=== PATIENT | male | born 1975 | race Caucasian/White ===

== ENCOUNTER 2017-12-12 19:18 | Emergency (ER) | payer SELFPAY ==
[2017-12-12 19:19] VITALS: BP 137/95; PULSE 87; RESP 16; TEMP 37.4; O2SAT 97; BMI 24.3
--- NOTE | 2017-12-12 19:55 | ED.VISSUMM ---
- ER Visit Summary Date of Service: 12/12/17 Chief Complaint: Bilateral eyes burning after welding History of Present Illness: The patient is a 42 M history of rheumatoid arthritis. No eye history. No eye surgery. He supposed to wear glasses but does not. Today he was welding a trailer at home said his she will came off multiple times. Several hours later he developed burning in both eyes. No foreign body. No trauma. He was not grinding. Denies any visual change. Says his eyes are burning and they are watering. No discharge. Physical Examination: Well-appearing middle-age male. Vital signs stable afebrile. HEENT exam pupils round reactive light. Bilateral eyes are injected. Watering. No discharge. No swelling. No preauricular lymphadenopathy. He can open and close his eyes. He has obvious photophobia. Upper and lower lids are unremarkable. No signs of trauma. Slight limp examination performed. Tetracaine was instilled in both eyes and gave him significant relief very quickly. Slit-lamp examination performed no signs of trauma or foreign body. Pupils are round and reactive to light bilaterally. External motions are intact. No facial swelling or redness. Lungs clear laterally. Heart regular rhythm no murmur. Otherwise exam unremarkable. There are no nerve palsies to his eyes. Test Results: None Emergency Department Course and Treatment: Tetracaine was instilled in both eyes. Gave him significant relief. The lab examination was performed. Exam and history consistent with bilateral ultraviolet keratitis. Or flash burn. Treatment Plan: Vision written for [place] for pain 14 no refill. Given tetracaine to use for only the next 24 hours for the pain. He was instructed to stop using it at this time tomorrow because of it retarding healing. Follow-up with auto design checker as needed. Disposition: Discharge Impression: Bilateral eye pain secondary to ultraviolet keratitis This note was generated with [employer] dictation software. It may contain incorrect words, spelling, and punctuation that were not noted in review of the chart prior to signing ED Disposition - Plan for ED Patient: Chief Complaint: Eye Problem Referrals: Carl Alonso III, MD [Primary Care Provider] -
--- NOTE | 2017-12-12 19:58 | ED.DCSUM_ITS ---
- ER Visit Summary Date of Service: 12/12/17 Chief Complaint: Bilateral eyes burning after welding History of Present Illness: The patient is a 42 M history of rheumatoid arthritis. No eye history. No eye surgery. He supposed to wear glasses but does not. Today he was welding a trailer at home said his she will came off multiple times. Several hours later he developed burning in both eyes. No foreign body. No trauma. He was not grinding. Denies any visual change. Says his eyes are burning and they are watering. No discharge. Physical Examination: Well-appearing middle-age male. Vital signs stable afebrile. HEENT exam pupils round reactive light. Bilateral eyes are injected. Watering. No discharge. No swelling. No preauricular lymphadenopathy. He can open and close his eyes. He has obvious photophobia. Upper and lower lids are unremarkable. No signs of trauma. Slight limp examination performed. Tetracaine was instilled in both eyes and gave him significant relief very quickly. Slit-lamp examination performed no signs of trauma or foreign body. Pupils are round and reactive to light bilaterally. External motions are intact. No facial swelling or redness. Lungs clear laterally. Heart regular rhythm no murmur. Otherwise exam unremarkable. There are no nerve palsies to his eyes. Test Results: None Emergency Department Course and Treatment: Tetracaine was instilled in both eyes. Gave him significant relief. The lab examination was performed. Exam and history consistent with bilateral ultraviolet keratitis. Or flash burn. Treatment Plan: Vision written for [place] for pain 14 no refill. Given tetracaine to use for only the next 24 hours for the pain. He was instructed to stop using it at this time tomorrow because of it retarding healing. Follow- up with labor relations director as needed. Disposition: Discharge Impression: Bilateral eye pain secondary to ultraviolet keratitis This note was generated with [employer] dictation software. It may contain incorrect words, spelling, and punctuation that were not noted in review of the chart prior to signing ED Disposition - Plan for ED Patient: Chief Complaint: Eye Problem Referrals: Carl Alonso III, MD [Primary Care Provider] -
--- NOTE | 2017-12-12 20:00 | DCINST.ED_ITS ---
ED Disposition - Plan for ED Patient: Disposition: Home or Assisted Living Chief Complaint: Eye Problem Instructions: ED Keratitis UV Prescriptions: Hydrocodone/Acetaminophen [[place] 7.5-325 Tablet] 1 ea PO Q4H PRN PRN #14 tab PRN Reason: Pain Referrals: Carl Alonso III, MD [Primary Care Provider] - Quan Merritt MD [STAFF PHYSICIAN] - 1-2 Days if not improving Additional Instructions: Use eyedrops in the next 24 hours to help decrease the burning. At this time the more stop using the drops. Cool compresses to your eyes to help decrease the pain. Motrin and limited [place] for pain. Sunglasses to prevent glare and help decrease the pain. Do not rub your eyes. Follow-up with the [employer] operations intelligence officer if not improving or return to ER if worse. This should progressively get better over the next 24-48 hours.
[2017-12-12] MEDS: Tetracaine 0.5% Ophthalmic Bottle 1 DRP EACH EYE (20:04)
[2017-12-12 20:14] VITALS: BP 134/85; PULSE 85; RESP 16; O2SAT 97
[2017-12-12 20:16] VITALS: BP 134/82; PULSE 85; RESP 16; O2SAT 97
== END 2017-12-12 20:17 | disposition home or self-care (01) ==
LOC: ED 20:06
PROVIDERS: Emergency Provider Emergency Medicine; Family Provider Family Medicine; PCP Family Medicine
DX: H16.8 Other keratitis (principal); M06.9 Rheumatoid arthritis, unspecified; Z72.0 Tobacco use
CPT/HCPCS: 99282

== ENCOUNTER 2018-02-19 10:34 | Emergency (ER) | payer MEDICAID, SELFPAY ==
[2018-02-19 10:35] VITALS: BP 141/92; PULSE 84; RESP 18; TEMP 36.6; O2SAT 100; BMI 21.4
--- NOTE | 2018-02-19 10:54 | ED.VISSUMM ---
- ER Visit Summary Date of Service: 02/19/18 Chief Complaint: [joint pains] History of Present Illness: The patient is a 42 M [that presents with bilateral hand and SI joint pains for several months. He has a history of rheumatoid arthritis since his 20s. He is not currently on any medication. He was previously seen a physician in [place] but now lives in this area and does not follow with any primary physician currently. He has a history of hepatitis C that was treated with interferon and for that reason he was no longer able to take his Embril so he is not currently on any biologic medication either. He describes pain in the joints of his hands and bilateral SI joints in his lower back. No fall or injury. No erythema, warmth, or evidence of joint infection. Vitals are stable. No other complaints.] Physical Examination: [General: The patient appears well and in no apparent distress. Patient is resting comfortably on cart. Skin: Warm, dry, no pallor noted. No rash. Head: Normocephalic, atraumatic Neck: Supple, nontender. ENT: Moist mucus membranes Cardiovascular: Regular Rate and Rhythm, no gallups or rubs Respiratory: Patient is in no distress, no accessory muscle use, lungs are clear to auscultation, no wheezing, rales or rhonchi Musculoskeletal: normal ROM, deformity of the joints of the hand secondary to RA - chronic and unchanged, no tenderness, no swelling. 2+ radial and DP pulses symmetric. No midline tenderness to the back. No erythema, warmth, or evidence of joint infection. All compartments are soft. GI: No tenderness to palpation, no masses appreciated. No rebound, guarding, or rigidity noted. Neurological: A&O, normal strength and sensation. Psychiatric: Cooperative] Test Results: [none] Emergency Department Course and Treatment: [I do not feel patient requires blood work or imaging at this time. He will be treated with Naprosyn and a dose of tramadol. She will be given a prescription for Naprosyn and a short-term prescription of tramadol for breakthrough pain. I spoke with him at length regarding the need for him to follow-up with a established primary provider who then can refer him to a channeler insole if needed. He was instructed to return with any new or worsening symptoms. Patient understands and is agreeable with this plan of care. Patient was discharged home in stable condition.] Treatment Plan: [See above] Disposition: [Discharge home] Impression: [Rheumatoid arthritis, arthralgias] This note was generated with [employer] dictation software. It may contain incorrect words, spelling, and punctuation that were not noted in review of the chart prior to signing ED Disposition - Plan for ED Patient: Disposition: Home or Assisted Living Chief Complaint: Other, Pain/Inj Instructions: What Is Arthritis? Prescriptions: traMADol [Ultram] 50 mg PO Q6H PRN PRN 3 Days #8 tab PRN Reason: Pain Naproxen [Naprosyn] 500 mg PO BID PRN #20 tab Referrals: Carl Alonso III, MD [Primary Care Provider] -
[2018-02-19] MEDS: Naproxen 500 MG Tablet PO (10:59)
[2018-02-19] MEDS: traMADol 50 MG Tablet PO (10:59)
== END 2018-02-19 11:17 | disposition home or self-care (01) ==
LOC: ED 11:06
PROVIDERS: Emergency Provider Emergency Medicine; Family Provider Family Medicine; PCP Family Medicine
DX: M06.9 Rheumatoid arthritis, unspecified (principal); M25.50 Pain in unspecified joint; Z72.0 Tobacco use; Z86.19 Personal history of other infectious and parasitic diseases
CPT/HCPCS: 99281

== ENCOUNTER 2018-02-24 00:42 | Emergency (ER) | payer MEDICAID, SELFPAY ==
[2018-02-24 00:43] VITALS: BP 133/83; PULSE 66; RESP 16; TEMP 36.7; O2SAT 99; BMI 23.3
[2018-02-24] MEDS: Naproxen 500 MG Tablet PO (01:21)
[2018-02-24] MEDS: HYDROcodone Bitartrate/Apap 5/325 Tablet PO (01:21)
--- NOTE | 2018-02-24 01:35 | RAD_ITS ---
STUDY: X-RAY - LEFT HAND, ATTENTION THUMB REASON FOR EXAM: Male, 42 years old. Patient is status post smashed thumb with TECHNIQUE: 3 view(s) of the finger were obtained. COMPARISON: None. FINDINGS: There are no fractures or dislocations. There is soft tissue swelling of the thumb. RAD/Finger(s) Min 2 Views IMPRESSION: Soft tissue swelling of the thumb. No fracture . Electronically Signed: Javier Orta, at 2:18 EDT Tel , Service support ,
--- NOTE | 2018-02-24 01:44 | ED.DCSUM_ITS ---
- ER Visit Summary Date of Service: 02/24/18 Chief Complaint: Left thumb pain History of Present Illness: The patient is a [address] Carl Alonso III. He is right-hand dominant. He hit his left thumb with a hammer at home. Is a sharp pain is 10 out of 10 severity. Is worsened by movement relieved by rest. He denies any paresthesias distally. Physical Examination: Vitals: Stable. Afebrile. General: Well-nourished and well-developed. Head: Normocephalic atraumatic. Neck: Supple, no lymphadenopathy. No JVD. Nontender. Cardiovascular: Regular rate and rhythm. No murmurs. Respiratory: No respiratory distress. Clear to auscultation bilaterally. Abdominal: Soft, nontender, nondistended, normal bowel sounds. No guarding, rebound, or peritoneal signs. Back: Nontender. Extremities: Moderate soft tissue swelling of the distal phalanx. There is approximately 10% subungual hematoma. There is no laceration. Skin: Normal color, no rash. Neurologic: Alert and oriented ?3. Cranial nerves II through XII are intact. Normal strength and sensation. Psych: Normal affect. Test Results: X-ray shows a tuft fracture. Emergency Department Course and Treatment: Patient was treated naproxen and [place]. He is resting comfortably. Treatment Plan: Patient will be discharged naproxen and 3 days of Forest. Instructed to follow-up his primary care physician in 2 weeks if not improving. Disposition: To home in improved and stable condition. Impression: 1. Left thumb tuft fracture. 2. 10% subungual hematoma left thumb. This note was generated with [employer] dictation software. It may contain incorrect words, spelling, and punctuation that were not noted in review of the chart prior to signing ED Disposition - Plan for ED Patient: Disposition: Home or Assisted Living Chief Complaint: Upper Extremity Injury Instructions: ED Fx Finger Closed Prescriptions: Hydrocodone/Acetaminophen [[place] 5-325 Tablet] 1 - 2 each PO 4X/DAY PRN PRN 5 Days #20 tablet PRN Reason: Pain Naproxen [Naprosyn] 500 mg PO BID #14 tablet Referrals: Patricia Queen DO [STAFF PHYSICIAN] - 1 Week if not improving
[2018-02-24 01:56] VITALS: BP 121/79; PULSE 83; RESP 22; O2SAT 98
--- NOTE | 2018-02-24 01:57 | ED.RN ---
THIS NURSE REVIEWED D/C INSTRUCTIONS WITH PT. PT VERBALIZED UNDERSTANDING OF INSTRUCTIONS. PT DENIES FURTHER NEEDS OR QUESTIONS AT THIS TIME. PT AMBULATES FROM ROOM ON OWN WITHOUT ASSISTANCE FROM STAFF
== END 2018-02-24 01:57 | disposition home or self-care (01) ==
LOC: ED 01:01
PROVIDERS: Emergency Provider Emergency Medicine
DX: S62.522A Displaced fracture of distal phalanx of left thumb, initial encounter for closed fracture (principal); S60.112A Contusion of left thumb with damage to nail, initial encounter; M06.9 Rheumatoid arthritis, unspecified; Z72.0 Tobacco use; W22.8XXA Striking against or struck by other objects, initial encounter; Y93.89 Activity, other specified; Y92.009 Unspecified place in unspecified non-institutional (private) residence as the place of occurrence of the external cause; Y99.8 Other external cause status
CPT/HCPCS: 73140; 99283

== ENCOUNTER 2018-04-02 11:08 | Emergency (ER) | payer MEDICAID, SELFPAY ==
[2018-04-02 11:10] VITALS: BP 125/82; PULSE 104; RESP 16; TEMP 36.6; O2SAT 94; BMI 22.1
[2018-04-02 11:52] LABS: Absolute Neutrophil Count 7.1 X10^3/uL (2.0-7.7); Basophil# 0.05 X10^3/uL; Basophil% 0.5 % (0-1); Eosinophil# 0.19 X10^3/uL; Hematocrit 51.2 % (40-54); Hemoglobin 17.6 g/dl (13.0-16.5); Lymphocyte % 16.6 % (19-41); Mean Corp Hgb Conc 34.4 g/gl (32-36); Mean Corpuscular Hgb 30.3 pg (27.0-32.0); Mean Corpuscular Volume 88.3 fL (80-94); Mean Platelet Vol. 8.9 fl (6.2-12.0); Monocyte# 0.65 X10^3/uL; Monocyte% 6.8 % (0-10); Neutrophil # 7.12 X10^3/uL (2.7-7.7); Platelet Count 236 K/mm3 (150-450); RBC Distribution Width CV 14.9 % (11.6-14.6); RBC Distribution Width SD 48.9 fl (35.1-43.9); White Blood Count 9.6 K/mm3 (4.4-11.0)
[2018-04-02] MEDS: Ketorolac 30 MG/ML Syringe IV (11:54)
[2018-04-02 11:59] LABS: POSITIVE COUNT NO; POSITIVE DIFFERENTIAL NO; POSITIVE MORPHOLOGY NO
[2018-04-02 12:02] LABS: Anion Gap 4 (5-15); BUN 6 mg/dL (7-18); BUN/Creat Ratio 6.9 RATIO (10-20); Calcium,Total 8.2 mg/dL (8.5-10.1); Chloride 108 mmol/L (98-107); Creatinine, Serum 0.87 mg/dL (0.70-1.30); EST Glomerular Filtration Rate 101 mL/min (>60); Est Glom Filt Rate - Afr Amer 122 mL/min (>60); Estimated Creatinine Clearance 105.36 ml/min; Glucose 109 mg/dL (74-106); Sodium Level 138 mmol/L (136-145)
[2018-04-02 12:08] LABS: Bacteria 0 SEEN /hpf (None Seen); Mucous, Urine 0 SEEN /hpf (<or=2+); Red Blood Cells-Urine 0 SEEN /hpf (0-5); Squamous Epithelial Cells - UA 0 SEEN /hpf (0-5); White Blood Cells 0 SEEN /hpf (0-5)
[2018-04-02 12:14] LABS: Color, Urine Yellow (Yellow); Glucose, Dipstick Normal (Normal); Ketone-Dipstick Negative (Negative); Leukocyte Esterase-Dipstick Negative /ul (Negative); Nitrite-Dipstick Negative (Negative); Occult Blood-Urine Negative /ul (Negative); Protein-Dipstick Negative (Negative); Urine Bilirubin Dipstick Negative (Negative); Urine Clarity Clear (Clear); Urine Urobilinogen Normal (Normal); Urine pH 6.5 (5.0 - 8.0)
--- NOTE | 2018-04-02 12:48 | ED.VISSUMM ---
- ER Visit Summary Date of Service: 04/02/18 Chief Complaint: Abdominal pain History of Present Illness: The patient is a 42 M who complains of abdominal pain. He states it started a week ago. He describes burning in the suprapubic area just below his umbilicus. It is worse with urination. He does admit to some dysuria. No nausea, vomiting, diarrhea or constipation. No hematuria. He took nothing for it at home. He denies any history of any surgeries Physical Examination: Vital signs reviewed. HEENT exam unremarkable. Heart is regular rate and rhythm without murmurs. Lungs are clear to auscultation. Abdomen is soft with suprapubic tenderness to palpation. Extremities reveal no edema. Skin exam normal. Neurologic exam normal. Test Results: Laboratory studies are normal except for a hemoglobin of 17.6 Emergency Department Course and Treatment: Patient was given Toradol. I do not see any focal reason as to why the patient has pain. I will give him naproxen for home. He will need to follow-up with his Treatment Plan: [] Disposition: Discharge Impression: Abdominal pain This note was generated with [employer] dictation software. It may contain incorrect words, spelling, and punctuation that were not noted in review of the chart prior to signing ED Disposition - Plan for ED Patient: Chief Complaint: Abd Pain Referrals: Brandt Nguyễn MD [Primary Care Provider] -
--- NOTE | 2018-04-02 12:54 | ED.DEP ---
ED Disposition - Plan for ED Patient: Disposition: Home or Assisted Living Chief Complaint: Abd Pain Instructions: ED Abdominal Pain Unkn Cause Prescriptions: Naproxen [Naprosyn] 500 mg PO BID PRN #20 tab Referrals: Brandt Nguyễn MD [Primary Care Provider] -
[2018-04-02 13:16] VITALS: BP 107/73; PULSE 60; RESP 18; O2SAT 99
== END 2018-04-02 13:17 | disposition home or self-care (01) ==
PROVIDERS: Emergency Provider Emergency Medicine; Family Provider Family Medicine; PCP Family Medicine
DX: R10.30 Lower abdominal pain, unspecified (principal); M06.9 Rheumatoid arthritis, unspecified; Z72.0 Tobacco use
CPT/HCPCS: 80048; 81001; 85025; 96374; 99283; A4216

== ENCOUNTER 2018-06-28 20:48 | Emergency (ER) | payer MEDICAID, SELFPAY ==
[2018-06-28 20:50] VITALS: BP 134/95; PULSE 102; RESP 18; TEMP 36.8; O2SAT 98; BMI 24.3
--- NOTE | 2018-06-28 21:41 | RAD_ITS ---
STUDY: X-RAY - LEFT KNEE REASON FOR EXAM: Male, 43 years old. Pain TECHNIQUE: 4 view(s) of the knee. COMPARISON: None. FINDINGS: Normal visualized distal femur. Normal visualized proximal tibia and fibula. Normal proximal tibiofibular articulation. Normal medial femorotibial compartment. Normal lateral femorotibial compartment. Normal patellofemoral articulation. The soft tissue structures are unremarkable. RAD/Knee 4 or More Views IMPRESSION: Normal x-ray examination of the knee. Electronically Signed: Geovanny Sahu DO at 21:55 EDT Tel [phone], Service support ,
--- NOTE | 2018-06-28 22:25 | ED.DCSUM_ITS ---
- ER Visit Summary Date of Service: 06/28/18 Chief Complaint: Left leg injury History of Present Illness: The patient is a 43 M who fell coming down off the roof of a camper. He states he landed with his left knee bent and underneath of him and landed more on the outside of the knee and leg. He notes pain particularly to the lateral aspect of the knee. He has been able to bear weight. No other injuries. Physical Examination: Afebrile vital signs are stable There is tenderness palpation along the lateral aspect of the knee. The ligaments appear stable. There is no joint effusion. There is no outward signs of trauma. Neurovascular intact distally. Test Results: X-rays of the knee were negative for fracture or joint effusion. Emergency Department Course and Treatment: Patient will be treated symptomatical ly anti-inflammatories, Holden wrap, rest. Follow-up with primary care 10-14 days if not improved return if worsening. Impression: 1. Right knee sprain This note was generated with [employer] dictation software. It may contain incorrect words, spelling, and punctuation that were not noted in review of the chart prior to signing ED Disposition - Plan for ED Patient: Disposition: Home or Assisted Living Chief Complaint: Lower Extremity Injury Instructions: ED Sprain Knee Referrals: Brandt Nguyễn MD [Primary Care Provider] - 10-14 Days if not better
[2018-06-28] MEDS: Ketorolac 10 MG Tablet PO (22:33)
[2018-06-28 22:35] VITALS: BP 122/60; PULSE 90; RESP 18; O2SAT 98
== END 2018-06-28 22:36 | disposition home or self-care (01) ==
PROVIDERS: Emergency Provider Emergency Medicine; Family Provider Family Medicine; PCP Family Medicine
DX: S83.92XA Sprain of unspecified site of left knee, initial encounter (principal); Z72.0 Tobacco use; X50.0XXA Overexertion from strenuous movement or load, initial encounter; Y93.89 Activity, other specified; Y92.89 Other specified places as the place of occurrence of the external cause; Y99.8 Other external cause status
CPT/HCPCS: 73564; 99283

== ENCOUNTER 2018-09-22 16:13 | Emergency (ER) | payer MEDICAID, SELFPAY ==
[2018-09-22 16:14] VITALS: BP 118/77; PULSE 95; RESP 16; TEMP 36.4; O2SAT 98; BMI 22.1
--- NOTE | 2018-09-22 16:56 | ED.DCSUM_ITS ---
- ER Visit Summary Date of Service: 09/22/18 Chief Complaint: Cough and congestion History of Present Illness: The patient is a 43 M presenting for evaluation secondary to cough and congestion. Patient reports over the course last 2 days he has developed some congestion, cough, sinus pressure. He has rhinorrhea associated with this. He denies any present sore throat. Denies any presence of fevers. Has not really tried any [id number] remedies for this. Review of systems otherwise negative. Physical Examination: Vital signs within normal limits. Well-nourished male. No sinus tenderness. TMs are clear. The swollen nasal turbinates, with no purulent drainage. Oropharynx is clear. Neck is supple, heart regular rate and rhythm, lungs sounds clear. Remainder of physical otherwise unremarkable. Test Results: None indicated Emergency Department Course and Treatment: Patient presented with upper respiratory symptoms. He likely has viral sinusitis as he is only had symptoms for 2 days. He was given Afrin and Sudafed. He was recommended other conservative treatments Disposition: Discharge Impression: 1. Viral sinusitis This note was generated with [employer] dictation software. It may contain incorrect words, spelling, and punctuation that were not noted in review of the chart prior to signing ED Disposition - Plan for ED Patient: Disposition: Home or Assisted Living Chief Complaint: Cold Sx Diagnosis: Sinusitis Instructions: ED Sinusitis No Abx Prescriptions: Pseudoephedrine HCl [Sudafed 12 Hour] 120 mg PO Q12H #12 tablet.er Referrals: Brandt Nguyễn MD [Primary Care Provider] -
[2018-09-22] MEDS: Oxymetazoline 0.05% 1 SPRAY SPRAY.BTL 2 SPRAY NASAL (17:07)
[2018-09-22 17:08] VITALS: RESP 18
== END 2018-09-22 17:21 | disposition home or self-care (01) ==
PROVIDERS: Emergency Provider Emergency Medicine; Family Provider Family Medicine; PCP Family Medicine
DX: J32.9 Chronic sinusitis, unspecified (principal); M06.9 Rheumatoid arthritis, unspecified; Z72.0 Tobacco use
CPT/HCPCS: 99283

== ENCOUNTER 2019-04-25 04:27 | Emergency (ER) | payer SELFPAY ==
[2019-04-25 04:29] VITALS: BP 130/89; PULSE 88; RESP 16; TEMP 36.8; O2SAT 97; BMI 23.6
--- NOTE | 2019-04-25 04:50 | ED.DCSUM_ITS ---
- ER Visit Summary Date of Service: 04/25/19 Chief Complaint: Eye pain History of Present Illness: The patient is a 43 M with right eye pain. He had been wearing his contact lenses for 2 days. These are new to him. His significant other help to remove the contact lens, and they believe she scratched his eye. He complains of right eye pain and watering. No other associated symptoms. Physical Examination: Fluorescein uptake at 4:00. No other injuries or abnormal findings. Pupils normal. Extraocular motion normal. Extraocular structures normal. Test Results: Emergency Department Course and Treatment: Patient has a corneal abrasion. Visual walden and acuity grossly intact. Discontinue contact lenses. Will use erythromycin ointment. Follow-up with ophthalmology for recheck. Return for new or worsening issues right away. Treatment Plan: As above Disposition: Discharge Impression: 1. Right eye corneal abrasion This note was generated with [employer] dictation software. It may contain incorrect words, spelling, and punctuation that were not noted in review of the chart prior to signing ED Disposition - Plan for ED Patient: Referrals: Brandt Nguyễn MD [Primary Care Provider] -
--- NOTE | 2019-04-25 04:52 | ED.DEP ---
ED Disposition - Plan for ED Patient: Instructions: ED Corneal Abrasion Prescriptions: Erythromycin Ophthalmic 1 applic RIGHT EYE 4X/DAY 5 Days opth.tube Prescription Printed Referrals: Quan Merritt MD [STAFF PHYSICIAN] -
[2019-04-25] MEDS: Tetracaine 0.5% Ophthalmic Bottle 1 DRP EACH EYE (04:58)
[2019-04-25] MEDS: Erythromycin Base 1 OPTH.TUBE 1 APPLIC RIGHT EYE (04:58)
[2019-04-25] MEDS: Fluorescein 1 MG STRIP 1 STRIP EACH EYE (04:58)
[2019-04-25 04:59] VITALS: BP 128/80; PULSE 79; RESP 16; O2SAT 98
== END 2019-04-25 05:02 | disposition home or self-care (01) ==
LOC: ED 04:56
PROVIDERS: Emergency Provider Emergency Medicine; Family Provider Family Medicine; PCP Family Medicine
DX: S05.01XA Injury of conjunctiva and corneal abrasion without foreign body, right eye, initial encounter (principal); X58.XXXA Exposure to other specified factors, initial encounter; Y93.89 Activity, other specified; Y92.009 Unspecified place in unspecified non-institutional (private) residence as the place of occurrence of the external cause; Y99.8 Other external cause status
CPT/HCPCS: 99282

== ENCOUNTER 2020-07-08 20:18 | Emergency (ER) | payer MEDICAID, SELFPAY ==
[2020-07-08 20:19] VITALS: BP 122/90; PULSE 90; RESP 16; TEMP 36.3; O2SAT 98; BMI 23.0
--- NOTE | 2020-07-08 21:17 | ED.DCSUM_ITS ---
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 Also history of rheumatoid arthritis. Patient is only on aspirin and no other anticoagulation. States he had a sudden onset of a headache around 4:00 today. States he typically does not get headaches. He denies any falls or trauma. No fever no neck pain. No change in his neurological status from his baseline with his left-sided paralysis. Physical Examination: Vital signs are stable afebrile initial blood pressure 122/90. Afebrile. H EENT exam unremarkable. Pupils round reactive light. Extra motions are intact. No facial droop. Normal speech. Neck nontender. No lymphadenopathy. No meningismus. Lungs clear to auscultation bilaterally. Heart regular rhythm no murmur. Abdomen soft nontender. 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 He also has chronic changes of the bones consistent with rheumatoid arthritis. He has normal strength and movement of the right upper and right lower extremities. Neurologically awake and alert. 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 Again that is old from a prior stroke from April of this year. No other acute or new neurological findings. Test Results: CAT scan of the brain without contrast shows old infarcts but no acute abnormality. No bleed. Read by the radiologist and reviewed by me. Emergency Department Course and Treatment: Patient treated for headache with IV fluids, Toradol and Reglan. I am obtaining a CT of his brain since it was sudden onset of a headache. On repeat exam at 10:35 PM patient is doing well. Headache is resolved. Neurologic exam is unchanged. He feels comfortable being discharged to home. Treatment Plan: Tylenol and/or Motrin for any further pain. Fluids and rest. Return if worse. Disposition: Discharge Impression: Acute headache History of a stroke with left-sided paralysis History of rheumatoid arthritis This note was generated with [employer] software. It may contain incorrect words, spelling, and punctuation that were not noted in review of the chart prior to signing ED Disposition - Plan for ED Patient: Referrals: Brandt Nguyễn MD [Primary Care Provider] -
[2020-07-08] MEDS: Ketorolac 30 MG/ML Syringe IV (21:29)
[2020-07-08] MEDS: 0.9% Normal Saline 1,000 ML 1000 ML IV (21:29)
[2020-07-08] MEDS: Metoclopramide 10 MG/2 ML Vial IV (21:29)
--- NOTE | 2020-07-08 21:38 | CT_ITS ---
STUDY: CT BRAIN WITHOUT CONTRAST REASON FOR EXAM: Male, 45 years old. HEADACHE RADIATION DOSAGE (If Supplied By Facility): CTDIvol = ( 44.99 ) mGy, DLP = ( 846.73 ) mGycm TECHNIQUE: Transaxial CT imaging of the brain was performed without administration of intravenous contrast material. Individualized dose optimization techniques were used for this CT. COMPARISON: No relevant priors. FINDINGS: Normal soft tissue structures. Normal calvarium. There is mild cerebral atrophy with widening of the extra-axial spaces and ventricular dilatation. There are low-attenuation foci throughout the right frontal, parietal and occipital lobes. Normal basal ganglia and thalami. Normal brainstem. There is mild cerebellar atrophy. There is no intracranial hemorrhage. There are no findings of an acute ischemic infarction. There is a rounded opacity within the right maxillary sinus consistent with a mucous retention cyst or polyp. CT/Brain/Head without Contrast IMPRESSION: Low attenuation foci throughout the right frontal, parietal and occipital lobes suggestive of old infarcts, consider MRI for further evaluation. Chronic involutional changes of the brain. Electronically Signed: Ritu Kelsey MD at 21:58 EST Tel , Service support ,
[2020-07-08 22:34] VITALS: BP 111/89; PULSE 67; RESP 16
--- NOTE | 2020-07-08 22:41 | ED.DEP ---
ED Disposition - Plan for ED Patient: Disposition: Home or Assisted Living Instructions: ED Headache Unspecified Referrals: Brandt Nguyễn MD [Primary Care Provider] - 3-5 Days if not improving Additional Instructions: Plenty of fluids and rest. Alternate Tylenol and Motrin for any pain. Follow-up with your doctor if not improving or return emergency department if feeling a lot worse. Your CAT scan tonight showed your old stroke but no new changes.
[2020-07-08 22:55] VITALS: RESP 16
== END 2020-07-08 22:55 | disposition home or self-care (01) ==
PROVIDERS: Emergency Provider Emergency Medicine; PCP Family Medicine
DX: R51.9 Headache, unspecified (principal); I63.9 Cerebral infarction, unspecified; I69.354 Hemiplegia and hemiparesis following cerebral infarction affecting left non-dominant side; M06.9 Rheumatoid arthritis, unspecified; Z72.0 Tobacco use
CPT/HCPCS: 70450; 96361; 96374; 96375; 99283; J7030

== ENCOUNTER 2020-10-09 13:00 | Outpatient (RCR) | payer MEDICAID, SELFPAY ==
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
--- NOTE | 2020-11-24 14:06 | HP.SP.DC_ITS ---
ST Discharge Summary - Discharged: Discharge: Julian Garcia is discharged from [facility] speech therapy as of 11/24/20 as no visits have been scheduled. His evaluation was on 10/09/20. No further visits were scheduled after his initial evaluation. A copy of this discharge will be sent to his referring physician. Thank you for allowing me to participate in the care of this patient.
== END 2020-10-09 19:00 | disposition home or self-care (01) ==
LOC: PT 13:00
PROVIDERS: PCP Family Medicine; Referring Provider Family Medicine; Visit Provider Family Medicine
DX: I69.354 Hemiplegia and hemiparesis following cerebral infarction affecting left non-dominant side (principal); R27.0 Ataxia, unspecified; R47.1 Dysarthria and anarthria
CPT/HCPCS: 92507; 97162

== ENCOUNTER 2021-10-25 10:14 | Emergency (ER) | payer MEDICAID, SELFPAY ==
[2021-10-25 10:15] VITALS: BP 130/92; PULSE 82; RESP 16; TEMP 35.7; O2SAT 98; BMI 26.7
--- NOTE | 2021-10-25 10:55 | EDS_ITS ---
HPI HPI - Fall History of Present Illness Chief Complaint: Fall Informant: patient Occured/Mechanism Occurred: Yesterday Mechanism/Context: Yes trip Pain/Injury Location: Left chest Pain Location: chest Quality of Pain: Aching Worsened by: Breathing, sneeze Relieved by: Nothing Associated Symptoms Associated Symptoms: Negative for Parasthesias, Weakness, Loss of function, Inability to ambulate, Loss of consciousness and Amnesia Narrative Narrative: Patient presents with left chest pain that began yesterday. Patient states he was going up some steps when he tripped and fell. Patient states he landed on the steps. Patient states he did not fall down the steps. Patient states his pain is over the left side of his chest. Patient describes his pain as aching. Patient states pain is worse with breathing and with sneezing. Patient denies any paresthesias or weakness. Patient denies any head injury or loss of consciousness. Patient denies any other injuries. [facility] Medical History High cholesterol Stroke Home Medications aspirin 325 mg PO DAILY 07/08/20 [History Last Taken 07/08/20] atorvastatin 80 mg PO DAILY 10/25/21 [History Last Taken Unknown] fluoxetine 10 mg PO DAILY 10/25/21 [History Last Taken Unknown] gabapentin 600 mg PO DAILY 10/25/21 [History Last Taken Unknown] hydrocodone-acetaminophen 1 tab PO Q6H PRN PRN 3 Days #10 tablet 10/25/21 [Rx Last Taken Unknown] Allergy/AdvReac Type Severity Reaction Status Date / Time cephalexin [From Keflex] Allergy Anaphylaxis Verified 07/08/20 20:21 hydroxychloroquine Allergy Other Verified 10/25/21 10:15 [From Plaquenil] Surgical History no surgical history no surgical history Social History Smoking Status: Current every day smoker tobacco type: cigarettes ROS ROS ED Constitutional Constitutional ED: Denies chills or fever(s) Eyes Eyes: Denies blurry vision or change in vision ENT ENT ED: Denies rhinorrhea or sore throat Cardiovascular Cardiovascular: Reports chest pain; Denies palpitations Respiratory/Chest Respiratory/Chest: Denies cough or dyspnea Gastrointestinal Gastrointestinal: Denies nausea or vomiting Genitourinary Genitourinary ED: Denies dysuria or hematuria Musculoskeletal Musculoskeletal: Reports back pain; Denies neck pain Integumentary Denies abscess or rash Neurologic Neurologic: Denies headache(s) or weakness Allergic/Immunologic Allergic/Immunologic ED: Denies mouth swelling or urticaria EXAM Physical Exam Const Vital Signs: 10/25/21 10:15 10/25/21 10:24 Temperature 96.3 F L Temperature Source Temporal Pulse Rate 82 Respiratory Rate 16 Respiratory Effort Normal Non-Labored Respiratory Depth Normal Respiratory Pattern Normal Blood Pressure 130/92 H Blood Pressure Mean 104 Pulse Ox 98 Oxygen Delivery Method Room Air Positive well nourished and well developed General Appearance ED: well developed HEENT Reports normocephalic atraumatic Neck full ROM and supple Chest Wall Chest Narrative: There is tenderness over the lateral aspect of the left chest. There is no bony crepitance or step-off noted. Resp normal respiratory effort and clear to auscultation bilaterally Cardio regular rate and regular rhythm GI non-tender Palpation: soft Extremity normal to inspection Neuro oriented x3, CN's II-XII intact bilaterally, moves all extremities, no focal motor deficits and no sensory deficits noted Neuro Narrative: Patient had previous stroke with left-sided weakness. There are no new neuro deficits noted. Sensorium / Orientation: alert MDM MDM MDM Narrative Medical decision making narrative: X-rays of the left ribs were obtained. There are 6 views. On my interpretation, there are nondisplaced fractures of the sixth, seventh, and eighth ribs. There is no pneumothorax. There is no acute cardiopulmonary process. Radiologist also interpreted the x-rays and agrees. Patient was given a dose of [place] here. Patient was given a prescription for Tesu[place]. Patient was instructed to take 10-15 deep breaths every hour while awake to prevent atelectasis and pneumonia. Patient was instructed to follow-up with his primary care physician in 5 to 7 days. Patient understood and was agreeable with the plan. All questions were answered. Radiography Diagnostic Testing: Clinical Impression(s) from Imaging Studies Ribs w/Chest X-Ray 10/25/21 11:08 IMPRESSION: RIBS: Acute oblique minimally displaced fractures are present at the lateral aspects of the left sixth, seventh, and eighth ribs, referred image #5 for the best image visualization. No pneumothorax or consolidation or pleural effusion is seen. Normal remaining ribs. CHEST: Normal x-ray examination of the chest. Electronically Signed: Álvaro Atkinson MD at 11:42 EST Reading Location ID and State: [facility] / [place] , Service support , Discharge Plan Triage Chief Complaint: Fall ED Provider: Zander Kirby Dx/Rx/DC Orders Clinical Impression: Multiple rib fractures Instructions: ED Rib Fracture Prescriptions: New hydrocodone-acetaminophen [hydrocodone-acetaminophen] 1 TABLET tablet 1 tab PO Q6H PRN PRN (Reason: Pain) 3 Days Qty: 10 RF: 0 No Action aspirin 325 MG tablet 325 mg PO DAILY RF: 0 atorvastatin 80 mg Tablet 80 mg PO DAILY RF: 0 fluoxetine 10 mg Tablet 10 mg PO DAILY RF: 0 gabapentin 600 mg Tablet 600 mg PO DAILY RF: 0 Primary Care Provider: Brandt Nguyễn Referrals: Brandt Nguyễn MD [Primary Care Provider] - 3-5 Days Disposition Disposition: Home, Self Care
[2021-10-25] MEDS: HYDROcodone Bitartrate/Apap 5/325 Tablet PO (11:04)
--- NOTE | 2021-10-25 11:08 | RAD_ITS ---
STUDY: X-RAY - UNILATERAL RIBS ( LEFT ) WITH CHEST REASON FOR EXAM: Male, 46 years old. PATIENT FELL YESTERDAY. PAIN IN LEFT LOWER TO MID RIBS LATERALLY RADIATING POSTERIORLY. TECHNIQUE - RIBS: 5 view(s) of the ribs. TECHNIQUE - CHEST: Single PA view of the chest. COMPARISON: None. FINDINGS - RIBS: Acute oblique minimally displaced fractures are present at the lateral aspects of the left sixth, seventh, and eighth ribs, referred image #5 for the best image visualization. No pneumothorax or consolidation or pleural effusion is seen. Normal remaining ribs. FINDINGS - CHEST: The lungs are clear and expanded. There is no demonstrated pleural abnormality. Normal size heart. Normal mediastinum and baldev. Normal visualized pulmonary arteries. Normal visualized aortic arch and descending thoracic aorta. Normal visualized thoracic spine. Normal visualized clavicles and shoulders. There is no demonstrated abnormality of the visualized soft tissue structures of the upper abdomen. RAD/Ribs Uni Min 3V w/PA Chest IMPRESSION: RIBS: Acute oblique minimally displaced fractures are present at the lateral aspects of the left sixth, seventh, and eighth ribs, referred image #5 for the best image visualization. No pneumothorax or consolidation or pleural effusion is seen. Normal remaining ribs. CHEST: Normal x-ray examination of the chest. Electronically Signed: Álvaro Atkinson MD at 11:42 EST ,
== END 2021-10-25 12:36 | disposition home or self-care (01) ==
PROVIDERS: Emergency Provider Emergency Medicine; PCP Family Medicine; Visit Provider Emergency Medicine
DX: S22.49XA Multiple fractures of ribs, unspecified side, initial encounter for closed fracture (principal); W10.9XXA Fall (on) (from) unspecified stairs and steps, initial encounter; E78.00 Pure hypercholesterolemia, unspecified; F17.210 Nicotine dependence, cigarettes, uncomplicated; Y93.89 Activity, other specified; Y99.9 Unspecified external cause status; Y92.9 Unspecified place or not applicable; Z79.82 Long term (current) use of aspirin; Z79.899 Other long term (current) drug therapy
CPT/HCPCS: 71101; 99283

== ENCOUNTER 2021-12-18 22:07 | Inpatient (IN) | payer MEDICAID, SELFPAY ==
--- NOTE | 2021-12-18 22:09 | CT_ITS ---
STUDY: CTA HEAD AND NECK WITH CONTRAST REASON FOR EXAM: Male, 46 years old. Neuro deficit, acute, stroke suspected RADIATION DOSAGE (If Supplied By Facility): CTDIvol = ( 34.37 ) mGy, DLP = ( 1903.04 ) mGycm TECHNIQUE: CT angiography was performed with a multi-detector CT scanner. Data acquisition was obtained from the skull base through the vertex following intravenous administration of IV 100mL Isovue-370. MIP images were reconstructed from the axial data set. Post-processing of the angiographic images was performed, with multiplanar reformation and 3D reconstruction. Individualized dose optimization techniques were used for this CT. COMPARISON: CT head immediately prior. No prior CTA. FINDINGS: ---CTA HEAD CAROTID ARTERIES: RIGHT: Occluded distal right ICA. Calcifications in the region. LEFT: No significant stenosis or occlusion. ANTERIOR CEREBRAL ARTERIES: No significant stenosis or occlusion. MIDDLE CEREBRAL ARTERIES: No significant stenosis or occlusion. POSTERIOR CEREBRAL ARTERIES: No significant stenosis or occlusion. Posterior communicating artery patent bilaterally. BASILAR ARTERY: No significant stenosis or occlusion. VERTEBRAL ARTERIES: No significant stenosis or occlusion. VENOUS STRUCTURES: Unremarkable. OTHER: Areas of decreased attenuation in the right frontal and parietal regions as shown on the CT. ---CTA NECK AORTIC ARCH: Unremarkable. Bovine arch. CAROTID ARTERIES: RIGHT: Proximal ICA occlusion at the origin, not opacified through the neck. LEFT: No significant stenosis. VERTEBRAL ARTERIES: No significant stenosis. Left vertebral arises directly from the aortic arch. OTHER ARTERIES: Unremarkable. VENOUS STRUCTURES: Unremarkable. BONES/SOFT TISSUES: Degenerative changes in the cervical spine.. OTHER: Prominent lymph nodes in the included mediastinum. CT/STROKE CTA Head AND Neck W/Con IMPRESSION: CTA head: Right distal ICA occlusion from the neck. No other significant stenosis or large vessel occlusion. CTA NECK: Right ICA occlusion at the origin of unknown chronicity. No other significant stenosis. MRI may be helpful to evaluate for acute infarct. I discussed the findings with Dr. Pike at 7:56 PM PT. N.B. : The above Results were Read Back by Odalys Steel MD to Paulette Pike MD, and understanding confirmed on 12/18/2021 22:57:56 (ET). Electronically Signed: Odalys Steel MD at 23:05 EDT ,
--- NOTE | 2021-12-18 22:09 | CT_ITS ---
STUDY: CT HEAD STROKE PROTOCOL W/O CONTRAST INJECTION REASON FOR EXAM: Male, 46 years old. Neuro deficit, acute, stroke suspected RADIATION DOSAGE (If Supplied By Facility): CTDIvol = ( ) mGy, DLP = ( ) mGycm TECHNIQUE: Transaxial CT imaging of the brain was performed without administration of intravenous contrast material. Individualized dose optimization techniques were used for this CT. COMPARISON: 07/08/2020 FINDINGS: Normal soft tissue structures. Normal calvarium. Normal size ventricles and extra-axial spaces for the patient''s age. Encephalomalacia and gliosis of the right frontal and parietal lobe, stable. Normal basal ganglia and thalami. Normal brainstem. Normal cerebellum. There is no intracranial hemorrhage. There are no findings of an acute ischemic infarction. Normal visualized paranasal sinuses. ASPECT score: 10 CT/STROKE Brain/Head without Cont IMPRESSION: No acute intracranial hemorrhage or mass effect. Stable old right MCA territory infarctions. N.B. : The above Results were Read Back by Royal Sepulveda MD (Brooks) to Paulette Pike and understanding confirmed on 12/18/2021 22:22:50 (ET). Electronically Signed: Royal Sepulveda MD (Brooks) at 22:25 EDT Reading Location ID and State: [facility] / [place] , Service support ,
--- NOTE | 2021-12-18 22:09 | EKG12_ITS ---
Test Reason : AMS Blood Pressure : / mmHG Vent. Rate : 097 BPM Atrial Rate : 097 BPM P-R Int : 172 ms QRS Dur : 076 ms QT Int : 330 ms P-R-T Axes : 064 037 040 degrees QTc Int : 419 ms Normal sinus rhythm Normal ECG Confirmed by DANII HERNANDEZ, NAWAF ([id number]), department editor NEISHA BENTLEY ([id number]) on 12/21/2021 9:24:13 AM Referred By: Confirmed By:NAWAF FOY MD
[2021-12-18 22:26] VITALS: BP 135/86; PULSE 108; RESP 16; TEMP 36.8; O2SAT 97; BMI 27.3
[2021-12-18 22:28] VITALS: BMI 27.3
--- NOTE | 2021-12-18 22:30 | CM.ED ---
SW Note SW met with patient's . indicated that last stroke was in [place] and she thought patient had a 30% deficit today. stated that patient takes gabapentin and was drinking alot today. SW provided emotional support. Margarita JAIN
[2021-12-18 22:32] LABS: Absolute Lymphocyte Count 3.44 X10^3/uL (0.83-4.51); Absolute Neutrophil Count 2.9 X10^3/uL (2.0-7.7); Basophil# 0.05 X10^3/uL; Basophil% 0.7 % (0-1); Eosinophils% 4.2 % (0-5); Hematocrit 51.6 % (40-54); Hemoglobin 17.2 g/dL (13.0-16.5); Lymphocyte # 3.44 X10^3/ul (0.83-4.51); Lymphocyte % 48.2 % (19-41); Mean Corp Hgb Conc 33.3 g/dL (32-36); Mean Corpuscular Hgb 30.3 pg (27.0-32.0); Mean Corpuscular Volume 90.8 fL (80-94); Mean Platelet Vol. 9.5 fl (6.2-12.0); Monocyte# 0.42 X10^3/uL; Monocyte% 5.9 % (0-10); NRBC Flagged by Analyzer 0 % (0-5); Neutrophil # 2.92 X10^3/uL (2.7-7.7); Neutrophil % 40.9 % (47-70); Platelet Count 238 K/mm3 (150-450); RBC Distribution Width SD 44.8 fl (35.1-43.9); Red Blood Count 5.68 M/mm3 (4.6-6.2); White Blood Count 7.1 K/mm3 (4.4-11.0)
--- NOTE | 2021-12-18 22:35 | ED.RN ---
PT SENT DIRECTLY TO CT SCAN, [facility] DONE AT [id number]
--- NOTE | 2021-12-18 22:55 | RAD_ITS ---
STUDY: X-RAY CHEST REASON FOR EXAM: Male, 46 years old. Neuro deficit, acute, stroke suspected TECHNIQUE: AP portable. 10:54 PM. COMPARISON: 10/25/2021. FINDINGS: LUNGS: No consolidation. Minimal focal opacity in the left lower lung is likely superimposed structures. No pneumothorax. MEDIASTINUM: Unremarkable. CARDIAC SILHOUETTE: Not enlarged. BONES AND SOFT TISSUES: No acute abnormalities. RAD/Chest 1 View IMPRESSION: No acute findings. Electronically Signed: Odalys Steel MD at 23:30 EDT ,
[2021-12-18 23:07] LABS: Prothrombin Time (Protime)PT. 12.6 SECONDS (11.7-14.9)
[2021-12-18 23:08] LABS: Partial Thromboplast Time 27.4 Seconds (24.1-36.2)
[2021-12-18 23:09] VITALS: BP 117/92; PULSE 84; RESP 14; TEMP 36.9; O2SAT 94
--- NOTE | 2021-12-18 23:21 | EDS_ITS ---
HPI History of Present Illness Chief Complaint: Neuro S/Sx Informant: patient and spouse/S.O. Onset/Context/Timing Onset: Today Narrative Narrative: Patient presents via EMS as a stroke alert. Patient has history of prior stroke in April 2020 that left him with left-sided deficits. Patient states that he has chronic weakness in his left arm and hand. Tonight at 9 PM while walking he started having to drag his left leg and had lost coordination in it. He also felt that his left arm symptoms were worse. Patient was met at the EMS bay and sent directly to CT scan after quick evaluation. [facility] Medical History (Updated 12/18/21 @ 23:[address] Paulette Pike MD) Alcohol abuse High cholesterol Rheumatoid arthritis Smoker Stroke Home Medications aspirin 325 mg PO DAILY 07/08/20 [History Last Taken 07/08/20] atorvastatin 80 mg PO DAILY 10/25/21 [History Last Taken Unknown] gabapentin 600 mg PO DAILY 10/25/21 [History Last Taken Unknown] Allergy/AdvReac Type Severity Reaction Status Date / Time cephalexin [From Keflex] Allergy Anaphylaxis Verified 12/18/21 22:12 fluoxetine [From Prozac] Allergy Itching Verified 12/18/21 23:50 hydroxychloroquine Allergy Other Verified 12/18/21 22:12 [From Plaquenil] Family History (Updated 12/19/21 @ 00:[address] Sathish Paredes MD) Other Rheumatoid arthritis Social History (Updated 12/19/21 @ 00:[address] Sathish Paredes MD) Smoking Status: Current every day smoker tobacco type: cigarettes ROS ROS ED Constitutional Constitutional ED: Denies chills or fever(s) Eyes Eyes: Denies blurry vision or change in vision ENT ENT ED: Denies rhinorrhea Cardiovascular Cardiovascular: Denies chest pain or palpitations Respiratory/Chest Respiratory/Chest: Denies cough or dyspnea Gastrointestinal Gastrointestinal: Denies abdominal pain, diarrhea, nausea or vomiting Musculoskeletal Musculoskeletal: Denies back pain or neck pain Integumentary Denies rash Neurologic Neurologic: Reports paresthesias and weakness; Denies headache(s) Hematologic/Lymphatic Hematologic/Lymphatic: Denies easy bleeding or easy bruising Allergic/Immunologic Allergic/Immunologic ED: Denies urticaria EXAM Physical Exam Const Vital Signs: 12/18/21 22:16 12/18/21 22:26 12/18/21 23:09 Temperature 98.2 F 98.4 F Temperature Source Temporal Temporal Pulse Rate 108 H 84 Respiratory Rate 16 14 Blood Pressure 135/86 H 117/92 H Blood Pressure Mean 102 100 Pulse Ox 97 94 Oxygen Delivery Method Room Air Nasal Cannula Room Air Oxygen Flow Rate (L/min) 2 12/18/21 23:30 12/18/21 23:33 Temperature 98.1 F Temperature Source Temporal Pulse Rate 89 Respiratory Rate 12 17 Blood Pressure 123/86 H Blood Pressure Mean 98 Pulse Ox 96 Oxygen Delivery Method Room Air Oxygen Flow Rate (L/min) Positive well nourished and well developed General Appearance ED: well developed HEENT Reports moist mucous membranes Eyes PERRL and EOMs intact bilaterally Neck supple Chest Wall inspection of chest normal and palpation of chest normal Resp normal respiratory effort and clear to auscultation bilaterally Cardio Rate: regular rate Rhythm: regular rhythm GI normal to inspection, nondistended, normoactive bowel sounds, soft to palpation and non-tender Extremity Extremity Narrative: Chronic hand contracture on the left. Neuro oriented x3 Neuro Narrative: Left-sided weakness, arm greater than leg Sensorium / Orientation: alert STROKE Vital Signs/Narrative: Vital Signs Temp Pulse Resp BP Pulse Ox 12/18/21 23:33 17 12/18/21 23:30 98.1 F 89 12 123/86 H 96 12/18/21 23:09 98.4 F 84 14 117/92 H 94 12/18/21 22:26 98.2 F 108 H 16 135/86 H 97 Inital Vital Signs reviewed: Yes NIHSS Initial: 1a Level of Consciousness: 0 1b LOC Questions (Score 2 if aphasic/stupor): 0 1c LOC Commands (Only score 1st attempt): 0 2 Best Gaze (If aphasic, use reflexive mvmts.): 0 4 Facial Palsy: 0 5 Motor Arm Right (UN = amputation/fusion): 0 5 Motor Arm Left: 2 6 Motor Leg Right: 0 6 Motor Leg Left: 0 7 Limb ataxia (Only + if out of proportion): 1 8 Sensory (Aphasia/stupor=0 or 1, coma=2): 1 9 Best Language: 0 10 Dysarthria (mute, coma=2, intubated=UN): 0 11 Extinction and Inattention (only scored if +): 0 Total Score: 4 MDM MDM MDM Narrative Medical decision making narrative: Patient made prehospital stroke alert. Patient sent immediately to CT and CTA. Lab work obtained. Lab Data Attestation: I reviewed the patient's lab results. Labs: Laboratory Results - last 24 hr 12/18/21 12/18/21 12/18/21 22:00 22:00 22:00 WBC 7.1 RBC 5.68 Hgb 17.2 H Hct 51.6 MCV 90.8 MCH 30.3 MCHC 33.3 RDW Std Deviation 44.8 H RDW Coeff of Jony 16.0 H Plt Count 238 MPV 9.5 Immature Gran % (Auto) 0.100 Neut % (Auto) 40.9 L Lymph % (Auto) 48.2 H Armstrong % (Auto) 5.9 Eos % (Auto) 4.2 Baso % (Auto) 0.7 Absolute Neuts (auto) 2.9 Absolute Lymphs (auto) 3.44 Nucleated RBC % 0 PT Cancelled INR Cancelled APTT Cancelled Sodium Cancelled Potassium Cancelled Chloride Cancelled Carbon Dioxide Cancelled Anion Gap Cancelled BUN Cancelled Creatinine Cancelled Estim Creat Clear Calc Cancelled Est GFR (MDRD) Af Amer Cancelled Est GFR (MDRD) Non-Af Cancelled BUN/Creatinine Ratio Cancelled Glucose Cancelled Calcium Cancelled Troponin I High Sens Cancelled Ethyl Alcohol 12/18/21 12/18/21 12/18/21 22:45 22:45 23:00 WBC RBC Hgb Hct MCV MCH MCHC RDW Std Deviation RDW Coeff of Jony Plt Count MPV Immature Gran % (Auto) Neut % (Auto) Lymph % (Auto) Armstrong % (Auto) Eos % (Auto) Baso % (Auto) Absolute Neuts (auto) Absolute Lymphs (auto) Nucleated RBC % PT 12.6 INR 1.0 APTT 27.4 Sodium Cancelled Potassium Cancelled Chloride Cancelled Carbon Dioxide Cancelled Anion Gap Cancelled BUN Cancelled Creatinine Cancelled Estim Creat Clear Calc Cancelled Est GFR (MDRD) Af Amer Cancelled Est GFR (MDRD) Non-Af Cancelled BUN/Creatinine Ratio Cancelled Glucose Cancelled Calcium Cancelled Troponin I High Sens Cancelled Ethyl Alcohol 71.0 12/18/21 23:26 WBC RBC Hgb Hct MCV MCH MCHC RDW Std Deviation RDW Coeff of Jony Plt Count MPV Immature Gran % (Auto) Neut % (Auto) Lymph % (Auto) Armstrong % (Auto) Eos % (Auto) Baso % (Auto) Absolute Neuts (auto) Absolute Lymphs (auto) Nucleated RBC % PT INR APTT Sodium 140 Potassium 3.7 Chloride 109 H Carbon Dioxide 21.0 Anion Gap 10 BUN 17 Creatinine 0.77 Estim Creat Clear Calc 118.60 Est GFR (MDRD) Af Amer 138 Est GFR (MDRD) Non-Af 114 BUN/Creatinine Ratio 22.0 H Glucose 104 Calcium 8.8 Troponin I High Sens < 3 L Ethyl Alcohol Radiography Chest X-Ray - ED: 1 View, Read by ED Physician, Normal, Heart, Lungs and Mediastinum Diagnostic Testing: Clinical Impression(s) from Imaging Studies Brain CT 12/18/21 22:09 IMPRESSION: No acute intracranial hemorrhage or mass effect. Stable old right MCA territory infarctions. N.B. : The above Results were Read Back by Royal Sepulveda MD (Brooks) to Paulette Pike and understanding confirmed on 12/18/2021 22:22:50 (ET). Electronically Signed: Royal Sepulveda MD (Brooks) at 22:25 EDT , Head/Neck CTA 12/18/21 22:09 IMPRESSION: CTA head: Right distal ICA occlusion from the neck. No other significant stenosis or large vessel occlusion. CTA NECK: Right ICA occlusion at the origin of unknown chronicity. No other significant stenosis. MRI may be helpful to evaluate for acute infarct. I discussed the findings with Dr. Pike at 7:56 PM PT. N.B. : The above Results were Read Back by Odalys Steel MD to Paulette Pike MD, and understanding confirmed on 12/18/2021 22:57:56 (ET). Electronically Signed: Odalys Steel MD at 23:05 EDT , ADDENDUM: 12/18/21 [id number] IMPRESSION: CTA head: Right distal ICA occlusion from the neck. No other significant stenosis or large vessel occlusion. CTA NECK: Right ICA occlusion at the origin of unknown chronicity. No other significant stenosis. MRI may be helpful to evaluate for acute infarct. I discussed the findings with Dr. Pike at 7:56 PM PT. N.B. : The above Results were Read Back by Odalys Steel MD to Paulette iPke MD, and understanding confirmed on 12/18/2021 22:57:56 (ET). Electronically Signed: Odalys Steel MD at 23:05 EDT , Chest X-Ray 12/18/21 22:55 IMPRESSION: No acute findings. Electronically Signed: Odalys Steel MD at 23:30 EDT , EKG Initial EKG: Attestation: I personally reviewed and interpreted this EKG as follows: Interpretation: Sinus Rhythm (Sinus at 97 with no acute ischemia.) Treatment and Re-Evaluation Narrative: Patient reevaluated on arrival to the ED room after being sent directly to CT. NIH equals 4, but has NIH of 2 at baseline chronically. Patient was evaluated on the robot by neurologist at [facility]. Because the patient was improved and essentially back to baseline tPA was not indicated. CTA did reveal RCA occlusion at the neck, unable to determine if acute or chronic. I did speak with the stroke neurologist again. This is likely chronic's given the patient's prior strokes in this distribution. She did not feel the patient needed transfer to [facility] for any further intervention. She does recommend admission for MRI and further management. I will speak with the hospitalist. Stroke Documentation Questions Stroke Team Activated: Yes IV Alteplase (t-PA) Administered: No Discharge Plan Dx/Rx/DC Orders Clinical Impression: CVA (cerebral vascular accident) Disposition Disposition: Acute Care Hospital [facility] Discharge Date/Time: 12/19/21 00:13
[2021-12-18 23:30] VITALS: BP 123/86; PULSE 89; RESP 12; TEMP 36.7; O2SAT 96
[2021-12-18 23:33] VITALS: RESP 17
[2021-12-18 23:44] VITALS: BMI 27.3
[2021-12-18 23:59] LABS: Anion Gap 10 (5-15); BUN 17 mg/dL (7-18); Calcium,Total 8.8 mg/dL (8.5-10.1); Chloride 109 mmol/L (98-107); Creatinine, Serum 0.77 mg/dL (0.70-1.30); EST Glomerular Filtration Rate 114 mL/min (>60); Est Glom Filt Rate - Afr Amer 138 mL/min (>60); Glucose 104 mg/dL (74-106); Potassium 3.7 mmol/L (3.5-5.1); Sodium Level 140 mmol/L (136-145); Troponin-I HS < 3 pg/mL (3.0-78.0)
[2021-12-19] VITALS (13 sets, daily range): BP systolic 117–140; BP diastolic 68–95; PULSE 68–89; RESP 16–19; TEMP 36.2–36.9; O2SAT 92–97; BMI 26.3
--- NOTE | 2021-12-19 | HP.PCM.HOS_ITS ---
HPI - General General Date of Admission: 12/18/21 HPI Narrative ROBBI REYNOLDS, is a 46 M who presents to the hospital with left arm and leg weakness. He had had a stroke back in April and has permanent loss of function in his left hand and he has decreased sensation in his left arm compared to his right. He also had significant weakness in his left lower extremity. These have all resolved at this time and he is back to his baseline functioning. CTA of the neck did show a right ICA occlusion, this was a run by [facility] neurology which felt that this is likely chronic and is the cause of his previous stroke back in April. He is already on aspirin and Lipitor. [facility] Medical History (Updated 12/18/21 @ 23:[address] Paulette Pike MD) High cholesterol Rheumatoid arthritis Stroke Home Medications aspirin 325 mg PO DAILY 07/08/20 [History Last Taken 07/08/20] atorvastatin 80 mg PO DAILY 10/25/21 [History Last Taken Unknown] gabapentin 600 mg PO DAILY 10/25/21 [History Last Taken Unknown] hydrocodone-acetaminophen 1 tab PO Q6H PRN PRN 3 Days #10 tablet 10/25/21 [Rx Last Taken Unknown] Allergy/AdvReac Type Severity Reaction Status Date / Time cephalexin [From Keflex] Allergy Anaphylaxis Verified 12/18/21 22:12 fluoxetine [From Prozac] Allergy Itching Verified 12/18/21 23:50 hydroxychloroquine Allergy Other Verified 12/18/21 22:12 [From Plaquenil] Family History (Updated 12/19/21 @ 00:[address] Sathish Paredes MD) Other Rheumatoid arthritis no surgical history Social History (Updated 12/19/21 @ 00:[address] Sathish Paredes MD) Smoking Status: Current every day smoker tobacco type: cigarettes ROS Constitutional Constitutional: Denies chills, fatigue, fever(s) or malaise Eyes Eyes: Denies blurry vision ENT HEENT: Denies headache(s) or nasal discharge Cardiovascular Cardiovascular: Denies chest pain, dyspnea on exertion or syncope Respiratory/Chest Respiratory/Chest: Denies cough, shortness of breath at rest or shortness of breath with exertion Gastrointestinal Gastrointestinal: Denies constipation, diarrhea, nausea or vomiting Genitourinary Genitourinary: Denies dysuria Neurologic Neurologic: Reports focal weakness; Denies numbness or tremor(s) Psychiatric Psychiatric: Denies anxiety or depression Vital Signs Vital Signs Vital Signs: 12/18/21 22:16 12/18/21 22:26 12/18/21 23:09 Temperature 98.2 F 98.4 F Temperature Source Temporal Temporal Pulse Rate 108 H 84 Respiratory Rate 16 14 Blood Pressure 135/86 H 117/92 H Blood Pressure Mean 102 100 Pulse Ox 97 94 Oxygen Delivery Method Room Air Nasal Cannula Room Air Oxygen Flow Rate (L/min) 2 12/18/21 23:30 12/18/21 23:33 Temperature 98.1 F Temperature Source Temporal Pulse Rate 89 Respiratory Rate 12 17 Blood Pressure 123/86 H Blood Pressure Mean 98 Pulse Ox 96 Oxygen Delivery Method Room Air Oxygen Flow Rate (L/min) Weight Weight: 185 lb 3.013 oz Body Mass Index (BMI) 27.3 Physical Exam Const alert, oriented x3 and no apparent distress General Appearance: cooperative HEENT normocephalic and moist oral mucous membranes Eyes PERRL, EOMs intact bilaterally and conjunctivae normal Neck supple and no JVD Resp normal respiratory effort, no retractions, no use of accessory muscles and clear to auscultation bilaterally Auscultation: Negative for crackles, rales, rhonchi or wheezes Cardio regular rate, regular rhythm, S1 normal heart sound, S2 normal heart sound and no murmurs GI soft to palpation, non-tender and non-distended; Negative for hepatosplenomegaly Extremity no clubbing, cyanosis or edema Skin no rashes or lesions noted Neuro Neuro Narrative: Left hand is contracted, but he is able to lift it he has diminished sensation in his left arm compared to his right arm. He has diminished sensation his left leg compared to his right leg Psych affect normal Appearance: appropriate Results Lab / Micro Data Result Diagrams: 12/18/21 22:00 12/18/21 23:26 Labs: Laboratory Results - last 24 hr 12/18/21 22:00: WBC 7.1, RBC 5.68, Hgb 17.2 H, Hct 51.6, MCV 90.8, MCH 30.3, MCHC 33.3, RDW Std Deviation 44.8 H, RDW Coeff of Jony 16.0 H, Plt Count 238, MPV 9.5, Immature Gran % (Auto) 0.100, Neut % (Auto) 40.9 L, Lymph % (Auto) 48.2 H, [place] % (Auto) 5.9, Eos % (Auto) 4.2, Baso % (Auto) 0.7, Absolute Neuts (auto) 2.9, Absolute Lymphs (auto) 3.44, Nucleated RBC % 0 12/18/21 22:00: PT Cancelled, INR Cancelled, APTT Cancelled 12/18/21 22:00: Sodium Cancelled, Potassium Cancelled, Chloride Cancelled, Carbon Dioxide Cancelled, Anion Gap Cancelled, BUN Cancelled, Creatinine Cancelled, Estim Creat Clear Calc Cancelled, Est GFR (MDRD) Af Amer Cancelled, Est GFR (MDRD) Non-Af Cancelled, BUN/Creatinine Ratio Cancelled, Glucose Cancelled, Calcium Cancelled, Troponin I High Sens Cancelled 12/18/21 22:45: Ethyl Alcohol 71.0 12/18/21 22:45: PT 12.6, INR 1.0, APTT 27.4 12/18/21 23:00: Sodium Cancelled, Potassium Cancelled, Chloride Cancelled, Carbon Dioxide Cancelled, Anion Gap Cancelled, BUN Cancelled, Creatinine Cancelled, Estim Creat Clear Calc Cancelled, Est GFR (MDRD) Af Amer Cancelled, Est GFR (MDRD) Non-Af Cancelled, BUN/Creatinine Ratio Cancelled, Glucose Cancelled, Calcium Cancelled, Troponin I High Sens Cancelled 12/18/21 23:26: Sodium 140, Potassium 3.7, Chloride 109 H, Carbon Dioxide 21.0, Anion Gap 10, BUN 17, Creatinine 0.77, Estim Creat Clear Calc 118.60, Est GFR (MDRD) Af Amer 138, Est GFR (MDRD) Non-Af 114, BUN/Creatinine Ratio 22.0 H, Glucose 104, Calcium 8.8, Troponin I High Sens < 3 L Radiology Impression Brain CT 12/18/21 22:09 IMPRESSION: No acute intracranial hemorrhage or mass effect. Stable old right MCA territory infarctions. N.B. : The above Results were Read Back by Royal Sepulveda MD (Brooks) to Paulette Pike and understanding confirmed on 12/18/2021 22:22:50 (ET). Electronically Signed: Royal Sepulveda MD (Brooks) at 22:25 EDT , Head/Neck CTA 12/18/21 22:09 IMPRESSION: CTA head: Right distal ICA occlusion from the neck. No other significant stenosis or large vessel occlusion. CTA NECK: Right ICA occlusion at the origin of unknown chronicity. No other significant stenosis. MRI may be helpful to evaluate for acute infarct. I discussed the findings with Dr. Pike at 7:56 PM PT. N.B. : The above Results were Read Back by Odalys Steel MD to Paulette Pike MD, and understanding confirmed on 12/18/2021 22:57:56 (ET). Electronically Signed: Odalys Steel MD at 23:05 EDT , ADDENDUM: 12/18/21 2311 IMPRESSION: CTA head: Right distal ICA occlusion from the neck. No other significant stenosis or large vessel occlusion. CTA NECK: Right ICA occlusion at the origin of unknown chronicity. No other significant stenosis. MRI may be helpful to evaluate for acute infarct. I discussed the findings with Dr. Pike at 7:56 PM PT. N.B. : The above Results were Read Back by Odalys Steel MD to Paulette Pike MD, and understanding confirmed on 12/18/2021 22:57:56 (ET). Electronically Signed: Odalys Steel MD at 23:05 EDT , Chest X-Ray 12/18/21 22:55 IMPRESSION: No acute findings. Electronically Signed: Odalys Steel MD at 23:30 EDT , Assessment & Plan Assessment/Plan (1) CVA (cerebral vascular accident): PLAN: 1. CVA ? Had a stroke in April that is led to all of his current deficits ? He is back to baseline ? Continue with his aspirin and Lipitor, will add Plavix ? MRI and echo are pending but these will not likely occur until Monday ? CTA of the head and neck shows occlusion of the right ICA, this was discussed with [facility] neurology and they felt that this was likely the explanation for his initial stroke and did not feel that he met criteria for transfer 2. Rheumatoid arthritis ? Stable, continue with gabapentin ? States that he has a lot of pain but he does not want to take narcotic so he drinks and he is not interested in going through detox at the moment therefore we will provide him with beers with meals to prevent withdrawal 3. Tobacco abuse ? Discussed cessation ? Nicotine patch ordered DVT: Ambulation Charges/Coding Visit Charges Inpatient E&M: 46324 Init Hosp L2
--- NOTE | 2021-12-19 00:08 | ED.RN ---
I am not able to get into the chart for documentation, because hospitalist is in the chart. It will not let me document and I have been trying for over 15 minutes. The patient's home medication list is all correct EXCEPT he does not take Prozac/fluoxetine due to allergy, noted as itching,
--- NOTE | 2021-12-19 00:22 | MRI_ITS ---
EXAM: MR HEAD WITHOUT INTRAVENOUS CONTRAST CLINICAL INDICATION: CVA TECHNIQUE: Multiplanar and multisequence MR images of the brain were obtained without intravenous contrast. This report was created using [employer] report generation technology. COMPARISON: CT head without contrast 12/18/2021. FINDINGS: BRAIN AND EXTRA-AXIAL SPACES: No diffusion restriction to suspect acute or subacute ischemic infarct. Old cortical-based ischemic infarcts with cystic encephalomalacia and atrophy involving the right frontal lobe and right parietal lobe. No intra- or extra-axial hemorrhage. No intracranial mass or mass effect. Posterior fossa structures are unremarkable. No hydrocephalus. Basal cisterns are patent. SELLA: Unremarkable. Normal sella turcica, pituitary gland, infundibular stalk, optic chiasm and hypothalamus. AUDITORY SYSTEM: Unremarkable. The internal auditory canals are patent. BONES/JOINTS: Unremarkable. No discrete lytic or blastic abnormalities. SINUSES: Mucosal thickening in the paranasal sinuses are unchanged. MASTOID AIR CELLS: Unremarkable as visualized. Clear. ORBITS: Unremarkable as visualized. Both globes, extraocular muscles, optic nerves and retrobulbar fat appear unremarkable. VASCULATURE: Unremarkable as visualized. Normal flow voids in the major intracranial circulation. MRI/Brain without Contrast IMPRESSION: 1. No MRI evidence of acute or subacute ischemic infarct or intracranial mass. 2. Old cortical-based ischemic infarct with cystic encephalomalacia and atrophy in the right frontal lobe and right parietal lobe. 3. No significant interval change when compared to CT head scan of 12/18/2021. Electronically Signed: Burton Ibarra MD at 13:36 EDT ,
--- NOTE | 2021-12-19 00:22 | ECHOD_ITS ---
Reason For Study: TIA/CVA Procedure This was a 2D Doppler, Color Flow transthoracic echocardiogram. The study was technically difficult. Exam performed portable in patient room. Left Ventricle Normal LV size. Left ventricular systolic function is normal. The estimated ejection fraction is 60 %. Transmitral doppler flow suggestive of impaired relaxation of left ventricle. No regional wall motion abnormalities noted. Right Ventricle Normal RV size. Normal systolic function. Atria Normal left atrium. Normal right atrium. No doppler evidence for ASD. Bubble contrast study negative for right to left interatrial shunt. Mitral Valve There is no mitral annular calcification. Normal mitral valve. Trivial mitral valve insufficiency. Tricuspid Valve Normal tricuspid valve. Trivial tricuspid valve insufficiency. Unable to estimate RV systolic pressure/pulmonary artery pressure due to technically difficult study. Aortic Valve Trisinus/trileaflet aortic valve. Mild focal aortic valve thickening. Pulmonic Valve The pulmonic valve is not well visualized. Great Vessels Normal sized aortic root. Pericardium/Pleural No pericardial effusion. Medication Performed a rapid injection of agitated mix of 9 cc saline and 1cc air to assess for atrial septal defect. MMode/2D Measurements & Calculations LVIDd: 3.6 cm IVSd: 1.0 cm Ao root diam: 3.7 cm LVIDs: 2.1 cm LVPWd: 1.1 cm RVDd: 2.8 cm FS: 41.8 % LAV(MOD-bp): 26.7 ml LVAd ap4: 21.9 cm2 LVAd ap2: 25.9 cm2 LAV(MOD-bp) Indexed: 13.4 ml/m2 LVLd ap4: 8.0 cm LVLd ap2: 9.4 cm LAV(MOD-sp2): 29.1 ml EDV(MOD-sp4): 51.2 ml EDV(MOD-sp2): 59.8 ml LAV(MOD-sp4): 24.1 ml EDV(sp4-el): 51.1 ml EDV(sp2-el): 60.6 ml LVAs ap4: 13.0 cm2 LVAs ap2: 13.0 cm2 LVLs ap4: 7.2 cm LVLs ap2: 7.7 cm ESV(MOD-sp4): 20.0 ml ESV(MOD-sp2): 19.8 ml ESV(sp4-el): 20.0 ml ESV(sp2-el): 18.8 ml EF(MOD-sp4): 60.9 % EF(MOD-sp2): 66.8 % EF(sp4-el): 61.0 % SV(MOD-sp4): 31.1 ml SV(MOD-sp2): 39.9 ml SV(sp4-el): 31.2 ml LA A4 area: 11.2 cm2 LA dimension(2D): 3.4 cm RA A4 area: 10.5 cm2 Doppler Measurements & Calculations MV E max jeb: 54.0 cm/sec Lat Peak E' Jeb: 11.4 cm/sec Med Peak E' Jeb: 8.7 cm/sec MV A max jeb: 76.0 cm/sec E/E' lat: 4.7 E/E' med: 6.2 MV E/A: 0.71 Ao V2 max: 107.7 cm/sec LV V1 max: 83.6 cm/sec PA V2 max: 88.9 cm/sec Ao max P.6 mmHg LV V1 max P.8 mmHg ECHO/Echo Complete Interpretation Summary The study was technically difficult. Left ventricular systolic function is normal. The estimated ejection fraction is 60 %. Trivial mitral valve insufficiency. Trivial tricuspid valve insufficiency. Mild focal aortic valve thickening. Unable to estimate RV systolic pressure/pulmonary artery pressure due to techni bhaskar difficult study. Transmitral doppler flow suggestive of impaired relaxation of left ventricle Bubble contrast study negative for right to left interatrial shunt. Ordering Physician: Sathish Paredes Referring Physician: MD Delma Brandt Performed By: Luly Perez RDCS
[2021-12-19 06:00] LABS: Absolute Lymphocyte Count 3.24 X10^3/uL (0.83-4.51); Absolute Neutrophil Count 2.4 X10^3/uL (2.0-7.7); Basophil# 0.07 X10^3/uL; Basophil% 1.1 % (0-1); Eosinophil# 0.27 X10^3/uL; Eosinophils% 4.1 % (0-5); Hematocrit 44.6 % (40-54); Hemoglobin 15.4 g/dL (13.0-16.5); Lymphocyte # 3.24 X10^3/ul (0.83-4.51); Lymphocyte % 49.2 % (19-41); Mean Corp Hgb Conc 34.5 g/dL (32-36); Mean Corpuscular Hgb 30.1 pg (27.0-32.0); Mean Corpuscular Volume 87.1 fL (80-94); Mean Platelet Vol. 9.3 fl (6.2-12.0); Monocyte# 0.59 X10^3/uL; NRBC Flagged by Analyzer 0 % (0-5); Neutrophil # 2.41 X10^3/uL (2.7-7.7); Neutrophil % 36.4 % (47-70); Platelet Count 196 K/mm3 (150-450); RBC Distribution Width SD 41.3 fl (35.1-43.9); Red Blood Count 5.12 M/mm3 (4.6-6.2); White Blood Count 6.6 K/mm3 (4.4-11.0)
[2021-12-19 06:47] LABS: Anion Gap 7 (5-15); BUN 18 mg/dL (7-18); BUN/Creat Ratio 22.7 RATIO (10-20); Calcium,Total 8.2 mg/dL (8.5-10.1); Chloride 105 mmol/L (98-107); Cholesterol 169 mg/dL (200); Creatinine, Serum 0.79 mg/dL (0.70-1.30); EST Glomerular Filtration Rate 111 mL/min (>60); Est Glom Filt Rate - Afr Amer 134 mL/min (>60); Glucose 119 mg/dL (74-106); High Density Lipoprotein 35 mg/dL; Potassium 3.4 mmol/L (3.5-5.1); Sodium Level 137 mmol/L (136-145); Triglycerides 226 mg/dL; Very Low Density Lipoprotein 45 mg/dL (5-40)
[2021-12-19] MEDS: Gabapentin 600 MG Tablet PO (08:28)
[2021-12-19] MEDS: Clopidogrel Bisulfate 75 MG Tablet PO (08:28)
[2021-12-19] MEDS: Aspirin 325 MG Tablet PO (08:28)
--- NOTE | 2021-12-19 08:30 | NURSING ---
This RN dropped off two 12 oz cans of beer to pt.
--- NOTE | 2021-12-19 11:12 | PN.HOSP_ITS ---
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 Patient had a stroke in April 2020 with residual weakness in left upper extremity with decreased sensation. Patient also has personal and family history of rheumatoid arthritis with joint deformity of bilateral fingers, wrist and shoulder joints. This time, left leg weakness has improved but is still left upper extremity weakness. CTA of the neck shows right ICA occlusion, chronic, had [facility] neurology consulted. Because of previous stroke in April 2020. Patient is on aspirin and Lipitor. Plavix added. Plan for MRI and echo on Monday. On exam Left forearm and hand weakness. Patient can lift little bit left arm at shoulder joint. Left lower extremity weakness 4+/5, improved but still slightly less than right side. Patient had mild slurring of his speech which improved. No dysarthria or dysphagia. No new urinary incontinence or bowel incontinence.
[2021-12-19] MEDS: Atorvastatin Calcium 80 MG Tablet PO (20:54)
[2021-12-20 02:00] VITALS: BP 117/89; PULSE 66; RESP 18; TEMP 36.2; O2SAT 96
[2021-12-20 03:00] VITALS: PULSE 72
[2021-12-20 07:00] VITALS: PULSE 78
--- NOTE | 2021-12-20 07:57 | NURSING ---
This RN dropped of two cans of beer with breakfast to patient per order.
[2021-12-20 08:14] VITALS: BP 128/85; PULSE 76; RESP 17; TEMP 36.6; O2SAT 96
[2021-12-20] MEDS: Gabapentin 600 MG Tablet PO (08:24)
[2021-12-20] MEDS: Aspirin 325 MG Tablet PO (08:24)
[2021-12-20] MEDS: Clopidogrel Bisulfate 75 MG Tablet PO (08:24)
--- NOTE | 2021-12-20 09:56 | PCM.DC ---
Discharge Instructions Diet Discharge Diet: Low fat / Low cholesterol and 2000 mg Sodium Diet Activity Discharge Activity: Return to Normal Activity Follow Up Care Test Results: Test results from this visit will be discussed in further detail at your follow-up appointment, if applicable. Discharge Plan Admission Admit Date/Time: 12/18/21 23:48 Primary Reason for Your Visit: Left sided weakness Attending Provider: Yeny Tolliver Primary Care Provider: Brandt Nguyễn Instructions Additional Instructions / Restrictions: Continue to take all your medications as prescribed Discharge Orders/Prescriptions Prescriptions: New nicotine 21 mg/24 hr Patch 24 Hour 21 mg transdermal DAILY 30 Days Qty: 28 RF: 0 Continued aspirin 325 MG tablet 325 mg PO DAILY RF: 0 atorvastatin 80 mg Tablet 80 mg PO DAILY RF: 0 gabapentin 600 mg Tablet 600 mg PO DAILY RF: 0 Referrals / Follow Up: Jesus Sutton MD [STAFF PHYSICIAN] - Within 2 Weeks Brandt Nguyễn MD [Primary Care Provider] - In 1 Week Disposition Disposition (needs filled in before D/C Order can be placed): Home, Self Care
--- NOTE | 2021-12-20 10:10 | CASEMGMT ---
JOCELYNE CALABRESE Face to Face with patient for initial transition planning/care coordination assessment. RN CM introduced self and role at [facility]. Patient lying in bed, alert and oriented, girlfriend at bedside. Patient willing to participate in assessment and is able to answer all questions appropriately. Care providers, pharmacy, and demographics verified. Patient wishes to discharge home, denies need for home health at this time. Patient states he has no further needs or concerns at this time. CM to follow for discharge planning needs that may arise. PCP: Delma Specialists: none Preferred Pharmacy: [facility] Insurance: [employer] Prescription Benefit: yes Living Will/HPOA: none LNOK: girlfriend Living Arrangements: Patient lives with girlfriend in a 2nd floor apartment. Patient states he is able to ambulate stairs. Girlfriend assist patient with ADLs due to limitations of left hand. Transportation: Public or friends DME/HHC: Patient states he has cane at home. Patient denies previous HHC or SNF. Disposition Plan: Patient to discharge home with family support and follow-up plans in place. Anca AZUL, RN, CM
--- NOTE | 2021-12-20 10:32 | CASEMGMT ---
Per RN patient was requesting information on applying for disability. SW met with patient and his significant other. Patient does not have a computer. SW gave patient information on calling The Social Security office. SW explained he can apply over the phone with Social Security or he could make an appt to go into the local office. SW did give patient information on applying online also. Krupa Cannon MSW [place]
--- NOTE | 2021-12-20 10:34 | CASEMGMT ---
SW did not complete a PHQ 9 with patient as per physician patient did not have a Stroke or TIA. Krupa REDD
--- NOTE | 2021-12-20 11:06 | PCM.DC.SUM ---
Providers Date of Admission: 12/18/21 Date of Discharge: 12/20/21 Primary Care Physician: Brandt Nguyễn MD Reason For Visit: CVA Diagnosis Discharge Diagnosis (1) CVA (cerebral vascular accident): Status: Resolved Code(s): I63.9 - Cerebral infarction, unspecified Medications at Discharge Home Medications aspirin 325 mg PO DAILY 07/08/20 atorvastatin 80 mg PO DAILY 10/25/21 gabapentin 600 mg PO DAILY 10/25/21 nicotine 21 mg TRANSDERMAL DAILY 30 Days #28 ea 12/20/21 Hospital Course Operations None Procedures None Summary of Care Provided Minutes Spent on Discharge: 35 Hospital Course: 69-year-old male with past medical history of chronic left upper extremity weakness, history of stroke who comes in with significant weakness in the left lower extremity. Patient's initial CT of the brain showed no acute intracranial hemorrhage or mass-effect. Shows stable old right MCA. CTA of the head showed occluded distal right ICA but that is not new. Patient is admitted to the progressive care unit and monitored on stroke protocol. MRI of the brain did not show acute or subacute stroke. It showed old cortical-based ischemic infarct with cystic encephalomalacia and atrophy in the right frontal lobe and right parietal lobe. No significant events on telemetry. Patient was strongly encouraged to follow-up with his primary care doctor within a week. He was also encouraged to follow-up with neurology in the outpatient. He was strongly advised to quit smoking. Physical Exam Narrative Physical exam: General: Alert, Oriented x3, Cooperative HEENT: Atraumatic Oral: Moist Mucosa Neck: Supple Lungs: Diminished to auscultation Cardiovascular: HS I+II, regular, no murmurs Abdomen: Bowel Sounds Present, Soft, Non Tender Extremities: No edema Skin: No rashes, No breakdown Neurological: Alert oriented x3, chronic left upper extremity weakness with contractures at the wrist and elbow Psych/Mental Status: Appropriate Weight / BMI Weight Weight: 80.9 kg Body Mass Index (BMI) 26.3 ABG / Lab / Microbiology Data Result Diagrams: 12/19/21 05:21 12/19/21 05:21 Radiography Diagnostic Testing: Radiology Impression Brain MRI 12/19/21 00:22 IMPRESSION: 1. No MRI evidence of acute or subacute ischemic infarct or intracranial mass. 2. Old cortical-based ischemic infarct with cystic encephalomalacia and atrophy in the right frontal lobe and right parietal lobe. 3. No significant interval change when compared to CT head scan of 12/18/2021. Electronically Signed: Burton Ibarra MD at 13:36 EDT , D/C Instructions Discharge Diet: Low fat / Low cholesterol and 2000 mg Sodium Diet Meaningful Use Info Meaningful Use Diagnoses (Choose all that apply): None applicable Discharge Plan Admission Admit Date/Time: 12/18/21 23:48 Primary Reason for Your Visit: Left sided weakness Attending Provider: Yeny Tolliver Primary Care Provider: Brandt Nguyễn Instructions Additional Instructions / Restrictions: Continue to take all your medications as prescribed Discharge Orders/Prescriptions Prescriptions: New nicotine 21 mg/24 hr Patch 24 Hour 21 mg transdermal DAILY 30 Days Qty: 28 RF: 0 Continued aspirin 325 MG tablet 325 mg PO DAILY RF: 0 atorvastatin 80 mg Tablet 80 mg PO DAILY RF: 0 gabapentin 600 mg Tablet 600 mg PO DAILY RF: 0 Referrals / Follow Up: Jesus Sutton MD [STAFF PHYSICIAN] - Within 2 Weeks Brandt Nugyễn MD [Primary Care Provider] - In 1 Week Disposition Disposition (needs filled in before D/C Order can be placed): Home, Self Care Charges/Coding Visit Charges Inpatient E&M: 28839 Disch Hosp
--- NOTE | 2021-12-20 12:58 | TELEMED_ITS ---
[facility] Tele[facility] has confirmed receipt of a request for visit. This document confirms receipt of the order initiating the consult. To find the results of the consultation, please view the patient's reports for the scanned Telemed Consult.
[2021-12-20 13:15] VITALS: BMI 26.3
[2021-12-20 14:09] VITALS: BMI 26.3
--- NOTE | 2021-12-20 14:12 | PHA.DC.MR ---
Pharmacy Service has performed discharge medication reconciliation for this patient. The patient's discharge medication list was reviewed for discrepancies and discrepancies were resolved. Patient on clopidogrel in the hospital but it was no continued on discharge. This [facility] spoke to Dr. Tolliver, she does not feel it is necessary to start clopidogrel. Medication education papers prepared, patient discharged when I attempted to certified alcohol counselor. Home Medications aspirin 325 mg PO DAILY 07/08/20 atorvastatin 80 mg PO DAILY 10/25/21 gabapentin 600 mg PO DAILY 10/25/21 nicotine 21 mg TRANSDERMAL DAILY 30 Days #28 ea 12/20/21
== END 2021-12-20 14:10 | disposition home or self-care (01) | DRG 861 ==
LOC: ED 23:39 → PCU 12-19 07:13
PROVIDERS: Admitting Provider Family Medicine; Emergency Provider Emergency Medicine; PCP Family Medicine; Visit Provider Internal Medicine
DX: R53.1 Weakness (principal); I69.354 Hemiplegia and hemiparesis following cerebral infarction affecting left non-dominant side; M06.9 Rheumatoid arthritis, unspecified; E78.00 Pure hypercholesterolemia, unspecified; F17.210 Nicotine dependence, cigarettes, uncomplicated; Z79.899 Other long term (current) drug therapy; Z79.82 Long term (current) use of aspirin; R29.704 NIHSS score 4
CPT/HCPCS: 36415; 70450; 70496; 70498; 70551; 71045; 80048; 80061; 82077; 84484; 85025; 85610; 85730; 93005; 93306; 94762; 97161; 97165; 99285; 99406; Q9967; A4216

== ENCOUNTER 2022-02-20 17:28 | Emergency (ER) | payer MEDICAID, SELFPAY ==
[2022-02-20 17:29] VITALS: BP 128/96; PULSE 89; RESP 14; TEMP 36.7; O2SAT 97; BMI 26.4
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
--- NOTE | 2022-02-20 18:04 | RAD_ITS ---
STUDY: X-RAY - LEFT ANKLE REASON FOR EXAM: Male, 46 years old. Pain after trauma TECHNIQUE: 3 view(s) of the ankle. COMPARISON: None. FINDINGS: Please see the impression. RAD/Ankle min 3 Views IMPRESSION: Acute minimally displaced spiral fracture of distal fibular metadiaphysis. Acute nondisplaced fracture at the base of the medial malleolus. No radiopaque foreign body. Electronically Signed: Efra Dickinson MD at 19:50 EDT ,
[2022-02-20] MEDS: HYDROcodone Bitartrate/Apap 5/325 Tablet PO (19:55)
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
[2022-02-20 21:25] VITALS: BP 128/78; PULSE 74; RESP 17; O2SAT 98
== END 2022-02-20 21:26 | disposition home or self-care (01) ==
PROVIDERS: Emergency Provider Emergency Medicine; PCP Family Medicine; Visit Provider Emergency Medicine
DX: S82.842A Displaced bimalleolar fracture of left lower leg, initial encounter for closed fracture (principal); F17.210 Nicotine dependence, cigarettes, uncomplicated; E78.00 Pure hypercholesterolemia, unspecified; Z79.899 Other long term (current) drug therapy; Z79.82 Long term (current) use of aspirin; Z86.73 Personal history of transient ischemic attack (TIA), and cerebral infarction without residual deficits; X50.1XXA Overexertion from prolonged static or awkward postures, initial encounter
CPT/HCPCS: 73610; 99284

== ENCOUNTER 2022-03-07 14:14 | Emergency (ER) | payer MEDICAID, SELFPAY ==
[2022-03-07 14:15] VITALS: BP 121/93; PULSE 99; RESP 16; TEMP 36.4; O2SAT 93; BMI 27.8
--- NOTE | 2022-03-07 14:22 | RAD_ITS ---
STUDY: X-RAY - LEFT ANKLE REASON FOR EXAM: Male, 46 years old. PREVIOUS BREAK TECHNIQUE: 3 view(s) of the ankle. COMPARISON: Comparison is made with prior study dated 02/20/2022. FINDINGS: Oblique fracture of the lateral malleolus. Of falls and fracture of the medial malleolus. Normal tibiotalar articulation and ankle mortise. Normal visualized talus and calcaneus. The visualized subtalar, talonavicular, calcaneocuboid and tarsal articulations are normal. Soft tissue swelling. RAD/Ankle min 3 Views IMPRESSION: Bimalleolar fractures with overlying soft tissue swelling. There has been no change. Electronically Signed: Case Meyer MD at 14:48 EDT ,
--- NOTE | 2022-03-07 15:32 | EDS_ITS ---
HPI History of Present Illness HPI Narrative: 46-year-old male with a known left bimalleolar fracture. Was in a posterior splint get it wet in the rain took it off and needs to have the splint replaced. The initial injury took place on February 20. Chief Complaint: Lower Extremity Injury Informant: patient and spouse/S.O. Occured/Mechanism Mechanism/Context: Yes injury Onset/Context/Timing Onset: Weeks Context: Sudden Onset Timing: Continuous Current Severity: Mild Maximum Severity: Mild Narrative Narrative: 46-year-old male history of prior stroke and rheumatoid arthritis. Has significant weakness in his left upper and lower extremity. On 20 February he fell had a bimalleolar fracture. Was seen here, diagnosed and splinted. The other day in the rain he got his splint wet and took it off. And needs it resplinted. He is following up with his insulation supervisor at the end of the month. He denies any other complaints. Prior similar symptoms: No Recent Illness/Hospitalization: No PFSH PFS Medical History Alcohol abuse High cholesterol Rheumatoid arthritis Smoker Stroke Home Medications aspirin 325 mg tablet 325 mg PO DAILY 07/08/20 [History Last Taken 07/08/20] atorvastatin 80 mg tablet 80 mg PO DAILY 10/25/21 [History Last Taken Unknown] gabapentin 600 mg tablet 600 mg PO DAILY 10/25/21 [History Last Taken Unknown] enoxaparin 40 mg/0.4 mL subcutaneous syringe (Lovenox) 40 mg (0.4 mL) subcut DAILY #8 mL 02/20/22 [Rx Last Taken Unknown] ondansetron 4 mg disintegrating tablet 4 mg PO Q8H PRN nausea and vomiting #10 tabs 02/20/22 [Rx Last Taken Unknown] oxycodone-acetaminophen 5 mg-325 mg tablet (Percocet) 1 tab PO Q6H PRN pain 3 days #10 tabs 02/20/22 [Rx Last Taken Unknown] oxycodone-acetaminophen 5 mg-325 mg tablet (Percocet) 1 tab PO Q6H PRN pain 3 days #10 tabs 03/07/22 [Rx Last Taken Unknown] Allergy/AdvReac Type Severity Reaction Status Date / Time cephalexin [From Keflex] Allergy Anaphylaxis Verified 02/20/22 17:30 fluoxetine [From Prozac] Allergy Itching Verified 02/20/22 17:30 hydroxychloroquine Allergy Other Verified 02/20/22 17:30 [From Plaquenil] Family History Other Rheumatoid arthritis Social History Smoking Status: Current every day smoker tobacco type: cigarettes ROS ROS ED ROS Narrative Denies recent illness. Review of Systems ROS Unobtainable: Denies due to encephalopathy Constitutional Constitutional ED: Denies chills Eyes Eyes: Denies blurry vision ENT ENT ED: Denies ear pain Cardiovascular Cardiovascular: Denies chest pain Respiratory/Chest Respiratory/Chest: Denies cough Gastrointestinal Gastrointestinal: Denies abdominal pain Genitourinary Genitourinary ED: Denies dysuria Musculoskeletal Musculoskeletal: Denies arthralgias Integumentary Denies abscess Neurologic Neurologic: Denies headache(s) Psychiatric Psychiatric: Denies anxiety Endocrine Endocrinology: Denies polydipsia Hematologic/Lymphatic Hematologic/Lymphatic: Denies easy bleeding Allergic/Immunologic Allergic/Immunologic ED: Denies mouth swelling EXAM Physical Exam Narrative Exam Narrative: 46-year-old male no acute distress vital signs stable afebrile. Lungs are clear. Heart regular rhythm. Abdomen soft nontender. He has excessive weakness left upper and lower extremity from prior stroke that not new. Mild swelling to the left ankle. Has a known bimalleolar fracture that occurred approximately 2 weeks ago. Const Vital Signs: 03/07/22 14:15 Temperature 97.5 F L Temperature Source Temporal Pulse Rate 99 Respiratory Rate 16 Blood Pressure 121/93 H Blood Pressure Mean 102 Pulse Ox 93 Oxygen Delivery Method Room Air Positive well nourished and well developed; Negative for obese, cachectic or contractures General Appearance ED: well developed; Negative for cachectic or contractures Nutritional Appearance: Negative for cachectic or obese HEENT Reports moist mucous membranes normocephalic and atraumatic; Negative for trauma Eyes PERRL Neck full ROM and supple Thyroid: Negative for tender Lymph Lymphatic: Negative for other Chest Wall inspection of chest normal and palpation of chest normal Resp normal respiratory effort, no retractions and clear to auscultation bilaterally Auscultation: Negative for rales, rhonchi or wheezes Cardio regular rate, regular rhythm, S1 normal heart sound, S2 normal heart sound and no murmurs Rate: Negative for bradycardia Rhythm: Negative for abnormal rhythm GI non-tender, non-distended and no masses Inspection: Negative for abdominal distention Auscultation: normoactive bowel sounds Extremity Negative for normal to inspection Extremity Narrative: Left upper and lower extremity weakness from prior stroke. Mild swelling left ankle from a known bimalleolar fracture. Able to wiggle his toes. Neuro oriented x3 and No moves all extremities Sensorium / Orientation: alert, oriented to person, oriented to place and oriented to time; Negative for orientation impaired, confused, lethargic or stuporous Motor Exam: Negative for strength 5/5 throughout Psych mental status grossly normal Mood & Affect: Negative for anxious Skin no wounds MDM MDM MDM Narrative Medical decision making narrative: Patient with bimalleolar fracture left ankle. Splint got wet and was taken off. He needs a resplinted. Patient was placed in a short leg posterior splint well-padded. No weightbearing. He is having difficulty using the crutches due to his stroke and left-sided weakness. His insurance will not reportedly cover a wheelchair and his insulation supervisor wrote for. general foundry worker discussed with patient and family other options. He was also given prescription for limited Percocet 10 no refill from pain. Radiography Diagnostic Testing: Clinical Impression(s) from Imaging Studies Ankle X-Ray 03/07/22 14:22 IMPRESSION: Bimalleolar fractures with overlying soft tissue swelling. There has been no change. Electronically Signed: Case Meyer MD at 14:48 EDT , Left ankle x-ray shows bimalleolar fracture. 3 views interpreted by myself and radiologist. Procedures Lower Extremity Splints Lower Extremity Splint: Orthoglass Splint Fabrication: Fabricated Location: Left Discharge Plan Triage Chief Complaint: Lower Extremity Injury ED Provider: Obed Samayoa Dx/Rx/DC Orders Clinical Impression: History of fracture of left ankle, History of stroke Instructions: ED Ankle Fracture Prescriptions: New oxycodone-acetaminophen [Percocet] 5-325 mg tablet 1 tab PO Q6H PRN (Reason: pain) 3 Days Qty: 10 0RF No Action aspirin 325 MG tablet 325 mg PO DAILY atorvastatin 80 mg Tablet 80 mg PO DAILY gabapentin 600 mg Tablet 600 mg PO DAILY enoxaparin [Lovenox] 40 mg/0.4 mL syringe 40 mg subcut DAILY Qty: 8 0RF oxycodone-acetaminophen [Percocet] 5-325 mg tablet 1 tab PO Q6H PRN (Reason: pain) 3 Days Qty: 10 0RF ondansetron 4 mg tablet,disintegrating 4 mg PO Q8H PRN (Reason: nausea and vomiting) Qty: 10 0RF Primary Care Provider: Brandt Nguyễn Referrals: Clive Toribio DPM [STAFF PHYSICIAN] - Keep Venkatesh appointment Brandt Nguyễn MD [Primary Care Provider] - Activity Restrictions/Additional Instructions: Follow-up with your doctor soon as possible. Keep the splint dry and clean. No weightbearing. Limited Percocet for pain otherwise use Tylenol. Disposition Disposition: Home, Self Care
[2022-03-07 16:06] VITALS: BP 138/69; PULSE 72; RESP 15; O2SAT 98
--- NOTE | 2022-03-07 16:06 | CM.ED ---
Social Work Note Reason for Referral: BRIAN updated that pt was discharged home with Crutches and has history of stroke and pt cannot use crutches. SW in to speak with pt and pt has guest Arianne present in room. Pt gave permission for this worker to speak to him in front of his guest. Pt states that he was discharged home with Crutches and pt has history of stroke on left side and cannot use crutches on his left side. Arianne states that they have been trying to get a wheelchair but states pt's insurance will not cover a wheelchair. BRIAN spoke with pt and Arianne to continue to reach out to pt's insurance to inquire about coverage for DME. BRIAN also spoke with pt and Arianne to check [employer], [employer], [employer] etc. to inquire about wheelchairs through those companies. BRIAN also spoke with pt about looking into [employer] as it may be cheaper and easier for pt. Arianne asked if they could get a shorter crutch for the right side as she is able to assist with the left side. BRIAN informed Arianne that this worker is not sure, will ask nursing staff in ED. BIRAN spoke with JOCELYNE Chahal, the crutches that were provided to pt are the ones that are available to pt. BRIAN back in to speak with pt and Arianne. BRIAN updated pt and Arianne that the crutches that were provided to pt are the ones that are available to pt. BRIAN also encouraged pt to look into smaller ones at [employer], [employer], [employer] etc. Pt states he is not sure how he is going to get home as he needs to take the bus home. BRIAN offered to have a wheelchair van arranged for pt to get home and Arianne states well we need to go shopping at [employer]. BRIAN informed pt that it is up to him, wheelchair van can be arranged or he can use the bus. Pt and Arianne states that they will use the bus and Arianne will help pt hobble to the bus. BRIAN updated JOCELYNE Chahal and MD Samayoa. Anca Rea QUALITY CONTROL LAB TECH, TUNNEL KILN REPAIRER
== END 2022-03-07 16:07 | disposition home or self-care (01) ==
PROVIDERS: Emergency Provider Emergency Medicine; PCP Family Medicine; Visit Provider Emergency Medicine
DX: S82.842D Displaced bimalleolar fracture of left lower leg, subsequent encounter for closed fracture with routine healing (principal); I69.354 Hemiplegia and hemiparesis following cerebral infarction affecting left non-dominant side; M06.9 Rheumatoid arthritis, unspecified; E78.00 Pure hypercholesterolemia, unspecified; F17.210 Nicotine dependence, cigarettes, uncomplicated; W19.XXXD Unspecified fall, subsequent encounter; Z79.899 Other long term (current) drug therapy
CPT/HCPCS: 73610; 99282

== ENCOUNTER 2022-03-11 18:38 | Inpatient (IN) | payer MEDICAID, SELFPAY ==
[2022-03-11] VITALS (19 sets, daily range): BP systolic 76–205; BP diastolic 63–129; PULSE 72–120; RESP 14–34; TEMP 36.3–36.7; O2SAT 92–100; BMI 27.2
[2022-03-11] MEDS: Etomidate 20 MG/10 ML Vial IV (18:45)
[2022-03-11] MEDS: Succinylcholine Chloride 200 MG/10 ML SYRINGE 100 MG IV (18:45)
[2022-03-11] MEDS: Propofol 10MG/Ml 1,000 MG/100 ML Bottle 5 MG CONT INF (18:57)
--- NOTE | 2022-03-11 19:01 | RAD_ITS ---
STUDY: X-RAY CHEST REASON FOR EXAM: Male, 46 years old. chest pain TECHNIQUE: AP portable COMPARISON: 12/18/2021 FINDINGS: Bilateral lower lobe infiltrates.. There is no demonstrated pleural abnormality. Endotracheal tube noted with tip 4 cm proximal to dami Normal size heart. Normal mediastinum and baldev. Normal visualized pulmonary arteries. Normal visualized aortic arch and descending thoracic aorta. Normal visualized thoracic spine. Normal visualized ribs, clavicles, and shoulders. NG tube noted with tip in stomach. There is no demonstrated abnormality of the visualized soft tissue structures of the upper abdomen. RAD/Chest 1 View (Portable) IMPRESSION: Bilateral lower lobe infiltrates. Status post intubation Electronically Signed: Quan Lawrence MD at 19:56 EDT ,
--- NOTE | 2022-03-11 19:01 | EKG12_ITS ---
Test Reason : DYSRHYTHMIA Blood Pressure : / mmHG Vent. Rate : 113 BPM Atrial Rate : 113 BPM P-R Int : 220 ms QRS Dur : 090 ms QT Int : 304 ms P-R-T Axes : 052 073 087 degrees QTc Int : 416 ms Sinus tachycardia with 1st degree A-V block ST elevation consider inferior injury or acute infarct ACUTE NV / STEMI Consider right ventricular involvement in acute inferior infarct Abnormal ECG Confirmed by JULIO C HERNANDEZ, SOCORRO ([id number]), rewrite editor ZACHARY IBARRA ([id number]) on 03/14/2022 11:36:54 AM Referred By: Melissa Quiroga Confirmed By:SOCORRO BUNCH MD
--- NOTE | 2022-03-11 19:02 | RAD_ITS ---
STUDY: X-RAY - ABDOMEN/PELVIS REASON FOR EXAM: Male, 46 years old. NG Insertion TECHNIQUE: KUB COMPARISON: None. FINDINGS: Normal visualized lung bases. There is an unremarkable bowel gas pattern. There is no demonstrated free abdominal air. The visualized liver, spleen and kidneys are grossly normal in size and morphology. NG tube noted within the mid gastric fundus Lumbar spine demonstrates mild scoliosis.. RAD/Abdomen Single View (Portable) IMPRESSION: Nonspecific abdomen status post NG tube placement Electronically Signed: Quan Lawrence MD at 19:50 EDT ,
[2022-03-11] MEDS: Heparin Injection (Vial) 5,000 UNIT/ML VIAL 4000 UNIT IV (19:21)
[2022-03-11 19:23] LABS: Absolute Lymphocyte Count 5.18 X10^3/uL (0.83-4.51); Absolute Neutrophil Count 11.6 X10^3/uL (2.0-7.7); Basophil# 0.16 X10^3/uL; Basophil% 0.8 % (0-1); Eosinophil# 0.39 X10^3/uL; Hematocrit 55.3 % (40-54); Lymphocyte # 5.18 X10^3/ul (0.83-4.51); Lymphocyte % 27.1 % (19-41); Mean Corp Hgb Conc 32.9 g/dL (32-36); Mean Corpuscular Hgb 31.2 pg (27.0-32.0); Mean Corpuscular Volume 94.9 fL (80-94); Mean Platelet Vol. 9.6 fl (6.2-12.0); Monocyte# 1.27 X10^3/uL; Monocyte% 6.6 % (0-10); NRBC Flagged by Analyzer 0.1 % (0-5); Neutrophil # 11.64 X10^3/uL (2.7-7.7); POSITIVE DIFFERENTIAL YES; Platelet Count 333 K/mm3 (150-450); RBC Distribution Width CV 14.1 % (11.6-14.6); RBC Distribution Width SD 49.2 fl (35.1-43.9); Red Blood Count 5.83 M/mm3 (4.6-6.2); White Blood Count 19.1 K/mm3 (4.4-11.0)
[2022-03-11 19:28] LABS: Differential Indicated SCAN CRITERIA MET; Hemoglobin 18.2 g/dL (13.0-16.5)
[2022-03-11] MEDS: TICAGRELOR 90 MG TABLET 180 MG NG (19:31)
[2022-03-11] MEDS: Aspirin 81 MG TAB.CHEW 324 MG NG (19:31)
[2022-03-11 19:43] LABS: Anion Gap 13 (5-15); BUN 9 mg/dL (7-18); BUN/Creat Ratio 7.3 RATIO (10-20); Calcium,Total 9.4 mg/dL (8.5-10.1); Chloride 104 mmol/L (98-107); Creatinine, Serum 1.23 mg/dL (0.70-1.30); EST Glomerular Filtration Rate 67 mL/min (>60); Est Glom Filt Rate - Afr Amer 81 mL/min (>60); Estimated Creatinine Clearance 74.24 ml/min; Glucose 206 mg/dL (74-106); International Normalized Ratio 1.2; Partial Thromboplast Time 33.4 Seconds (24.1-36.2); Potassium 3.6 mmol/L (3.5-5.1); Prothrombin Time (Protime)PT. 14.5 SECONDS (11.7-14.9); Sodium Level 141 mmol/L (136-145); Troponin-I HS 64 pg/mL (3.0-78.0)
[2022-03-11 19:52] LABS: Anisocytosis RARE; Macrocytosis RARE; Platelet Estimate ADEQUATE (ADEQ); Red Cell Morphology N CHROM NORMAL (NORM C&C)
--- NOTE | 2022-03-11 20:00 | ED.RN ---
Propofol GTT titrated up to max dose 50 mcg/kg/min & Fentanyl GTT titrated up to max dose 200 mcg/hr prior to transfer to laboratory technical specialist. Dr Sahni present, pt non-compliant w/vent, respirs in the 30's, sitting up in bed, pulling at restraints. Family reports history of alcohol abuse.
--- NOTE | 2022-03-11 20:00 | CM.ED ---
BRIAN Note Referral Source: Case Find Referral Reason: CPR SW met with Arianne, patient's fiance. She reports that she is POA for patient. Arianne gave verbal consent for treatment to patient. BRIAN was present when MD's updated patient. Patient's sister and sister's male friend, Michael came to the ED and provided support. Patient was transferred to the cardiac catheterization technician and Sw occupanied patient's family to the cardiac catheterization technician. BRIAN remains available if needs arise. Margarita JAIN
[2022-03-11 20:06] LABS: Allen Test Positive; Base Excess -5 mmol/L (-2 to +2); Bicarbonate 22.5 mmol/L (22-26); Blood Gas Specimen Type ART; FI02 100; Mode AC; O2 Delivery Device ET Tube; PEEP 5; PO2 99 mmHG (75-100); RR 14; SITE L Radial; SO2 96 % (95-99); Total Carbon Dioxide 24 mmol/L; Vt 450; pCO2 55.2 mmHg (35-45); pH 7.22 (7.35-7.45)
--- NOTE | 2022-03-11 20:09 | PCM.HP.STD ---
HPI - General General Date of Admission: 03/11/22 Date of Service: 03/11/22 Chief Complaint: Cardiac arrest HPI Narrative The patient is a 46 y/o M w/ PMHx: Tobacco use, Cannabis use, Hx CVA x 2 with L sided hemiparesis, HTN, HLD, Rheumatoid arthritis, Anxiety and Depression, recent L bimalleolar fracture currently in brace/NWB awaiting follow-up podiatry evaluation/OR who presents to the [facility] ED on 03/11/22 with history of general malaise and fatigue on day of presentation per family report with sudden onset just prior to ED arrival sudden loss of consciousness, noted per family to have turned blue-purple prior with cardiopulmonary arrest with immediate EMS call with no bystander CPR in the interim with upon EMS arrival initiation CPR, VF with shock with ROSC with repeat VF requiring shock again en route. Patient was administered IV amiodarone bolus. Immediately upon ED arrival patient was intubated and sedated although this became difficult with underlying EtOH abuse and eventually propofol, fentanyl maxed with then addition of precedex with also requested amiodarone drip start. Family did not have his LLE brace thus new brace applied given recent L bimalleolar fracture. From discussions family patient denied any recent chest discomfort or dyspnea. EKG obtained and STEMI call immediately initiated with noted inferior STEMI w/ discussions with ED/Dr. Quiroga. In the ED patient administered ASA load, brillinta load and heparin bolus and patient transitioned to the catheterization lab. [facility] Medical History Alcohol abuse Anxiety and depression Closed bimalleolar fracture of left ankle Hemiparesis affecting left side as late effect of cerebrovascular accident High cholesterol History of stroke HTN (hypertension) Rheumatoid arthritis Tobacco use Home Medications aspirin 325 mg tablet 325 mg PO DAILY 07/08/20 [History Last Taken 07/08/20] atorvastatin 80 mg tablet 80 mg PO DAILY 10/25/21 [History Last Taken Unknown] gabapentin 600 mg tablet 600 mg PO DAILY 10/25/21 [History Last Taken Unknown] enoxaparin 40 mg/0.4 mL subcutaneous syringe (Lovenox) 40 mg (0.4 mL) subcut DAILY #8 mL 02/20/22 [Rx Last Taken Unknown] ondansetron 4 mg disintegrating tablet 4 mg PO Q8H PRN nausea and vomiting #10 tabs 02/20/22 [Rx Last Taken Unknown] oxycodone-acetaminophen 5 mg-325 mg tablet (Percocet) 1 tab PO Q6H PRN pain 3 days #10 tabs 02/20/22 [Rx Last Taken Unknown] oxycodone-acetaminophen 5 mg-325 mg tablet (Percocet) 1 tab PO Q6H PRN pain 3 days #10 tabs 03/07/22 [Rx Last Taken Unknown] Allergy/AdvReac Type Severity Reaction Status Date / Time cephalexin [From Keflex] Allergy Anaphylaxis Verified 02/20/22 17:30 fluoxetine [From Prozac] Allergy Itching Verified 02/20/22 17:30 hydroxychloroquine Allergy Other Verified 02/20/22 17:30 [From Plaquenil] Family History (Updated 03/11/22 @ 21:[address] Letha Sahni MD) Mother Rheumatoid arthritis Hypertension Father Hypertension Surgical History No history of previous surgery Social History (Updated 03/11/22 @ 21:[address] Letha Sahni MD) household members: significant other Smoking Status: Current every day smoker tobacco type: cigarettes alcohol intake: current alcohol intake frequency: 3 or more drinks per day details: 08/29 of 09/01 vodka daily. substance use type: marijuana ROS Review of Systems ROS Unobtainable: due to endotracheal tube Vital Signs Vital Signs Vital Signs: 03/11/22 18:40 03/11/22 19:03 03/11/22 19:28 Pulse Rate 113 H Pulse Rate [1] 120 H Respiratory Rate 34 H 28 H 32 H Respiratory Rate [1] 32 H Respiratory Pattern Blood Pressure 205/124 H 126/97 H 164/94 H Blood Pressure [1] 167/129 H Blood Pressure Mean 106 Pulse Ox 92 96 Oxygen Delivery Method Ambu-Bag Mechanical Ventilator Oxygen Flow Rate (L/min) 15 Fraction of Inspired Oxygen (FIO2) 100 03/11/22 18:47 03/11/22 19:00 Pulse Rate 119 H Pulse Rate [1] Respiratory Rate 34 H Respiratory Rate [1] Respiratory Pattern Tachypnea Blood Pressure Blood Pressure [1] Blood Pressure Mean Pulse Ox 92 Oxygen Delivery Method Mechanical Ventilator Oxygen Flow Rate (L/min) Fraction of Inspired Oxygen (FIO2) 100 100 Weight Weight: 184 lb 4.903 oz Physical Exam Narrative Physical Examination: General: Patient sedated, intubated, still agitated, adding Precedex currently, laying in the ED bed. Skin: Normal color, normal turgor, no icterus, no cyanosis except for expected stage ecchymoses left ankle with recent left bimalleolar fracture, brace being placed, various tattoos. HEENT: AT/NC, EOM unable to be assessed, PERRLA, moderately dry MM, no carotid bruits or JVD noted, intubated. Lungs: Breathing over the vent, intubated, symmetric rise, increased respiratory rate, occasional expiratory wheeze, no rales or rhonchi. Heart: Tachycardic with regular rhythm; no gallop, rub audible. Abdomen: Soft, overweight, NTTP, ND, distant normal BS, no HSM. Extremities: No cyanosis, no clubbing, left mild residual ankle swelling, recent fall with left bimalleolar fracture with staged ecchymoses, brace being placed, left wrist with significant enlarged bony abnormality. Neurological: Patient sedated, intubated, still agitated, adding Precedex currently, laying in the ED bed, cognitive function not baseline intact; pupils equally reactive to light and accommodation, cranial nerves unable to be assessed well given intubated and sedated status, prior to Precedex initiation and bolusing propofol patient moving extremities spontaneously although does have history of left-sided hemiparesis with recent fall with left bimalleolar fracture as noted, strength accordingly severely globally decreased Psychiatric: Affect appears initially agitated, improved, calm with further sedation, no acute evidence of depressive or anxiety feelings but does have underlying history. Results Lab / Micro Data Result Diagrams: 03/11/22 19:00 03/11/22 19:00 Labs: Laboratory Results - last 24 hr 03/11/22 19:00: WBC 19.1 H, RBC 5.83, Hgb 18.2 H*, Hct 55.3 H, MCV 94.9 H, MCH 31.2, MCHC 32.9, RDW Std Deviation 49.2 H, RDW Coeff of Jony 14.1, Plt Count 333, MPV 9.6, Immature Gran % (Auto) 2.500 H, Neut % (Auto) 61.0, Lymph % (Auto) 27.1, [place] % (Auto) 6.6, Eos % (Auto) 2.0, Baso % (Auto) 0.8, Absolute Neuts (auto) 11.6 H, Absolute Lymphs (auto) 5.18 H, Nucleated RBC % 0.1, Differential Comment SEE COMMENT, Diff Path Review May foll, Platelet Estimate ADEQUATE, RBC Morphology N CHROM, Anisocytosis RARE, Macrocytosis RARE 03/11/22 19:00: PT 14.5, INR 1.2, APTT 33.4 03/11/22 19:00: Sodium 141, Potassium 3.6, Chloride 104, Carbon Dioxide 24.0, Anion Gap 13, BUN 9, Creatinine 1.23, Estim Creat Clear Calc 74.24, Est GFR (MDRD) Af Amer 81, Est GFR (MDRD) Non-Af 67, BUN/Creatinine Ratio 7.3 L, Glucose 206 H, Calcium 9.4, Troponin I High Sens 64 ABG Data ABG results: ABG 03/11/22 19:57 Specimen Type ART Sample Site L Radial pH 7.22 L Bicarbonate Actual 22.5 Total CO2 24 Base Excess -5 L O2 Saturation 96 O2 % 100 ABG pCO2 55.2 H ABG pO2 99 Jay Test Positive Respiration Rate 14 O2 Delivery Device ET Tube Vent Mode AC Tidal Volume 450 POC PEEP 5 Radiology Impression Chest X-Ray 03/11/22 19:01 IMPRESSION: Bilateral lower lobe infiltrates. Status post intubation Electronically Signed: Quan Lawrence MD at 19:56 EDT , KUB X-Ray 03/11/22 19:02 IMPRESSION: Nonspecific abdomen status post NG tube placement Electronically Signed: Quan Lawrence MD at 19:50 EDT , Assessment & Plan Assessment/Plan (1) ST elevation (STEMI) myocardial infarction: (2) Cardiac arrest with ventricular fibrillation: PLAN: Plan The patient is a 46 y/o M w/ PMHx: Tobacco use, Cannabis use, Hx CVA x 2 with L sided hemiparesis, HTN, HLD, Rheumatoid arthritis, Anxiety and Depression, recent L bimalleolar fracture currently in brace/NWB awaiting follow-up podiatry evaluation/OR who presents to the [facility] ED on 03/11/22 with history of general malaise and fatigue on day of presentation per family report with sudden onset just prior to ED arrival sudden loss of consciousness, noted per family to have turned blue-purple prior with cardiopulmonary arrest with immediate EMS call with no bystander CPR in the interim. #1. Cardiopulmonary arrest with Ventricular Fibrillation with Acute Inferior STEMI: Prelim chest x-ray with OG in place, no acute cardiopulmonary findings however read is pending, EKG with inferior STEMI noted, labs pending upon evaluation. Patient will be transition to the cardiac catheterization lab status post aspirin load, Brilinta load and heparin bolus. Following intervention will transition to the ICU, cardiology evaluation will continue in addition to hired worker consultation with update about patient upon admission, continue significant sedation with propofol, fentanyl, Precedex likely secondary to underlying alcohol abuse with wean as able, will maintain on a monitored bed, continue serial cardiac enzymes and EKGs. Obtain magnesium level upon admission. Patient initiated on amiodarone drip given significant V. fib episodes. ECHO requested. Continue medical management w/ asa, Brilinta, high-dose statin w/ AM FLP. Defer to immediate usage of beta-moisés therapy, CHANA inhibitor/ARB given significant sedation needs as well as amiodarone which was discussed with cardiology. #2. EtOH Abuse: Patient with routine consumption of at least a half of 1/5 of vodka daily per discussion with family. Currently maxed out on propofol and fentanyl therefore Precedex added with intensive care unit transition following catheterization as noted above. Will maintain on CIWA protocol, MVI, thiamine and folic acid. We will have as needed gabapentin for seizure prophylaxis, additional as needed agents. If following successful extubation patient interested in withdrawal treatment will initiate phenobarb taper. Mag, phos pending. Case management consulted. #3. History CVA: Patient with history of CVA x2 with left-sided hemiparesis, will continue aspirin, newly added Brilinta, high-dose statin therapy, as noted above awaiting for patient's further vitals given significant sedation amiodarone drip prior to initiation of beta-moisés/CHANA inhibitor/ARB per discussion with cardiology. #4. Hypertension: We will have as needed IV hydralazine, as discussed with cardiology holding on immediate beta-moisés/CHANA inhibitor/ARB in addition given significant sedation required currently and usage of amiodarone. #5. Hyperlipidemia: We will continue high-dose statin, FLP in a.m. #6. Tobacco Abuse: Encouraged cessation, inpatient consultation per RT, NR if desired. #7. Rheumatoid arthritis: Not on any regimen, previously had been on Plaquenil from review of records but had adverse reaction. #8. Recent fall with known left bimalleolar fracture, left wrist deformity: We will place left ankle brace, nonweightbearing once patient is extubated and appropriate for activity with encouragement to follow-up with podiatry as previously arranged. From discussion with ED staff who is evaluated the patient at least twice in the last 2 weeks left wrist is likely chronic but to be cautious will obtain plain film of the left wrist in case any recent fracture especially given fall history. #9. DVT prophylaxis: SCDs, Lovenox in a.m. if cardiology amenable. #10. CODE status: Discussed CODE status with patient's significant at length including difference between FULL code, DNR-CCA and DNR-CC status. Following discussions about the differences in these status, requested continued Full Code status. Advanced Care Planning Face to Face Time: 16 minutes. Charges/Coding Visit Charges Inpatient E&M: 57626 Init Hosp L3 Procedures Hospitalists Procedures: 32466 Advncd Care Plan 30 Min
[2022-03-11 20:24] LABS: Magnesium 2.6 mg/dL (1.6-2.6); Phosphorus 5.8 mg/dL (2.5-4.9)
--- NOTE | 2022-03-11 20:37 | CON.PCM.CA_ITS ---
Assessment & Plan Assessment/Plan (1) ST elevation (STEMI) myocardial infarction: PLAN: Patient had 100% occlusion of the RCA that was treated with thrombectomy and drug-eluting stent placement. We will keep the patient on aspirin, Brilinta and statin. Patient's blood pressure is on the low side. As tolerated we can add beta-moisés and CHANA inhibitor later this admission. (2) Cardiac arrest with ventricular fibrillation: PLAN: Related to the ST elevation VA. patient is currently on amiodarone. We will keep this overnight and possibly discontinue it in the morning. HPI Consult Data Date of Consult: 03/11/22 HPI Narrative Reason for Consultation: stemi HPI Narrative: ROBBI REYNOLDS, is a 46 M who presents with cardiac arrest. It was a witnessed arrest. CPR was initiated. Patient was found to be in V. fib by paramedics and was treated outside the hospital for this. In the emergency room patient was moving his extremities but was not following commands and ended up requiring intubation. An EKG done in the emergency room revealed inferior ST elevation VA and a STEMI alert was called. Patient was brought emergently to the cardiac Benefit Authorizer and underwent coronary angiography which revealed 100% occlusion of the RCA that was treated with thrombectomy and drug-eluting stent placement. Patient will be admitted to the CCU for further management of his ST elevation VA complicated by cardiac arrest. [facility] Medical History Alcohol abuse Anxiety and depression High cholesterol Rheumatoid arthritis Smoker Stroke Home Medications aspirin 325 mg tablet 325 mg PO DAILY 07/08/20 [History Last Taken 07/08/20] atorvastatin 80 mg tablet 80 mg PO DAILY 10/25/21 [History Last Taken Unknown] gabapentin 600 mg tablet 600 mg PO DAILY 10/25/21 [History Last Taken Unknown] enoxaparin 40 mg/0.4 mL subcutaneous syringe (Lovenox) 40 mg (0.4 mL) subcut DAILY #8 mL 02/20/22 [Rx Last Taken Unknown] ondansetron 4 mg disintegrating tablet 4 mg PO Q8H PRN nausea and vomiting #10 tabs 02/20/22 [Rx Last Taken Unknown] oxycodone-acetaminophen 5 mg-325 mg tablet (Percocet) 1 tab PO Q6H PRN pain 3 days #10 tabs 02/20/22 [Rx Last Taken Unknown] oxycodone-acetaminophen 5 mg-325 mg tablet (Percocet) 1 tab PO Q6H PRN pain 3 days #10 tabs 03/07/22 [Rx Last Taken Unknown] Allergy/AdvReac Type Severity Reaction Status Date / Time cephalexin [From Keflex] Allergy Anaphylaxis Verified 02/20/22 17:30 fluoxetine [From Prozac] Allergy Itching Verified 02/20/22 17:30 hydroxychloroquine Allergy Other Verified 02/20/22 17:30 [From Plaquenil] Family History Other Rheumatoid arthritis Surgical History No history of previous surgery Social History Smoking Status: Current every day smoker tobacco type: cigarettes Physical Exam Const Constitutional Narrative: Intubated, sedated HEENT normocephalic Cardio regular rate and regular rhythm Risk Stratification Risk Stratification Applicable: No Charges/Coding Visit Charges Inpatient E&M: 90280 Init Hosp L3 Objective Data Vital Signs: Vital Signs Temp Pulse Resp BP Pulse Ox O2 Del Method O2 Flow Rate 98.0 F 86 22 H 127/88 H 94 Mechanical Ventilator 15 03/11/22 20:07 03/11/22 20:07 03/11/22 20:07 03/11/22 20:07 03/11/22 20:07 03/11/22 20:07 03/11/22 18:40 FiO2 100 03/11/22 20:07 Oxygen Flow Rate (L/min) 15 Oxygen Delivery Method Mechanical Ventilator Weight: 184 lb 4.903 oz Body Mass Index (BMI) 27.2 Intake & Output: Intake and Output for Last 24 Hours 03/09/22 03/10/22 03/11/22 23:59 23:59 23:59 Intake Total 60 / 60 Balance 60 / 60 Lab / Micro Data Result Diagrams: 03/11/22 19:00 03/11/22 19:00 Labs: Laboratory Results - last 24 hr 03/11/22 19:00: WBC 19.1 H, RBC 5.83, Hgb 18.2 H*, Hct 55.3 H, MCV 94.9 H, MCH 31.2, MCHC 32.9, RDW Std Deviation 49.2 H, RDW Coeff of Jony 14.1, Plt Count 333, MPV 9.6, Immature Gran % (Auto) 2.500 H, Neut % (Auto) 61.0, Lymph % (Auto) 27.1, [place] % (Auto) 6.6, Eos % (Auto) 2.0, Baso % (Auto) 0.8, Absolute Neuts (auto) 11.6 H, Absolute Lymphs (auto) 5.18 H, Nucleated RBC % 0.1, Differential Comment SEE COMMENT, Diff Path Review May foll, Platelet Estimate ADEQUATE, RBC Morphology N CHROM, Anisocytosis RARE, Macrocytosis RARE 03/11/22 19:00: PT 14.5, INR 1.2, APTT 33.4 03/11/22 19:00: Sodium 141, Potassium 3.6, Chloride 104, Carbon Dioxide 24.0, Anion Gap 13, BUN 9, Creatinine 1.23, Estim Creat Clear Calc 74.24, Est GFR (MDRD) Af Amer 81, Est GFR (MDRD) Non-Af 67, BUN/Creatinine Ratio 7.3 L, Glucose 206 H, Calcium 9.4, Troponin I High Sens 64 03/11/22 19:00: Phosphorus 5.8 H, Magnesium 2.6 ABG Data ABG results: ABG 03/11/22 19:57 Specimen Type ART Sample Site L Radial pH 7.22 L Bicarbonate Actual 22.5 Total CO2 24 Base Excess -5 L O2 Saturation 96 O2 % 100 ABG pCO2 55.2 H ABG pO2 99 Jay Test Positive Respiration Rate 14 O2 Delivery Device ET Tube Vent Mode AC Tidal Volume 450 POC PEEP 5 Cardiology Labs/Tests 03/11/22 19:00: WBC 19.1 H, RBC 5.83, Hgb 18.2 H*, Hct 55.3 H, MCV 94.9 H, MCH 31.2, MCHC 32.9, Plt Count 333, MPV 9.6, Immature Gran % (Auto) 2.500 H, Neut % (Auto) 61.0, Lymph % (Auto) 27.1, [place] % (Auto) 6.6, Eos % (Auto) 2.0, Baso % (A uto) 0.8, Absolute Neuts (auto) 11.6 H, Nucleated RBC % 0.1 03/11/22 19:00: PT 14.5, INR 1.2, APTT 33.4 03/11/22 19:00: Sodium 141, Potassium 3.6, Chloride 104, Carbon Dioxide 24.0, Anion Gap 13, BUN 9, Creatinine 1.23, Est GFR (MDRD) Af Amer 81, Est GFR (MDRD) Non-Af 67, BUN/Creatinine Ratio 7.3 L, Glucose 206 H, Calcium 9.4 03/11/22 19:00: Phosphorus 5.8 H, Magnesium 2.6 03/11/22 19:57: pH 7.22 L, Bicarbonate Actual 22.5, Base Excess -5 L, O2 Saturation 96, ABG pCO2 55.2 H, ABG pO2 99, Jay Test Positive Rhythm: EKG: ECHO: Stress Test: Cardiac Cath: PCI: CT Surgery: Holter monitor: EPS: PPM: CXR: Chest CT Scan: Radiography Diagnostic Testing: Radiology Impression Chest X-Ray 03/11/22 19:01 IMPRESSION: Bilateral lower lobe infiltrates. Status post intubation Electronically Signed: Quan Lawrence MD at 19:56 EDT , KUB X-Ray 03/11/22 19:02 IMPRESSION: Nonspecific abdomen status post NG tube placement Electronically Signed: Quan Lawrence MD at 19:50 EDT ,
--- NOTE | 2022-03-11 20:45 | EKG12_ITS ---
Test Reason : AM EKG Blood Pressure : / mmHG Vent. Rate : 090 BPM Atrial Rate : 090 BPM P-R Int : 160 ms QRS Dur : 084 ms QT Int : 380 ms P-R-T Axes : 059 -02 022 degrees QTc Int : 464 ms Normal sinus rhythm Inferior infarct , age undetermined Abnormal ECG When compared with ECG of 13-MAR-2022 04:22, MANUAL COMPARISON REQUIRED, DATA IS UNCONFIRMED Confirmed by JULIO C HERNANDEZ, SOCORRO ([id number]), editor at large NEISHA BENTLEY ([id number]) on 03/22/2022 11:21:38 AM Referred By: Melissa Quiroga Confirmed By:SOCORRO BUNCH MD
--- NOTE | 2022-03-11 20:54 | CL.I_ITS ---
Patient Name: ROBBI REYNOLDS Study Date: 03/11/2022 Performing: Kit Quiroga MD Ht: 68.89 inches 175 cm : 1975 Wt: 185.19 lbs 84 kg Age: 46 Gender: male BSA: 2 PROCEDURE(S) PERFORMED [id number])AMI, GIO OR PTCA, ARTERY/GRAFT, SINGLE VESSEL [id number])[facility]/COR CLINICAL PROFILE AND CO-MORBIDITIES Indications: ACS <= 24 hrs Heart Failure: None Stress/Imaging Stress/Image Study Performed: No CAD Presentations: STEMI. Symptom onset Date/Time: 03/11/22 Time Not Available CONCLUSIONS CAD as described. Successful PCI of mid RCA with GIO RECOMMENDATIONS DESCRIPTION OF PROCEDURE The patient arrived to the procedure lab. The risks and benefits of the procedure as well as a full d escription of our services here and lack of surgical backup were fully explained to the patient and/o r their significant other prior to the catheterization. The Timeout was completed, verifying the dawson ect patient and procedure. The patient's procedural site was prepped and draped in the usual fashion. Local anesthetic was given subcutaneously to right groin region with Lidocaine 2%. Using a modified Seldinger technique, arterial access was obtained via the right femoral artery, a 6Fr sheath was inse rted.. Venous access was obtained via the right femoral vein, a 7Fr sheath was inserted. Left Coronar y Artery selective angiography was performed in multiple views using a 5 Fr. JL4 catheter. Right Na nary Artery selective angiography was then performed in multiple views using a 6 Fr. JR 4 catheterThe images were reviewed and options discussed. A decision was then made to proceed with an Intervention, IVUS or other adjunct procedure. jr4 Guide catheter was inserted and engaged into the RCA. bmw Guide wire was advanced to the RCA. first pass of priority one ^FreeText^ Angiogram performed post priority one Angiogram performed post priority one Priority One Removed emerge 2.5 x 8 Balloon catheter was advanced across lesion in the right coronary, mid. PTCA balloon inflated at 8 atms for 17 secs. PTCA balloon inflated at 6 atms for 7 secs. PTCA balloon inflated at 10 atms for 13 secs. osiro 2.5 x 15 Drug Eluting stent was advanced across the lesion in the right coronary, mid. Angiogram performed post stent deployment. 2nd Angiogr am performed post stent deployment. Contrast was injected through the sheath and the Right Iliac and Femoral artery were assessed for possible closure device. The arterial sheath was pulled and a Percl ose closure device was deployed for hemostasis. The venous sheath was then sutured inplace with brenda l saline drip CORONARY ANGIOGRAPHY DOMINANCE: Right Dominant LEFT MAIN: Mild luminal irregularities LEFT ANTERIOR DESCENDING ARTERY: Mild luminal irregularities DIAGONAL 1: Proximal - moderate diffuse disease CIRCUMFLEX ARTERY: Mild luminal irregularities OM 1: Proximal - 50-60 % Stenosis RIGHT CORONARY ARTERY: MID RCA: 100 % Stenosis INTERVENTION INFORMATION LESION SITE: RCA (Mid) Lesion Complexity: High/C, chronic total occlusion: No, lesion at bifurcation: No, thrombus present: Yes, lesion length: 12 mm, culprit lesion: Yes, Previously treated lesion: No Pre Stenosis: 100 % Pre intervention RENNY flow: 0 PROCEDURE: Thrombectomy, Drug Eluting Stent with pre dilatation. Post Stenosis: 0 % Post intervention RENNY flow: 3 Lesion Devices: Shawn Sci EMERGE MR [id number] BALLOON COMPLICATIONS No Complications PROCEDURE MEDICATIONS Oxygen: 100 % FiO2 via ventilator. See Resp Record for Settings Amiodarone 31 mg/min @ 03/11/2022 20:07:11 Heparin 3000 unit(s) IV 03/11/2022 20:06:57 Nitro 100 mcg IC 03/11/2022 20:10:30 Nitro 100 mcg IC 03/11/2022 20:10:30 SUMMARY OF HEMODYNAMIC DATA Time AIR REST ECG 19:50:27 AO 107/74 (91) SA 20:04:15 RM AIR REST 20:50:24 Signed By Kit Quiroga MD On 03/11/2022 20:53:16 Kit Quiroga MD
[2022-03-11] MEDS: Amiodarone 360 MG in Dextrose 5% Viaflo Bag 192.8 ML 33.3 MG CONT INF (21:00)
[2022-03-11] MEDS: 0.9% Normal Saline 1,000 ML 100 ML IV (21:00)
--- NOTE | 2022-03-11 21:19 | EKG12_ITS ---
Test Reason : POST-PCI Blood Pressure : / mmHG Vent. Rate : 087 BPM Atrial Rate : 087 BPM P-R Int : 152 ms QRS Dur : 080 ms QT Int : 386 ms P-R-T Axes : 049 -18 -20 degrees QTc Int : 464 ms Normal sinus rhythm Inferior infarct , age undetermined Abnormal ECG When compared with ECG of 12-MAR-2022 04:31, MANUAL COMPARISON REQUIRED, DATA IS UNCONFIRMED Confirmed by JULIO C HERNANDEZ, SOCORRO ([id number]), online editor NEISHA BENTLEY ([id number]) on 03/22/2022 11:22:07 AM Referred By: Melissa Quiroga Confirmed By:SOCORRO BUNCH MD
--- NOTE | 2022-03-11 21:19 | ECHOCS_ITS ---
Reason For Study: STEMI Procedure This was a 2D Doppler, Color Flow transthoracic echocardiogram. Contrast injection was performed. Exam performed portable in ICU/CCU. Left Ventricle Normal LV size. The estimated ejection fraction is 50 %. Left ventricular systolic function is lower limits of normal. Stage 1 diastolic dysfunction. Mid-Inferior: Hypokinetic. Infero-Basal: Hypokinetic. Right Ventricle Normal RV size. Normal systolic function. Atria Normal left atrium. Normal right atrium. Mitral Valve Normal mitral valve. Tricuspid Valve Normal tricuspid valve. Aortic Valve The aortic valve is not well visualized. Pulmonic Valve The pulmonic valve is not well visualized. Great Vessels Normal aortic root. The pulmonary artery is normal size. Normal inferior vena cava. Pericardium/Pleural No pericardial effusion. Medication Diluted definity 1ml given slow IV push to enhance endocardial definition. MMode/2D Measurements & Calculations LVIDd: 4.0 cm IVSd: 0.79 cm Ao root diam: 2.8 cm LVIDs: 2.9 cm LVPWd: 0.80 cm RVDd: 2.7 cm FS: 26.0 % LAV(MOD-bp): 15.4 ml LVAd ap4: 22.2 cm2 SV(MOD-sp4): 28.4 ml LAV(MOD-bp) Indexed: 7.7 ml/m2 LVLd ap4: 7.6 cm LAV(MOD-sp2): 18.3 ml EDV(MOD-sp4): 53.0 ml LAV(MOD-sp4): 12.3 ml EDV(sp4-el): 55.1 ml LVAs ap4: 14.7 cm2 LVLs ap4: 7.3 cm ESV(MOD-sp4): 24.5 ml ESV(sp4-el): 24.9 ml EF(MOD-sp4): 53.7 % EF(sp4-el): 54.7 % SV(sp4-el): 30.2 ml LA A4 area: 8.0 cm2 LA dimension(2D): 2.9 cm RA A4 area: 10.0 cm2 Doppler Measurements & Calculations MV E max jeb: 45.9 cm/sec Lat Peak E' Jeb: 10.8 cm/sec Med Peak E' Jeb: 8.0 cm/sec MV A max jeb: 66.2 cm/sec E/E' lat: 4.2 E/E' med: 5.7 MV E/A: 0.69 Ao V2 max: 95.1 cm/sec LV V1 max: 80.3 cm/sec PA V2 max: 66.3 cm/sec Ao max P.6 mmHg LV V1 max P.6 mmHg Ao V2 mean: 72.2 cm/sec Ao mean P.2 mmHg Ao V2 VTI: 16.0 cm TR max jeb: 187.4 cm/sec TR max P.0 mmHg ECHO/Echo Complete W/ Contrast Interpretation Summary Normal LV size. Left ventricular systolic function is lower limits of normal. The estimated ejection fraction is 50 %. Stage 1 diastolic dysfunction. Contrast injection was performed. Ordering Physician: Letha Sahni Referring Physician: Brandt Nguyễn Performed By: Justine Bernal, RAHEL, RVT
--- NOTE | 2022-03-11 21:38 | RAD_ITS ---
EXAM: XR LEFT WRIST COMPLETE, 3 OR MORE VIEWS CLINICAL INDICATION: L wrist deformity TECHNIQUE: Frontal, lateral and oblique views of the left wrist. This report was created using [employer] report generation technology. COMPARISON: None. FINDINGS: BONES/JOINTS: Chronic appearing left wrist injury with volar subluxation/dislocation at the radiocarpal joint, with significant degenerative changes. No acute fracture. No sclerotic or destructive changes observed. SOFT TISSUES: Soft tissue swelling. No radiopaque foreign body. RAD/Wrist min 3 Views IMPRESSION: Chronic appearing left wrist injury with volar subluxation/dislocation at the radiocarpal joint, with significant degenerative changes. Electronically Signed: Roge Gleason MD at 23:36 EDT ,
[2022-03-11 22:12] LABS: Anion Gap 5 (5-15); BUN 8 mg/dL (7-18); BUN/Creat Ratio 9.4 RATIO (10-20); Calcium,Total 8.2 mg/dL (8.5-10.1); Chloride 107 mmol/L (98-107); Creatinine, Serum 0.85 mg/dL (0.70-1.30); EST Glomerular Filtration Rate 102 mL/min (>60); Est Glom Filt Rate - Afr Amer 124 mL/min (>60); Estimated Creatinine Clearance 107.44 ml/min; Glucose 99 mg/dL (74-106); Potassium 3.9 mmol/L (3.5-5.1); Sodium Level 138 mmol/L (136-145)
[2022-03-11 22:21] LABS: Hemoglobin A1c 4.7 % (3.8-5.6)
[2022-03-11] MEDS: 0.9% Normal Saline 500 ML IV.SOLN. IV (23:01)
--- NOTE | 2022-03-11 23:10 | NURSING ---
Pt arrived from [facility] at 2048. Propofol running at 50mcg/kg/min, fentanyl running at 200mcg/min however these rates were not charted appropriately in OCT. Current rates documented at this time.
[2022-03-11 23:15] LABS: Allen Test Positive; Base Excess -4 mmol/L (-2 to +2); Bicarbonate 20.3 mmol/L (22-26); Blood Gas Specimen Type ART; FI02 50; Mode AC; O2 Delivery Device ET Tube; PEEP 5; PO2 72 mmHG (75-100); RR 14; SITE R Radial; SO2 95 % (95-99); Total Carbon Dioxide 21 mmol/L; Vt 500; pCO2 32.2 mmHg (35-45); pH 7.41 (7.35-7.45)
[2022-03-11] MEDS: Chlorhexidine 15 ML PO (23:18)
[2022-03-11] MEDS: Famotidine 20 MG Tablet GT (23:22)
[2022-03-12] VITALS (58 sets, daily range): BP systolic 62–140; BP diastolic 49–102; PULSE 67–98; RESP 1–32; TEMP 37.3–39.2; O2SAT 85–100
--- NOTE | 2022-03-12 00:04 | EX.ED.CRITCA ---
HPI History of Present Illness Chief Complaint: CPR Narrative Narrative: History and physical is limited secondary to patient condition. History obtained through EMS. EMS called to the scene secondary to unresponsive patient. states that he told her that he loves her very much and that he would see you in [facility]. states that patient went unresponsive, she tried to get him to the floor and he was not breathing. He turned purple. Upon EMS arrival, chest compressions were started. On the monitor, he was in ventricular fibrillation. They performed defibrillation initially and he did get a pulse back, but they lost it again, and they had to defibrillate him a second time. Upon arrival to the emergency department, he is moving all extremities, and combative but still unresponsive. states he has past medical history of remote brain injury, and has had 2 strokes in the past. She states that they told him that his next event would most likely be a heart attack. [facility] Medical History Alcohol abuse Anxiety and depression Closed bimalleolar fracture of left ankle Hemiparesis affecting left side as late effect of cerebrovascular accident High cholesterol History of stroke HTN (hypertension) Rheumatoid arthritis Tobacco use Home Medications aspirin 325 mg tablet 325 mg PO DAILY 07/08/20 [History Last Taken 07/08/20] atorvastatin 80 mg tablet 80 mg PO DAILY 10/25/21 [History Last Taken Unknown] gabapentin 600 mg tablet 600 mg PO DAILY 10/25/21 [History Last Taken Unknown] enoxaparin 40 mg/0.4 mL subcutaneous syringe (Lovenox) 40 mg (0.4 mL) subcut DAILY #8 mL 02/20/22 [Rx Last Taken Unknown] ondansetron 4 mg disintegrating tablet 4 mg PO Q8H PRN nausea and vomiting #10 tabs 02/20/22 [Rx Last Taken Unknown] oxycodone-acetaminophen 5 mg-325 mg tablet (Percocet) 1 tab PO Q6H PRN pain 3 days #10 tabs 02/20/22 [Rx Last Taken Unknown] oxycodone-acetaminophen 5 mg-325 mg tablet (Percocet) 1 tab PO Q6H PRN pain 3 days #10 tabs 03/07/22 [Rx Last Taken Unknown] Allergy/AdvReac Type Severity Reaction Status Date / Time cephalexin [From Keflex] Allergy Anaphylaxis Verified 02/20/22 17:30 fluoxetine [From Prozac] Allergy Itching Verified 02/20/22 17:30 hydroxychloroquine Allergy Other Verified 02/20/22 17:30 [From Plaquenil] Family History Mother Rheumatoid arthritis Hypertension Father Hypertension Surgical History No history of previous surgery Social History household members: significant other Smoking Status: Current every day smoker tobacco type: cigarettes alcohol intake: current alcohol intake frequency: 3 or more drinks per day details: 08/29 of 09/01 vodka daily. substance use type: marijuana ROS ROS ED ROS Narrative Unable to obtain review of systems from patient secondary to patient condition and eventually endotracheal tube. Review of Systems ROS Unobtainable: due to endotracheal tube EXAM Physical Exam Narrative Exam Narrative: Afebrile. Vital signs noted. HEENT: Normocephalic. Atraumatic. PERRL, EOMI. Neck soft and supple. No point tenderness or step off. Cardiovascular: Positive tachycardia, no murmurs, rubs, or gallops appreciated. Respiratory: No tachypnea. Diffuse rhonchi bilateral lungs Gastrointestinal: Abdomen soft, nontender, with normoactive bowel sounds. No rebound or guarding. Neurological: Combative, nonfocal, nonlateralizing. Moving all extremities. Skin: No rash. Normal color. No pallor. Musculoskeletal: No pedal edema. Positive deformity left wrist, chronic. Const Vital Signs: 03/11/22 18:40 03/11/22 19:03 03/11/22 19:28 Temperature Temperature Source Pulse Rate 113 H Pulse Rate [1] 120 H Respiratory Rate 34 H 28 H 32 H Respiratory Rate [1] 32 H Respiratory Pattern Blood Pressure 205/124 H 126/97 H 164/94 H Blood Pressure [1] 167/129 H Blood Pressure Mean 106 Pulse Ox 92 96 Oxygen Delivery Method Ambu-Bag Mechanical Ventilator Oxygen Flow Rate (L/min) 15 Fraction of Inspired Oxygen (FIO2) 100 03/11/22 18:47 03/11/22 19:00 03/11/22 19:00 Temperature 98.0 F Temperature Source Temporal Pulse Rate 119 H Pulse Rate [1] Respiratory Rate 34 H Respiratory Rate [1] Respiratory Pattern Tachypnea Blood Pressure Blood Pressure [1] Blood Pressure Mean Pulse Ox 92 Oxygen Delivery Method Mechanical Ventilator Oxygen Flow Rate (L/min) Fraction of Inspired Oxygen (FIO2) 100 100 03/11/22 19:01 Temperature Temperature Source Pulse Rate Pulse Rate [1] Respiratory Rate Respiratory Rate [1] Respiratory Pattern Blood Pressure 139/103 H Blood Pressure [1] Blood Pressure Mean 115 Pulse Ox Oxygen Delivery Method Oxygen Flow Rate (L/min) Fraction of Inspired Oxygen (FIO2) MDM MDM MDM Narrative Medical decision making narrative: Initially, upon examination, patient had fluctuating pulse ox. Given his cardiac arrest and the need for compressions, with reported agonal respirations, I do not feel that he is protecting his airway and that he may have already aspirated as paramedics states that he vomited. Patient was administered 20 mg of etomidate along with 100 mg of succinylcholine and was intubated with a 7.5 ETT using direct laryngoscopy with a Mac 3 glide scope. Patient tolerated the procedure well. He was placed on the ventilator. His EKG was obtained which demonstrates a sinus tachycardia but he has [address] elevation with reciprocal changes in leads V2 through V4. He had been administered amiodarone 150 mg bolus because of his reported V. fib arrest with cardioversion, but now has a normal pulse that is tachycardic. I discussed the patient with Dr. Quiroga who agrees that the patient merits cardiac catheterization. He will be given aspirin, Brilinta, and heparin bolus. His laboratory work was pending before he was taken to the catheterization lab. Additionally, I discussed the patient with the hospitalist, Dr. Sahni, who will admit him to the ICU after cardiac catheterization. Patient is in critical condition. Of note, I did order single view chest x-ray which I interpreted. There does appear to be bilateral lower lobe infiltrates, most likely aspiration. I will defer antibiotics to the hospitalist/ICU sensitometrist as patient had already left the emergency department. Additionally KUB was obtained for NG placement. I interpreted the x-ray which shows good position of the tube, although this has been auscultated in the stomach. Lab Data Attestation: I reviewed the patient's lab results. Labs: Laboratory Results - last 24 hr 03/11/22 03/11/22 03/11/22 19:00 19:00 19:00 WBC 19.1 H RBC 5.83 Hgb 18.2 H* Hct 55.3 H MCV 94.9 H MCH 31.2 MCHC 32.9 RDW Std Deviation 49.2 H RDW Coeff of Jony 14.1 Plt Count 333 MPV 9.6 Immature Gran % (Auto) 2.500 H Neut % (Auto) 61.0 Lymph % (Auto) 27.1 [place] % (Auto) 6.6 Eos % (Auto) 2.0 Baso % (Auto) 0.8 Absolute Neuts (auto) 11.6 H Absolute Lymphs (auto) 5.18 H Nucleated RBC % 0.1 Differential Comment SEE COMMENT Diff Path Review May foll Platelet Estimate ADEQUATE RBC Morphology N CHROM Anisocytosis RARE Macrocytosis RARE PT 14.5 INR 1.2 APTT 33.4 Sodium 141 Potassium 3.6 Chloride 104 Carbon Dioxide 24.0 Anion Gap 13 BUN 9 Creatinine 1.23 Estim Creat Clear Calc 74.24 Est GFR (MDRD) Af Amer 81 Est GFR (MDRD) Non-Af 67 BUN/Creatinine Ratio 7.3 L Glucose 206 H Calcium 9.4 Phosphorus Magnesium Troponin I High Sens 64 03/11/22 19:00 WBC RBC Hgb Hct MCV MCH MCHC RDW Std Deviation RDW Coeff of Jony Plt Count MPV Immature Gran % (Auto) Neut % (Auto) Lymph % (Auto) [place] % (Auto) Eos % (Auto) Baso % (Auto) Absolute Neuts (auto) Absolute Lymphs (auto) Nucleated RBC % Differential Comment Diff Path Review Platelet Estimate RBC Morphology Anisocytosis Macrocytosis PT INR APTT Sodium Potassium Chloride Carbon Dioxide Anion Gap BUN Creatinine Estim Creat Clear Calc Est GFR (MDRD) Af Amer Est GFR (MDRD) Non-Af BUN/Creatinine Ratio Glucose Calcium Phosphorus 5.8 H Magnesium 2.6 Troponin I High Sens Radiography Chest X-Ray - ED: Left Effusion Diagnostic Testing: Clinical Impression(s) from Imaging Studies Chest X-Ray 03/11/22 19:01 IMPRESSION: Bilateral lower lobe infiltrates. Status post intubation Electronically Signed: Quan Lawrence MD at 19:56 EDT , KUB X-Ray 03/11/22 19:02 IMPRESSION: Nonspecific abdomen status post NG tube placement Electronically Signed: Quan Lawrence MD at 19:50 EDT , Critical Care Time Critical care time (excluding procedures): 30-74 minutes (35 minutes), Including time spent:, Discussing w/Patient &/or Family/Real Estate Salesperson, Discussing w/Consultants (Cardiology, hospitalist), Arranging Admission or Transfer and Performing Direct Patient Care at Bedside Discharge Plan Dx/Rx/DC Orders Clinical Impression: Cardiac arrest with ventricular fibrillation, ST elevation (STEMI) myocardial infarction, Respiratory failure Disposition Disposition: Acute Care Hospital [facility] Discharge Date/Time: 03/11/22 19:37
[2022-03-12 00:11] LABS: Troponin-I HS 40750 pg/mL (3.0-78.0)
[2022-03-12 00:28] LABS: BNP,B-Type NATRIURETIC PEPTIDE 12.5 pg/mL (0-100)
--- NOTE | 2022-03-12 00:56 | NURSING ---
0015 -Attempted to decrease sedation however pt became tachypneic, asynchronous with the ventilator, decreased oxygen saturations, and had upper body tremors. Sedation increased.
[2022-03-12] MEDS: Amiodarone 360 MG in Dextrose 5% Viaflo Bag 192.8 ML 16.7 MG CONT INF (01:34)
[2022-03-12] MEDS: Propofol 10MG/Ml 1,000 MG/100 ML Bottle 25.1 MG CONT INF (01:35)
--- NOTE | 2022-03-12 02:02 | RAD_ITS ---
EXAM: XR CHEST, 1 VIEW CLINICAL INDICATION: Hypoxia TECHNIQUE: Frontal view of the chest. This report was created using PANOSOL report generation technology. COMPARISON: None. FINDINGS: LUNGS AND PLEURAL SPACES: Mild bibasilar air space disease. No pneumothorax. No effusion. HEART: Unremarkable. Cardiac silhouette not enlarged. MEDIASTINUM: Central airways and mediastinal contour are unremarkable. BONES/JOINTS: Unremarkable. SOFT TISSUES: Unremarkable. TUBES, LINES AND DEVICES: Enteric tube extending below the level of the GE junction into the stomach. Endotracheal tube with tip 5.5 cm above the dami. RAD/Chest 1 View (Portable) IMPRESSION: Mild bibasilar air space disease. Findings may indicate atelectasis or infection. Electronically Signed: Roge Gleason MD at 3:11 EDT ,
[2022-03-12] MEDS: Clindamycin 600 MG/50 ML BAG 100 MG IV (02:22)
[2022-03-12] MEDS: Acetaminophen 325 MG Tablet 650 MG PO (02:23)
[2022-03-12 02:49] LABS: Troponin-I HS 56516 pg/mL (3.0-78.0)
[2022-03-12 04:41] LABS: Absolute Lymphocyte Count 1.23 X10^3/uL (0.83-4.51); Absolute Neutrophil Count 5.5 X10^3/uL (2.0-7.7); Basophil# 0.03 X10^3/uL; Basophil% 0.4 % (0-1); Eosinophil# 0.14 X10^3/uL; Eosinophils% 1.9 % (0-5); Hemoglobin 16.1 g/dL (13.0-16.5); Lymphocyte # 1.23 X10^3/ul (0.83-4.51); Lymphocyte % 16.8 % (19-41); Mean Corp Hgb Conc 32.9 g/dL (32-36); Mean Corpuscular Hgb 30.6 pg (27.0-32.0); Mean Corpuscular Volume 93.2 fL (80-94); Mean Platelet Vol. 9.2 fl (6.2-12.0); Monocyte# 0.38 X10^3/uL; Monocyte% 5.2 % (0-10); NRBC Flagged by Analyzer 0 % (0-5); Neutrophil # 5.54 X10^3/uL (2.7-7.7); Neutrophil % 75.6 % (47-70); Platelet Count 248 K/mm3 (150-450); RBC Distribution Width CV 14.3 % (11.6-14.6); RBC Distribution Width SD 49.6 fl (35.1-43.9); Red Blood Count 5.26 M/mm3 (4.6-6.2); White Blood Count 7.3 K/mm3 (4.4-11.0)
[2022-03-12 05:00] LABS: ALB/GLOB Ratio 0.9 RATIO (0.9-2.4); AST(SGOT) 209 U/L (15-37); Alanine Aminotransfer ALT/SGPT 140 U/L (16-61); Albumin, Serum 2.8 g/dL (3.2-5.0); Alkaline Phosphatase 70 U/L (45-117); Anion Gap 6 (5-15); BUN 10 mg/dL (7-18); BUN/Creat Ratio 9.9 RATIO (10-20); Calcium,Total 7.6 mg/dL (8.5-10.1); Chloride 108 mmol/L (98-107); Cholesterol 109 mg/dL (200); Creatinine, Serum 1.01 mg/dL (0.70-1.30); EST Glomerular Filtration Rate 84 mL/min (>60); Est Glom Filt Rate - Afr Amer 102 mL/min (>60); Estimated Creatinine Clearance 90.42 ml/min; Globulin 3.1 g/dL (2.2-4.2); Glucose 101 mg/dL (74-106); High Density Lipoprotein 36 mg/dL; Potassium 3.5 mmol/L (3.5-5.1); Protein, Total 5.9 g/dL (6.4-8.2); Sodium Level 140 mmol/L (136-145); Triglycerides 97 mg/dL; Very Low Density Lipoprotein 19 mg/dL (5-40)
[2022-03-12] MEDS: Propofol 10MG/Ml 1,000 MG/100 ML Bottle 12 MG CONT INF ×2 (05:52→14:41)
[2022-03-12] MEDS: 0.9% Normal Saline 1,000 ML 100 ML IV (05:52)
[2022-03-12] MEDS: TITRATION PARAMETER CHANGE 1 EACH IV (05:57)
--- NOTE | 2022-03-12 06:48 | CON.PCM.CC_ITS ---
Assessment & Plan Assessment/Plan (1) Respiratory failure: (2) Cardiac arrest with ventricular fibrillation: (3) ST elevation (STEMI) myocardial infarction: PLAN: Plan RECOMMENDATIONS: 1. Continue assist-control mode mechanical ventilation. Wean FiO2 for saturations greater than 90%. 2. Broaden antimicrobials to meropenem to cover for aspiration. 3. Continue Levophed to maintain a mean arterial pressure at or above 65 mmHg. 4. Stop continuous IV fluids. 5. Continue current sedation regimen. Wean as tolerated. 6. Hold on tube feeds today. 7. Continue appropriate ICU prophylaxis. IMPRESSIONS: 1. Acute hypoxemic respiratory failure status post cardiopulmonary arrest The patient experienced an [id number] V. fib cardiac arrest with subsequent ROSC. He was taken to the [facility] and underwent coronary angiography which revealed 100% occlusion of the RCA that was treated with thrombectomy and drug- eluting stent placement. There is also concern that the patient aspirated during his resuscitative efforts. Therefore, he will be continued on assist control mode of mechanical ventilation. FiO2 and PEEP will be weaned as tolerated for saturations greater than 90%. The patient will be transition to meropenem for antibiotic coverage. MRSA screen was negative. Echocardiogram is currently pending. 2. Septic versus cardiogenic shock The patient developed hypotension overnight and ultimately required initiation of vasopressor support. Levophed will be continued to maintain a mean arterial pressure at or above 65 mmHg. The patient will be continued on broad-spectrum antimicrobials to cover for potential aspiration pneumonia. Additional medical management per cardiology recommendations. 3. History of alcohol abuse/history of CVA with left-sided hemipa resis/hypertension/hyperlipidemia/rheumatoid arthritis Complicates care, management, recovery and prognosis. Continue home medications as indicated. TIME: 38 minutes of critical care time, independent of procedures, was spent addressing the patient's acute hypoxemic respiratory failure, V. fib cardiac arrest, septic versus cardiogenic shock, review of all data and collaboration with the care team. HPI Consult Data Date of Consult: 03/13/22 HPI Narrative Reason for Consultation: Respiratory failure HPI Narrative: The patient is a 46-year-old male, with a history as outlined below, who presented to the emergency department via EMS on March 11 after becoming unresponsive in the setting of cardiopulmonary arrest. The patient has a history of rheumatoid arthritis, chronic tobacco dependency, prior CVA with left-sided hemiparesis anxiety and depression, along with alcohol abuse history. According to EMS documentation, the patient was found pulseless and apneic. ACLS was initiated. His initial rhythm was noted to be ventricular fibrillation for which a 200 J shock was applied. The patient was noted to have vomited and potentially aspirated during the resuscitative efforts. On presentation to the emergency department, the patient was noted to be afebrile and hemodynamically stable. The patient was immediately intubated on arrival to the emergency department, due to concerns for his ability to protect his airway. EKG demonstrated inferior ST segment elevation IN, for which a STEMI alert was called. The patient was seen in consultation by cardiology and taken to the [facility] where he underwent coronary angiography which revealed an 100% occlusion of the RCA, which was treated with thrombectomy and drug-eluting stent placement. The patient was transferred to the medical intensive care unit postprocedure. Initial laboratory evaluation on arrival demonstrated a white blood cell count of 19,000. His most recent arterial blood gas demonstrated a pH of 7.4 with a PCO2 of 32 and PO2 of 72. Chemistry profile was unremarkable. Hepatic function profile demonstrated a AST of 209 and ALT of 140. Troponins peaked at 56,516. The most recent chest x-ray demonstrated basilar airspace disease. The patient has been placed on antimicrobials over concerns for aspiration. Overnight, the patient became hypotensive, ultimately requiring the initiation of vasopressor support. He is currently on Levophed at 10 mcg/min. The patient is sedated on propofol and fentanyl. He remains on assist control mode mechanical ventilation with an FiO2 requirement of 70% and PEEP of 5. PFSH Medical History Alcohol abuse Anxiety and depression Closed bimalleolar fracture of left ankle Hemiparesis affecting left side as late effect of cerebrovascular accident High cholesterol History of stroke HTN (hypertension) Rheumatoid arthritis Tobacco use Home Medications aspirin 325 mg tablet 325 mg PO DAILY 07/08/20 [History Last Taken 07/08/20] atorvastatin 80 mg tablet 80 mg PO DAILY 10/25/21 [History Last Taken Unknown] gabapentin 600 mg tablet 600 mg PO DAILY 10/25/21 [History Last Taken Unknown] enoxaparin 40 mg/0.4 mL subcutaneous syringe (Lovenox) 40 mg (0.4 mL) subcut DAILY #8 mL 02/20/22 [Rx Last Taken Unknown] ondansetron 4 mg disintegrating tablet 4 mg PO Q8H PRN nausea and vomiting #10 tabs 02/20/22 [Rx Last Taken Unknown] oxycodone-acetaminophen 5 mg-325 mg tablet (Percocet) 1 tab PO Q6H PRN pain 3 days #10 tabs 02/20/22 [Rx Last Taken Unknown] oxycodone-acetaminophen 5 mg-325 mg tablet (Percocet) 1 tab PO Q6H PRN pain 3 days #10 tabs 03/07/22 [Rx Last Taken Unknown] Allergy/AdvReac Type Severity Reaction Status Date / Time cephalexin [From Keflex] Allergy Anaphylaxis Verified 02/20/22 17:30 fluoxetine [From Prozac] Allergy Itching Verified 02/20/22 17:30 hydroxychloroquine Allergy Other Verified 02/20/22 17:30 [From Plaquenil] Family History Mother Rheumatoid arthritis Hypertension Father Hypertension Surgical History No history of previous surgery Social History household members: significant other Smoking Status: Current every day smoker tobacco type: cigarettes alcohol intake: current alcohol intake frequency: 3 or more drinks per day details: 08/29 of 09/01 vodka daily. substance use type: marijuana ROS Review of Systems ROS Unobtainable: due to endotracheal tube and due to mental status Physical Exam Const no apparent distress General Appearance: intubated and patient mechanically ventilated HEENT normocephalic and head/scalp atraumatic Mouth: endotracheal tube in place and OG tube in place Eyes PERRL and EOMs intact bilaterally Neck supple General: trachea midline Chest inspection of chest normal Resp normal respiratory effort Auscultation: Negative for rales, rhonchi or wheezes Cardio regular rate and regular rhythm GI normal to inspection, nondistended, normoactive bowel sounds Extremity no clubbing, cyanosis or edema Extremity Narrative: Bilateral lower extremity braces in place. Skin no rashes or lesions noted Neuro Sensorium / Orientation: sedated on vent Lab / Micro Data Result Diagrams: 03/12/22 04:33 03/12/22 04:33 Labs: Laboratory Results - last 24 hr 03/11/22 19:00: WBC 19.1 H, RBC 5.83, Hgb 18.2 H*, Hct 55.3 H, MCV 94.9 H, MCH 31.2, MCHC 32.9, RDW Std Deviation 49.2 H, RDW Coeff of Jony 14.1, Plt Count 333, MPV 9.6, Immature Gran % (Auto) 2.500 H, Neut % (Auto) 61.0, Lymph % (Auto) 27.1, [place] % (Auto) 6.6, Eos % (Auto) 2.0, Baso % (Auto) 0.8, Absolute Neuts (auto) 11.6 H, Absolute Lymphs (auto) 5.18 H, Nucleated RBC % 0.1, Differential Comment SEE COMMENT, Diff Path Review May foll, Platelet Estimate ADEQUATE, RBC Morphology N CHROM, Anisocytosis RARE, Macrocytosis RARE 03/11/22 19:00: PT 14.5, INR 1.2, APTT 33.4 03/11/22 19:00: Sodium 141, Potassium 3.6, Chloride 104, Carbon Dioxide 24.0, Anion Gap 13, BUN 9, Creatinine 1.23, Estim Creat Clear Calc 74.24, Est GFR (MDRD) Af Amer 81, Est GFR (MDRD) Non-Af 67, BUN/Creatinine Ratio 7.3 L, Glucose 206 H, Calcium 9.4, Troponin I High Sens 64 03/11/22 19:00: B-Natriuretic Peptide 12.5 03/11/22 19:00: Phosphorus 5.8 H, Magnesium 2.6 03/11/22 21:37: Sodium 138, Potassium 3.9, Chloride 107, Carbon Dioxide 26.0, Anion Gap 5, BUN 8, Creatinine 0.85, Estim Creat Clear Calc 107.44, Est GFR (MDRD) Af Amer 124, Est GFR (MDRD) Non-Af 102, BUN/Creatinine Ratio 9.4 L, Glucose 99, Calcium 8.2 L 03/11/22 21:56: Troponin I High Sens [id number] H* 03/11/22 21:56: Hemoglobin A1c 4.7 03/12/22 01:44: Troponin I High Sens [id number] H* 03/12/22 04:33: WBC 7.3, RBC 5.26, Hgb 16.1, Hct 49.0, MCV 93.2, MCH 30.6, MCHC 32.9, RDW Std Deviation 49.6 H, RDW Coeff of Jony 14.3, Plt Count 248, MPV 9.2, Immature Gran % (Auto) 0.100, Neut % (Auto) 75.6 H, Lymph % (Auto) 16.8 L, [place] % (Auto) 5.2, Eos % (Auto) 1.9, Baso % (Auto) 0.4, Absolute Neuts (auto) 5.5, Absolute Lymphs (auto) 1.23, Nucleated RBC % 0 03/12/22 04:33: Sodium 140, Potassium 3.5, Chloride 108 H, Carbon Dioxide 26.0, Anion Gap 6, BUN 10, Creatinine 1.01, Estim Creat Clear Calc 90.42, Est GFR ( MDRD) Af Amer 102, Est GFR (MDRD) Non-Af 84, BUN/Creatinine Ratio 9.9 L, Glucose 101, Calcium 7.6 L, Total Bilirubin 0.90, AST 209 H, ALT 140 H, Alkaline Phosphatase 70, Total Protein 5.9 L, Albumin 2.8 L, Globulin 3.1, Albumin/Globulin Ratio 0.9, Triglycerides 97, Cholesterol 109, LDL Cholesterol 54, VLDL Cholesterol 19, HDL Cholesterol 36 L ABG Data ABG results: ABG 03/11/22 03/11/22 19:57 23:10 Specimen Type ART ART Sample Site L Radial R Radial pH 7.22 L 7.41 Bicarbonate Actual 22.5 20.3 L Total CO2 24 21 Base Excess -5 L -4 L O2 Saturation 96 95 O2 % 100 50 ABG pCO2 55.2 H 32.2 L ABG pO2 99 72 L Jay Test Positive Positive Respiration Rate 14 14 O2 Delivery Device ET Tube ET Tube Vent Mode AC AC Tidal Volume 450 500 POC PEEP 5 5 Radiology Impression Chest X-Ray 03/11/22 19:01 IMPRESSION: Bilateral lower lobe infiltrates. Status post intubation Electronically Signed: Quan Lawrence MD at 19:56 EDT , KUB X-Ray 03/11/22 19:02 IMPRESSION: Nonspecific abdomen status post NG tube placement Electronically Signed: Quan Lawrence MD at 19:50 EDT , Wrist X-Ray 03/11/22 21:38 IMPRESSION: Chronic appearing left wrist injury with volar subluxation/dislocation at the radiocarpal joint, with significant degenerative changes. Electronically Signed: Roge Gleason MD at 23:36 EDT , Chest X-Ray 03/12/22 02:02 IMPRESSION: Mild bibasilar air space disease. Findings may indicate atelectasis or infection. Electronically Signed: Roge Gleason MD at 3:11 EDT , Charges/Coding Procedures Hospitalists Procedures: [id number] [facility] H[facility]
[2022-03-12 07:30] LABS: M R Staph aureus DNA By PCR Negative (Negative); Probe Check PASS; Specimen Processing Control PASS
[2022-03-12] MEDS: TICAGRELOR 90 MG TABLET PO ×2 (09:13→21:00)
[2022-03-12] MEDS: Thiamine Hydrochloride 100 MG Tablet PO (09:13)
[2022-03-12] MEDS: Folic Acid 1 MG Tablet PO (09:13)
[2022-03-12] MEDS: Aspirin E.C. 81 MG Tablet PO (09:13)
[2022-03-12] MEDS: Famotidine 20 MG Tablet GT ×2 (09:14→21:00)
[2022-03-12] MEDS: Chlorhexidine 15 ML PO ×2 (09:14→21:03)
--- NOTE | 2022-03-12 10:22 | PCM.PN.CARD ---
Subjective Subjective Patient seen and evaluated. Still intubated. Sedated. Objective Data Vital Signs: Vital Signs Temp Pulse Resp BP Pulse Ox O2 Del Method O2 Flow Rate 99.6 F H 69 15 100/73 94 Mechanical Ventilator 15 03/12/22 08:00 03/12/22 09:05 03/12/22 09:05 03/12/22 08:00 03/12/22 09:05 03/12/22 08:00 03/11/22 18:40 FiO2 35 03/12/22 09:05 Oxygen Flow Rate (L/min) 15 Oxygen Delivery Method Mechanical Ventilator Weight: 175 lb 14.862 oz Body Mass Index (BMI) 27.2 Intake & Output: Intake and Output for Last 24 Hours 03/10/22 03/11/22 03/12/22 23:59 23:59 23:59 Intake Total 294.48 / 322.99 1579.48 / 1579.48 Output Total 575 / 575 Balance 294.48 / 72.99 1004.48 / 1004.48 Lab / Micro Data Result Diagrams: 03/12/22 04:33 03/12/22 04:33 Labs: Laboratory Results - last 24 hr 03/11/22 19:00: WBC 19.1 H, RBC 5.83, Hgb 18.2 H*, Hct 55.3 H, MCV 94.9 H, MCH 31.2, MCHC 32.9, RDW Std Deviation 49.2 H, RDW Coeff of Jony 14.1, Plt Count 333, MPV 9.6, Immature Gran % (Auto) 2.500 H, Neut % (Auto) 61.0, Lymph % (Auto) 27.1, [place] % (Auto) 6.6, Eos % (Auto) 2.0, Baso % (Auto) 0.8, Absolute Neuts (auto) 11.6 H, Absolute Lymphs (auto) 5.18 H, Nucleated RBC % 0.1, Differential Comment SEE COMMENT, Diff Path Review May foll, Platelet Estimate ADEQUATE, RBC Morphology N CHROM, Anisocytosis RARE, Macrocytosis RARE 03/11/22 19:00: PT 14.5, INR 1.2, APTT 33.4 03/11/22 19:00: Sodium 141, Potassium 3.6, Chloride 104, Carbon Dioxide 24.0, Anion Gap 13, BUN 9, Creatinine 1.23, Estim Creat Clear Calc 74.24, Est GFR (MDRD) Af Amer 81, Est GFR (MDRD) Non-Af 67, BUN/Creatinine Ratio 7.3 L, Glucose 206 H, Calcium 9.4, Troponin I High Sens 64 03/11/22 19:00: B-Natriuretic Peptide 12.5 03/11/22 19:00: Phosphorus 5.8 H, Magnesium 2.6 03/11/22 21:37: Sodium 138, Potassium 3.9, Chloride 107, Carbon Dioxide 26.0, Anion Gap 5, BUN 8, Creatinine 0.85, Estim Creat Clear Calc 107.44, Est GFR (MDRD) Af Amer 124, Est GFR (MDRD) Non-Af 102, BUN/Creatinine Ratio 9.4 L, Glucose 99, Calcium 8.2 L 03/11/22 21:56: Troponin I [place] Sens [id number] H* 03/11/22 21:56: Hemoglobin A1c 4.7 03/12/22 01:44: Troponin I High Sens [id number] H* 03/12/22 04:33: WBC 7.3, RBC 5.26, Hgb 16.1, Hct 49.0, MCV 93.2, MCH 30.6, MCHC 32.9, RDW Std Deviation 49.6 H, RDW Coeff of Jony 14.3, Plt Count 248, MPV 9.2, Immature Gran % (Auto) 0.100, Neut % (Auto) 75.6 H, Lymph % (Auto) 16.8 L, [place] % (Auto) 5.2, Eos % (Auto) 1.9, Baso % (Auto) 0.4, Absolute Neuts (auto) 5.5, Absolute Lymphs (auto) 1.23, Nucleated RBC % 0 03/12/22 04:33: Sodium 140, Potassium 3.5, Chloride 108 H, Carbon Dioxide 26.0, Anion Gap 6, BUN 10, Creatinine 1.01, Estim Creat Clear Calc 90.42, Est GFR (MDRD) Af Amer 102, Est GFR (MDRD) Non-Af 84, BUN/Creatinine Ratio 9.9 L, Glucose 101, Calcium 7.6 L, Total Bilirubin 0.90, AST 209 H, ALT 140 H, Alkaline Phosphatase 70, Total Protein 5.9 L, Albumin 2.8 L, Globulin 3.1, Albumin/Globulin Ratio 0.9, Triglycerides 97, Cholesterol 109, LDL Cholesterol 54, VLDL Cholesterol 19, HDL Cholesterol 36 L 03/12/22 05:20: MRSA (PCR) Negative ABG Data ABG results: ABG 03/11/22 03/11/22 19:57 23:10 Specimen Type ART ART Sample Site L Radial R Radial pH 7.22 L 7.41 Bicarbonate Actual 22.5 20.3 L Total CO2 24 21 Base Excess -5 L -4 L O2 Saturation 96 95 O2 % 100 50 ABG pCO2 55.2 H 32.2 L ABG pO2 99 72 L Jay Test Positive Positive Respiration Rate 14 14 O2 Delivery Device ET Tube ET Tube Vent Mode AC AC Tidal Volume 450 500 POC PEEP 5 5 Cardiology Labs/Tests 03/11/22 19:00: WBC 19.1 H, RBC 5.83, Hgb 18.2 H*, Hct 55.3 H, MCV 94.9 H, MCH 31.2, MCHC 32.9, Plt Count 333, MPV 9.6, Immature Gran % (Auto) 2.500 H, Neut % (Auto) 61.0, Lymph % (Auto) 27.1, [place] % (Auto) 6.6, Eos % (Auto) 2.0, Baso % (Auto) 0.8, Absolute Neuts (auto) 11.6 H, Nucleated RBC % 0.1 03/11/22 19:00: PT 14.5, INR 1.2, APTT 33.4 03/11/22 19:00: Sodium 141, Potassium 3.6, Chloride 104, Carbon Dioxide 24.0, Anion Gap 13, BUN 9, Creatinine 1.23, Est GFR (MDRD) Af Amer 81, Est GFR (MDRD) Non-Af 67, BUN/Creatinine Ratio 7.3 L, Glucose 206 H, Calcium 9.4 03/11/22 19:00: B-Natriuretic Peptide 12.5 03/11/22 19:00: Phosphorus 5.8 H, Magnesium 2.6 03/11/22 19:57: pH 7.22 L, Bicarbonate Actual 22.5, Base Excess -5 L, O2 Saturation 96, ABG pCO2 55.2 H, ABG pO2 99, Jay Test Positive 03/11/22 21:37: Sodium 138, Potassium 3.9, Chloride 107, Carbon Dioxide 26.0, Anion Gap 5, BUN 8, Creatinine 0.85, Est GFR (MDRD) Af Amer 124, Est GFR (MDRD) Non-Af 102, BUN/Creatinine Ratio 9.4 L, Glucose 99, Calcium 8.2 L 03/11/22 21:56: Hemoglobin A1c 4.7 03/11/22 23:10: pH 7.41, Bicarbonate Actual 20.3 L, Base Excess -4 L, O2 Saturation 95, ABG pCO2 32.2 L, ABG pO2 72 L, Jay Test Positive 03/12/22 04:33: WBC 7.3, RBC 5.26, Hgb 16.1, Hct 49.0, MCV 93.2, MCH 30.6, MCHC 32.9, Plt Count 248, MPV 9.2, Immature Gran % (Auto) 0.100, Neut % (Auto) 75.6 H, Lymph % (Auto) 16.8 L, [place] % (Auto) 5.2, Eos % (Auto) 1.9, Baso % (Auto) 0.4, Absolute Neuts (auto) 5.5, Nucleated RBC % 0 03/12/22 04:33: Sodium 140, Potassium 3.5, Chloride 108 H, Carbon Dioxide 26.0, Anion Gap 6, BUN 10, Creatinine 1.01, Est GFR (MDRD) Af Amer 102, Est GFR (MDRD) Non-Af 84, BUN/Creatinine Ratio 9.9 L, Glucose 101, Calcium 7.6 L, Total Bilirubin 0.90, Triglycerides 97, Cholesterol 109, LDL Cholesterol 54, VLDL Cholesterol 19, HDL Cholesterol 36 L Rhythm: EKG: ECHO: Estimated ejection fraction of 50% with mild inferior hypokinesis Stress Test: Cardiac Cath: PCI: CT Surgery: Holter monitor: EPS: PPM: CXR: Chest CT Scan: Radiography Diagnostic Testing: Radiology Impression Chest X-Ray 03/11/22 19:01 IMPRESSION: Bilateral lower lobe infiltrates. Status post intubation Electronically Signed: Quan Lawrence MD at 19:56 EDT , KUB X-Ray 03/11/22 19:02 IMPRESSION: Nonspecific abdomen status post NG tube placement Electronically Signed: Quan Lawrence MD at 19:50 EDT , Echocardiogram 03/11/22 21:19 Interpretation Summary Normal LV size. Left ventricular systolic function is lower limits of normal. The estimated ejection fraction is 50 %. Stage 1 diastolic dysfunction. Contrast injection was performed. Ordering Physician: Letha Sahni Referring Physician: Brandt Nguyễn Performed By: Justine Bernal, AMDDICS, RVT Wrist X-Ray 03/11/22 21:38 IMPRESSION: Chronic appearing left wrist injury with volar subluxation/dislocation at the radiocarpal joint, with significant degenerative changes. Electronically Signed: Roge Gleason MD at 23:36 EDT , Chest X-Ray 03/12/22 02:02 IMPRESSION: Mild bibasilar air space disease. Findings may indicate atelectasis or infection. Electronically Signed: Roge Gleason MD at 3:11 EDT , Physical Exam Const alert, oriented x3 and no apparent distress General Appearance: cooperative HEENT hearing grossly normal bilaterally Head and Scalp: atraumatic Eyes EOMs intact bilaterally Neck General: normal visual inspection Chest inspection of chest normal and palpation of chest normal Resp normal respiratory effort Auscultation: clear to auscultation bilaterally Cardio regular rate, regular rhythm, S1 normal heart sound and S2 normal heart sound Jugular Venous Distention: JVD GI normal to inspection, nondistended, normoactive bowel sounds Extremity normal capillary refill and no pedal edema Extremity Narrative: Left wrist deformity and right ankle deformity Peripheral Pulses: Yes pulses 2+ throughout and femoral pulses present Skin no rashes or lesions noted Neuro CN's II-XII intact bilaterally Psych Appearance: grossly normal and appropriate Assessment & Plan Assessment/Plan (1) ST elevation (STEMI) myocardial infarction: PLAN: Patient is status postacute inferior wall myocardial infarction and status post angioplasty and stenting of this vessel. Appears to be doing fairly well. Ejection fraction appears to be fairly well-preserved estimated at 50% with mild inferior hypokinesis. No valvular abnormalities noted. Will continue aspirin [place] low-dose beta-moisés after pressor agents weaned off Continue high intensity statin. (2) Cardiac arrest with ventricular fibrillation: PLAN: Patient is status post V. fib arrest. We will continue IV amiodarone until current dosage is completed and then switch to p.o. amiodarone 200 twice daily. Will also resume beta-moisés after pressors are weaned off.
--- NOTE | 2022-03-12 12:15 | PN.HOSP_ITS ---
Subjective Subjective Patient was seen and examined today in the ICU, he remains sedated on the ventilator at this time. I talked briefly with cardiology about his care. Objective Data Objective Data Vital Signs: Vital Signs Temp Pulse Resp BP Pulse Ox O2 Del Method O2 Flow Rate 99.5 F H 74 12 91/68 90 Mechanical Ventilator 15 03/12/22 12:00 03/12/22 12:00 03/12/22 12:00 03/12/22 12:00 03/12/22 12:00 03/12/22 12:00 03/11/22 18:40 FiO2 35 03/12/22 12:00 Oxygen Flow Rate (L/min) 15 Oxygen Delivery Method Mechanical Ventilator Weight: 79.8 kg Body Mass Index (BMI) 27.2 Intake & Output: Intake and Output for Last 24 Hours 03/10/22 03/11/22 03/12/22 23:59 23:59 23:59 Intake Total 294.48 / 322.99 / Output Total 575 / 575 Balance 294.48 / 72.99 1437.68 / 143.68 Lab / Micro Data Result Diagrams: 03/12/22 04:33 03/12/22 04:33 Labs: Laboratory Results - last 24 hr 03/11/22 19:00: WBC 19.1 H, RBC 5.83, Hgb 18.2 H*, Hct 55.3 H, MCV 94.9 H, MCH 31.2, MCHC 32.9, RDW Std Deviation 49.2 H, RDW Coeff of Jony 14.1, Plt Count 333, MPV 9.6, Immature Gran % (Auto) 2.500 H, Neut % (Auto) 61.0, Lymph % (Auto) 27.1, [place] % (Auto) 6.6, Eos % (Auto) 2.0, Baso % (Auto) 0.8, Absolute Neuts (auto) 11.6 H, Absolute Lymphs (auto) 5.18 H, Nucleated RBC % 0.1, Differential Comment SEE COMMENT, Diff Path Review May , Platelet Estimate ADEQUATE, RBC Morphology N CHROM, Anisocytosis RARE, Macrocytosis RARE 03/11/22 19:00: PT 14.5, INR 1.2, APTT 33.4 03/11/22 19:00: Sodium 141, Potassium 3.6, Chloride 104, Carbon Dioxide 24.0, Anion Gap 13, BUN 9, Creatinine 1.23, Estim Creat Clear Calc 74.24, Est GFR (MDRD) Af Amer 81, Est GFR (MDRD) Non-Af 67, BUN/Creatinine Ratio 7.3 L, Glucose 206 H, Calcium 9.4, Troponin I High Sens 64 03/11/22 19:00: B-Natriuretic Peptide 12.5 03/11/22 19:00: Phosphorus 5.8 H, Magnesium 2.6 03/11/22 21:37: Sodium 138, Potassium 3.9, Chloride 107, Carbon Dioxide 26.0, Anion Gap 5, BUN 8, Creatinine 0.85, Estim Creat Clear Calc 107.44, Est GFR (MDRD) Af Amer 124, Est GFR (MDRD) Non-Af 102, BUN/Creatinine Ratio 9.4 L, Glucose 99, Calcium 8.2 L 03/11/22 21:56: Troponin I High Sens 87869 H* 03/11/22 21:56: Hemoglobin A1c 4.7 03/12/22 01:44: Troponin I High Sens 93801 H* 03/12/22 04:33: WBC 7.3, RBC 5.26, Hgb 16.1, Hct 49.0, MCV 93.2, MCH 30.6, MCHC 32.9, RDW Std Deviation 49.6 H, RDW Coeff of Jony 14.3, Plt Count 248, MPV 9.2, Immature Gran % (Auto) 0.100, Neut % (Auto) 75.6 H, Lymph % (Auto) 16.8 L, [place] % (Auto) 5.2, Eos % (Auto) 1.9, Baso % (Auto) 0.4, Absolute Neuts (auto) 5.5, Absolute Lymphs (auto) 1.23, Nucleated RBC % 0 03/12/22 04:33: Sodium 140, Potassium 3.5, Chloride 108 H, Carbon Dioxide 26.0, Anion Gap 6, BUN 10, Creatinine 1.01, Estim Creat Clear Calc 90.42, Est GFR (MDRD) Af Amer 102, Est GFR (MDRD) Non-Af 84, BUN/Creatinine Ratio 9.9 L, Glucose 101, Calcium 7.6 L, Total Bilirubin 0.90, AST 209 H, ALT 140 H, Alkaline Phosphatase 70, Total Protein 5.9 L, Albumin 2.8 L, Globulin 3.1, Albumin/Globulin Ratio 0.9, Triglycerides 97, Cholesterol 109, LDL Cholesterol 54, VLDL Cholesterol 19, HDL Cholesterol 36 L 03/12/22 05:20: MRSA (PCR) Negative ABG Data ABG results: ABG 03/11/22 03/11/22 19:57 23:10 Specimen Type ART ART Sample Site L Radial R Radial pH 7.22 L 7.41 Bicarbonate Actual 22.5 20.3 L Total CO2 24 21 Base Excess -5 L -4 L O2 Saturation 96 95 O2 % 100 50 ABG pCO2 55.2 H 32.2 L ABG pO2 99 72 L Jay Test Positive Positive Respiration Rate 14 14 O2 Delivery Device ET Tube ET Tube Vent Mode AC AC Tidal Volume 450 500 POC PEEP 5 5 Radiography Diagnostic Testing: Radiology Impression Chest X-Ray 03/11/22 19:01 IMPRESSION: Bilateral lower lobe infiltrates. Status post intubation Electronically Signed: Quan Lawrence MD at 19:56 EDT , KUB X-Ray 03/11/22 19:02 IMPRESSION: Nonspecific abdomen status post NG tube placement Electronically Signed: Quan Lawrence MD at 19:50 EDT , Echocardiogram 03/11/22 21:19 Interpretation Summary Normal LV size. Left ventricular systolic function is lower limits of normal. The estimated ejection fraction is 50 %. Stage 1 diastolic dysfunction. Contrast injection was performed. Ordering Physician: Letha Sahni Referring Physician: Brandt Nguyễn Performed By: Justine Bernal, RDCS, RVT Wrist X-Ray 03/11/22 21:38 IMPRESSION: Chronic appearing left wrist injury with volar subluxation/dislocation at the radiocarpal joint, with significant degenerative changes. Electronically Signed: Roge Gleason MD at 23:36 EDT Reading Location ID and State: [address] [place] [address] Tel , Service support , Chest X-Ray 03/12/22 02:02 IMPRESSION: Mild bibasilar air space disease. Findings may indicate atelectasis or infection. Electronically Signed: Roge Gleason MD at 3:11 EDT Reading Location ID and State: [facility] / [place] Tel , Service support , Physical Exam Const Constitutional Narrative: Patient is sedated and on the ventilator at this time General Appearance: well kempt and well developed HEENT normocephalic and head/scalp atraumatic Neck no JVD and thyroid normal General: trachea midline Resp normal respiratory effort, no retractions, no use of accessory muscles and clear to auscultation bilaterally Auscultation: Negative for rales, rhonchi or wheezes Cardio regular rate, regular rhythm, S1 normal heart sound, S2 normal heart sound, no murmurs, no rub and no gallops GI normal to inspection, nondistended, normoactive bowel sounds, soft to palpation and non-distended Extremity no clubbing, cyanosis or edema Skin no rashes or lesions noted General Skin Exam: no breakdown Neuro Neuro Narrative: Patient is sedated and on the ventilator Psych Psych Narrative: Patient is sedated and on the ventilator Assessment & Plan Assessment/Plan (1) ST elevation (STEMI) myocardial infarction: PLAN: Plan 1. ST elevation [place]-continue care at this time per cardiology, patient's chemistry profile and CBC are normal #2 cardiac arrest with ventricular fibrillation-with spontaneous return of circulation-continue present care under direction of cardiology #3 hypoxic respiratory failure-patient remains on the ventilator at this time, critical care is participating in his care #4 ventricular esslykoyxszq-cdjldyam-agjhxfq is now on an IV amiodarone #5 occlusive coronary disease right coronary artery-PCI was performed and a drug-eluting stent was placed yesterday, cardiology is participating in his care #6 cerebrovascular disease-complicates care, management, recovery, and prognosis #7 bimalleolar fracture of the left ankle-patient's left ankle is in an immobilizer at this time #8 septic versus cardiogenic shock-patient is currently on Levophed and IV antibiotics #9 hyperlipidemia-patient is on a statin Charges/Coding Visit Charges Inpatient E&M: 12785 Subs Hosp L2
--- NOTE | 2022-03-12 14:52 | CASEMGMT ---
Social Work Note BRIAN reviewed chart. Pt is currently on the vent. Pt has friend Arianne listed and per previous SW notes, Arianne is stating that she is HCPOA for pt. BRIAN placed a call to Arianne. Arianne states that she is HCPOA but does not have the documents. Arianne states that she is not sure where the documents are located at. BRIAN explained that without the documents on file, if a healthcare decision needed to be made, it would go to either spouse first and if no spouse it would go to adult children. Arianne states that pt has two daughters and states they are both over the age of 18. BRIAN again explained that without the HCPOA on file, and if a healthcare decision needed to be made, it would then go to his adult daughters to make a healthcare decision. Arianne states understanding. Arianne states that pt's daughter's name are Gwendolyn Garcia and Jacki Garcia, states that they are both over the age of 18. Arianne states that she has contact information for Jacki but not Gwendolyn. Jacki's number is [phone]. BRIAN explained that no decisions need to be made now, this worker just wanted to clarify POA. Arianne states understanding. Anca Rea RESIDENT BUYER, HEMMER CHAINSTITCH
--- NOTE | 2022-03-12 15:46 | CASEMGMT ---
RN CM NOTE: Pt currently intubated. Initial RN CM assessment deferred at this time. Alejandra MEDRANON RN CM
--- NOTE | 2022-03-12 15:59 | CASEMGMT ---
Social Work Note SW updated JOCELYNE Oneal that HCPOA documents are not on file so if a healthcare decision needs to be made then it would go to pt's two adult daughters to make decisions for pt. Pt's daughter's name are in previous SW notes and number for Jacki is in SW notes. Anca Rea LABORATORY PHLEBOTOMIST, INSPECTOR GENERAL
--- NOTE | 2022-03-12 20:45 | EKG12_ITS ---
Test Reason : AM EKG Blood Pressure : / mmHG Vent. Rate : 081 BPM Atrial Rate : 081 BPM P-R Int : 154 ms QRS Dur : 076 ms QT Int : 362 ms P-R-T Axes : 052 029 062 degrees QTc Int : 420 ms Normal sinus rhythm Normal ECG When compared with ECG of 18-DEC-2021 22:35, ST elevation now present in Inferior leads Confirmed by JULIO C HERNANDEZ, SOCORRO ([id number]), editorial assistant NEISHA BENTLEY ([id number]) on 03/22/2022 11:21:56 AM Referred By: Melissa Quiroga Confirmed By:SOCORRO BUNCH MD
[2022-03-12] MEDS: Amiodarone 200 MG Tablet GT (21:00)
[2022-03-12] MEDS: Atorvastatin Calcium 80 MG Tablet PO (21:00)
[2022-03-13] VITALS (32 sets, daily range): BP systolic 86–154; BP diastolic 63–109; PULSE 83–122; RESP 12–30; TEMP 37.6–38.2; O2SAT 90–100
[2022-03-13] MEDS: Propofol 10MG/Ml 1,000 MG/100 ML Bottle 7.2 MG CONT INF (01:32)
[2022-03-13] MEDS: TITRATION PARAMETER CHANGE 1 EACH IV (04:39)
[2022-03-13] MEDS: 0.9% Saline Lock 10 ML Syringe IV (04:40)
[2022-03-13] MEDS: CHLORHEXIDINE GLUC 2% CLOTH 1 EACH TOWELETTE TOPICAL (04:48)
--- NOTE | 2022-03-13 04:59 | NURSING ---
pt re weighted, both braces taken off pt, and any extra linen along with cornelius
--- NOTE | 2022-03-13 05:40 | PN.CC_ITS ---
Assessment & Plan Assessment/Plan (1) Respiratory failure: (2) Cardiac arrest with ventricular fibrillation: (3) ST elevation (STEMI) myocardial infarction: PLAN: Plan RECOMMENDATIONS: 1. Proceed with a trial of extubation this morning. 2. Once extubated, wean supplemental oxygen to maintain saturations at or above 90%. 3. Swallow evaluation prior to consideration for advancing diet. 4. Continue antimicrobials as ordered. 5. Continue thiamine, folate and multivitamins. 6. Monitor for signs of alcohol withdrawal. 7. Continue appropriate ICU prophylaxis. IMPRESSIONS: 1. Acute hypoxemic respiratory failure status post cardiopulmonary arrest The patient experienced an jrt-ec-hceksfwy V. fib cardiac arrest with subsequent ROSC. He was taken to the [facility] and underwent coronary angiography which revealed 100% occlusion of the RCA that was treated with thrombectomy and drug- eluting stent placement. There is also concern that the patient aspirated during his resuscitative efforts. Therefore, he will be continued on empiric antimicrobials, pending finalized culture results. His respiratory status has improved over the last 24 hours. FiO2 requirement is minimal. The patient passed his spontaneous breathing trial and will therefore be extubated this morning. Once extubated, plan to wean supplemental oxygen for saturations greater than 90%. Encourage incentive spirometer use and mobilize patient as tolerated. 2. Septic versus cardiogenic shock Resolved. The patient initially developed fluid refractory hypotension upon admission to the ICU, which required vasopressor support. Levophed was able to be weaned off completely overnight. The patient remains hemodynamically stable this morning. Plan to continue supportive measures as noted above along with antimicrobials as ordered to cover for potential aspiration pneumonia. Additional medical management per cardiology recommendations. 3. History of alcohol abuse/history of CVA with left-sided hem iparesis/hypertension/hyperlipidemia/rheumatoid arthritis Complicates care, management, recovery and prognosis. Continue home medications as indicated. Continue thiamine and folate and monitor for signs of alcohol withdrawal. TIME: 35 minutes of critical care time, independent of procedures, was spent addressing the patient's acute hypoxemic respiratory failure, V. fib cardiac arrest, septic versus cardiogenic shock, review of all data and collaboration w ith the care team. Subjective Subjective The patient was seen and examined at the bedside this morning. Events from the last 24 hours have been reviewed. The patient currently has a low-grade fever and remains on assist control mode mechanical ventilation with an FiO2 requirement of 30%. Levophed was weaned off completely overnight. The patient is currently documented to be overall net +2.3 L for the hospitalization. The patient did well overnight and passed his spontaneous breathing trial this morning. He is alert and able to follow commands appropriately. Secretion output from his endotracheal tube has improved. Objective Data Objective Data The patient's most recent lab work, culture data and imaging studies have all been personally reviewed. Surface echocardiogram demonstrated normal LV size with an ejection fraction of 50%. Stage I diastolic dysfunction was noted. Sputum culture is pending. MRSA screen was negative. Vital Signs: Vital Signs Temp Pulse Resp BP Pulse Ox O2 Del Method O2 Flow Rate 99.7 F H 92 15 107/76 95 Mechanical Ventilator 03/13/22 04:00 03/13/22 05:00 03/13/22 05:30 03/13/22 05:00 03/13/22 05:00 03/13/22 05:00 03/11/22 18:40 FiO2 03/13/22 05:00 Oxygen Flow Rate (L/min) 15 Oxygen Delivery Method Mechanical Ventilator Weight: 180 lb 15.992 oz Body Mass Index (BMI) 27.2 Intake & Output: Intake and Output for Last 24 Hours 03/11/22 03/12/22 03/13/22 23:59 23:59 23:59 Intake Total 294.48 / 322.99 3590.59 / 3805.29 604.53 / 604.53 Output Total 1625 / 1975 500 / 500 Balance 294.48 / 72.99 1965.59 / 1830.29 104.53 / 104.53 Lab / Micro Data Attestation: I reviewed the patient's lab results. Result Diagrams: 03/13/22 04:45 03/13/22 04:45 Labs: Laboratory Results - last 24 hr 03/12/22 05:20: MRSA (PCR) Negative Micro: Microbiology 03/12/22 01:10 Sputum, Tracheal Aspirate Gram Stain - Final Radiography Diagnostic Testing: Radiology Impression Echocardiogram 03/11/22 21:19 Interpretation Summary Normal LV size. Left ventricular systolic function is lower limits of normal. The estimated ejection fraction is 50 %. Stage 1 diastolic dysfunction. Contrast injection was performed. _ Ordering Physician: Letha Sahni Referring Physician: Brandt Nguyễn Performed By: Justine Bernal, RAHEL, RVT Physical Exam Const no apparent distress Constitutional Narrative: Alert and able to follow commands. General Appearance: intubated and patient mechanically ventilated HEENT normocephalic and head/scalp atraumatic Mouth: endotracheal tube in place and OG tube in place Eyes PERRL and EOMs intact bilaterally Neck supple General: trachea midline Chest inspection of chest normal Resp normal respiratory effort Auscultation: Negative for rales, rhonchi or wheezes Cardio S1 normal heart sound and S2 normal heart sound Rate: tachycardic GI normal to inspection, nondistended, normoactive bowel sounds Extremity no clubbing, cyanosis or edema Extremity Narrative: Bilateral lower extremity braces in place. Skin no rashes or lesions noted Neuro Neuro Narrative: Alert and able to follow commands. Psych Activity / Motor Behavior: restless Charges/Coding Procedures Hospitalists Procedures: 12595 Critial Care 1st Hr
[2022-03-13 05:53] LABS: Absolute Lymphocyte Count 1.67 X10^3/uL (0.83-4.51); Absolute Neutrophil Count 5.7 X10^3/uL (2.0-7.7); Basophil# 0.05 X10^3/uL; Basophil% 0.6 % (0-1); Eosinophils% 2.4 % (0-5); Hemoglobin 14.7 g/dL (13.0-16.5); Lymphocyte # 1.67 X10^3/ul (0.83-4.51); Lymphocyte % 19.8 % (19-41); Mean Corp Hgb Conc 33.4 g/dL (32-36); Mean Corpuscular Hgb 31.3 pg (27.0-32.0); Mean Corpuscular Volume 93.6 fL (80-94); Mean Platelet Vol. 9.9 fl (6.2-12.0); Monocyte# 0.78 X10^3/uL; Monocyte% 9.2 % (0-10); NRBC Flagged by Analyzer 0 % (0-5); Neutrophil % 67.4 % (47-70); Platelet Count 210 K/mm3 (150-450); RBC Distribution Width CV 14.6 % (11.6-14.6); RBC Distribution Width SD 50.5 fl (35.1-43.9); White Blood Count 8.5 K/mm3 (4.4-11.0)
[2022-03-13 06:09] LABS: ALB/GLOB Ratio 0.8 RATIO (0.9-2.4); AST(SGOT) 112 U/L (15-37); Alanine Aminotransfer ALT/SGPT 89 U/L (16-61); Albumin, Serum 2.4 g/dL (3.2-5.0); Alkaline Phosphatase 60 U/L (45-117); Anion Gap 3 (5-15); BUN 9 mg/dL (7-18); BUN/Creat Ratio 11.3 RATIO (10-20); Calcium,Total 7.9 mg/dL (8.5-10.1); Chloride 111 mmol/L (98-107); Creatinine, Serum 0.79 mg/dL (0.70-1.30); EST Glomerular Filtration Rate 111 mL/min (>60); Est Glom Filt Rate - Afr Amer 134 mL/min (>60); Globulin 3.1 g/dL (2.2-4.2); Glucose 84 mg/dL (74-106); Potassium 3.6 mmol/L (3.5-5.1); Protein, Total 5.5 g/dL (6.4-8.2); Sodium Level 139 mmol/L (136-145)
--- NOTE | 2022-03-13 07:32 | NURSING ---
Right Venous groin sheath removed this AM. Pt tolerated well. line pulled at 07:10 pressure held till 07:30 by this RN.
--- NOTE | 2022-03-13 07:40 | PN.HOSP_ITS ---
Subjective Subjective Patient was seen and examined today in ICU, I talked with critical care about his care. Patient was extubated this morning, he is alert and says a few words, he responds appropriately to simple questions and nods his head. Patient does not appear to be in any respiratory distress. Objective Data Objective Data Vital Signs: Vital Signs Temp Pulse Resp BP Pulse Ox O2 Del Method O2 Flow Rate 99.7 F H 112 H 25 H 118/83 H 96 Nasal Cannula 6 03/13/22 04:00 03/13/22 07:30 03/13/22 07:00 03/13/22 07:00 03/13/22 07:00 03/13/22 07:00 03/13/22 07:00 FiO2 30 03/13/22 05:00 Oxygen Flow Rate (L/min) 6 Oxygen Delivery Method Nasal Cannula Weight: 82.1 kg Body Mass Index (BMI) 27.2 Intake & Output: Intake and Output for Last 24 Hours 03/11/22 03/12/22 03/13/22 23:59 23:59 23:59 Intake Total 294.48 / 322.99 3590.59 / 3805.29 604.53 / 604.53 Output Total 1625 / 1975 500 / 500 Balance 294.48 / 72.99 1965.59 / 1830.29 104.53 / 104.53 Lab / Micro Data Result Diagrams: 03/13/22 04:45 03/13/22 04:45 Labs: Laboratory Results - last 24 hr 03/13/22 04:45: WBC 8.5, RBC 4.70, Hgb 14.7, Hct 44.0, MCV 93.6, MCH 31.3, MCHC 33.4, RDW Std Deviation 50.5 H, RDW Coeff of Jony 14.6, Plt Count 210, MPV 9.9, Immature Gran % (Auto) 0.600, Neut % (Auto) 67.4, Lymph % (Auto) 19.8, [place] % (Auto) 9.2, Eos % (Auto) 2.4, Baso % (Auto) 0.6, Absolute Neuts (auto) 5.7, Absolute Lymphs (auto) 1.67, Nucleated RBC % 0 03/13/22 04:45: Sodium 139, Potassium 3.6, Chloride 111 H, Carbon Dioxide 25.0, Anion Gap 3 L, BUN 9, Creatinine 0.79, Estim Creat Clear Calc 115.60, Est GFR (MDRD) Af Amer 134, Est GFR (MDRD) Non-Af 111, BUN/Creatinine Ratio 11.3, Glucose 84, Calcium 7.9 L, Total Bilirubin 1.10 H, AST 112 H, ALT 89 H, Alkaline Phosphatase 60, Total Protein 5.5 L, Albumin 2.4 L, Globulin 3.1, Albumin/Globulin Ratio 0.8 L Micro: Microbiology 03/12/22 01:10 Sputum, Tracheal Aspirate Gram Stain - Final Radiography Diagnostic Testing: Radiology Impression Echocardiogram 03/11/22 21:19 Interpretation Summary Normal LV size. Left ventricular systolic function is lower limits of normal. The estimated ejection fraction is 50 %. Stage 1 diastolic dysfunction. Contrast injection was performed. Ordering Physician: Letha Sahni Referring Physician: Brandt Nguyễn Performed By: Justine Bernal, RAHEL, RVT Physical Exam Narrative Physical Examination: General: Patient sedated, intubated, still agitated, adding Precedex currently, laying in the ED bed. Skin: Normal color, normal turgor, no icterus, no cyanosis except for expected stage ecchymoses left ankle with recent left bimalleolar fracture, brace being placed, various tattoos. HEENT: AT/NC, EOM unable to be assessed, PERRLA, moderately dry MM, no carotid bruits or JVD noted, intubated. Lungs: Breathing over the vent, intubated, symmetric rise, increased respiratory rate, occasional expiratory wheeze, no rales or rhonchi. Heart: Tachycardic with regular rhythm; no gallop, rub audible. Abdomen: Soft, overweight, NTTP, ND, distant normal BS, no HSM. Extremities: No cyanosis, no clubbing, left mild residual ankle swelling, recent fall with left bimalleolar fracture with staged ecchymoses, brace being placed, left wrist with significant enlarged bony abnormality. Neurological: Patient sedated, intubated, still agitated, adding Precedex currently, laying in the ED bed, cognitive function not baseline intact; pupils equally reactive to light and accommodation, cranial nerves unable to be assessed well given intubated and sedated status, prior to Precedex initiation and bolusing propofol patient moving extremities spontaneously although does have history of left-sided hemiparesis with recent fall with left bimalleolar fracture as noted, strength accordingly severely globally decreased Psychiatric: Affect appears initially agitated, improved, calm with further sedation, no acute evidence of depressive or anxiety feelings but does have underlying history. Const alert, oriented x3 and no apparent distress Constitutional Narrative: Patient is sedated and on the ventilator at this time General Appearance: cooperative, well kempt and well developed Orientation / Consciousness: awake, oriented to person and oriented to place HEENT normocephalic, head/scalp atraumatic and moist oral mucous membranes Eyes PERRL, EOMs intact bilaterally and conjunctivae normal Neck supple, no JVD and thyroid normal General: trachea midline Resp normal respiratory effort, no retractions, no use of accessory muscles and clear to auscultation bilaterally Auscultation: Negative for rales, rhonchi or wheezes Cardio regular rate, regular rhythm, S1 normal heart sound, S2 normal heart sound, no murmurs, no rub and no gallops GI normal to inspection, nondistended, normoactive bowel sounds, soft to palpation, non-tender and non-distended Extremity no clubbing, cyanosis or edema Skin no rashes or lesions noted General Skin Exam: no breakdown Neuro oriented x3, CN's II-XII intact bilaterally, no focal motor deficits and no sensory deficits noted Neuro Narrative: Patient is sedated and on the ventilator Sensorium / Orientation: awake and alert Speech: speech normal Psych affect normal Psych Narrative: Patient is sedated and on the ventilator Assessment & Plan Assessment/Plan (1) Cardiac arrest with ventricular fibrillation: (2) ST elevation (STEMI) myocardial infarction: PLAN: Plan 1. ST elevation [place]-continue care at this time per cardiology, patient's chemistry profile and CBC are normal, patient's liver enzymes are slightly elevated #2 cardiac arrest with ventricular fibrillation-with spontaneous return of circulation-continue present care under direction of cardiology, patient appears medically stable at this time #3 hypoxic respiratory failure-patient was extubated today, he appears comfortable and he does not appear short of breath #4 ventricular hlbfewfojxif-kngtilml-vmyxfnb is now on amiodarone #5 occlusive coronary disease right coronary artery-PCI was performed and a drug-eluting stent was placed on 03/11/2022, cardiology is participating in his care #6 cerebrovascular disease-complicates care, management, recovery, and prognosis #7 bimalleolar fracture of the left ankle-patient's left ankle is in an immobilizer at this time #8 septic versus cardiogenic shock-patient is currently off pressors at this time #9 hyperlipidemia-patient is on a statin Charges/Coding Visit Charges Inpatient E&M: 03530 Subs Hosp L2
[2022-03-13] MEDS: TICAGRELOR 90 MG TABLET PO ×2 (08:12→20:56)
[2022-03-13] MEDS: Famotidine 20 MG Tablet GT ×2 (08:12→20:57)
[2022-03-13] MEDS: Aspirin E.C. 81 MG Tablet PO (08:12)
[2022-03-13] MEDS: Multivitamins,Therapeutic Tablet 1 TABLET PO (08:12)
[2022-03-13] MEDS: Folic Acid 1 MG Tablet PO (08:12)
[2022-03-13] MEDS: Amiodarone 200 MG Tablet GT ×2 (08:12→20:56)
[2022-03-13] MEDS: Thiamine Hydrochloride 100 MG Tablet PO (08:13)
--- NOTE | 2022-03-13 09:13 | PN.CARD_ITS ---
Subjective Subjective Patient extubated doing well at this time. Objective Data Vital Signs: Vital Signs Temp Pulse Resp BP Pulse Ox O2 Del Method O2 Flow Rate 99.9 F H 114 H 22 H 146/98 H 96 Nasal Cannula 6 03/13/22 09:03 03/13/22 09:03 03/13/22 09:03 03/13/22 09:03 03/13/22 09:03 03/13/22 09:03 03/13/22 09:03 FiO2 30 03/13/22 05:00 Oxygen Flow Rate (L/min) 6 Oxygen Delivery Method Nasal Cannula Weight: 180 lb 15.992 oz Body Mass Index (BMI) 27.2 Intake & Output: Intake and Output for Last 24 Hours 03/11/22 03/12/22 03/13/22 23:59 23:59 23:59 Intake Total 294.48 / 322.99 3590.59 / 3805.29 604.53 / 604.53 Output Total 1625 / 1975 500 / 500 Balance 294.48 / 72.99 1965.59 / 1830.29 104.53 / 104.53 Lab / Micro Data Result Diagrams: 03/13/22 04:45 03/13/22 04:45 Labs: Laboratory Results - last 24 hr 03/13/22 04:45: WBC 8.5, RBC 4.70, Hgb 14.7, Hct 44.0, MCV 93.6, MCH 31.3, MCHC 33.4, RDW Std Deviation 50.5 H, RDW Coeff of Jony 14.6, Plt Count 210, MPV 9.9, Immature Gran % (Auto) 0.600, Neut % (Auto) 67.4, Lymph % (Auto) 19.8, [place] % (Auto) 9.2, Eos % (Auto) 2.4, Baso % (Auto) 0.6, Absolute Neuts (auto) 5.7, Absolute Lymphs (auto) 1.67, Nucleated RBC % 0 03/13/22 04:45: Sodium 139, Potassium 3.6, Chloride 111 H, Carbon Dioxide 25.0, Anion Gap 3 L, BUN 9, Creatinine 0.79, Estim Creat Clear Calc 115.60, Est GFR ( MDRD) Af Amer 134, Est GFR (MDRD) Non-Af 111, BUN/Creatinine Ratio 11.3, Glucose 84, Calcium 7.9 L, Total Bilirubin 1.10 H, AST 112 H, ALT 89 H, Alkaline Phosphatase 60, Total Protein 5.5 L, Albumin 2.4 L, Globulin 3.1, Albumin/Globulin Ratio 0.8 L Micro: Microbiology 03/12/22 01:10 Sputum, Tracheal Aspirate Gram Stain - Final Cardiology Labs/Tests 03/13/22 04:45: WBC 8.5, RBC 4.70, Hgb 14.7, Hct 44.0, MCV 93.6, MCH 31.3, MCHC 33.4, Plt Count 210, MPV 9.9, Immature Gran % (Auto) 0.600, Neut % (Auto) 67.4, Lymph % (Auto) 19.8, [place] % (Auto) 9.2, Eos % (Auto) 2.4, Baso % (Auto) 0.6, Absolute Neuts (auto) 5.7, Nucleated RBC % 0 03/13/22 04:45: Sodium 139, Potassium 3.6, Chloride 111 H, Carbon Dioxide 25.0, Anion Gap 3 L, BUN 9, Creatinine 0.79, Est GFR (MDRD) Af Amer 134, Est GFR (MDRD) Non-Af 111, BUN/Creatinine Ratio 11.3, Glucose 84, Calcium 7.9 L, Total Bilirubin 1.10 H Rhythm: EKG: ECHO: Stress Test: Cardiac Cath: PCI: CT Surgery: Holter monitor: EPS: PPM: CXR: Chest CT Scan: Radiography Diagnostic Testing: Radiology Impression Echocardiogram 03/11/22 21:19 Interpretation Summary Normal LV size. Left ventricular systolic function is lower limits of normal. The estimated ejection fraction is 50 %. Stage 1 diastolic dysfunction. Contrast injection was performed. Ordering Physician: Letha Sahni Referring Physician: Brandt Nguyễn Performed By: Justine Bernal, RDCS, RVT Physical Exam Const alert, oriented x3 and no apparent distress General Appearance: cooperative, well kempt and well developed Orientation / Consciousness: awake, oriented to person and oriented to place HEENT normocephalic, head/scalp atraumatic and moist oral mucous membranes Eyes PERRL, EOMs intact bilaterally and conjunctivae normal Neck supple, no JVD and thyroid normal General: trachea midline Resp normal respiratory effort, no retractions, no use of accessory muscles and clear to auscultation bilaterally Auscultation: Negative for rales, rhonchi or wheezes Cardio regular rate, regular rhythm, S1 normal heart sound, S2 normal heart sound, no murmurs, no rub and no gallops GI normal to inspection, nondistended, normoactive bowel sounds, soft to palpation, non-tender and non-distended Extremity no clubbing, cyanosis or edema Skin no rashes or lesions noted General Skin Exam: no breakdown Neuro oriented x3, CN's II-XII intact bilaterally, no focal motor deficits and no sensory deficits noted Sensorium / Orientation: awake and alert Speech: speech normal Psych affect normal Assessment & Plan Assessment/Plan (1) ST elevation (STEMI) myocardial infarction: PLAN: (1) ST elevation (STEMI) myocardial infarction: PLAN: Patient is status postacute inferior wall myocardial infarction and status post angioplasty and stenting of this vessel.? Appears to be doing fairly well.? Ejection fraction appears to be fairly well-preserved estimated at 50% with mild inferior hypokinesis.? No valvular abnormalities noted. Will continue aspirin [place] low-dose beta-moisés. Continue high intensity statin. (2) Cardiac arrest with ventricular fibrillation: PLAN: (2) Cardiac arrest with ventricular fibrillation: PLAN: Patient is status post V. fib arrest.? We will continue IV amiodarone until current dosage is completed and then switch to p.o. amiodarone 200 twice daily. Will also resume beta-moisés after pressors are weaned off. Overall the patient appears to be doing well has been successfully extubated and will continue with post extubation management. PLAN: Plan (
[2022-03-13] MEDS: oxyCODONE 5 MG Tablet PO ×2 (17:39→21:01)
[2022-03-13] MEDS: Atorvastatin Calcium 80 MG Tablet PO (20:56)
[2022-03-13] MEDS: Acetaminophen 325 MG Tablet 650 MG PO (21:01)
[2022-03-13] MEDS: Gabapentin 300 MG Capsule PO (21:01)
[2022-03-14] VITALS (23 sets, daily range): BP systolic 106–166; BP diastolic 80–106; PULSE 67–94; RESP 16–21; TEMP 36.4–37.1; O2SAT 87–97
[2022-03-14] MEDS: 0.9% Saline Lock 10 ML Syringe IV (05:01)
[2022-03-14] MEDS: oxyCODONE 5 MG Tablet PO ×3 (05:01→19:39)
[2022-03-14] MEDS: Acetaminophen 325 MG Tablet 650 MG PO ×3 (05:01→13:48)
[2022-03-14 05:44] LABS: Absolute Lymphocyte Count 1.22 X10^3/uL (0.83-4.51); Absolute Neutrophil Count 4.5 X10^3/uL (2.0-7.7); Basophil# 0.03 X10^3/uL; Basophil% 0.4 % (0-1); Eosinophil# 0.29 X10^3/uL; Eosinophils% 4.3 % (0-5); Hematocrit 44.9 % (40-54); Lymphocyte # 1.22 X10^3/ul (0.83-4.51); Lymphocyte % 18.2 % (19-41); Mean Corp Hgb Conc 33.4 g/dL (32-36); Mean Corpuscular Hgb 30.5 pg (27.0-32.0); Mean Corpuscular Volume 91.3 fL (80-94); Mean Platelet Vol. 9.4 fl (6.2-12.0); Monocyte# 0.61 X10^3/uL; Monocyte% 9.1 % (0-10); NRBC Flagged by Analyzer 0 % (0-5); Neutrophil # 4.51 X10^3/uL (2.7-7.7); Neutrophil % 67.6 % (47-70); Platelet Count 196 K/mm3 (150-450); RBC Distribution Width CV 14.1 % (11.6-14.6); RBC Distribution Width SD 47.6 fl (35.1-43.9); Red Blood Count 4.92 M/mm3 (4.6-6.2); White Blood Count 6.7 K/mm3 (4.4-11.0)
[2022-03-14 06:05] LABS: Anion Gap 6 (5-15); BUN 6 mg/dL (7-18); BUN/Creat Ratio 9.8 RATIO (10-20); Calcium,Total 8.3 mg/dL (8.5-10.1); Chloride 109 mmol/L (98-107); Creatinine, Serum 0.61 mg/dL (0.70-1.30); EST Glomerular Filtration Rate 150 mL/min (>60); Est Glom Filt Rate - Afr Amer 181 mL/min (>60); Estimated Creatinine Clearance 149.71 ml/min; Glucose 92 mg/dL (74-106); Magnesium 2.2 mg/dL (1.6-2.6); Phosphorus 1.7 mg/dL (2.5-4.9); Potassium 3.5 mmol/L (3.5-5.1); Sodium Level 140 mmol/L (136-145)
--- NOTE | 2022-03-14 06:43 | PN.CC_ITS ---
Assessment & Plan Assessment/Plan (1) Respiratory failure: (2) Cardiac arrest with ventricular fibrillation: (3) ST elevation (STEMI) myocardial infarction: PLAN: Plan RECOMMENDATIONS: 1. Add Mucinex to help with pulmonary toileting 2. Initiate incentive spirometer. Wean supplemental oxygen to maintain saturations at or above 90%. 3. Increase out of bed as tolerated 4. Anticipate a total of 7 days of antibiotics 5. Continue thiamine, folate and multivitamins. 6. Monitor for signs of alcohol withdrawal. 7. Consider transfer from the intensive care unit if okay with cardiology IMPRESSIONS: 1. Acute hypoxemic respiratory failure status post cardiopulmonary arrest The patient experienced an [id number] V. fib cardiac arrest with subsequent ROSC. He was taken to the [facility] and underwent coronary angiography which revealed 100% occlusion of the RCA that was treated with thrombectomy and drug-eluting stent placement. There is also concern that the patient aspirated during his resuscitative efforts. Therefore, he will be continued on empiric antimicrobials, pending finalized culture results. May attempt to narrow antibiotic spectrum once culture finalized. Encourage incentive spirometer. Plan to wean supplemental oxygen for saturations greater than 90%. Mobilize patient as tolerated. 2. Septic versus cardiogenic shock Resolved. The patient initially developed fluid refractory hypotension upon admission to the ICU, which required vasopressor support. Levophed was able to be weaned off completely prior to extubation. The patient remains hemodynamically stable this morning. Plan to continue supportive measures as noted above along with antimicrobials as ordered to cover for potential aspiration pneumonia. Additional medical management per cardiology recommendations. 3. History of alcohol abuse/history of CVA with left-sided hemiparesis/hypertension/hyperlipidemia/rheumatoid arthritis Complicates care, management, recovery and prognosis. Continue home medications as indicated. Continue thiamine and folate and monitor for signs of alcohol withdrawal. Subjective Subjective Patient did okay over the last 24 hours. Nursing has not reported any respiratory complaints, but patient has had a cough that is wet but minimally productive. Patient did have a slight fever in the last 24 hours, but no hemodynamic instability has been noted. Patient is reporting consistent chest pain that he attributes with rib fractures. Patient does not believe this is changing in intensity or character. Objective Data Objective Data Vital Signs: Vital Signs Temp Pulse Resp BP Pulse Ox O2 Del Method O2 Flow Rate 37.1 C 80 21 H 128/97 H 93 Nasal Cannula 2 03/14/22 00:00 03/14/22 06:00 03/14/22 06:00 03/14/22 06:00 03/14/22 06:00 03/14/22 06:00 03/14/22 06:00 FiO2 30 03/13/22 05:00 Oxygen Flow Rate (L/min) 2 Oxygen Delivery Method Nasal Cannula Weight: 81.4 kg Body Mass Index (BMI) 27.2 Intake & Output: Intake and Output for Last 24 Hours 03/12/22 03/13/22 03/14/22 23:59 23:59 23:59 Intake Total 3590.59 / 3805.29 1694.53 / 1694.53 380 / 380 Output Total 1625 / 1975 1275 / 1275 550 / 550 Balance 1965.59 / 1830.29 419.53 / 419.53 -170 / -170 Lab / Micro Data Attestation: I reviewed the patient's lab results. Result Diagrams: 03/14/22 04:55 03/14/22 04:55 Labs: Laboratory Results - last 24 hr 03/11/22 21:35: POC Glucose Cancelled 03/14/22 04:55: WBC 6.7, RBC 4.92, Hgb 15.0, Hct 44.9, MCV 91.3, MCH 30.5, MCHC 33.4, RDW Std Deviation 47.6 H, RDW Coeff of Jony 14.1, Plt Count 196, MPV 9.4, Immature Gran % (Auto) 0.400, Neut % (Auto) 67.6, Lymph % (Auto) 18.2 L, [place] % (Auto) 9.1, Eos % (Auto) 4.3, Baso % (Auto) 0.4, Absolute Neuts (auto) 4.5, Absolute Lymphs (auto) 1.22, Nucleated RBC % 0 03/14/22 04:55: Sodium 140, Potassium 3.5, Chloride 109 H, Carbon Dioxide 25.0, Anion Gap 6, BUN 6 L, Creatinine 0.61 L, Estim Creat Clear Calc 149.71, Est GFR (MDRD) Af Amer 181, Est GFR (MDRD) Non-Af 150, BUN/Creatinine Ratio 9.8 L, Glucose 92, Calcium 8.3 L, Phosphorus 1.7 L, Magnesium 2.2 Micro: Microbiology 03/12/22 01:10 Sputum, Tracheal Aspirate Gram Stain - Final 03/12/22 01:10 Sputum, Tracheal Aspirate Respiratory Culture - Preliminary Beta streptococcus Physical Exam Const alert, oriented x3 and no apparent distress General Appearance: well developed HEENT normocephalic and head/scalp atraumatic Eyes PERRL and EOMs intact bilaterally Neck supple and no JVD General: trachea midline Chest Chest Narrative: Pain on palpation in parasternal area Resp Resp Narrative: Fair effort. Splinting noted. Auscultation: diminished lung sounds; Negative for rales, rhonchi or wheezes Cardio regular rate, regular rhythm, S1 normal heart sound, S2 normal heart sound, no murmurs, no rub and no gallops Rate: tachycardic GI normal to inspection, nondistended, normoactive bowel sounds Extremity no clubbing, cyanosis or edema Extremity Narrative: Bilateral lower extremity braces in place. Skin no rashes or lesions noted Neuro oriented x3, CN's II-XII intact bilaterally, moves all extremities and no focal motor deficits Neuro Narrative: Alert and able to follow commands. Psych cooperative Mood & Affect: anxious Charges/Coding Visit Charges Inpatient E&M: 31615 Subs Hosp L3
--- NOTE | 2022-03-14 07:41 | PN.CARD_ITS ---
Subjective Subjective Patient seen and evaluated. Appears to be doing much better this morning. Complains of hoarseness. Objective Data Vital Signs: Vital Signs Temp Pulse Resp BP Pulse Ox O2 Del Method O2 Flow Rate 98.7 F 72 19 H 118/87 H 94 Nasal Cannula 2 03/14/22 00:00 03/14/22 07:00 03/14/22 07:00 03/14/22 07:00 03/14/22 07:00 03/14/22 07:00 03/14/22 07:00 FiO2 30 03/13/22 05:00 Oxygen Flow Rate (L/min) 2 Oxygen Delivery Method Nasal Cannula Weight: 179 lb 7.3 oz Body Mass Index (BMI) 27.2 Intake & Output: Intake and Output for Last 24 Hours 03/12/22 03/13/22 03/14/22 23:59 23:59 23:59 Intake Total 3590.59 / 3805.29 1694.53 / 1694.53 380 / 380 Output Total 1625 / 1975 1275 / 1275 550 / 550 Balance 1965.59 / 1830.29 419.53 / 419.53 -170 / -170 Lab / Micro Data Result Diagrams: 03/14/22 04:55 03/14/22 04:55 Labs: Laboratory Results - last 24 hr 03/11/22 21:35: POC Glucose Cancelled 03/14/22 04:55: WBC 6.7, RBC 4.92, Hgb 15.0, Hct 44.9, MCV 91.3, MCH 30.5, MCHC 33.4, RDW Std Deviation 47.6 H, RDW Coeff of Jony 14.1, Plt Count 196, MPV 9.4, Immature Gran % (Auto) 0.400, Neut % (Auto) 67.6, Lymph % (Auto) 18.2 L, [place] % (Auto) 9.1, Eos % (Auto) 4.3, Baso % (Auto) 0.4, Absolute Neuts (auto) 4.5, Absolute Lymphs (auto) 1.22, Nucleated RBC % 0 03/14/22 04:55: Sodium 140, Potassium 3.5, Chloride 109 H, Carbon Dioxide 25.0, Anion Gap 6, BUN 6 L, Creatinine 0.61 L, Estim Creat Clear Calc 149.71, Est GFR (MDRD) Af Amer 181, Est GFR (MDRD) Non-Af 150, BUN/Creatinine Ratio 9.8 L, Glucose 92, Calcium 8.3 L, Phosphorus 1.7 L, Magnesium 2.2 Micro: Microbiology 03/12/22 01:10 Sputum, Tracheal Aspirate Gram Stain - Final 03/12/22 01:10 Sputum, Tracheal Aspirate Respiratory Culture - Preliminary Beta streptococcus Cardiology Labs/Tests 03/14/22 04:55: WBC 6.7, RBC 4.92, Hgb 15.0, Hct 44.9, MCV 91.3, MCH 30.5, MCHC 33.4, Plt Count 196, MPV 9.4, Immature Gran % (Auto) 0.400, Neut % (Auto) 67.6, Lymph % (Auto) 18.2 L, [place] % (Auto) 9.1, Eos % (Auto) 4.3, Baso % (Auto) 0.4, Absolute Neuts (auto) 4.5, Nucleated RBC % 0 03/14/22 04:55: Sodium 140, Potassium 3.5, Chloride 109 H, Carbon Dioxide 25.0, Anion Gap 6, BUN 6 L, Creatinine 0.61 L, Est GFR (MDRD) Af Amer 181, Est GFR (MDRD) Non-Af 150, BUN/Creatinine Ratio 9.8 L, Glucose 92, Calcium 8.3 L, Phosphorus 1.7 L, Magnesium 2.2 Rhythm: EKG: ECHO: Stress Test: Cardiac Cath: PCI: CT Surgery: Holter monitor: EPS: PPM: CXR: Chest CT Scan: Physical Exam Const alert, oriented x3 and no apparent distress General Appearance: well developed HEENT normocephalic and head/scalp atraumatic Eyes PERRL and EOMs intact bilaterally Neck supple and no JVD General: trachea midline Chest Chest Narrative: Pain on palpation in parasternal area Resp Resp Narrative: Fair effort. Splinting noted. Auscultation: diminished lung sounds; Negative for rales, rhonchi or wheezes Cardio regular rate, regular rhythm, S1 normal heart sound, S2 normal heart sound, no murmurs, no rub and no gallops Rate: tachycardic GI normal to inspection, nondistended, normoactive bowel sounds Extremity no clubbing, cyanosis or edema Skin no rashes or lesions noted Neuro oriented x3, CN's II-XII intact bilaterally, moves all extremities and no focal motor deficits Neuro Narrative: Alert and able to follow commands. Psych cooperative Mood & Affect: anxious Assessment & Plan Assessment/Plan (1) ST elevation (STEMI) myocardial infarction: PLAN: (1) ST elevation (STEMI) myocardial infarction: PLAN: Patient is status postacute inferior wall myocardial infarction and status post angioplasty and stenting of this vessel.? Appears to be doing fairly well.? Ejection fraction appears to be fairly well-preserved estimated at 50% with mild inferior hypokinesis.? No valvular abnormalities noted. Will continue aspirin [place] low-dose beta-moisés. Continue high intensity statin. The patient can be up in the chair today and may be later transition to the progressive care unit later today. (2) Cardiac arrest with ventricular fibrillation: PLAN: (2) Cardiac arrest with ventricular fibrillation--the above was likely secondary to the myocardial infarction and not a primary V. fib arrest. PLAN: Patient is status post V. fib arrest.? We will continue po amiodarone. At 200 mg twice a day for 2 weeks and then 200 mg a day for a month and then discontinue. Will also resume beta-moisés today. Overall the patient appears to be doing well has been successfully extubated and will continue with post extubation management. PLAN: Plan (
[2022-03-14] MEDS: Thiamine Hydrochloride 100 MG Tablet PO (08:07)
[2022-03-14] MEDS: Multivitamins,Therapeutic Tablet 1 TABLET PO (08:07)
[2022-03-14] MEDS: Aspirin E.C. 81 MG Tablet PO (08:07)
[2022-03-14] MEDS: Folic Acid 1 MG Tablet PO (08:07)
[2022-03-14] MEDS: Amiodarone 200 MG Tablet GT ×2 (09:22→22:09)
[2022-03-14] MEDS: TICAGRELOR 90 MG TABLET PO ×2 (09:22→22:09)
[2022-03-14] MEDS: guaiFENesin 1,200 MG Tablet 1200 MG PO ×2 (09:22→22:10)
[2022-03-14] MEDS: Famotidine 20 MG Tablet GT ×2 (09:22→22:12)
--- NOTE | 2022-03-14 09:25 | CRPHASE1_ITS ---
Patient Communication Former Patient:: Phase I PHII Cardiac Rehab Discussed with Patient:: Yes Guide to Cardiac Rehab Given to Patient:: Yes Cardiac Rehab Facility Choice List Given to Patient:: Yes - pt chooses [facility] Choice Program [facility] CR PHII:: Communication Given to CR, Refer to [facility] An/Ssn 2 4 Operator:: Melissa Quiroga Refer Phase II Cardiac Rehab:: Yes Sessions:: 36 sessions - 3 days/wk, 12 weeks Cardiac Rehabilitation Info Cardiac Rehabilitation Program Information: Cardiac Rehabilitation is important for patients like you who are recovering from a heart problem. Cardiac rehabilitation programs are recognized as integral to the continued care of the patient with coronary heart disease. The cardiac rehabilitation program is designed to optimize a patient's physical, psychological, and social functioning. Health career discovery teacher work in cardiac rehabilitation programs and assist you with getting the treatments you need to get stronger and healthier - like exercise, healthy eating habits, and medications. Cardiac rehabilitation has been show to help people with heart problems live longer and have better life enjoyment than people who do not go to cardiac rehabilitation. Please contact the Cardiac Rehabilitation Program at [facility] at in two weeks if you have not heard from them.
--- NOTE | 2022-03-14 09:26 | CRPH1.INSTRU ---
General Education CAD and cardiac anatomy and function:: Patient communicates acknowledgment Explanation of diagnoses and procedures:: Patient communicates acknowledgment Sign/Symptoms of DE:: Patient communicates acknowledgment Antiplatelet therapy: Patient communicates acknowledgment Proper use of NTG-SL: Patient communicates acknowledgment Emergency procedures and activation of EMS: Patient communicates acknowledgment Compliance of all prescribed medications: Patient communicates acknowledgment Smoking Nicotine/Smoking Response Code:: Patient communicates acknowledgment Dyslipidemia Dyslipidemia Response Code:: Patient communicates acknowledgment Overweight/Obesity Overweight/Obesity:: Patient communicates acknowledgment Hypertension Hypertension:: Patient communicates acknowledgment Heart Disease Heart Disease Response Code:: Patient communicates acknowledgment Diabetes Diabetes:: Patient communicates acknowledgment Metabolic Syndrome Metabolic Syndrome Response Code:: Patient communicates acknowledgment Sedentary Sedentary Response Code:: Patient communicates acknowledgment Stress Stress Response Code:: Patient communicates acknowledgment
[2022-03-14] MEDS: Metoprolol Tartrate 25 MG Tablet PO ×2 (10:08→22:10)
--- NOTE | 2022-03-14 10:35 | PN.HOSP_ITS ---
Subjective Subjective Patient seen and examined. He had no active complaints and had an uneventful night. Review of systems is otherwise negative. He was working with PT/OT at time of my review. He has remained hemodynamically stable. Objective Data Objective Data Vital Signs: Vital Signs Temp Pulse Resp BP Pulse Ox O2 Del Method O2 Flow Rate 98.1 F 81 21 H 128/99 H 94 Room Air 2 03/14/22 08:00 03/14/22 10:08 03/14/22 09:00 03/14/22 10:08 03/14/22 09:00 03/14/22 09:00 03/14/22 08:00 FiO2 30 03/13/22 05:00 Oxygen Flow Rate (L/min) 2 Oxygen Delivery Method Room Air Weight: 179 lb 7.3 oz Body Mass Index (BMI) 27.2 Intake & Output: Intake and Output for Last 24 Hours 03/12/22 03/13/22 03/14/22 23:59 23:59 23:59 Intake Total 3590.59 / 3805.29 1694.53 / 1694.53 500 / 500 Output Total 1625 / 1975 1275 / 1275 550 / 550 Balance 1965.59 / 1830.29 419.53 / 419.53 -50 / -50 Lab / Micro Data Result Diagrams: 03/14/22 04:55 03/14/22 04:55 Labs: Laboratory Results - last 24 hr 03/11/22 21:35: POC Glucose Cancelled 03/14/22 04:55: WBC 6.7, RBC 4.92, Hgb 15.0, Hct 44.9, MCV 91.3, MCH 30.5, MCHC 33.4, RDW Std Deviation 47.6 H, RDW Coeff of Jony 14.1, Plt Count 196, MPV 9.4, Immature Gran % (Auto) 0.400, Neut % (Auto) 67.6, Lymph % (Auto) 18.2 L, [place] % (Auto) 9.1, Eos % (Auto) 4.3, Baso % (Auto) 0.4, Absolute Neuts (auto) 4.5, Absolute Lymphs (auto) 1.22, Nucleated RBC % 0 03/14/22 04:55: Sodium 140, Potassium 3.5, Chloride 109 H, Carbon Dioxide 25.0, Anion Gap 6, BUN 6 L, Creatinine 0.61 L, Estim Creat Clear Calc 149.71, Est GFR (MDRD) Af Amer 181, Est GFR (MDRD) Non-Af 150, BUN/Creatinine Ratio 9.8 L, Glucose 92, Calcium 8.3 L, Phosphorus 1.7 L, Magnesium 2.2 Micro: Microbiology 03/12/22 01:10 Sputum, Tracheal Aspirate Gram Stain - Final 03/12/22 01:10 Sputum, Tracheal Aspirate Respiratory Culture - Preliminary Streptococcus group B Physical Exam Const alert, oriented x3 and no apparent distress Constitutional Narrative: frail HEENT head/scalp atraumatic, moist oral mucous membranes and oropharynx normal Eyes PERRL and EOMs intact bilaterally Neck no lymphadenopathy Resp normal respiratory effort, no retractions, no use of accessory muscles and clear to auscultation bilaterally Cardio regular rate, regular rhythm, S1 normal heart sound, S2 normal heart sound and no murmurs GI normal to inspection, nondistended, normoactive bowel sounds, soft to palpation, non-tender and non-distended Extremity normal to inspection, full ROM and no clubbing, cyanosis or edema Neuro oriented x3, CN's II-XII intact bilaterally and moves all extremities Assessment & Plan Assessment/Plan (1) ST elevation (STEMI) myocardial infarction: (2) Cardiac arrest with ventricular fibrillation: PLAN: Plan #STEMI * s/p cardiac cath which revealed 100% occlusion of the RCA * had thrombectomy and stent placement * on aspirin, statin and brilinta * cardiology on board. Also on beta moisés. * #CArdiac arrest due to Vfib * had out of hospital cardiac arrest and was successfully resuscitated. * likely due to stemi * now on amiodarone and metoprolol * cardiology on board * #Acute hypoxic respiratory failure * was intubated, and subsequently extubated on 03/13/2022 * critical care on board. There were concerns about aspiration, so he is on antimicrobials * titrate oxygen to maintain sats >90% * #History of CVA: #Hyperlipidemia: on statin #Left ankle fracture: left ankle currently immobilised. WIll need follow up with orthopedic surgery on outpatient basis DVT prophylaxis: lovenox Disposition; transfer to PCU Charges/Coding Visit Charges Inpatient E&M: 68182 Subs Hosp L2
[2022-03-14 11:59] LABS: Pathologist Review Reviewed
[2022-03-14] MEDS: Benzonatate 100 MG Capsule PO (12:13)
--- NOTE | 2022-03-14 15:10 | CASEMGMT ---
RN BHARATI INSPECTOR AND MENDER CM to room to meet with patient for initial transition planning/care coordination assessment. JOCELYNE CALABRESE introduced self and role at [facility]. Pt voices understanding and consents to assessment at this time. Pt resting in bed in no distress at this time. Arianne Cornelius, @ bedside. Pt is A/O at this time and answers all questions appropriately. Care providers, pharmacy, and demographics verified/updated at this time. PCP: Dr Nguyễn Specialists: Dr Toribio @ [facility] Preferred Pharmacy: [facility] Retail Insurance: [employer] Prescription Benefit: Yes Living Will/HPOA: Initially Arianne stated she is the POA. Then pt states his sister is POA. Upon further discussion, Arianne states they do not have the paperwork stating this. Pt is from his , but he is still legally . Pt made aware, his ,Torri Garcia, would be medical decision maker unless he has POA paperwork, designating someone else. Pt states he would like to complete AD. Krupa TORRES, notified. LNOK: , Torri Garcia () , 3 daughters: Milly Mccrary, and Gwendolyn. Arianne Cornelius. Living Arrangements: Lives w/Arianne in 2nd-floor apt. About 20-21 steps to get up into his apt w/rails on one side. Recent ankle fracture --he states he wears a splint and takes his time on the stairs. Arianne assists pt w/bathing/dressing and does all home mgmt tasks. Transportation: Public bus. Pt and Arianne aware Delbert has transportation benefits, but they do not use this. DME: has the following DME: splint, cane. Pt states no need for further DME at this time. HHC/SNF: No hx of either and pt declines needs. Pt wishes to return home. Pt wishes to return home and states has no concerns with going home at time of discharge. Pt states he smokes <1 PPD and drinks (3) 25 oz= 75 oz ETOH ([place] Ice) daily. Last drink was 03/10. He has been drinking for years and denies having hx of going through ETOH dt's, even when he would stop drinking for months. Pt and Arianne made aware to notifiy staff if he starts to exhibit any s/sx's of ETOH w/d, which RN DM educated them on. CM to follow for any further discharge planning/needs. Pt and fiance voice no further concerns/needs at this time. Advised them to ask for CM if any further questions/concerns/needs arise. Voices understanding. PLAN: Home w/support of robertance and discharge plans in place. SW for resources for disability info, AD, and ETOH. Follow for anti-coag. Alejandra MEDRANON RN CM
[2022-03-14] MEDS: Atorvastatin Calcium 80 MG Tablet PO (22:09)
[2022-03-15] VITALS (13 sets, daily range): BP systolic 107–149; BP diastolic 81–98; PULSE 75–91; RESP 16–18; TEMP 36.3–36.7; O2SAT 92–96
[2022-03-15 06:19] LABS: Absolute Neutrophil Count 4.9 X10^3/uL (2.0-7.7); Basophil# 0.05 X10^3/uL; Basophil% 0.7 % (0-1); Eosinophil# 0.29 X10^3/uL; Hematocrit 46.4 % (40-54); Hemoglobin 15.8 g/dL (13.0-16.5); Lymphocyte % 16.7 % (19-41); Mean Corp Hgb Conc 34.1 g/dL (32-36); Mean Corpuscular Hgb 30.5 pg (27.0-32.0); Mean Corpuscular Volume 89.6 fL (80-94); Mean Platelet Vol. 8.9 fl (6.2-12.0); Monocyte# 0.67 X10^3/uL; Monocyte% 9.3 % (0-10); NRBC Flagged by Analyzer 0 % (0-5); Neutrophil # 4.93 X10^3/uL (2.7-7.7); Neutrophil % 68.6 % (47-70); Platelet Count 240 K/mm3 (150-450); RBC Distribution Width CV 13.5 % (11.6-14.6); RBC Distribution Width SD 45.1 fl (35.1-43.9); Red Blood Count 5.18 M/mm3 (4.6-6.2); White Blood Count 7.2 K/mm3 (4.4-11.0)
[2022-03-15] MEDS: oxyCODONE 5 MG Tablet PO ×3 (06:37→21:29)
[2022-03-15 06:42] LABS: Anion Gap 8 (5-15); BUN 6 mg/dL (7-18); BUN/Creat Ratio 9.4 RATIO (10-20); Calcium,Total 8.3 mg/dL (8.5-10.1); Chloride 109 mmol/L (98-107); Creatinine, Serum 0.64 mg/dL (0.70-1.30); EST Glomerular Filtration Rate 142 mL/min (>60); Est Glom Filt Rate - Afr Amer 172 mL/min (>60); Estimated Creatinine Clearance 142.69 ml/min; Glucose 94 mg/dL (74-106); Potassium 3.5 mmol/L (3.5-5.1); Sodium Level 141 mmol/L (136-145)
[2022-03-15] MEDS: LORazepam 2 MG/ML Syringe IV (08:03)
[2022-03-15] MEDS: 0.9% Saline Lock 10 ML Syringe IV (08:03)
[2022-03-15] MEDS: Multivitamins,Therapeutic Tablet 1 TABLET PO (08:15)
[2022-03-15] MEDS: Thiamine Hydrochloride 100 MG Tablet PO (08:15)
[2022-03-15] MEDS: Aspirin E.C. 81 MG Tablet PO (08:15)
[2022-03-15] MEDS: Folic Acid 1 MG Tablet PO (08:15)
[2022-03-15] MEDS: TICAGRELOR 90 MG TABLET PO ×2 (08:15→22:14)
[2022-03-15] MEDS: Amiodarone 200 MG Tablet PO ×2 (08:15→22:14)
--- NOTE | 2022-03-15 08:15 | NURSING ---
SHAREPOINT DEVELOPER Farhana reports while giving pt a bath, pt became sexually inappropriate, masturbating and saying you are going to make me go back into cardiac arrest. SHAREPOINT DEVELOPER immediately left to tell this RN. lining cleaner informed as well. Female staff to not provide care alone.
--- NOTE | 2022-03-15 08:34 | PN.CC_ITS ---
Assessment & Plan Assessment/Plan (1) Respiratory failure: (2) Cardiac arrest with ventricular fibrillation: (3) ST elevation (STEMI) myocardial infarction: PLAN: Plan RECOMMENDATIONS: 1. Continue Mucinex and incentive spirometer to help with pulmonary toileting until chest pain resolves 2. Walking oximetry prior to discharge 3. Treatment of a total of 7 days of antibiotics 4. No need for outpatient follow-up unless patient requires supplemental oxygen 5. Continue thiamine, folate and multivitamins. 6. Hemodynamically stable on room air. Will sign off from a critical care perspective IMPRESSIONS: 1. Acute hypoxemic respiratory failure status post cardiopulmonary arrest The patient experienced an [id number] V. fib cardiac arrest with subsequent ROSC. He was taken to the Delivery Driver/Supervisor and underwent coronary angiography which revealed 100% occlusion of the RCA that was treated with thrombectomy and drug-eluting stent placement. There is also concern that the patient aspirated during his resuscitative efforts. Therefore, he will be continued on empiric antimicrobials, pending finalized culture results. May attempt to narrow antibiotic spectrum once culture finalized. Encourage incentive spirometer. Plan to wean supplemental oxygen for saturations greater than 90%. Mobilize patient as tolerated. No need for outpatient follow-up unless patient requires supplemental oxygen on discharge. Given that he is hemodynamically stable, will sign off from a pulmonary/critical care perspective . Please call with any further concerns. 2. Septic versus cardiogenic shock Resolved. The patient initially developed fluid refractory hypotension upon admission to the ICU, which required vasopressor support. Levophed was able to be weaned off completely prior to extubation. The patient remains hemodynamically stable this morning. Plan to continue supportive measures as noted above along with antimicrobials as ordered to cover for potential aspiration pneumonia. Additional medical management per cardiology recommendations. 3. History of alcohol abuse/history of CVA with left-sided hemiparesis/hypertension/hyperlipidemia/rheumatoid arthritis Complicates care, management, recovery and prognosis. Continue home medications as indicated. Continue thiamine and folate and monitor for signs of alcohol withdrawal. Subjective Subjective Patient did well overnight. Patient is still reporting some chest discomfort, but has been doing well on room air. Patient does report a mild cough with incentive spirometer, but otherwise is ambulating well. Objective Data Objective Data Vital Signs: Vital Signs Temp Pulse Resp BP Pulse Ox O2 Del Method O2 Flow Rate 36.3 C L 82 16 134/98 H 93 Room Air 2 03/15/22 07:51 07/19/22 07:51 03/15/22 07:51 03/15/22 07:51 03/15/22 07:51 03/15/22 07:51 03/14/22 20:38 FiO2 30 03/13/22 05:00 Oxygen Flow Rate (L/min) 2 Oxygen Delivery Method Room Air Weight: 81.5 kg Body Mass Index (BMI) 27.2 Intake & Output: Intake and Output for Last 24 Hours 03/13/22 03/14/22 03/15/22 23:59 23:59 23:59 Intake Total 1694.53 / 1694.53 880 / 880 120 / 120 Output Total 1275 / 1275 1000 / 1000 200 / 200 Balance 419.53 / 419.53 -120 / -120 -80 / -80 Lab / Micro Data Result Diagrams: 03/15/22 05:44 03/15/22 05:44 Labs: Laboratory Results - last 24 hr 03/11/22 19:00: Diff Path Review Reviewed 03/15/22 05:44: WBC 7.2, RBC 5.18, Hgb 15.8, Hct 46.4, MCV 89.6, MCH 30.5, MCHC 34.1, RDW Std Deviation 45.1 H, RDW Coeff of Jony 13.5, Plt Count 240, MPV 8.9, Immature Gran % (Auto) 0.700, Neut % (Auto) 68.6, Lymph % (Auto) 16.7 L, [place] % (Auto) 9.3, Eos % (Auto) 4.0, Baso % (Auto) 0.7, Absolute Neuts (auto) 4.9, Absolute Lymphs (auto) 1.20, Nucleated RBC % 0 03/15/22 05:44: Sodium 141, Potassium 3.5, Chloride 109 H, Carbon Dioxide 24.0, Anion Gap 8, BUN 6 L, Creatinine 0.64 L, Estim Creat Clear Calc 142.69, Est GFR (MDRD) Af Amer 172, Est GFR (MDRD) Non-Af 142, BUN/Creatinine Ratio 9.4 L, Glucose 94, Calcium 8.3 L Micro: Microbiology 03/12/22 01:10 Sputum, Tracheal Aspirate Gram Stain - Final 03/12/22 01:10 Sputum, Tracheal Aspirate Respiratory Culture - Final Streptococcus agalactiae (B) Physical Exam Const alert, oriented x3 and no apparent distress General Appearance: well developed HEENT normocephalic and head/scalp atraumatic Eyes PERRL and EOMs intact bilaterally Neck supple and no JVD General: trachea midline Chest inspection of chest normal Chest Narrative: Pain on palpation in parasternal area Resp normal respiratory effort Resp Narrative: Fair effort. Splinting noted. Auscultation: diminished lung sounds; Negative for rales, rhonchi or wheezes Cardio regular rate, regular rhythm, S1 normal heart sound, S2 normal heart sound, no murmurs, no rub and no gallops Rate: tachycardic GI normal to inspection, nondistended, normoactive bowel sounds Extremity no clubbing, cyanosis or edema Extremity Narrative: Bilateral lower extremity braces in place. Skin no rashes or lesions noted Neuro oriented x3, CN's II-XII intact bilaterally, moves all extremities and no focal motor deficits Neuro Narrative: Alert and able to follow commands. Sensorium / Orientation: sedated on vent Psych cooperative Activity / Motor Behavior: restless Mood & Affect: anxious Charges/Coding Visit Charges Inpatient E&M: 59883 Subs Hosp L2
[2022-03-15] MEDS: Metoprolol Tartrate 25 MG Tablet PO ×2 (12:35→22:15)
[2022-03-15] MEDS: Famotidine 20 MG Tablet GT ×2 (12:35→22:15)
[2022-03-15] MEDS: guaiFENesin 1,200 MG Tablet 1200 MG PO ×2 (12:35→22:14)
[2022-03-15] MEDS: Losartan Potassium 50 MG Tablet PO (12:38)
--- NOTE | 2022-03-15 13:09 | PN.HOSP_ITS ---
Subjective Subjective Patient seen and examined. He was quite somnolent; he had been started on ativan prn after he became agitated and inappropriate with the staff overnight. THere were concerns about possible alcohol withdrawal. Unable to do review of systems as he is very somnolent. He has remained hemodynamically stable. Objective Data Objective Data Vital Signs: Vital Signs Temp Pulse Resp BP Pulse Ox O2 Del Method O2 Flow Rate 97.4 F L 85 16 134/98 H 93 Room Air 2 03/15/22 07:51 03/15/22 12:35 03/15/22 07:51 03/15/22 07:51 03/15/22 07:51 03/15/22 08:43 03/14/22 20:38 FiO2 30 03/13/22 05:00 Oxygen Flow Rate (L/min) 2 Oxygen Delivery Method Room Air Weight: 179 lb 10.828 oz Body Mass Index (BMI) 27.2 Intake & Output: Intake and Output for Last 24 Hours 03/13/22 03/14/22 03/15/22 23:59 23:59 23:59 Intake Total 1694.53 / 1694.53 880 / 880 240 / 240 Output Total 1275 / 1275 1000 / 1000 200 / 200 Balance 419.53 / 419.53 -120 / -120 40 / 40 Lab / Micro Data Result Diagrams: 03/15/22 05:44 03/15/22 05:44 Labs: Laboratory Results - last 24 hr 03/15/22 05:44: WBC 7.2, RBC 5.18, Hgb 15.8, Hct 46.4, MCV 89.6, MCH 30.5, MCHC 34.1, RDW Std Deviation 45.1 H, RDW Coeff of Jony 13.5, Plt Count 240, MPV 8.9, Immature Gran % (Auto) 0.700, Neut % (Auto) 68.6, Lymph % (Auto) 16.7 L, Whiteside % (Auto) 9.3, Eos % (Auto) 4.0, Baso % (Auto) 0.7, Absolute Neuts (auto) 4.9, Absolute Lymphs (auto) 1.20, Nucleated RBC % 0 03/15/22 05:44: Sodium 141, Potassium 3.5, Chloride 109 H, Carbon Dioxide 24.0, Anion Gap 8, BUN 6 L, Creatinine 0.64 L, Estim Creat Clear Calc 142.69, Est GFR (MDRD) Af Amer 172, Est GFR (MDRD) Non-Af 142, BUN/Creatinine Ratio 9.4 L, Glucose 94, Calcium 8.3 L Micro: Microbiology 03/12/22 01:10 Sputum, Tracheal Aspirate Gram Stain - Final 03/12/22 01:10 Sputum, Tracheal Aspirate Respiratory Culture - Final Streptococcus agalactiae (B) Physical Exam Const Constitutional Narrative: very somnolent Orientation / Consciousness: lethargic HEENT normocephalic, head/scalp atraumatic, moist oral mucous membranes and oropharynx normal Eyes PERRL, EOMs intact bilaterally and conjunctivae normal Neck no lymphadenopathy, supple, no JVD and thyroid normal Resp normal respiratory effort, no retractions, no use of accessory muscles and clear to auscultation bilaterally Auscultation: Negative for rales, rhonchi or wheezes Cardio regular rate, regular rhythm, S1 normal heart sound, S2 normal heart sound, no murmurs, no rub and no gallops GI normal to inspection, nondistended, normoactive bowel sounds, soft to palpation, non-tender and non-distended Extremity normal to inspection, full ROM and no clubbing, cyanosis or edema Skin no rashes or lesions noted General Skin Exam: no breakdown Neuro Neuro Narrative: very somnolent Assessment & Plan Assessment/Plan (1) ST elevation (STEMI) myocardial infarction: (2) Cardiac arrest with ventricular fibrillation: PLAN: Plan #STEMI * s/p cardiac cath which revealed 100% occlusion of the RCA * had thrombectomy and stent placement * on aspirin, statin and brilinta * cardiology on board. Also on beta moisés. * #Acute metabolic encephalopathy * patient very somnolent. Likely due to the ativan he received. Was very agitated and inappropriate yesterday, and there were concerns about alcohol withdrawal, so he was started on ativan * monitor CIWA score. * #CArdiac arrest due to Vfib * had out of hospital cardiac arrest and was successfully resuscitated. * likely due to stemi * now on amiodarone and metoprolol * cardiology on board * #Acute hypoxic respiratory failure * was intubated, and subsequently extubated on 03/13/2022 * critical care on board. There were concerns about aspiration, so he is on antimicrobials * titrate oxygen to maintain sats >90% * #History of CVA: #Hyperlipidemia: on statin #Left ankle fracture: left ankle currently immobilised. WIll need follow up with orthopedic surgery on outpatient basis DVT prophylaxis: lovenox Disposition; awaiting placement Charges/Coding Visit Charges Inpatient E&M: 09145 [facility] Hosp L3
[2022-03-15] MEDS: Atorvastatin Calcium 80 MG Tablet PO (22:14)
[2022-03-16 05:50] LABS: Absolute Lymphocyte Count 1.56 X10^3/uL (0.83-4.51); Absolute Neutrophil Count 3.4 X10^3/uL (2.0-7.7); Basophil# 0.06 X10^3/uL; Eosinophil# 0.35 X10^3/uL; Eosinophils% 5.7 % (0-5); Hemoglobin 15.6 g/dL (13.0-16.5); Lymphocyte # 1.56 X10^3/ul (0.83-4.51); Lymphocyte % 25.5 % (19-41); Mean Corp Hgb Conc 33.9 g/dL (32-36); Mean Corpuscular Hgb 30.5 pg (27.0-32.0); Mean Platelet Vol. 9.2 fl (6.2-12.0); Monocyte# 0.76 X10^3/uL; Monocyte% 12.4 % (0-10); NRBC Flagged by Analyzer 0 % (0-5); Neutrophil # 3.36 X10^3/uL (2.7-7.7); Neutrophil % 54.9 % (47-70); Platelet Count 273 K/mm3 (150-450); RBC Distribution Width CV 13.6 % (11.6-14.6); RBC Distribution Width SD 45.8 fl (35.1-43.9); Red Blood Count 5.11 M/mm3 (4.6-6.2); White Blood Count 6.1 K/mm3 (4.4-11.0)
[2022-03-16 06:10] LABS: Anion Gap 8 (5-15); BUN 10 mg/dL (7-18); Calcium,Total 8.6 mg/dL (8.5-10.1); Chloride 108 mmol/L (98-107); Creatinine, Serum 0.67 mg/dL (0.70-1.30); EST Glomerular Filtration Rate 135 mL/min (>60); Est Glom Filt Rate - Afr Amer 164 mL/min (>60); Glucose 95 mg/dL (74-106); Potassium 3.5 mmol/L (3.5-5.1); Sodium Level 138 mmol/L (136-145)
[2022-03-16] MEDS: oxyCODONE 5 MG Tablet PO (06:25)
[2022-03-16] MEDS: Acetaminophen 325 MG Tablet 650 MG PO (06:25)
[2022-03-16 06:38] VITALS: BP 123/57; PULSE 82; RESP 18; TEMP 36.7; O2SAT 94
[2022-03-16 07:00] VITALS: PULSE 77
[2022-03-16] MEDS: Folic Acid 1 MG Tablet PO (08:56)
[2022-03-16] MEDS: Famotidine 20 MG Tablet GT (08:56)
[2022-03-16 08:57] VITALS: BP 123/57; PULSE 77
[2022-03-16] MEDS: Losartan Potassium 50 MG Tablet PO (08:57)
[2022-03-16] MEDS: Thiamine Hydrochloride 100 MG Tablet PO (08:57)
[2022-03-16] MEDS: Metoprolol Tartrate 25 MG Tablet PO (08:57)
[2022-03-16] MEDS: Multivitamins,Therapeutic Tablet 1 TABLET PO (08:57)
[2022-03-16] MEDS: Amiodarone 200 MG Tablet PO (08:57)
[2022-03-16] MEDS: TICAGRELOR 90 MG TABLET PO (08:57)
[2022-03-16] MEDS: Aspirin E.C. 81 MG Tablet PO (08:57)
[2022-03-16] MEDS: guaiFENesin 1,200 MG Tablet 1200 MG PO (08:58)
--- NOTE | 2022-03-16 10:42 | CASEMGMT ---
Patient is alert and oriented today. SW met with patient. Introduced self and role at [facility]. SW asked patient about his discharge plan. Patient said he wants to go home. SW asked patient if he feels strong enough as he has a lot of steps to climb at home. Patient said he will be fine, his girlfriend helps care for him. Patient declined home health. SW then asked patient if he would like to do Healthcare Power of [employer] papers. Patient said he would. SW assisted patient in completing document but he did not know his daughter's house number, just her street name. Patient told SW to call his daughter and ask. SW called patient's daughter and left her a voice mail requesting a return call. SW also spoke to patient about his alcohol consumption and if he needed resources. Patient said he does not have any issues with drinking. He has quit for months at a time before. He said he drinks occasionally. SW also gave patient information on applying for Social Security Disability. SW will await patient's daughter's return call regarding her address and then complete the document. Krupa Cannon ROASTERMAN TRAMAINE
[2022-03-16 11:17] VITALS: BP 123/57; PULSE 82; RESP 18; TEMP 36.7; O2SAT 94
--- NOTE | 2022-03-16 11:46 | CASEMGMT ---
JOCELYNE CALABRESE NOTE: JOCELYNE CALABRESE informed pt's sig other inquiring about grab bars for pt's shower. JOCELYNE CALABRESE to room to talk w/pt and sig other. They were made aware insurance typically does not cover for grab bars. Recommended they contact [facility] and inquire if pt can get established w/a career services manager there, as they may be able to provide further DME/resources. They voice understanding. Sig other states they just heard back from insurance re: a W/C they have been working on. She states it was approved and is ready for pick-up and they will be getting that today. Pt confirms he does not want to go to a SNF and does not want HHC or OP therapy. Pt and sig other made aware, if once he returns home, if he changes his mind and wants either, to discuss this with his PCP. They voice understanding. Per silver wrapper, hospital van transportation has been arranged to take pt and his sig other home @ 1 PM today. Pt and sig other deny having other discharge planning needs or concerns.
--- NOTE | 2022-03-16 11:48 | DS.PCM_ITS ---
Providers Date of Admission: 03/11/22 Date of Discharge: 03/16/22 Primary Care Physician: Brandt Nguyễn MD Consultations 03/11/22 21:19 Consult: Cardiology Routine Consulting Provider: Melissa Quiroga Reason for Consult: STEMI EMERGENT Consult: Yes MD Notified: Yes Date Notified: 03/11/22 Time Notified: 19:49 Method of Notification: ED Physician Initiated Consult: Bogger Operator / Pulmonary Medicine Routine Consulting Provider: Sanya Mcgee Reason for Consult: Vent management EMERGENT Consult: No MD Notified: Yes Date Notified: 03/11/22 Time Notified: 19:51 Method of Notification: Text Reason For Visit: VENTRICULAR FIBRILLATION ARREST, STEMI Diagnosis Discharge Diagnosis (1) ST elevation (STEMI) myocardial infarction: Status: Acute Code(s): I21.3 - ST elevation (STEMI) myocardial infarction of unspecified site (2) Cardiac arrest with ventricular fibrillation: Status: Acute Code(s): I46.9 - Cardiac arrest, cause unspecified; I49.01 - Ventricular fibrillation Plan #STEMI * s/p cardiac cath which revealed 100% occlusion of the RCA * had thrombectomy and stent placement * on aspirin, statin and brilinta * cardiology on board. Also on beta abdi. * #Acute metabolic encephalopathy * patient very somnolent. Likely due to the ativan he received. Was very agitated and inappropriate yesterday, and there were concerns about alcohol withdrawal, so he was started on ativan * monitor CIWA score. * #CArdiac arrest due to Vfib * had out of hospital cardiac arrest and was successfully resuscitated. * likely due to stemi * now on amiodarone and metoprolol * cardiology on board * #Acute hypoxic respiratory failure * was intubated, and subsequently extubated on 03/13/2022 * critical care on board. There were concerns about aspiration, so he is on antimicrobials * titrate oxygen to maintain sats >90% * #History of CVA: #Hyperlipidemia: on statin #Left ankle fracture: left ankle currently immobilised. WIll need follow up with orthopedic surgery on outpatient basis DVT prophylaxis: lovenox Disposition; awaiting placement Medications at Discharge Home Medications atorvastatin 80 mg tablet 80 mg PO DAILY 10/25/21 gabapentin 600 mg tablet 600 mg PO DAILY 10/25/21 enoxaparin 40 mg/0.4 mL subcutaneous syringe (Lovenox) 40 mg (0.4 mL) subcut DAILY #8 mL 02/20/22 ondansetron 4 mg disintegrating tablet 4 mg PO Q8H PRN nausea and vomiting #10 tabs 02/20/22 oxycodone-acetaminophen 5 mg-325 mg tablet (Percocet) 1 tab PO Q6H PRN pain 3 days #10 tabs 02/20/22 oxycodone-acetaminophen 5 mg-325 mg tablet (Percocet) 1 tab PO Q6H PRN pain 3 days #10 tabs 03/07/22 amiodarone 200 mg tablet 200 mg PO UD #70 tabs 03/16/22 aspirin 81 mg tablet,delayed release 81 mg PO BREAKFAST #30 tabs 03/16/22 losartan 50 mg tablet 50 mg PO DAILY #30 tabs 03/16/22 metoprolol tartrate 25 mg tablet 25 mg PO BID #60 tabs 03/16/22 ticagrelor 90 mg tablet (Brilinta) 90 mg PO BID #60 tabs 03/16/22 Hospital Course Operations None Procedures 2-D Echocardiogram and Cardiac catheterization Summary of Care Provided Minutes Spent on Discharge: 45 Hospital Course: Patient is a 46-year-old male with a past medical history as outlined who was a dmitted through the ED on 03/11/2022 with complaint of general malaise and fever which started on the day of admission. Patient subsequently had a cardiac arrest outside of the hospital and EMS was called. No bystander CPR was initiated. On EMS arrival he was found to be in V. fib and was resuscitated per ACLS protocol. He was shocked and had return of spontaneous circulation but went into V. fib again requiring being shocked again. He was given a bolus of amiodarone. Immediately on admission in the ED, patient was intubated and sedated and started on propofol and fentanyl drips as well as Precedex drip on account of his history of alcohol abuse. He was started on amiodarone drip as well. EKG done on admission showed an inferior STEMI so he was given an aspirin and Brilinta load as well as heparin bolus and was sent emergently to the Service And Repair Supervisor. He was found to have 100% occlusion of the RCA and had thrombectomy and stent placement. Patient was subsequently transferred to the ICU. Was eventually extubated. Was continued on aspirin, statin and Brilinta was placed on amiodarone and metoprolol. Patient also had a left ankle fracture and his left ankle was immobilized and he was to follow-up with podiatry and orthopedic surgery on outpatient basis. He had initially been skilled for possible SNF, but patient refused, and so was discharged home on 03/16/2022. He is to follow up with his PCP and cardiology as well as orthopedic surgery within 1-2 weeks. Patient seen and examined prior to discharge. He had no active complaints and had an uneventful night. Review of systems was otherwise negative. Labs and vitals reviewed. Home meds reviewed and reconciled. Physical Exam Const alert, oriented x3 and no apparent distress General Appearance: cooperative, comfortable, well kempt and well developed Orientation / Consciousness: awake Exam Limitations: no limitations HEENT normocephalic, head/scalp atraumatic, hearing grossly normal bilaterally, moist oral mucous membranes and oropharynx normal Mouth: oral and palatal mucosa normal Eyes PERRL, EOMs intact bilaterally and conjunctivae normal Neck no lymphadenopathy, supple, no JVD and thyroid normal General: trachea midline Resp normal respiratory effort, no retractions, no use of accessory muscles and clear to auscultation bilaterally Auscultation: Negative for rales, rhonchi or wheezes Cardio regular rate, regular rhythm, S1 normal heart sound, S2 normal heart sound, no murmurs, no rub and no gallops GI normal to inspection, nondistended, normoactive bowel sounds, soft to palpation, non-tender and non-distended Extremity normal to inspection and no clubbing, cyanosis or edema Extremity Narrative: left ankle immobilised due to left ankle fracture Skin no rashes or lesions noted General Skin Exam: no breakdown Neuro oriented x3, CN's II-XII intact bilaterally, moves all extremities, no focal motor deficits and no sensory deficits noted Sensorium / Orientation: awake and alert Speech: speech normal Psych affect normal Weight / BMI Weight Weight: 180 lb 8.937 oz Body Mass Index (BMI) 27.2 ABG / Lab / Microbiology Data Result Diagrams: 03/16/22 03:32 03/16/22 03:32 Laboratory: Laboratory Results - last 24 hr 03/16/22 03:32: WBC 6.1, RBC 5.11, Hgb 15.6, Hct 46.0, MCV 90.0, MCH 30.5, MCHC 33.9, RDW Std Deviation 45.8 H, RDW Coeff of Jony 13.6, Plt Count 273, MPV 9.2, Immature Gran % (Auto) 0.500, Neut % (Auto) 54.9, Lymph % (Auto) 25.5, Mcminn % (Auto) 12.4 H, Eos % (Auto) 5.7 H, Baso % (Auto) 1.0, Absolute Neuts (auto) 3.4, Absolute Lymphs (auto) 1.56, Nucleated RBC % 0 03/16/22 03:32: Sodium 138, Potassium 3.5, Chloride 108 H, Carbon Dioxide 22.0, Anion Gap 8, BUN 10, Creatinine 0.67 L, Estim Creat Clear Calc 136.30, Est GFR (MDRD) Af Amer 164, Est GFR (MDRD) Non-Af 135, BUN/Creatinine Ratio 15.0, Glucose 95, Calcium 8.6 Microbiology: Microbiology 03/12/22 01:10 Sputum, Tracheal Aspirate Gram Stain - Final 03/12/22 01:10 Sputum, Tracheal Aspirate Respiratory Culture - Final Streptococcus agalactiae (B) D/C Instructions Discharge Diet: Low fat / Low cholesterol Discharge Activity: Return to Normal Activity Weight Bearing Status: Weight bearing as tolerated Call your doctor if you observe: Fever of 101 or Higher, Shortness of breath, Dizziness, Swelling in the ankles and Chest pain Meaningful Use Info Meaningful Use Diagnoses (Choose all that apply): AMI AMI/Post PCI/Angioplasty Aspirin given w/in 24hrs of arrival?: Yes ASA at discharge?: Yes Antiplatelet Therapy at Discharge:: Yes Statins at discharge?: Yes Holden/ARB at discharge?: Yes Beta Abdi at discharge?: Yes Done w/ Acute AR measure.: Yes Documented LVEF (%): 50 Discharge Plan Admission Admit Date/Time: 03/11/22 19:55 Primary Reason for Your Visit: STEMI, cardiac arrest Attending Provider: Marianne Vega Primary Care Provider: Brandt Nguyễn Consulting Providers: Letha Sahni ; Brandt Pavon ; Melissa Quiroga ; Sanya Mcgee Instructions Patient Instructions: Heart Attack Dc, Heart Attack Meds Discharge Orders/Prescriptions Prescriptions: New aspirin 81 mg Tablet,Delayed Release (Dr/Ec) 81 mg PO BREAKFAST Qty: 30 2RF losartan 50 mg Tablet 50 mg PO DAILY Qty: 30 2RF metoprolol tartrate 25 mg Tablet 25 mg PO BID Qty: 60 2RF Brilinta 90 mg Tablet 90 mg PO BID Qty: 60 2RF amiodarone 200 mg tablet 200 mg PO UD Qty: 70 0RF Rx Instructions: take one tablet (200mg) twice daily for 2 weeks, till March 30, 2022, then co ntinue with one tablet (200mg) daily for 4 weeks. Continued atorvastatin 80 mg Tablet 80 mg PO DAILY gabapentin 600 mg Tablet 600 mg PO DAILY enoxaparin [Lovenox] 40 mg/0.4 mL syringe 40 mg subcut DAILY Qty: 8 0RF oxycodone-acetaminophen [Percocet] 5-325 mg tablet 1 tab PO Q6H PRN (Reason: pain) 3 Days Qty: 10 0RF ondansetron 4 mg tablet,disintegrating 4 mg PO Q8H PRN (Reason: nausea and vomiting) Qty: 10 0RF oxycodone-acetaminophen [Percocet] 5-325 mg tablet 1 tab PO Q6H PRN (Reason: pain) 3 Days Qty: 10 0RF Discontinued aspirin 325 MG tablet 325 mg PO DAILY Referrals / Follow Up: Brandt Nguyễn MD [Primary Care Provider] - Within 2 Weeks Solitario Rodriguez MD [STAFF PHYSICIAN] - Within 2 Weeks Quan Aragon DPM [STAFF PHYSICIAN] - Within 1 Week Disposition Disposition (needs filled in before D/C Order can be placed): Home, Self Care Charges/Coding Visit Charges Inpatient E&M: 66875 Disch Hosp
--- NOTE | 2022-03-16 11:59 | CASEMGMT ---
Patient is ready to leave the hospital, but his daughter has not called in with her address. SW had patient sign document and copies were made. Copies along with original were given to patient. A copy of each was also placed in patient's chart. Krupa REDD
== END 2022-03-16 12:56 | disposition home or self-care (01) | DRG 174 ==
LOC: ED 19:15 → ICU 19:57 → PCU 03-14 14:27
PROVIDERS: Internal Medicine Critical Care Medicine; Admitting Provider Family Medicine; Emergency Provider Emergency Medicine; PCP Family Medicine; Referring Provider Specialist; Visit Provider Student in an Organized Health Care Education/Training Program
DX: I21.19 ST elevation (STEMI) myocardial infarction involving other coronary artery of inferior wall (principal); I46.2 Cardiac arrest due to underlying cardiac condition; J69.0 Pneumonitis due to inhalation of food and vomit; J96.01 Acute respiratory failure with hypoxia; G93.41 Metabolic encephalopathy; I69.354 Hemiplegia and hemiparesis following cerebral infarction affecting left non-dominant side; I49.01 Ventricular fibrillation; M06.9 Rheumatoid arthritis, unspecified; I95.9 Hypotension, unspecified; E78.5 Hyperlipidemia, unspecified; F41.9 Anxiety disorder, unspecified; F12.90 Cannabis use, unspecified, uncomplicated; I10 Essential (primary) hypertension; F17.210 Nicotine dependence, cigarettes, uncomplicated; S82.842A Displaced bimalleolar fracture of left lower leg, initial encounter for closed fracture; F10.10 Alcohol abuse, uncomplicated; W19.XXXA Unspecified fall, initial encounter; I25.10 Atherosclerotic heart disease of native coronary artery without angina pectoris; M24.432 Recurrent dislocation, left wrist; F32.A Depression, unspecified; Z79.899 Other long term (current) drug therapy; Z79.82 Long term (current) use of aspirin
CPT/HCPCS: 31500; 31720; 36415; 36600; 71045; 73100; 73110; 74018; 80048; 80053; 80061; 82803; 82962; 83036; 83735; 83880; 84100; 84484; 85025; 85610; 85730; 87070; 87186; 87205; 87641; 92941; 93005; 93306; 93454; 94002; 94003; 97162; 97166; 97530; 97802; 97803; 99251; 99285; 99406; C1757; C1874; J2185; J7030; J7040; J7050; Q9957; A4216; C1725; C1760; C1769; C1887; C1894; C8929; C9606; G0463; J1327; J3010; Q9967

== ENCOUNTER 2022-05-23 10:57 | Inpatient (IN) | payer MEDICAID, SELFPAY ==
[2022-05-23] VITALS (27 sets, daily range): BP systolic 92–155; BP diastolic 69–130; PULSE 82–136; RESP 14–35; TEMP 35.7–38.2; O2SAT 95–100; BMI 25.9; BMI 28.0
--- NOTE | 2022-05-23 11:07 | RAD_ITS ---
STUDY: X-RAY CHEST REASON FOR EXAM: Male, 47 years old. STEMI. TECHNIQUE: Single AP portable view of the chest. COMPARISON: Comparison is made with prior study dated 03/12/2022. FINDINGS: An endotracheal tube is in situ. The tip is at 4.1 cm proximal to the dami. A nasogastric tube is seen with the tip in the body of the stomach. EKG electrodes are seen. The lungs are clear and expanded. There is no demonstrated pleural abnormality. Normal size heart. Normal mediastinum and baldev. Normal visualized pulmonary arteries. Normal visualized aortic arch and descending thoracic aorta. There are degenerative changes of the visualized thoracic spine. Normal visualized ribs, clavicles, and shoulders. There is no demonstrated abnormality of the visualized soft tissue structures of the upper abdomen. RAD/Chest 1 View (Portable) IMPRESSION: The tip of the endotracheal tube is at 4.1 cm proximal to dami. The tip of the nasogastric tube is in the body of the stomach. The lungs are clear. Electronically Signed: Case Meyer MD at 12:11 EDT ,
--- NOTE | 2022-05-23 11:09 | ED.RN ---
RESIDUAL LT SIDE WEAKNESS FROM A STROKE.
[2022-05-23 11:20] LABS: Absolute Lymphocyte Count 2.48 X10^3/uL (0.83-4.51); Absolute Neutrophil Count 7.9 X10^3/uL (2.0-7.7); Basophil# 0.08 X10^3/uL; Basophil% 0.7 % (0-1); Eosinophil# 0.19 X10^3/uL; Eosinophils% 1.6 % (0-5); Hematocrit 48.5 % (40-54); Hemoglobin 16.2 g/dL (13.0-16.5); Lymphocyte # 2.48 X10^3/ul (0.83-4.51); Lymphocyte % 21.1 % (19-41); Mean Corp Hgb Conc 33.4 g/dL (32-36); Mean Corpuscular Hgb 30.2 pg (27.0-32.0); Mean Corpuscular Volume 90.5 fL (80-94); Mean Platelet Vol. 9.4 fl (6.2-12.0); Monocyte% 8.5 % (0-10); NRBC Flagged by Analyzer 0 % (0-5); Neutrophil # 7.85 X10^3/uL (2.7-7.7); Neutrophil % 66.8 % (47-70); Platelet Count 230 K/mm3 (150-450); RBC Distribution Width CV 14.6 % (11.6-14.6); RBC Distribution Width SD 47.9 fl (35.1-43.9); Red Blood Count 5.36 M/mm3 (4.6-6.2); White Blood Count 11.8 K/mm3 (4.4-11.0)
--- NOTE | 2022-05-23 11:20 | CM.ED ---
Social Work This social work associate responding to stroke alert. Patient significant other, Arianne present. This social work associate offered support and active listening. This social work associate assisted in escorting Arianne to laborer operator waiting room. Arianne reports to be in contact with support person to be with Arianne while waiting on results from laborer operator. Harry SCHILLING, TRAMAINE-S
--- NOTE | 2022-05-23 11:21 | EDS_ITS ---
HPI History of Present Illness Chief Complaint: Chest Pain Informant: spouse/S.O. and EMS Narrative Narrative: Brought in by EMS call out for unresponsive found to be in cardiac arrest. EMS EKG reviewed prior to arrival concerning for an inferior STEMI with reciprocal changes in the lateral leads. Significant other reported she started CPR right away he had indigestion complaints. 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 He regained his left lower extremity strength. He has carotid disease with left-sided carotid endarterectomy in the past with near occlusion of the right side with no intervention currently. Tobacco history. Reported he had a coronary stent placed here in the last couple months unable to review records during discussion. Reported shock x1 per EMS EKG was obtained reported PEA during that time with the STEMI findings. He lost pulses again continued CPR status post epinephrine x1 Narcan x2 doses and brought in with i gel [id number] with overbreathing. He has not been responsive. Later disc ussion nursing reporting no other heard meth was used this morning. Reviewing records in February had cardiac arrest concerning for V. fib he had a total occlusion right RCA with thrombectomy and stenting placed. He follow-up this past March in cardiology office. He is to finish his amiodarone and not requiring additional refills. Past medical history rheumatoid arthritis, hypertension, hyperlipidemia, CVA with left upper extremity residual deficits, cardiac arrest with STEMI with 100% right RCA occlusion February 2022. Prior similar symptoms: Yes PFSH PFSH Medical History Alcohol abuse Anxiety and depression Atherosclerosis of coronary artery without angina pectoris Cardiac arrest with ventricular fibrillation Closed bimalleolar fracture of left ankle Essential hypertension Hemiparesis affecting left side as late effect of cerebrovascular accident History of CVA (cerebrovascular accident) Hyperlipidemia Marijuana use Rheumatoid arthritis ST elevation (STEMI) myocardial infarction (03/11/22) Tobacco use Home Medications gabapentin 600 mg tablet 600 mg PO DAILY 10/25/21 [History Last Taken Unknown] ondansetron 4 mg disintegrating tablet 4 mg PO Q8H PRN nausea and vomiting #10 tabs 02/20/22 [Rx Last Taken Unknown] oxycodone-acetaminophen 5 mg-325 mg tablet (Percocet) 1 tab PO Q6H PRN pain 3 days #10 tabs 02/20/22 [Rx Last Taken Unknown] amiodarone 200 mg tablet 200 mg PO DAILY 04/06/22 [History Last Taken Unknown] aspirin 81 mg tablet,delayed release 81 mg PO BREAKFAST #90 tabs 04/06/22 [Rx Last Taken Unknown] atorvastatin 80 mg tablet 80 mg PO DAILY #90 tabs 04/06/22 [Rx Last Taken Unknown] losartan 50 mg tablet 50 mg PO DAILY #90 tabs 04/06/22 [Rx Last Taken Unknown] metoprolol tartrate 25 mg tablet 25 mg PO BID #180 tabs 04/06/22 [Rx Last Taken Unknown] ticagrelor 90 mg tablet (Brilinta) 90 mg PO BID #180 tabs 04/06/22 [Rx Last Taken Unknown] Allergy/AdvReac Type Severity Reaction Status Date / Time cephalexin [From Keflex] Allergy Anaphylaxis Verified 04/06/22 09:57 fluoxetine [From Prozac] Allergy Itching Verified 04/06/22 09:57 hydroxychloroquine Allergy Other Verified 04/06/22 09:57 [From Plaquenil] Family History Mother Rheumatoid arthritis Hypertension Father Hypertension Surgical History History of coronary artery stent placement (03/11/22) No history of previous surgery Social History household members: significant other Smoking Status: Current every day smoker tobacco type: cigarettes alcohol intake: current alcohol intake frequency: 0-2 drinks per day details: Patient used to drink about 1 L of hard liquor a day however per girlfriend substance use type: marijuana, amphetamines and methamphetamine ROS ROS ED ROS Narrative Unobtainable due to unresponsiveness with igel [id number] EXAM Physical Exam Const Vital Signs: 05/23/22 10:58 05/23/22 11:02 05/23/22 11:03 Temperature 96.2 F L Temperature Source Temporal Pulse Rate 136 H 131 H Respiratory Rate 23 H Blood Pressure 151/130 H 155/108 H Blood Pressure Mean 137 Pulse Ox 99 Oxygen Delivery Method Ambu-Bag Fraction of Inspired Oxygen (FIO2) 05/23/22 11:13 05/23/22 11:20 05/23/22 11:30 Temperature Temperature Source Pulse Rate 112 H Respiratory Rate 30 H Blood Pressure Blood Pressure Mean Pulse Ox 100 Oxygen Delivery Method Ambu-Bag Fraction of Inspired Oxygen (FIO2) 100 60 Positive unkempt Constitutional Narrative: I gel [id number], unresponsive General Appearance ED: unkempt HEENT Reports moist mucous membranes normocephalic and atraumatic Eyes PERRL Eyes Narrative: Equal pupils bilaterally 2 to 3 mm General Eye ED: Yes normal appearance of both eyes Neck General: Negative for tenderness Chest Wall Chest: Negative for tenderness Resp Resp Narrative: Diminished breath sounds bilaterally with [id number] Effort and Inspection: Negative for respiratory distress Cardio regular rhythm and no murmurs Rate: tachycardic GI normal to inspection, nondistended, normoactive bowel sounds and non-distended Back/Spine no CVA tenderness and no thoracic nor lumbar tenderness Extremity Extremity Narrative: No withdrawals to pain in all 4 extremities. General Extremety ED: Negative for edema or tenderness General Extremity: Negative for edema Neuro Neuro Narrative: Unresponsive Psych Appearance: unkempt MDM MDM MDM Narrative Medical decision making narrative: Patient unresponsive poor air movement with eye gel. He was transitioned over to an ETT tube with no complications. EMS EKG STEMI x2 separate EKGs. He had a pulse of blood pressure is tachycardic. He is overbreathing on the ET tube. OG was placed. I discussed with the [facility] biomedical electronics technician Dr. Quiroga, discussed patient's history obtained per significant other along with EMS EKGs. He will take him to the [facility] he was treated with anticoagulants there. OG was placed I reviewed the chest x-ray 1 view myself with ETT intact and OG in the stomach. Labs were ordered and pending. He was taken to the [facility]. Procedure note: Intubation: Emergent. I gel was removed, dentures removed, Glidoscope use with visualization of the cords, 7.5 English ETT tube placed 22 cm at the lips with direct visualization. Positive capnography, positive breath sounds bilaterally. ETT tube secured. No complications. Post chest x-ray films reviewed. Will discuss with hospital team for admission to ICU. Lab Data Attestation: I reviewed the patient's lab results. Labs: Laboratory Results - last 24 hr 05/23/22 05/23/22 05/23/22 11:10 11:10 11:10 WBC 11.8 H RBC 5.36 Hgb 16.2 Hct 48.5 MCV 90.5 MCH 30.2 MCHC 33.4 RDW Std Deviation 47.9 H RDW Coeff of Jony 14.6 Plt Count 230 MPV 9.4 Immature Gran % (Auto) 1.300 H Neut % (Auto) 66.8 Lymph % (Auto) 21.1 [place] % (Auto) 8.5 Eos % (Auto) 1.6 Baso % (Auto) 0.7 Absolute Neuts (auto) 7.9 H Absolute Lymphs (auto) 2.48 Nucleated RBC % 0 PT 15.8 H INR 1.3 APTT 34.7 Sodium 140 Potassium 3.8 Chloride 109 H Carbon Dioxide 14.0 L Anion Gap 17 H BUN 12 Creatinine 1.47 H Estim Creat Clear Calc 63.45 Est GFR (MDRD) Af Amer 66 Est GFR (MDRD) Non-Af 54 L BUN/Creatinine Ratio 8.2 L Glucose 199 H Calcium 8.2 L Total Creatine Kinase Troponin I High Sens 99 H Triglycerides 05/23/22 11:10 WBC RBC Hgb Hct MCV MCH MCHC RDW Std Deviation RDW Coeff of Jony Plt Count MPV Immature Gran % (Auto) Neut % (Auto) Lymph % (Auto) [place] % (Auto) Eos % (Auto) Baso % (Auto) Absolute Neuts (auto) Absolute Lymphs (auto) Nucleated RBC % PT INR APTT Sodium Potassium Chloride Carbon Dioxide Anion Gap BUN Creatinine Estim Creat Clear Calc Est GFR (MDRD) Af Amer Est GFR (MDRD) Non-Af BUN/Creatinine Ratio Glucose Calcium Total Creatine Kinase 277 Troponin I High Sens Triglycerides 94 ABG Data ABG results: ABG 05/23/22 11:40 Specimen Type ART Sample Site R Fem pH 7.24 L Bicarbonate Actual 17.3 L Total CO2 19 Base Excess -10 L O2 Saturation 99 O2 % 60 ABG pCO2 39.9 ABG pO2 179 H Respiration Rate 14 O2 Delivery Device Adult Vent Vent Mode AC Tidal Volume 450 POC PEEP 5 Radiography Diagnostic Testing: Clinical Impression(s) from Imaging Studies Chest X-Ray 05/23/22 11:07 IMPRESSION: The tip of the endotracheal tube is at 4.1 cm proximal to dami. The tip of the nasogastric tube is in the body of the stomach. The lungs are clear. Electronically Signed: Case Meyer MD at 12:11 EDT , Critical Care Time Critical Care Time: Yes Critical care time (excluding procedures): 30-74 minutes, Discussing w/Patient &/or Family/Social Services Counselor, Discussing w/Consultants, Arranging Admission or Transfer, Performing Direct Patient Care at Bedside and - (31 minutes) Discharge Plan Dx/Rx/DC Orders Clinical Impression: ST elevation (STEMI) myocardial infarction, History of coronary artery stent placement, Essential hypertension, Hyperlipidemia, History of CVA (cerebrovascular accident), Cardiopulmonary arrest with successful resuscitation Disposition Disposition: Acute Care Hospital [facility]
[2022-05-23 11:29] LABS: International Normalized Ratio 1.3; Prothrombin Time (Protime)PT. 15.8 SECONDS (11.7-14.9)
[2022-05-23 11:30] LABS: Partial Thromboplast Time 34.7 Seconds (24.1-36.2)
[2022-05-23 11:37] LABS: Anion Gap 17 (5-15); BUN 12 mg/dL (7-18); BUN/Creat Ratio 8.2 RATIO (10-20); Calcium,Total 8.2 mg/dL (8.5-10.1); Chloride 109 mmol/L (98-107); Creatinine, Serum 1.47 mg/dL (0.70-1.30); EST Glomerular Filtration Rate 54 mL/min (>60); Est Glom Filt Rate - Afr Amer 66 mL/min (>60); Estimated Creatinine Clearance 63.45 ml/min; Glucose 199 mg/dL (74-106); Potassium 3.8 mmol/L (3.5-5.1); Sodium Level 140 mmol/L (136-145); Troponin-I HS (w/2H Reflex) 99 pg/mL (3.0-78.0)
[2022-05-23 11:45] LABS: Base Excess -10 mmol/L (-2 to +2); Bicarbonate 17.3 mmol/L (22-26); Blood Gas Specimen Type ART; FI02 60; Mode AC; O2 Delivery Device Adult Vent; PEEP 5; PO2 179 mmHG (75-100); RR 14; SITE R Fem; SO2 99 % (95-99); Total Carbon Dioxide 19 mmol/L; Vt 450; pCO2 39.9 mmHg (35-45); pH 7.24 (7.35-7.45)
--- NOTE | 2022-05-23 12:14 | CON.PCM.CA_ITS ---
Assessment & Plan Assessment/Plan (1) Cardiopulmonary arrest with successful resuscitation: PLAN: Due to ventricular fibrillation. Patient's rhythm appears to be stable at this time. He underwent coronary angiography which revealed patent prior stent and significant disease in a small diagonal branch which was unchanged from prior angiography 2 months back. This vessel is not ideal for PCI and patient was not having any symptoms when he was seen in the office after discharge. This is better treated medically. The other change angiographically is that a small RV marginal branch that was jailed by prior stent and was patent at the time of final postangioplasty pictures last admission is now occluded. At this time patient does not need any revascularization. Recommend continuing his current medications. If he goes into V. fib we may need to start other antiarrhythmic medications. If he ends up having neurologic recovery then he may be a candidate for ICD placement for secondary prevention prior to discharge. We will get EP input on this. (2) History of coronary artery stent placement: PLAN: Continue current medications (3) Atherosclerosis of coronary artery without angina pectoris: PLAN: Patient does have residual disease in a diagonal branch that was also not ed in February 2022. Patient was not having any symptoms from this. Recommend continued medical therapy for this. HPI Consult Data Date of Consult: 05/23/22 HPI Narrative Reason for Consultation: Cardiac arrest, suspected STEMI HPI Narrative: ROBBI REYNOLDS, is a 47 M who presents after cardiac arrest outside the hospital. This was witnessed by his significant other who started CPR. When the paramedics arrived patient was apparently in V. fib and he was shocked. In the emergency room patient was intubated and EKG was suspicious for inferior STEMI and a STEMI alert was called. Patient had inferior [place] on March 11, 2022 a nd had cardiac arrest due to ventricular fibrillation at that time as well. After admission he was discharged home on p.o. amiodarone which he was continuing to take. Patient was brought emergently to the cardiac [facility] and underwent coronary angiography which revealed patent RCA stent. There was an RV marginal branch that was jailed by prior stent which was patent during final post PCI pictures last time which is now occluded. It is unclear if this is the culprit for patient's V. fib or if patient had scar related V. fib from prior [place]. In any case this vessel is too small for PCI. Patient will be admitted to the CCU for further management of his cardiac arrest. He appears to be res ponding to painful stimuli. Review of systems: Could not be obtained due to patient's cardiac arrest [facility] Medical History Alcohol abuse Anxiety and depression Atherosclerosis of coronary artery without angina pectoris Cardiac arrest with ventricular fibrillation Closed bimalleolar fracture of left ankle Essential hypertension Hemiparesis affecting left side as late effect of cerebrovascular accident History of CVA (cerebrovascular accident) Hyperlipidemia Rheumatoid arthritis ST elevation (STEMI) myocardial infarction (03/11/22) Tobacco use Home Medications gabapentin 600 mg tablet 600 mg PO DAILY 10/25/21 [History Last Taken Unknown] ondansetron 4 mg disintegrating tablet 4 mg PO Q8H PRN nausea and vomiting #10 tabs 02/20/22 [Rx Last Taken Unknown] oxycodone-acetaminophen 5 mg-325 mg tablet (Percocet) 1 tab PO Q6H PRN pain 3 days #10 tabs 02/20/22 [Rx Last Taken Unknown] amiodarone 200 mg tablet 200 mg PO DAILY 04/06/22 [History Last Taken Unknown] aspirin 81 mg tablet,delayed release 81 mg PO BREAKFAST #90 tabs 04/06/22 [Rx Last Taken Unknown] atorvastatin 80 mg tablet 80 mg PO DAILY #90 tabs 04/06/22 [Rx Last Taken Unknown] losartan 50 mg tablet 50 mg PO DAILY #90 tabs 04/06/22 [Rx Last Taken Unknown] metoprolol tartrate 25 mg tablet 25 mg PO BID #180 tabs 04/06/22 [Rx Last Taken Unknown] ticagrelor 90 mg tablet (Brilinta) 90 mg PO BID #180 tabs 04/06/22 [Rx Last Taken Unknown] Allergy/AdvReac Type Severity Reaction Status Date / Time cephalexin [From Keflex] Allergy Anaphylaxis Verified 04/06/22 09:57 fluoxetine [From Prozac] Allergy Itching Verified 04/06/22 09:57 hydroxychloroquine Allergy Other Verified 04/06/22 09:57 [From Plaquenil] Family History Mother Rheumatoid arthritis Hypertension Father Hypertension Surgical History History of coronary artery stent placement (03/11/22) No history of previous surgery Social History household members: significant other Smoking Status: Current every day smoker tobacco type: cigarettes alcohol intake: current alcohol intake frequency: 3 or more drinks per day details: 08/29 of 09/01 vodka daily. substance use type: marijuana Physical Exam Const Constitutional Narrative: Intubated, responds to painful stimuli Cardio regular rate and regular rhythm Skin no rashes or lesions noted Risk Stratification Risk Stratification Applicable: No Objective Data Vital Signs: Vital Signs Temp Pulse Resp BP Pulse Ox O2 Del Method FiO2 96.2 F L 112 H 30 H 155/108 H 100 Ambu-Bag 60 05/23/22 12:11 05/23/22 12:11 05/23/22 12:11 05/23/22 12:11 05/23/22 12:11 05/23/22 12:11 05/23/22 11:30 Oxygen Delivery Method Ambu-Bag Weight: 180 lb 8.937 oz Body Mass Index (BMI) 25.9 Lab / Micro Data Result Diagrams: 05/23/22 11:10 05/23/22 11:10 Labs: Laboratory Results - last 24 hr 05/23/22 11:10: WBC 11.8 H, RBC 5.36, Hgb 16.2, Hct 48.5, MCV 90.5, MCH 30.2, MCHC 33.4, RDW Std Deviation 47.9 H, RDW Coeff of Jony 14.6, Plt Count 230, MPV 9.4, Immature Gran % (Auto) 1.300 H, Neut % (Auto) 66.8, Lymph % (Auto) 21.1, [place] % (Auto) 8.5, Eos % (Auto) 1.6, Baso % (Auto) 0.7, Absolute Neuts (auto) 7.9 H, Absolute Lymphs (auto) 2.48, Nucleated RBC % 0 05/23/22 11:10: PT 15.8 H, INR 1.3, APTT 34.7 05/23/22 11:10: Sodium 140, Potassium 3.8, Chloride 109 H, Carbon Dioxide 14.0 L , Anion Gap 17 H, BUN 12, Creatinine 1.47 H, Estim Creat Clear Calc 63.45, Est GFR (MDRD) Af Amer 66, Est GFR (MDRD) Non-Af 54 L, BUN/Creatinine Ratio 8.2 L, Glucose 199 H, Calcium 8.2 L, Troponin I High Sens 99 H ABG Data ABG results: ABG 05/23/22 11:40 Specimen Type ART Sample Site R Fem pH 7.24 L Bicarbonate Actual 17.3 L Total CO2 19 Base Excess -10 L O2 Saturation 99 O2 % 60 ABG pCO2 39.9 ABG pO2 179 H Respiration Rate 14 O2 Delivery Device Adult Vent Vent Mode AC Tidal Volume 450 POC PEEP 5 Cardiology Labs/Tests 05/23/22 11:10: WBC 11.8 H, RBC 5.36, Hgb 16.2, Hct 48.5, MCV 90.5, MCH 30.2, MCHC 33.4, Plt Count 230, MPV 9.4, Immature Gran % (Auto) 1.300 H, Neut % (Auto) 66.8, Lymph % (Auto) 21.1, [place] % (Auto) 8.5, Eos % (Auto) 1.6, Baso % (Auto) 0.7, Absolute Neuts (auto) 7.9 H, Nucleated RBC % 0 05/23/22 11:10: PT 15.8 H, INR 1.3, APTT 34.7 05/23/22 11:10: Sodium 140, Potassium 3.8, Chloride 109 H, Carbon Dioxide 14.0 L , Anion Gap 17 H, BUN 12, Creatinine 1.47 H, Est GFR (MDRD) Af Amer 66, Est GFR (MDRD) Non-Af 54 L, BUN/Creatinine Ratio 8.2 L, Glucose 199 H, Calcium 8.2 L 05/23/22 11:40: pH 7.24 L, Bicarbonate Actual 17.3 L, Base Excess -10 L, O2 Saturation 99, ABG pCO2 39.9, ABG pO2 179 H Rhythm: EKG: ECHO: Stress Test: Cardiac Cath: PCI: CT Surgery: Holter monitor: EPS: PPM: CXR: Chest CT Scan: Radiography Diagnostic Testing: Radiology Impression Chest X-Ray 05/23/22 11:07 IMPRESSION: The tip of the endotracheal tube is at 4.1 cm proximal to dami. The tip of the nasogastric tube is in the body of the stomach. The lungs are clear. Electronically Signed: Case Meyer MD at 12:11 EDT ,
[2022-05-23] MEDS: Propofol 10MG/Ml 1,000 MG/100 ML Bottle 4.9 MG CONT INF (13:03)
--- NOTE | 2022-05-23 13:14 | CHAPLAIN ---
Type of Pastoral Visit ___ Initial Visit ___ Follow-up Visit ___ On-call Visit ___ General Patient Visit ___ Spiritual Assessment ___ Family Conference ___ Bereavement _x__ Rapid Response ___ Code Blue ___ Other (describe below) Pastoral Care Referral From ___ Patient ___ Family ___ Nurse ___ Physician ___ Semiconductor Packages Tester ___ Freight Checker _x__ Other (describe below) Sacrament/Intervention _x__ Active listening ___ Anointing ___ Pentecostal ___ Bereavement ___ Communion ___ Alexandra exploration ___ ___ Life review _x__ Prayer ___ Reconciliation ___ Sacrament of Sick _x__ Supportive presence ___ Wedding ___ Other (describe below) Pastoral Comments responded to stemi alert in ED; patient was just entering by squad and soon thereafter the SO came to ED; SO was offered support by BRIAN; when patient was taken to [facility] the SO was handed off to this college or university business manager for support and presence; sat with SO during the cath procedure; SO tried unsuccessfully to find a friend to come sit with her during procedure and therefore this college or university business manager remained present; offer of prayer was welcomed; after meeting with the by SO, this college or university business manager escorted SO to the waiting room in ICU and notified staff of her presence there; gave water to SO and then checked on her later as well; friends did eventually show up to be with the SO; patient is unresponsive at this time; will be available as needed for patient and loved ones
[2022-05-23 13:15] LABS: Amphetamine Urine VISTA POSITIVE (<1000 ng/mL); Barbiturate Urine VISTA NEGATIVE (< 200 ng/mL); Benzodiazepine Urine VISTA NEGATIVE (< 200 ng/mL); Cocaine Urine VISTA NEGATIVE (< 300 ng/mL); Ecstacy Urine VISTA NEGATIVE (< 500 ng/mL); Methadone Urine VISTA NEGATIVE (< 300 ng/mL); PCP Urine VISTA NEGATIVE (< 25 ng/mL); THC Urine VISTA POSITIVE (< 50 ng/mL); Vista UDS pH Range 5
[2022-05-23 13:16] LABS: Reflex Troponin-HS? (from REC) Y
[2022-05-23 13:30] LABS: CPK Total, Creatine Kinase 277 U/L (39-308); Triglycerides 94 mg/dL
--- NOTE | 2022-05-23 13:38 | CPS ---
Intial ABG done in [employer] [employer] [facility] off sheath
[2022-05-23 13:46] LABS: Base Excess -6 mmol/L (-2 to +2); Bicarbonate 20.4 mmol/L (22-26); Blood Gas Specimen Type ART; FI02 40; Mode AC; O2 Delivery Device Adult Vent; PEEP 5; PO2 119 mmHG (75-100); RR 14; SITE R Brach; SO2 98 % (95-99); Total Carbon Dioxide 22 mmol/L; Vt 450; pH 7.33 (7.35-7.45)
--- NOTE | 2022-05-23 13:46 | CL.D_ITS ---
Patient Name: ROBBI REYNOLDS Study Date: 05/23/2022 Performing: Kit Quiroga MD Ht: 70 inches 177.8 cm : 1975 Wt: 180.8 lbs 81.9 kg Age: 47 Gender: male BSA: 2 PROCEDURE(S) PERFORMED [id number])LHC/COR/LV CLINICAL PROFILE AND INDICATIONS Indications: Cardiac Arrythmia Heart Failure: None Stress/Imaging Stress/Image Study Performed: No CAD Presentations: Other: Cardiac arrest CONCLUSIONS CAD as described. EF 50% with mid inferior hypokinesis. No significant or MR RECOMMENDATIONS DESCRIPTION OF PROCEDURE The patient arrived to the procedure lab. The risks and benefits of the procedure as well as a full description of our services here and current unavailability of surgical backup were fully explained to the patient and/or their significant other prior to the catheterization. The Timeout was completed, verifying the correct patient and procedure. The patient's procedural site was prepped and draped in the usual fashion. Local anesthetic was given subcutaneously to right groin region with Lidocaine 2%. Using a modified Seldinger technique, arterial access was obtained via the right femoral artery, a 6Fr sheath was inserted. Right Coronary Artery selective angiography was performed in multiple views using a 5 Fr. JR 4 catheter. Left Coronary Artery selective angiography was performed in multiple views using a 5 Fr. JL4 catheter. Left Ventriculography was performed in GARDNER projection using a 5 Fr. Pigtail catheter. LV to AO pullback pressures were then recorded.The arterial sheath was pulled and a TR Band was applied for hemostasis CORONARY ANGIOGRAPHY DOMINANCE: Right Dominant LEFT HEART ASSESSMENT Left Ventricular Ejection Fraction: by LV Gram 50 % Inferior Mid Hypokinesis - Moderate LEFT MAIN: Mild luminal irregularities LEFT ANTERIOR DESCENDING ARTERY: MID LAD: 50 % Stenosis DIAGONAL 1: Proximal - moderate to severe diffuse disease involving the proximal and mid vessel that is unchanged from prior angiogram CIRCUMFLEX ARTERY: Mild luminal irregularities OM 1: Proximal - 50-60 % Stenosis RIGHT CORONARY ARTERY: MID RCA: 20 % Stenosis, Previously placed stent is patent. There is a small RV marginal that was patent after stent placement last admission that is occluded now. VALVE FINDINGS: No Aortic Valve Stenosis No Mitral Insufficiency COMPLICATIONS No Complications PROCEDURE MEDICATIONS SUMMARY OF HEMODYNAMIC DATA Time AIR REST ECG 11:18:34 AO 0/0 (58) SA 11:24:58 AO 93/62 (75) 11:25:12 AO 80/57 (69) 11:28:06 LV 144/-5, 12 11:32:19 LV 146/-6, 12 11:32:26 LV 146/-3, 14 11:33:11 LVp 149/-1, 14 11:33:15 AOp 143/97 (120) 11:33:20 Signed By Kit Quiroga MD On 05/23/2022 13:46:17 Kit Quiroga MD
--- NOTE | 2022-05-23 14:11 | PCM.HP.STD ---
HPI - General General Date of Admission: 05/23/22 Date of Service: 05/23/22 Chief Complaint: Cardiac arrest HPI Narrative ROBBI REYNOLDS, is a 47 M who presented to the emergency department at [facility] on 05/23/2022 as a witnessed cardiac arrest. Patient has a history of recent STEMI with subtotally occluded RCA having a thrombectomy and stent placement in February 2022. He had been doing well and was lying in bed getting ready to have sex this morning at which time he had a full arrest. His girlfriend indicates he used meth 3 days ago but denies any other substance abuse. She states he does drink alcohol and used to do so heavily but has quit drinking heavily since his heart attack in February. She indicates he is not any longer a daily drinker. He still smokes about 1 pack of cigarettes daily. He received immediate CPR by his girlfriend however this was initially in the bed as she was not able to get him out of bed. When the police arrived they got him out of bed and initiated CPR on the floor the timeframe between her starting CPR and their arrival was about 5 minutes per her report. He was taken immediately to the [facility] after intubation and was found to have clean coronaries. The etiology for his arrest is unknown however he was a V. fib arrest on his last admission as well. This was attributed to his STEMI at that time. Vital signs on presentation showed a temp of 96.2, heart rate 136, blood pressure 151/130, respiratory rate was 23 and oxygen saturation was 99 percent via 100% Ambu bag. BC shows a mild leukocytosis with a white count 11.8 but no left shift and was otherwise unremarkable. Coags were normal. His initial chemistry showed normal sodium potassium his chloride was elevated at 109, bicarb was low at 14 and an anion gap of 17 his serum creatinine was elevated at 1.47 which is elevated from his baseline of 0.6-0.7. CK was normal. His initial troponin was 99. Patient had 2 EKGs in the field that showed STEMI. [facility] Medical History Alcohol abuse Anxiety and depression Atherosclerosis of coronary artery without angina pectoris Cardiac arrest with ventricular fibrillation Closed bimalleolar fracture of left ankle Essential hypertension Hemiparesis affecting left side as late effect of cerebrovascular accident History of CVA (cerebrovascular accident) Hyperlipidemia Marijuana use Rheumatoid arthritis ST elevation (STEMI) myocardial infarction (03/11/22) Tobacco use Home Medications gabapentin 600 mg tablet 600 mg PO DAILY 10/25/21 [History Last Taken Unknown] ondansetron 4 mg disintegrating tablet 4 mg PO Q8H PRN nausea and vomiting #10 tabs 02/20/22 [Rx Last Taken Unknown] oxycodone-acetaminophen 5 mg-325 mg tablet (Percocet) 1 tab PO Q6H PRN pain 3 days #10 tabs 02/20/22 [Rx Last Taken Unknown] amiodarone 200 mg tablet 200 mg PO DAILY 04/06/22 [History Last Taken Unknown] aspirin 81 mg tablet,delayed release 81 mg PO BREAKFAST #90 tabs 04/06/22 [Rx Last Taken Unknown] atorvastatin 80 mg tablet 80 mg PO DAILY #90 tabs 04/06/22 [Rx Last Taken Unknown] losartan 50 mg tablet 50 mg PO DAILY #90 tabs 04/06/22 [Rx Last Taken Unknown] metoprolol tartrate 25 mg tablet 25 mg PO BID #180 tabs 04/06/22 [Rx Last Taken Unknown] ticagrelor 90 mg tablet (Brilinta) 90 mg PO BID #180 tabs 04/06/22 [Rx Last Taken Unknown] Allergy/AdvReac Type Severity Reaction Status Date / Time cephalexin [From Keflex] Allergy Anaphylaxis Verified 04/06/22 09:57 fluoxetine [From Prozac] Allergy Itching Verified 04/06/22 09:57 hydroxychloroquine Allergy Other Verified 04/06/22 09:57 [From Plaquenil] Family History Mother Rheumatoid arthritis Hypertension Father Hypertension Surgical History History of coronary artery stent placement (03/11/22) No history of previous surgery Social History (Updated 05/23/22 @ 14:[address] Emani Avila DO) household members: significant other Smoking Status: Current every day smoker tobacco type: cigarettes alcohol intake: current alcohol intake frequency: 0-2 drinks per day details: Patient used to drink about 1 L of hard liquor a day however per girlfriend substance use type: marijuana, amphetamines and methamphetamine ROS Review of Systems ROS Unobtainable: due to endotracheal tube and due to mental status Vital Signs Vital Signs Vital Signs: 05/23/22 10:58 05/23/22 11:02 05/23/22 11:03 Temperature 96.2 F L Temperature Source Temporal Pulse Rate 136 H 131 H Respiratory Rate 23 H Blood Pressure 151/130 H 155/108 H Blood Pressure Mean 137 Blood Pressure Source Blood Pressure Position Blood Pressure Location Pulse Ox 99 Oxygen Delivery Method Ambu-Bag Fraction of Inspired Oxygen (FIO2) 05/23/22 11:13 05/23/22 11:20 05/23/22 11:30 Temperature Temperature Source Pulse Rate 112 H Respiratory Rate 30 H Blood Pressure Blood Pressure Mean Blood Pressure Source Blood Pressure Position Blood Pressure Location Pulse Ox 100 Oxygen Delivery Method Ambu-Bag Fraction of Inspired Oxygen (FIO2) 100 60 05/23/22 12:11 05/23/22 12:48 05/23/22 13:23 Temperature 96.2 F L Temperature Source Temporal Pulse Rate 112 H 108 H 107 H Respiratory Rate 30 H 15 Blood Pressure 155/108 H Blood Pressure Mean 123 Blood Pressure Source Blood Pressure Position Blood Pressure Location Pulse Ox 100 100 Oxygen Delivery Method Ambu-Bag Fraction of Inspired Oxygen (FIO2) 40 05/23/22 13:00 05/23/22 12:15 05/23/22 12:30 Temperature 98.5 F 98.1 F Temperature Source Core Temporal Pulse Rate 119 H 110 H 111 H Respiratory Rate 35 H 26 H 25 H Blood Pressure 155/112 H 103/86 H 148/127 H Blood Pressure Mean 126 91 134 Blood Pressure Source Monitor Monitor Monitor Blood Pressure Position Semi-Fowlers Semi-Fowlers Semi-Fowlers Blood Pressure Location Left Arm Left Arm Left Arm Pulse Ox 97 98 95 Oxygen Delivery Method Mechanical Ventilator Mechanical Ventilator Mechanical Ventilator Fraction of Inspired Oxygen (FIO2) 40 40 40 05/23/22 12:45 Temperature Temperature Source Pulse Rate 106 H Respiratory Rate 18 Blood Pressure 124/112 H Blood Pressure Mean 116 Blood Pressure Source Monitor Blood Pressure Position Semi-Fowlers Blood Pressure Location Left Arm Pulse Ox 96 Oxygen Delivery Method Mechanical Ventilator Fraction of Inspired Oxygen (FIO2) 40 Weight Weight: 81.1 kg Body Mass Index (BMI) 28.0 Physical Exam Const average body habitus and well nourished Constitutional Narrative: Middle-aged white male, appears older than stated age, lying in bed intubated and sedated with a ET tube in place, does respond intermittently to noxious stimulus HEENT normocephalic, head/scalp atraumatic and moist oral mucous membranes HEENT Narrative: ET tube in place, OG in place Eyes conjunctivae normal Eyes Narrative: Pupils are pinpoint, no scleral icterus Neck no lymphadenopathy and supple Neck Narrative: Trachea mid line, no thyroid enlargement Resp no retractions and no use of accessory muscles Resp Narrative: Diffusely diminished Auscultation: Negative for crackles, rales, rhonchi or wheezes Cardio regular rate, regular rhythm, S1 normal heart sound, S2 normal heart sound, no murmurs, no rub, no gallops, no clicks and no JVD GI normal to inspection, nondistended, normoactive bowel sounds, soft to palpation and non-tender; Negative for hepatosplenomegaly Extremity no clubbing, cyanosis or edema Extremity Narrative: 2+ pedal pulses Skin no wounds, skin turgor normal, no jaundice, no petechiae and no mottling Skin Narrative: Multiple tattoos Neuro Neuro Narrative: Reflexes are 2+, unable to perform full exam as patient is intubated and sedated Psych Psych Narrative: Unable to evaluate Results Lab / Micro Data Attestation: I reviewed the patient's lab results. Result Diagrams: 05/23/22 11:10 05/23/22 11:10 Labs: Laboratory Results - last 24 hr 05/23/22 11:10: WBC 11.8 H, RBC 5.36, Hgb 16.2, Hct 48.5, MCV 90.5, MCH 30.2, MCHC 33.4, RDW Std Deviation 47.9 H, RDW Coeff of Jony 14.6, Plt Count 230, MPV 9.4, Immature Gran % (Auto) 1.300 H, Neut % (Auto) 66.8, Lymph % (Auto) 21.1, [place] % (Auto) 8.5, Eos % (Auto) 1.6, Baso % (Auto) 0.7, Absolute Neuts (auto) 7.9 H, Absolute Lymphs (auto) 2.48, Nucleated RBC % 0 05/23/22 11:10: PT 15.8 H, INR 1.3, APTT 34.7 05/23/22 11:10: Sodium 140, Potassium 3.8, Chloride 109 H, Carbon Dioxide 14.0 L, Anion Gap 17 H, BUN 12, Creatinine 1.47 H, Estim Creat Clear Calc 63.45, Est GFR (MDRD) Af Amer 66, Est GFR (MDRD) Non-Af 54 L, BUN/Creatinine Ratio 8.2 L, Glucose 199 H, Calcium 8.2 L, Troponin I High Sens 99 H 05/23/22 11:10: Total Creatine Kinase 277, Triglycerides 94 05/23/22 12:20: Urine Opiates Screen NEGATIVE, Urine Methadone Screen NEGATIVE, Ur Barbiturates Screen NEGATIVE, Ur Phencyclidine Scrn NEGATIVE, Ur Amphetamines Screen POSITIVE H, MDMA (Ecstasy) Screen NEGATIVE, U Benzodiazepines Scrn NEGATIVE, Urine Cocaine Screen NEGATIVE, U Cannabinoids Screen POSITIVE H, Ur Drug Screen Comment ABG Data ABG results: ABG 05/23/22 05/23/22 11:40 13:41 Specimen Type ART ART Sample Site R Fem R Brach pH 7.24 L 7.33 L Bicarbonate Actual 17.3 L 20.4 L Total CO2 19 22 Base Excess -10 L -6 L O2 Saturation 99 98 O2 % 60 40 ABG pCO2 39.9 39.0 ABG pO2 179 H 119 H Jay Test N/A Respiration Rate 14 14 O2 Delivery Device Adult Vent Adult Vent Vent Mode AC AC Tidal Volume 450 450 POC PEEP 5 5 Radiology Impression Chest X-Ray 05/23/22 11:07 IMPRESSION: The tip of the endotracheal tube is at 4.1 cm proximal to dami. The tip of the nasogastric tube is in the body of the stomach. The lungs are clear. Electronically Signed: Case Meyer MD at 12:11 EDT , Assessment & Plan Assessment/Plan (1) Cardiopulmonary arrest with successful resuscitation: (2) Ventricular fibrillation: (3) SANJEEV (acute kidney injury): (4) Leukocytosis: (5) Acute respiratory failure: (6) Metabolic acidosis: (7) Methamphetamine use: PLAN: Plan Acute hypoxic respiratory failure secondary to cardiopulmonary arrest -Maintain mechanical ventilation -Propofol for sedation -As needed aerosols -Vent orders placed -Weaning protocol -Pulmonary medicine consulted -We will need to see if brain function was impaired due to downtime and then move towards extubation if not V. fib arrest -Downtime is unknown -Continue intubation -Assess for neurological recovery -Cardiac catheterization without any significant acute blockages -If any recurrent arrhythmias will need to start amiodarone -No neurological recovery will need ICD placement prior to discharge -We will check tox screen -Family admits to methamphetamine use Acute kidney injury -Likely related to decreased perfusion -IV fluids given in [facility] -Repeat BMP in a.m. to assess for recovery -Avoid nephrotoxins as able Leukocytosis -Suspect reactive -We will continue to monitor however as he would be high risk for aspiration pneumonia -Check a.m. chest x-ray Metabolic acidosis -Elevated and anion gap -Likely related to lactic acidosis -Is improving with most recent blood gas -Repeat lab in a.m. CAD with recent NSTEMI -Continue Brilinta -Continue aspirin -Continue metoprolol -Continue losartan -Continue atorvastatin Hypertension/hyperlipidemia Continue above medications -No reason to recheck lipids of these were done in February History of stroke -Has had carotid endarterectomy -Continue aspirin and Brilinta -Monitor neurological function -Functional activity is somewhat limited related to his previous stroke however not severely History of TBI -No current issues Carotid artery stenosis -Chronic -Outpatient management -Continue aspirin and Plavix Recent fall with known left bimalleolar fracture, left wrist deformity -This occurred earlier this summer -Monitor clinically -May need PT and OT once able to be extubated Alcohol abuse -Per girlfriend alcohol intake has declined significantly since his discharge after his STEMI -Not currently drinking drinking daily -Monitor for any signs of detox -We will dose with thiamine and folate while intubated Polysubstance abuse -Patient uses marijuana and methamphetamines intermittently -Talk screen is positive for methamphetamines -Recommend cessation Tobacco abuse -Smokes 1 pack of cigarettes a day -Once extubated will offer nicotine replacement therapy -Recommend cessation DVT prophylaxis -Heparin 3 times daily -SCDs CODE STATUS Full code Charges/Coding Visit Charges Inpatient E&M: 26218 Init Hosp L3
[2022-05-23 14:26] LABS: Troponin-I HS 883 pg/mL (3.0-78.0)
--- NOTE | 2022-05-23 14:39 | EX.PCM.CONCC ---
Assessment & Plan Assessment/Plan (1) Cardiopulmonary arrest with successful resuscitation: (2) Methamphetamine use: (3) Acute respiratory failure: QUALIFIERS: Respiratory failure complication: hypoxia Qualified Code(s): J96.01 - Acute respiratory failure with hypoxia (4) SANJEEV (acute kidney injury): PLAN: Plan RECOMMENDATIONS: 1. Continue current vent settings with weaning FiO2 2. Spontaneous breathing and awakening trials per protocol 3. Sedation breaks to allow for neuro evaluation 4. Continue telemetry with possible need for defibrillation 5. Continue conservative therapy for acute kidney injury 6. CIWA protocol once patient is extubated. Thiamine and folate okay for now IMPRESSIONS: 1. Acute hypoxic respiratory failure secondary to cardiopulmonary arrest secondary to ventricular fibrillation Unclear etiology. Catheterization was not suggestive of an etiology. Patient does have polysubstance abuse in the past. We will hold on amiodarone for now. Continue with telemetry. ABG shows adequate ventilation. FiO2 will be weaned. Patient is on sedation to help with vent synchrony. Spontaneous awakening and breathing trials per protocol. Potential placement of an ICD prior to discharge. Patient may have complications of reported methamphetamine use. 2. Acute kidney injury Baseline creatinine of 0.67 and presented with a creatinine of 1.47. Clinical suspicion for prerenal etiology secondary to cardiopulmonary arrest. Patient did receive dye as part of the catheterization. We will continue to treat conservatively. Perfusion should be improved given ROSC. 3. Vasculopath with history of CAD with recent NSTEMI/history of stroke/carotid artery stenosis Patient appears to be relatively stable at this time. There was no significant occlusion noted on cardiac catheterization. Patient should be continued on baseline medications. Will hold losartan for 24 hours given problem #2. 4. History of TBI/recent fall/history of alcohol abuse/tobacco abuse/polysubstance abuse Complicates care, management, recovery and prognosis. Patient will need to be watched for alcohol withdrawal. Patient is currently requiring sedation for ventilator, but cannot exclude an element of withdrawal once this is discontinued. Patient is on thiamine and folate. TIME: 35 minutes critical care time spent addressing patient's acute hypoxic respiratory failure, cardiopulmonary arrest, acute kidney injury, review of all data and collaboration with care team HPI Consult Data Date of Consult: 05/23/22 HPI Narrative Reason for Consultation: Respiratory failure HPI Narrative: ROBBI REYNOLDS is a 47 M, with past medical history listed below and known to me from previous admission, who presents to [facility] [place] 05/23/2022 after being found unresponsive in cardiac arrest. Patient reportedly was with his significant other and CPR was initiated immediately. Patient reportedly had complained of indigestion complaints. Patient does have a significant vascular history with CVA x2 with residual left upper extremity weakness and a previous ST elevation MA. Patient also has carotid disease status post left carotid endarterectomy. Patient also reportedly uses illicit drugs. After going unresponsive, patient had CPR initiated on the bed. Police reportedly moved the patient to the floor and patient did receive a shock secondary to PEA and concern for STEMI. Patient does have a history of a V. fib arrest in the past and was on amiodarone. In the ER, patient was afebrile, hypertensive at 155/108 and tachycardic at 136 bpm. Patient was unresponsive with poor eye movement with the eye gel in place, so he was intubated. EKG showed ST elevation x2, so cardiology was called. Patient was taken to the [facility], but no interventions were required. Given patient's arrest, he was elected to stay intubated and transferred to the intensive care unit for further evaluation. Since being in the intensive care unit, patient has not interactive. History was verified with his significant other by the hospitalist. Unable to obtain review of systems secondary to mental status. [facility] Medical History Alcohol abuse Anxiety and depression Atherosclerosis of coronary artery without angina pectoris Cardiac arrest with ventricular fibrillation Closed bimalleolar fracture of left ankle Essential hypertension Hemiparesis affecting left side as late effect of cerebrovascular accident History of CVA (cerebrovascular accident) Hyperlipidemia Marijuana use Rheumatoid arthritis ST elevation (STEMI) myocardial infarction (03/11/22) Tobacco use Home Medications gabapentin 600 mg tablet 600 mg PO DAILY 10/25/21 [History Last Taken Unknown] ondansetron 4 mg disintegrating tablet 4 mg PO Q8H PRN nausea and vomiting #10 tabs 02/20/22 [Rx Last Taken Unknown] oxycodone-acetaminophen 5 mg-325 mg tablet (Percocet) 1 tab PO Q6H PRN pain 3 days #10 tabs 02/20/22 [Rx Last Taken Unknown] amiodarone 200 mg tablet 200 mg PO DAILY 04/06/22 [History Last Taken Unknown] aspirin 81 mg tablet,delayed release 81 mg PO BREAKFAST #90 tabs 04/06/22 [Rx Last Taken Unknown] atorvastatin 80 mg tablet 80 mg PO DAILY #90 tabs 04/06/22 [Rx Last Taken Unknown] losartan 50 mg tablet 50 mg PO DAILY #90 tabs 04/06/22 [Rx Last Taken Unknown] metoprolol tartrate 25 mg tablet 25 mg PO BID #180 tabs 04/06/22 [Rx Last Taken Unknown] ticagrelor 90 mg tablet (Brilinta) 90 mg PO BID #180 tabs 04/06/22 [Rx Last Taken Unknown] Allergy/AdvReac Type Severity Reaction Status Date / Time cephalexin [From Keflex] Allergy Anaphylaxis Verified 04/06/22 09:57 fluoxetine [From Prozac] Allergy Itching Verified 04/06/22 09:57 hydroxychloroquine Allergy Other Verified 04/06/22 09:57 [From Plaquenil] Family History Mother Rheumatoid arthritis Hypertension Father Hypertension Surgical History History of coronary artery stent placement (03/11/22) No history of previous surgery Social History household members: significant other Smoking Status: Current every day smoker tobacco type: cigarettes alcohol intake: current alcohol intake frequency: 0-2 drinks per day details: Patient used to drink about 1 L of hard liquor a day however per girlfriend substance use type: marijuana, amphetamines and methamphetamine ROS Review of Systems ROS Unobtainable: due to endotracheal tube and due to mental status Physical Exam Const average body habitus and well nourished Constitutional Narrative: Patient does respond to noxious stimulus with grimacing. Good ventilator synchrony. Appears older than stated age. General Appearance: patient mechanically ventilated HEENT normocephalic, head/scalp atraumatic and moist oral mucous membranes Mouth: endotracheal tube in place and OG tube in place Eyes conjunctivae normal Eyes Narrative: Pupils are pinpoint, no scleral icterus Neck no lymphadenopathy and supple General: trachea midline Resp no retractions and no use of accessory muscles Resp Narrative: Diffusely diminished Auscultation: clear to auscultation bilaterally; Negative for crackles, rales, rhonchi or wheezes Cardio regular rate, regular rhythm, S1 normal heart sound, S2 normal heart sound, no murmurs, no rub, no gallops, no clicks and no JVD GI normal to inspection, nondistended, normoactive bowel sounds, soft to palpation and non-tender; Negative for hepatosplenomegaly Extremity no clubbing, cyanosis or edema Skin no wounds, skin turgor normal, no jaundice, no petechiae and no mottling Skin Narrative: Multiple tattoos Neuro Sensorium / Orientation: sedated on vent Psych Psych Narrative: Sedated on ventilator Mood & Affect: flat affect Medical Records Data Attestation: I reviewed the patient's medical records Medical records narrative: Previous hospitalization was reviewed in the electronic medical record Lab / Micro Data Attestation: I reviewed the patient's lab results. Result Diagrams: 05/23/22 11:10 05/23/22 11:10 Labs: Laboratory Results - last 24 hr 05/23/22 11:10: WBC 11.8 H, RBC 5.36, Hgb 16.2, Hct 48.5, MCV 90.5, MCH 30.2, MCHC 33.4, RDW Std Deviation 47.9 H, RDW Coeff of Jony 14.6, Plt Count 230, MPV 9.4, Immature Gran % (Auto) 1.300 H, Neut % (Auto) 66.8, Lymph % (Auto) 21.1, [place] % (Auto) 8.5, Eos % (Auto) 1.6, Baso % (Auto) 0.7, Absolute Neuts (auto) 7.9 H, Absolute Lymphs (auto) 2.48, Nucleated RBC % 0 05/23/22 11:10: PT 15.8 H, INR 1.3, APTT 34.7 05/23/22 11:10: Sodium 140, Potassium 3.8, Chloride 109 H, Carbon Dioxide 14.0 L, Anion Gap 17 H, BUN 12, Creatinine 1.47 H, Estim Creat Clear Calc 63.45, Est GFR (MDRD) Af Amer 66, Est GFR (MDRD) Non-Af 54 L, BUN/Creatinine Ratio 8.2 L, Glucose 199 H, Calcium 8.2 L, Troponin I High Sens 99 H 05/23/22 11:10: Total Creatine Kinase 277, Triglycerides 94 05/23/22 12:20: Urine Opiates Screen NEGATIVE, Urine Methadone Screen NEGATIVE, Ur Barbiturates Screen NEGATIVE, Ur Phencyclidine Scrn NEGATIVE, Ur Amphetamines Screen POSITIVE H, MDMA (Ecstasy) Screen NEGATIVE, U Benzodiazepines Scrn NEGATIVE, Urine Cocaine Screen NEGATIVE, U Cannabinoids Screen POSITIVE H, Ur Drug Screen Comment 05/23/22 13:55: Troponin I High Sens 883 H* ABG Data ABG results: ABG 05/23/22 05/23/22 11:40 13:41 Specimen Type ART ART Sample Site R Fem R Brach pH 7.24 L 7.33 L Bicarbonate Actual 17.3 L 20.4 L Total CO2 19 22 Base Excess -10 L -6 L O2 Saturation 99 98 O2 % 60 40 ABG pCO2 39.9 39.0 ABG pO2 179 H 119 H Jay Test N/A Respiration Rate 14 14 O2 Delivery Device Adult Vent Adult Vent Vent Mode AC AC Tidal Volume 450 450 POC PEEP 5 5 Attestation: I personally reviewed and interpreted this ABG as follows: (Acute metabolic acidosis with increased AA gradient) Radiology Impression Chest X-Ray 05/23/22 11:07 IMPRESSION: The tip of the endotracheal tube is at 4.1 cm proximal to dami. The tip of the nasogastric tube is in the body of the stomach. The lungs are clear. Electronically Signed: Case Meyer MD at 12:11 EDT , Charges/Coding Procedures Hospitalists Procedures: [id number] Critial Care 1st Hr
[2022-05-23] MEDS: Heparin Injection (Vial) 5,000 UNIT/ML VIAL 5000 UNIT SC ×2 (14:42→21:38)
[2022-05-23] MEDS: Propofol 10MG/Ml 1,000 MG/100 ML Bottle 12.3 MG CONT INF (18:32)
[2022-05-23] MEDS: Acetaminophen 650 MG/20 ML UDC GT (18:54)
[2022-05-23] MEDS: LORazepam 2 MG/ML Syringe IV (20:24)
[2022-05-23] MEDS: Lactated Ringers 1,000 ML 999 ML IV (20:27)
[2022-05-23] MEDS: Metoprolol Tartrate 25 MG Tablet PO (21:35)
[2022-05-23] MEDS: TICAGRELOR 90 MG TABLET PO (21:37)
[2022-05-23] MEDS: Atorvastatin Calcium 80 MG Tablet PO (21:37)
[2022-05-23] MEDS: Chlorhexidine 15 ML PO (21:53)
[2022-05-23] MEDS: 0.9% Saline Lock 10 ML Syringe IV (21:53)
[2022-05-24] VITALS (35 sets, daily range): BP systolic 89–141; BP diastolic 69–97; PULSE 78–118; RESP 14–107; TEMP 37.7–38.5; O2SAT 91–100
--- NOTE | 2022-05-24 00:19 | CT_ITS ---
STUDY: CT BRAIN WITHOUT CONTRAST REASON FOR EXAM: Male, 47 years old. neuro status change RADIATION DOSAGE (If Supplied By Facility): CTDIvol = ( 44.99 ) mGy, DLP = ( 897.35 ) mGycm TECHNIQUE: Transaxial CT imaging of the brain was performed without administration of intravenous contrast material. Individualized dose optimization techniques were used for this CT. COMPARISON: No relevant priors. FINDINGS: Normal soft tissue structures. Normal calvarium. Normal size ventricles and extra-axial spaces for the patient''s age. Old infarctions are seen in the right MCA territory. Normal basal ganglia and thalami. Normal brainstem. Normal cerebellum. There is no intracranial hemorrhage. There are no findings of an acute ischemic infarction. There is mucoperiosteal inflammatory disease of the paranasal sinuses consistent with mild chronic sinusitis. CT/Brain/Head without Contrast IMPRESSION: Old infarctions are seen in the right MCA territory. Electronically Signed: Edilma Jon MD at 1:30 EDT ,
--- NOTE | 2022-05-24 00:23 | PCM.PN.BLA ---
Progress Note Nurse reported patient has no gag reflex and pupils are not reactive to light. Patient was assessed at the bedside. Of note the patient has a gag reflex. Pupils are very miotic and not expected to react to light. Check CT head without contrast.
[2022-05-24] MEDS: Propofol 10MG/Ml 1,000 MG/100 ML Bottle 14.7 MG CONT INF (01:20)
--- NOTE | 2022-05-24 03:06 | NURSING ---
05/24/2022 @ 0000 Upon assessment expert of pt, pt was no longer withdrawing from pain on his right side, pt no longer had a gag reflux and his pupils were pinpoint and non reactive. Pt was no longer breathing over the vent as he was previously, sedation for pt had not changed and vitals have remained stable HR 82, BP 89/69 MAP 76, TEMP 100.2, RR 16 O2 97%. RN notified Dr. Albert and he came to bed side to assess the pt. Head CT ordered and completed. No other orders were given at this time. Note completed by: Brook Swanson RN.
--- NOTE | 2022-05-24 03:22 | RAD_ITS ---
STUDY: X-RAY CHEST REASON FOR EXAM: Male, 47 years old. Fever TECHNIQUE: Single AP portable view of the chest. COMPARISON: None. FINDINGS: Endotracheal tube is seen its tip is 4 cm superior to the dami. An NG tube is seen its tip is below the diaphragm is in good position. Patchy groundglass opacities are seen in both lungs suggesting bilateral pneumonia. There is no demonstrated pleural abnormality. Normal size heart. Normal mediastinum and baldev. Normal visualized pulmonary arteries. Normal visualized aortic arch and descending thoracic aorta. Normal visualized thoracic spine. There is degenerative osteoarthritis of the bilateral shoulders. There is no demonstrated abnormality of the visualized soft tissue structures of the upper abdomen. RAD/Chest 1 View (Portable) IMPRESSION: Bilateral pneumonia. Electronically Signed: Edilma Jon MD at 4:01 EDT ,
[2022-05-24] MEDS: Acetaminophen 650 MG/20 ML UDC GT ×3 (04:58→18:42)
[2022-05-24 05:02] LABS: Absolute Lymphocyte Count 1.67 X10^3/uL (0.83-4.51); Absolute Neutrophil Count 6.5 X10^3/uL (2.0-7.7); Basophil# 0.03 X10^3/uL; Basophil% 0.3 % (0-1); Eosinophil# 0.04 X10^3/uL; Eosinophils% 0.4 % (0-5); Hematocrit 51.6 % (40-54); Hemoglobin 16.6 g/dL (13.0-16.5); Lymphocyte # 1.67 X10^3/ul (0.83-4.51); Lymphocyte % 18.2 % (19-41); Mean Corp Hgb Conc 32.2 g/dL (32-36); Mean Corpuscular Hgb 29.4 pg (27.0-32.0); Mean Corpuscular Volume 91.3 fL (80-94); Mean Platelet Vol. 9.4 fl (6.2-12.0); Monocyte# 0.94 X10^3/uL; Monocyte% 10.3 % (0-10); NRBC Flagged by Analyzer 0 % (0-5); Neutrophil # 6.46 X10^3/uL (2.7-7.7); Neutrophil % 70.5 % (47-70); Platelet Count 204 K/mm3 (150-450); RBC Distribution Width CV 15.2 % (11.6-14.6); RBC Distribution Width SD 50.2 fl (35.1-43.9); Red Blood Count 5.65 M/mm3 (4.6-6.2); White Blood Count 9.2 K/mm3 (4.4-11.0)
[2022-05-24] MEDS: Heparin Injection (Vial) 5,000 UNIT/ML VIAL 5000 UNIT SC ×3 (05:03→21:48)
[2022-05-24 05:42] LABS: ALB/GLOB Ratio 0.8 RATIO (0.9-2.4); AST(SGOT) 195 U/L (15-37); Alanine Aminotransfer ALT/SGPT 189 U/L (16-61); Albumin, Serum 3.4 g/dL (3.2-5.0); Alkaline Phosphatase 111 U/L (45-117); Anion Gap 11 (5-15); BUN 12 mg/dL (7-18); BUN/Creat Ratio 12.1 RATIO (10-20); Calcium,Total 8.4 mg/dL (8.5-10.1); Chloride 107 mmol/L (98-107); Creatinine, Serum 0.99 mg/dL (0.70-1.30); EST Glomerular Filtration Rate 86 mL/min (>60); Est Glom Filt Rate - Afr Amer 104 mL/min (>60); Estimated Creatinine Clearance 85.31 ml/min; Globulin 4.4 g/dL (2.2-4.2); Glucose 74 mg/dL (74-106); Magnesium 2.4 mg/dL (1.6-2.6); Potassium 4.5 mmol/L (3.5-5.1); Protein, Total 7.8 g/dL (6.4-8.2); Sodium Level 140 mmol/L (136-145); Thyroid Stim Hormone (TSH) 0.52 uIU/mL (0.358-3.74)
--- NOTE | 2022-05-24 07:16 | PCM.PN.INT ---
Assessment & Plan Assessment/Plan (1) Cardiopulmonary arrest with successful resuscitation: (2) Methamphetamine use: (3) Acute respiratory failure: QUALIFIERS: Respiratory failure complication: hypoxia Qualified Code(s): J96.01 - Acute respiratory failure with hypoxia (4) SANJEEV (acute kidney injury): PLAN: Plan RECOMMENDATIONS: 1. Continue current vent settings with weaning FiO2 2. Spontaneous breathing and awakening trials per protocol 3. Obtain EEG 4. Continue telemetry with possible need for defibrillation 5. Start empiric antibiotics given fevers 6. CIWA protocol once patient is extubated. Thiamine and folate okay for now IMPRESSIONS: 1. Acute hypoxic respiratory failure secondary to cardiopulmonary arrest secondary to ventricular fibrillation Unclear etiology. Catheterization was not suggestive of an etiology. Patient does have polysubstance abuse in the past. No repeat V. fib noted overnight. Continue with telemetry. ABG shows adequate ventilation. FiO2 will be weaned. Patient is on sedation to help with vent synchrony. Spontaneous awakening and breathing trials per protocol. Potential placement of an ICD prior to discharge. Patient may have complications of reported methamphetamine use. Patient on minimal vent settings, but given neuro status, no spontaneous awakening trial was attempted. 2. Acute kidney injury Improving. Baseline creatinine of 0.67 and presented with a creatinine of 1.47. Clinical suspicion for prerenal etiology secondary to cardiopulmonary arrest. Patient did receive dye as part of the catheterization. We will continue to treat conservatively. Perfusion should be improved given ROSC. 3. Vasculopath with history of CAD with recent NSTEMI/history of stroke/carotid artery stenosis Patient appears to be relatively stable at this time. There was no significant occlusion noted on cardiac catheterization. Patient should be continued on baseline medications. Reinitiate losartan once creatinine is normalized. CT of the head not suggestive of a repeat embolization. 4. History of TBI/recent fall/history of alcohol abuse/tobacco abuse/polysubstance abuse Complicates care, management, recovery and prognosis. Patient will need to be watched for alcohol withdrawal. Patient is currently requiring sedation for ventilator, but cannot exclude an element of withdrawal once this is discontinued. Patient is on thiamine and folate. TIME: 37 minutes critical care time spent addressing patient's acute hypoxic respiratory failure, cardiopulmonary arrest, acute kidney injury, review of all data and collaboration with care team Subjective Subjective Patient remains intubated and sedated. Overnight, patient had some facial movements that were concerning for seizures. Patient was given Ativan with resolution. Propofol has been weaned overnight as patient has been less responsive. Patient did have a CT overnight secondary to decreased left-sided movement that was unremarkable. Patient is having an EEG this morning for evaluation. Patient has had some myoclonic movements noted. Objective Data Objective Data Vital Signs: Vital Signs Temp Pulse Resp BP Pulse Ox O2 Del Method FiO2 38.5 C H 85 14 112/91 H 92 Mechanical Ventilator 25 05/24/22 06:00 05/24/22 06:00 05/24/22 06:00 05/24/22 06:00 05/24/22 06:00 05/24/22 06:00 05/24/22 06:00 Oxygen Delivery Method Mechanical Ventilator Weight: 80 kg Body Mass Index (BMI) 28.0 Intake & Output: Intake and Output for Last 24 Hours 05/22/22 05/23/22 05/24/22 23:59 23:59 23:59 Intake Total 1341.52 / 1356.22 95.58 / 95.58 Output Total 695 / 870 450 / 450 Balance 646.52 / 486.22 -354.42 / -354.42 Lab / Micro Data Attestation: I reviewed the patient's lab results. Result Diagrams: 05/24/22 04:30 05/24/22 04:30 Labs: Laboratory Results - last 24 hr 05/23/22 11:10: WBC 11.8 H, RBC 5.36, Hgb 16.2, Hct 48.5, MCV 90.5, MCH 30.2, MCHC 33.4, RDW Std Deviation 47.9 H, RDW Coeff of Jony 14.6, Plt Count 230, MPV 9.4, Immature Gran % (Auto) 1.300 H, Neut % (Auto) 66.8, Lymph % (Auto) 21.1, [place] % (Auto) 8.5, Eos % (Auto) 1.6, Baso % (Auto) 0.7, Absolute Neuts (auto) 7.9 H, Absolute Lymphs (auto) 2.48, Nucleated RBC % 0 05/23/22 11:10: PT 15.8 H, INR 1.3, APTT 34.7 05/23/22 11:10: Sodium 140, Potassium 3.8, Chloride 109 H, Carbon Dioxide 14.0 L, Anion Gap 17 H, BUN 12, Creatinine 1.47 H, Estim Creat Clear Calc 63.45, Est GFR (MDRD) Af Amer 66, Est GFR (MDRD) Non-Af 54 L, BUN/Creatinine Ratio 8.2 L, Glucose 199 H, Calcium 8.2 L, Troponin I High Sens 99 H 05/23/22 11:10: Total Creatine Kinase 277, Triglycerides 94 05/23/22 12:20: Urine Opiates Screen NEGATIVE, Urine Methadone Screen NEGATIVE, Ur Barbiturates Screen NEGATIVE, Ur Phencyclidine Scrn NEGATIVE, Ur Amphetamines Screen POSITIVE H, MDMA (Ecstasy) Screen NEGATIVE, U Benzodiazepines Scrn NEGATIVE, Urine Cocaine Screen NEGATIVE, U Cannabinoids Screen POSITIVE H, Ur Drug Screen Comment 05/23/22 13:55: Troponin I High Sens 883 H* 05/24/22 04:30: WBC 9.2, RBC 5.65, Hgb 16.6 H, Hct 51.6, MCV 91.3, MCH 29.4, MCHC 32.2, RDW Std Deviation 50.2 H, RDW Coeff of Jony 15.2 H, Plt Count 204, MPV 9.4, Immature Gran % (Auto) 0.300, Neut % (Auto) 70.5 H, Lymph % (Auto) 18.2 L, [place] % (Auto) 10.3 H, Eos % (Auto) 0.4, Baso % (Auto) 0.3, Absolute Neuts (auto) 6.5, Absolute Lymphs (auto) 1.67, Nucleated RBC % 0 05/24/22 04:30: Sodium 140, Potassium 4.5, Chloride 107, Carbon Dioxide 22.0, Anion Gap 11, BUN 12, Creatinine 0.99, Estim Creat Clear Calc 85.31, Est GFR (MDRD) Af Amer 104, Est GFR (MDRD) Non-Af 86, BUN/Creatinine Ratio 12.1, Glucose 74, Calcium 8.4 L, Magnesium 2.4, Total Bilirubin 1.70 H, AST 195 H, ALT 189 H, Alkaline Phosphatase 111, Total Protein 7.8, Albumin 3.4, Globulin 4.4 H, Albumin/Globulin Ratio 0.8 L, TSH 0.52 05/24/22 04:30: Phosphorus 3.0 Micro: Microbiology 05/23/22 13:50 Sputum, Induced/Lukens Gram Stain - Final ABG Data ABG results: ABG 05/23/22 05/23/22 11:40 13:41 Specimen Type ART ART Sample Site R Fem R Brach pH 7.24 L 7.33 L Bicarbonate Actual 17.3 L 20.4 L Total CO2 19 22 Base Excess -10 L -6 L O2 Saturation 99 98 O2 % 60 40 ABG pCO2 39.9 39.0 ABG pO2 179 H 119 H Jay Test N/A Respiration Rate 14 14 O2 Delivery Device Adult Vent Adult Vent Vent Mode AC AC Tidal Volume 450 450 POC PEEP 5 5 Radiography Diagnostic Testing: Radiology Impression Chest X-Ray 05/23/22 11:07 IMPRESSION: The tip of the endotracheal tube is at 4.1 cm proximal to dami. The tip of the nasogastric tube is in the body of the stomach. The lungs are clear. 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 Electronically Signed: Edilma Jon MD at 1:30 EDT , Chest X-Ray 05/24/22 03:22 IMPRESSION: Bilateral pneumonia. Electronically Signed: Edilma Jon MD at 4:01 EDT , Physical Exam Narrative Exam somewhat limited secondary to ongoing EEG Const average body habitus and well nourished Constitutional Narrative: Patient does respond to noxious stimulus with grimacing. Good ventilator synchrony. Appears older than stated age. More twitching noted today than yesterday General Appearance: patient mechanically ventilated HEENT normocephalic, head/scalp atraumatic and moist oral mucous membranes Mouth: endotracheal tube in place and OG tube in place Eyes conjunctivae normal Eyes Narrative: Pupils are pinpoint, no scleral icterus Neck no lymphadenopathy and supple General: trachea midline Resp no retractions and no use of accessory muscles Resp Narrative: Diffusely diminished Auscultation: clear to auscultation bilaterally; Negative for crackles, rales, rhonchi or wheezes Cardio regular rate, regular rhythm, S1 normal heart sound, S2 normal heart sound, no murmurs, no rub, no gallops, no clicks and no JVD GI normal to inspection, nondistended, normoactive bowel sounds, soft to palpation and non-tender; Negative for hepatosplenomegaly Extremity no clubbing, cyanosis or edema Skin no wounds, skin turgor normal, no jaundice, no petechiae and no mottling Skin Narrative: Multiple tattoos Neuro Neuro Narrative: Decreased left upper extremity movement. Positive cough without gag Sensorium / Orientation: sedated on vent Psych Psych Narrative: Sedated on ventilator Mood & Affect: flat affect Charges/Coding Procedures Hospitalists Procedures: 98210 Critial Care 1st Hr
[2022-05-24] MEDS: TITRATION PARAMETER CHANGE 1 EACH IV (07:35)
[2022-05-24] MEDS: Metoprolol Tartrate 25 MG Tablet PO ×2 (09:59→21:47)
[2022-05-24] MEDS: Amiodarone 200 MG Tablet PO (10:00)
[2022-05-24] MEDS: Chlorhexidine 15 ML PO ×2 (10:00→21:54)
[2022-05-24] MEDS: TICAGRELOR 90 MG TABLET PO ×2 (10:00→21:47)
--- NOTE | 2022-05-24 10:00 | EKG12_ITS ---
Test Reason : AM EKG Blood Pressure : / mmHG Vent. Rate : 101 BPM Atrial Rate : 101 BPM P-R Int : 148 ms QRS Dur : 078 ms QT Int : 316 ms P-R-T Axes : 047 -08 046 degrees QTc Int : 409 ms Sinus tachycardia Inferior infarct , age undetermined, cannot be excluded Abnormal ECG Confirmed by DANII HERNANDEZ, NAWAF ([id number]), editor news NEISHA BENTLEY ([id number]) on 05/25/2022 9:13:39 AM Referred By: Melissa Quiroga Confirmed By:NAWAF FOY MD
[2022-05-24] MEDS: CHLORHEXIDINE GLUC 2% CLOTH 1 EACH TOWELETTE TOPICAL (10:01)
[2022-05-24 10:44] LABS: Mucous, Urine 0 SEEN /hpf (<or=2+)
[2022-05-24 10:49] LABS: Color, Urine Yellow (Yellow); Glucose, Dipstick Normal (Normal); Leukocyte Esterase-Dipstick 25 /ul (Negative); Nitrite-Dipstick Negative (Negative); Occult Blood-Urine 150 /ul (Negative); Protein-Dipstick 30 mg/dl (Negative); Specific Gravity, Urine 1.025 (1.002-1.030); Urine Bilirubin Dipstick Negative (Negative); Urine Clarity Clear (Clear); Urine Urobilinogen 4 mg/dl (Normal)
[2022-05-24 10:51] LABS: Ketone-Dipstick 150 mg/dl (Negative)
--- NOTE | 2022-05-24 11:14 | PN.CARD_ITS ---
Subjective Subjective Patient is intubated, sedated. Sedation was held briefly but patient apparently did not tolerate it well. Objective Data Vital Signs: Vital Signs Temp Pulse Resp BP Pulse Ox O2 Del Method FiO2 100.9 F H 89 16 116/89 H 94 Mechanical Ventilator 25 05/24/22 11:00 05/24/22 11:00 05/24/22 11:00 05/24/22 11:00 05/24/22 11:00 05/24/22 11:00 05/24/22 11:00 Oxygen Delivery Method Mechanical Ventilator Weight: 176 lb 5.917 oz Body Mass Index (BMI) 28.0 Intake & Output: Intake and Output for Last 24 Hours 05/22/22 05/23/22 05/24/22 23:59 23:59 23:59 Intake Total 1341.52 / 1356.22 345.58 / 345.58 Output Total 695 / 870 495 / 495 Balance 646.52 / 486.22 -149.42 / -149.42 Lab / Micro Data Result Diagrams: 05/24/22 04:30 05/24/22 04:30 Labs: Laboratory Results - last 24 hr 05/23/22 11:10: WBC 11.8 H, RBC 5.36, Hgb 16.2, Hct 48.5, MCV 90.5, MCH 30.2, MCHC 33.4, RDW Std Deviation 47.9 H, RDW Coeff of Jony 14.6, Plt Count 230, MPV 9.4, Immature Gran % (Auto) 1.300 H, Neut % (Auto) 66.8, Lymph % (Auto) 21.1, [place] % (Auto) 8.5, Eos % (Auto) 1.6, Baso % (Auto) 0.7, Absolute Neuts (auto) 7.9 H, Absolute Lymphs (auto) 2.48, Nucleated RBC % 0 05/23/22 11:10: PT 15.8 H, INR 1.3, APTT 34.7 05/23/22 11:10: Sodium 140, Potassium 3.8, Chloride 109 H, Carbon Dioxide 14.0 L , Anion Gap 17 H, BUN 12, Creatinine 1.47 H, Estim Creat Clear Calc 63.45, Est GFR (MDRD) Af Amer 66, Est GFR (MDRD) Non-Af 54 L, BUN/Creatinine Ratio 8.2 L, Glucose 199 H, Calcium 8.2 L, Troponin I High Sens 99 H 05/23/22 11:10: Total Creatine Kinase 277, Triglycerides 94 05/23/22 12:20: Urine Opiates Screen NEGATIVE, Urine Methadone Screen NEGATIVE, Ur Barbiturates Screen NEGATIVE, Ur Phencyclidine Scrn NEGATIVE, Ur Amphetamines Screen POSITIVE H, MDMA (Ecstasy) Screen NEGATIVE, U Benzodiazepines Scrn NEGATIVE, Urine Cocaine Screen NEGATIVE, U Cannabinoids Screen POSITIVE H, Ur Drug Screen Comment 05/23/22 13:55: Troponin I High Sens 883 H* 05/24/22 04:30: WBC 9.2, RBC 5.65, Hgb 16.6 H, Hct 51.6, MCV 91.3, MCH 29.4, MCHC 32.2, RDW Std Deviation 50.2 H, RDW Coeff of Jony 15.2 H, Plt Count 204, MPV 9.4, Immature Gran % (Auto) 0.300, Neut % (Auto) 70.5 H, Lymph % (Auto) 18.2 L, [place] % (Auto) 10.3 H, Eos % (Auto) 0.4, Baso % (Auto) 0.3, Absolute Neuts (auto) 6.5, Absolute Lymphs (auto) 1.67, Nucleated RBC % 0 05/24/22 04:30: Sodium 140, Potassium 4.5, Chloride 107, Carbon Dioxide 22.0, Anion Gap 11, BUN 12, Creatinine 0.99, Estim Creat Clear Calc 85.31, Est GFR (MDRD) Af Amer 104, Est GFR (MDRD) Non-Af 86, BUN/Creatinine Ratio 12.1, Glucose 74, Calcium 8.4 L, Magnesium 2.4, Total Bilirubin 1.70 H, AST 195 H, ALT 189 H, Alkaline Phosphatase 111, Total Protein 7.8, Albumin 3.4, Globulin 4.4 H, Albumin/Globulin Ratio 0.8 L, TSH 0.52 05/24/22 04:30: Phosphorus 3.0 05/24/22 10:10: Urine Color Yellow, Urine Clarity Clear, Urine pH 5.0, Ur Specific [place] 1.025, Urine Protein 30 H, Urine Glucose (UA) Normal, Urine Ketones 150 A*, Urine Occult Blood 150 H, Urine Nitrite Negative, Urine Bilirubin Negative, Urine Urobilinogen 4 H, Ur Leukocyte Esterase 25 H Micro: Microbiology 05/23/22 13:50 Sputum, Induced/Lukens Gram Stain - Final ABG Data ABG results: ABG 05/23/22 05/23/22 11:40 13:41 Specimen Type ART ART Sample Site R Fem R Brach pH 7.24 L 7.33 L Bicarbonate Actual 17.3 L 20.4 L Total CO2 19 22 Base Excess -10 L -6 L O2 Saturation 99 98 O2 % 60 40 ABG pCO2 39.9 39.0 ABG pO2 179 H 119 H Jay Test N/A Respiration Rate 14 14 O2 Delivery Device Adult Vent Adult Vent Vent Mode AC AC Tidal Volume 450 450 POC PEEP 5 5 Cardiology Labs/Tests 05/23/22 11:10: WBC 11.8 H, RBC 5.36, Hgb 16.2, Hct 48.5, MCV 90.5, MCH 30.2, MCHC 33.4, Plt Count 230, MPV 9.4, Immature Gran % (Auto) 1.300 H, Neut % (Auto) 66.8, Lymph % (Auto) 21.1, [place] % (Auto) 8.5, Eos % (Auto) 1.6, Baso % (Auto) 0.7, Absolute Neuts (auto) 7.9 H, Nucleated RBC % 0 05/23/22 11:10: PT 15.8 H, INR 1.3, APTT 34.7 05/23/22 11:10: Sodium 140, Potassium 3.8, Chloride 109 H, Carbon Dioxide 14.0 L , Anion Gap 17 H, BUN 12, Creatinine 1.47 H, Est GFR (MDRD) Af Amer 66, Est GFR (MDRD) Non-Af 54 L, BUN/Creatinine Ratio 8.2 L, Glucose 199 H, Calcium 8.2 L 05/23/22 11:10: Triglycerides 94 05/23/22 11:40: pH 7.24 L, Bicarbonate Actual 17.3 L, Base Excess -10 L, O2 Sa turation 99, ABG pCO2 39.9, ABG pO2 179 H 05/23/22 13:41: pH 7.33 L, Bicarbonate Actual 20.4 L, Base Excess -6 L, O2 Saturation 98, ABG pCO2 39.0, ABG pO2 119 H, Jay Test N/A 05/24/22 04:30: WBC 9.2, RBC 5.65, Hgb 16.6 H, Hct 51.6, MCV 91.3, MCH 29.4, MCHC 32.2, Plt Count 204, MPV 9.4, Immature Gran % (Auto) 0.300, Neut % (Auto) 70.5 H, Lymph % (Auto) 18.2 L, [place] % (Auto) 10.3 H, Eos % (Auto) 0.4, Baso % (Auto) 0.3, Absolute Neuts (auto) 6.5, Nucleated RBC % 0 05/24/22 04:30: Sodium 140, Potassium 4.5, Chloride 107, Carbon Dioxide 22.0, Anion Gap 11, BUN 12, Creatinine 0.99, Est GFR (MDRD) Af Amer 104, Est GFR (MD LINDA) Non-Af 86, BUN/Creatinine Ratio 12.1, Glucose 74, Calcium 8.4 L, Magnesium 2.4, Total Bilirubin 1.70 H 05/24/22 04:30: Phosphorus 3.0 05/24/22 10:10: Urine Color Yellow, Urine Clarity Clear, Urine pH 5.0, Ur Specific [place] 1.025, Urine Protein 30 H, Urine Glucose (UA) Normal, Urine Ketones 150 A*, Urine Occult Blood 150 H, Urine Nitrite Negative, Urine Bilirubin Negative, Urine Urobilinogen 4 H, Ur Leukocyte Esterase 25 H Rhythm: EKG: ECHO: Stress Test: Cardiac Cath: PCI: CT Surgery: Holter monitor: EPS: PPM: CXR: Chest CT Scan: Radiography Diagnostic Testing: Radiology Impression Chest X-Ray 05/23/22 11:07 IMPRESSION: The tip of the endotracheal tube is at 4.1 cm proximal to dami. The tip of the nasogastric tube is in the body of the stomach. The lungs are clear. 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 Electronically Signed: Edilma Jon MD at 1:30 EDT , Chest X-Ray 05/24/22 03:22 IMPRESSION: Bilateral pneumonia. Electronically Signed: Edilma Jon MD at 4:01 EDT , Physical Exam Const Constitutional Narrative: Intubated, sedated HEENT normocephalic Eyes no scleral icterus Resp clear to auscultation bilaterally Cardio regular rate Extremity no pedal edema Skin no rashes or lesions noted Assessment & Plan Assessment/Plan (1) Cardiopulmonary arrest with successful resuscitation: PLAN: Due to ventricular fibrillation. No further ventricular tachycardia or ventricular fibrillation. At this time patient does not need any revascularization. Recommend continuing his current medications. If he goes into V. fib we may need to start other antiarrhythmic medications. If he ends up having neurologic recovery then he may be a candidate for ICD placement for secondary prevention prior to discharge. We will get EP input on this. UDS was positive for methamphetamines which could have contributed to patient's V. fib. (2) History of coronary artery stent placement: PLAN: Continue current medications (3) Atherosclerosis of coronary artery without angina pectoris: PLAN: Patient does have residual disease in a diagonal branch that was also noted in February 2022. Patient was not having any symptoms from this. Recommend continued medical therapy for this. Charges/Coding Visit Charges Inpatient E&M: 20968 Subs Hosp L2
[2022-05-24 11:18] LABS: Red Blood Cells-Urine 5-10 SEEN /hpf (0-5); White Blood Cells 0-5 SEEN /hpf (0-5)
[2022-05-24 11:19] LABS: Bacteria 1+ /hpf (None Seen); Squamous Epithelial Cells - UA 0-5 SEEN /hpf (0-5)
--- NOTE | 2022-05-24 11:20 | PCM.PN.HOSP ---
Subjective Subjective Overnight events reviewed. Patient does seem to be waking up some this morning per discussion with nursing. No arrhythmias other than some tachycardia that was sinus in nature through the night. He does have some fevers this morning however his white count is normal. Cultures were ordered and are pending. Objective Data Objective Data Vital Signs: Vital Signs Temp Pulse Resp BP Pulse Ox O2 Del Method FiO2 100.9 F H 89 16 116/89 H 94 Mechanical Ventilator 25 05/24/22 11:00 05/24/22 11:00 05/24/22 11:00 05/24/22 11:00 05/24/22 11:00 05/24/22 11:00 05/24/22 11:00 Oxygen Delivery Method Mechanical Ventilator Weight: 80 kg Body Mass Index (BMI) 28.0 Intake & Output: Intake and Output for Last 24 Hours 05/22/22 05/23/22 05/24/22 23:59 23:59 23:59 Intake Total 1341.52 / 1356.22 557.78 / 557.78 Output Total 695 / 870 495 / 495 Balance 646.52 / 486.22 62.78 / 62.78 Lab / Micro Data Result Diagrams: 05/24/22 04:30 05/24/22 04:30 Labs: Laboratory Results - last 24 hr 05/23/22 11:10: WBC 11.8 H, RBC 5.36, Hgb 16.2, Hct 48.5, MCV 90.5, MCH 30.2, MCHC 33.4, RDW Std Deviation 47.9 H, RDW Coeff of Jony 14.6, Plt Count 230, MPV 9.4, Immature Gran % (Auto) 1.300 H, Neut % (Auto) 66.8, Lymph % (Auto) 21.1, [place] % (Auto) 8.5, Eos % (Auto) 1.6, Baso % (Auto) 0.7, Absolute Neuts (auto) 7.9 H, Absolute Lymphs (auto) 2.48, Nucleated RBC % 0 05/23/22 11:10: PT 15.8 H, INR 1.3, APTT 34.7 05/23/22 11:10: Sodium 140, Potassium 3.8, Chloride 109 H, Carbon Dioxide 14.0 L, Anion Gap 17 H, BUN 12, Creatinine 1.47 H, Estim Creat Clear Calc 63.45, Est GFR (MDRD) Af Amer 66, Est GFR (MDRD) Non-Af 54 L, BUN/Creatinine Ratio 8.2 L, Glucose 199 H, Calcium 8.2 L, Troponin I High Sens 99 H 05/23/22 11:10: Total Creatine Kinase 277, Triglycerides 94 05/23/22 12:20: Urine Opiates Screen NEGATIVE, Urine Methadone Screen NEGATIVE, Ur Barbiturates Screen NEGATIVE, Ur Phencyclidine Scrn NEGATIVE, Ur Amphetamines Screen POSITIVE H, MDMA (Ecstasy) Screen NEGATIVE, U Benzodiazepines Scrn NEGATIVE, Urine Cocaine Screen NEGATIVE, U Cannabinoids Screen POSITIVE H, Ur Drug Screen Comment 05/23/22 13:55: Troponin I High Sens 883 H* 05/24/22 04:30: WBC 9.2, RBC 5.65, Hgb 16.6 H, Hct 51.6, MCV 91.3, MCH 29.4, MCHC 32.2, RDW Std Deviation 50.2 H, RDW Coeff of Jony 15.2 H, Plt Count 204, MPV 9.4, Immature Gran % (Auto) 0.300, Neut % (Auto) 70.5 H, Lymph % (Auto) 18.2 L, [place] % (Auto) 10.3 H, Eos % (Auto) 0.4, Baso % (Auto) 0.3, Absolute Neuts (auto) 6.5, Absolute Lymphs (auto) 1.67, Nucleated RBC % 0 05/24/22 04:30: Sodium 140, Potassium 4.5, Chloride 107, Carbon Dioxide 22.0, Anion Gap 11, BUN 12, Creatinine 0.99, Estim Creat Clear Calc 85.31, Est GFR (MDRD) Af Amer 104, Est GFR (MDRD) Non-Af 86, BUN/Creatinine Ratio 12.1, Glucose 74, Calcium 8.4 L, Magnesium 2.4, Total Bilirubin 1.70 H, AST 195 H, ALT 189 H, Alkaline Phosphatase 111, Total Protein 7.8, Albumin 3.4, Globulin 4.4 H, Albumin/Globulin Ratio 0.8 L, TSH 0.52 05/24/22 04:30: Phosphorus 3.0 05/24/22 10:10: Urine Color Yellow, Urine Clarity Clear, Urine pH 5.0, Ur Specific [place] 1.025, Urine Protein 30 H, Urine Glucose (UA) Normal, Urine Ketones 150 A*, Urine Occult Blood 150 H, Urine Nitrite Negative, Urine Bilirubin Negative, Urine Urobilinogen 4 H, Ur Leukocyte Esterase 25 H, Urine RBC 5-10 SEEN, Urine WBC 0-5 SEEN, Ur Squamous Epith Cells 0-5 SEEN, Urine Bacteria 1+, Urine Mucus 0 SEEN Micro: Microbiology 05/23/22 13:50 Sputum, Induced/Lukens Gram Stain - Final ABG Data ABG results: ABG 05/23/22 05/23/22 11:40 13:41 Specimen Type ART ART Sample Site R Fem R Brach pH 7.24 L 7.33 L Bicarbonate Actual 17.3 L 20.4 L Total CO2 19 22 Base Excess -10 L -6 L O2 Saturation 99 98 O2 % 60 40 ABG pCO2 39.9 39.0 ABG pO2 179 H 119 H Jay Test N/A Respiration Rate 14 14 O2 Delivery Device Adult Vent Adult Vent Vent Mode AC AC Tidal Volume 450 450 POC PEEP 5 5 Radiography Diagnostic Testing: Radiology Impression Chest X-Ray 05/23/22 11:07 IMPRESSION: The tip of the endotracheal tube is at 4.1 cm proximal to dami. The tip of the nasogastric tube is in the body of the stomach. The lungs are clear. 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 Electronically Signed: Edilma Jon MD at 1:30 EDT , Chest X-Ray 05/24/22 03:22 IMPRESSION: Bilateral pneumonia. Electronically Signed: Edilma Jon MD at 4:01 EDT , Physical Exam Const average body habitus and well nourished Constitutional Narrative: Middle-aged white male, appears older than stated age, lying in bed intubated and sedated with a ET tube in place, is responding to noxious stimuli HEENT normocephalic, head/scalp atraumatic and moist oral mucous membranes HEENT Narrative: ET tube in place/OG in place with normal-appearing output Eyes conjunctivae normal Eyes Narrative: Pupils remain constricted with minimal reactivity, no scleral icterus Resp no retractions and no use of accessory muscles Resp Narrative: Diffusely diminished Auscultation: Negative for crackles, rales, rhonchi or wheezes Cardio regular rate, regular rhythm, S1 normal heart sound, S2 normal heart sound, no murmurs, no rub, no gallops, no clicks and no JVD GI normal to inspection, nondistended, normoactive bowel sounds, soft to palpation and non-tender; Negative for hepatosplenomegaly Extremity no clubbing, cyanosis or edema Extremity Narrative: 2+ pedal pulses Neuro Neuro Narrative: Reflexes are 3+ on the left and 2+ on the right, unable to perform full exam as patient is intubated and sedated Psych Psych Narrative: Unable to evaluate Assessment & Plan Assessment/Plan (1) Cardiopulmonary arrest with successful resuscitation: (2) Ventricular fibrillation: (3) SANJEEV (acute kidney injury): (4) Leukocytosis: (5) Acute respiratory failure: QUALIFIERS: Respiratory failure complication: hypoxia Qualified Code(s): J96.01 - Acute respiratory failure with hypoxia (6) Metabolic acidosis: (7) Methamphetamine use: (8) Fever: (9) Transaminitis: PLAN: Plan Acute hypoxic respiratory failure secondary to cardiopulmonary arrest -Maintain mechanical ventilation -Propofol for sedation -As needed aerosols -Wean vent as able -Currently neurological status is rate limiting step towards extubation -Pulmonary medicine following V. fib/PEA arrest -Downtime is unknown -Continue intubation -Assess for neurological recovery -CT of the head was unremarkable -Continue home amiodarone therapy -Cardiac catheterization without any significant acute blockages -If any recurrent arrhythmias will need to start amiodarone -No neurological recovery will need ICD placement prior to discharge -EP to evaluate patient on -Drug screen was positive for methamphetamines which could have contributed to ventricular arrhythmias -Obtain EEG Acute kidney injury -Resolved Fever -White counts normal -Cultures are pending -We will start empiric levofloxacin and monitor QT interval as patient has anaphylaxis with Keflex -Could be neurologic with CPA -Continue to monitor Transaminitis -Anticipate related to shock liver with CPA -Repeat transaminases in a.m. Leukocytosis -Resolved -Suspect reactive -Continue to monitor Metabolic acidosis -Resolved CAD with recent NSTEMI -Continue Brilinta -Continue aspirin -Continue metoprolol -Continue losartan -Continue atorvastatin Hypertension/hyperlipidemia Continue above medications -No reason to recheck lipids of these were done in February History of stroke -? Has had carotid endarterectomy -Continue aspirin and Brilinta -Monitor neurological function -Functional activity is somewhat limited related to his previous stroke however not severely History of TBI -No current issues Carotid artery stenosis -Chronic -Outpatient management -Continue aspirin and Plavix Recent fall with known left bimalleolar fracture, left wrist deformity -This occurred earlier this summer -Monitor clinically -May need PT and OT once able to be extubated Alcohol abuse -Per girlfriend alcohol intake has declined significantly since his discharge after his STEMI -Not currently drinking drinking daily -Monitor for any signs of detox -We will dose with thiamine and folate while intubated -Currently no signs of withdrawal Polysubstance abuse -Patient uses marijuana and methamphetamines intermittently -Talk screen is positive for methamphetamines -Recommend cessation Tobacco abuse -Smokes 1 pack of cigarettes a day -Once extubated will offer nicotine replacement therapy -Recommend cessation DVT prophylaxis -Heparin 3 times daily -SCDs CODE STATUS Full code Charges/Coding Visit Charges Inpatient E&M: 55469 Subs Hosp L2
[2022-05-24] MEDS: levoFLOXacin IV 750 MG/150 ML BAG 100 MG IV (11:27)
--- NOTE | 2022-05-24 11:45 | CASEMGMT ---
JOCELYNE CM Face to Face with daughter Demetra and girlfriend Arianne for initial transition planning/care coordination assessment as patient is currently intubated and unable to participate in assessment. RN CM introduced self and role at [facility]. Family willing to participate in assessment and is able to answer all questions appropriately. Care providers, pharmacy, and demographics verified. CM to monitor course of treatment and progress with therapy for safe disposition planning. Family state they have no further needs or concerns at this time. CM to follow for discharge planning needs that may arise. PCP: Delma Specialists: Michael scanning clerk; Malu boy's adviser Preferred Pharmacy: [facility] Insurance: [employer] Prescription Benefit: yes Living Will/HPOA: yes, bo Garcia HPOA-copies on file at [facility] LNOK: daughter, girlfriend, sister. Patient is from Living Arrangements: Patient lives with girlfriend in a 2nd floor apartment with approximately 20 steps and railing x1 to enter. Patient was independent at home with girlfriend assisting with bathing. Transportation: daughter, public, [facility] van. DME/HHC: Patient has cane, wheelchair, and grab bar at home. No previous HHC or SNF. Patient was a no show to cardiac rehab after last admission. Per Arianne, patient smokes 1/2 PPD of cigarettes daily. Arianne states patient has not been consuming alcohol since January except for on his recent birthday when he did 4-5 shots of vodka. Arianne also states patient smoke about 4 bowls of marijuana daily for his RA pain. Disposition Plan: TBD by course of treatment and progress with therapy. Anca AZUL, RN, CM
[2022-05-24] MEDS: Aspirin 81 MG TAB.CHEW PO (12:00)
--- NOTE | 2022-05-24 12:17 | PCM.HOSP.N ---
Hospitalist Note At the end tensive care physician this morning and I was called by the neurologist. There was 1 20 sec seizure noted while he was having the EEG. We have started Keppra 1 g twice daily and they recommended repeating an EEG in 24 hours if he is not waking up appropriately. We will discontinue the Levaquin as it does decrease seizure threshold and consult ID for recommendations as he has anaphylaxis to Keflex.
[2022-05-24] MEDS: levETIRAcetam IV 1,000 MG/100 ML BAG 400 MG IV ×2 (13:21→21:47)
[2022-05-24] MEDS: Propofol 10MG/Ml 1,000 MG/100 ML Bottle 2.4 MG CONT INF (13:28)
[2022-05-24] MEDS: 0.9% Saline Lock 10 ML Syringe IV (21:46)
[2022-05-24] MEDS: Atorvastatin Calcium 80 MG Tablet PO (21:49)
[2022-05-25] VITALS (39 sets, daily range): BP systolic 94–138; BP diastolic 70–95; PULSE 63–94; RESP 14–22; TEMP 37.7–38.3; O2SAT 91–99
[2022-05-25] MEDS: Acetaminophen 650 MG/20 ML UDC GT (00:47)
[2022-05-25 05:07] LABS: Absolute Neutrophil Count 5.4 X10^3/uL (2.0-7.7); Basophil# 0.06 X10^3/uL; Basophil% 0.7 % (0-1); Eosinophil# 0.13 X10^3/uL; Eosinophils% 1.5 % (0-5); Hematocrit 49.5 % (40-54); Hemoglobin 16.3 g/dL (13.0-16.5); Lymphocyte % 24.6 % (19-41); Mean Corp Hgb Conc 32.9 g/dL (32-36); Mean Corpuscular Hgb 29.1 pg (27.0-32.0); Mean Corpuscular Volume 88.2 fL (80-94); Mean Platelet Vol. 9.2 fl (6.2-12.0); Monocyte# 1.15 X10^3/uL; Monocyte% 12.8 % (0-10); NRBC Flagged by Analyzer 0 % (0-5); Neutrophil # 5.39 X10^3/uL (2.7-7.7); Neutrophil % 60.2 % (47-70); Platelet Count 217 K/mm3 (150-450); RBC Distribution Width CV 15.3 % (11.6-14.6); RBC Distribution Width SD 49.1 fl (35.1-43.9); Red Blood Count 5.61 M/mm3 (4.6-6.2)
[2022-05-25] MEDS: 0.9% Saline Lock 10 ML Syringe IV ×2 (05:22→21:10)
[2022-05-25] MEDS: Heparin Injection (Vial) 5,000 UNIT/ML VIAL 5000 UNIT SC ×3 (05:22→20:58)
[2022-05-25] MEDS: Propofol 10MG/Ml 1,000 MG/100 ML Bottle 4.8 MG CONT INF (05:30)
[2022-05-25 05:35] LABS: ALB/GLOB Ratio 0.7 RATIO (0.9-2.4); Albumin, Serum 2.8 g/dL (3.2-5.0); BUN 9 mg/dL (7-18); BUN/Creat Ratio 12.2 RATIO (10-20); Calcium,Total 8.2 mg/dL (8.5-10.1); Creatinine, Serum 0.74 mg/dL (0.70-1.30); EST Glomerular Filtration Rate 120 mL/min (>60); Est Glom Filt Rate - Afr Amer 145 mL/min (>60); Estimated Creatinine Clearance 114.14 ml/min; Globulin 4.2 g/dL (2.2-4.2); Glucose 89 mg/dL (74-106)
[2022-05-25 05:36] LABS: AST(SGOT) 84 U/L (15-37); Alanine Aminotransfer ALT/SGPT 109 U/L (16-61); Alkaline Phosphatase 91 U/L (45-117); Anion Gap 10 (5-15); Chloride 108 mmol/L (98-107); Potassium 3.8 mmol/L (3.5-5.1); Sodium Level 136 mmol/L (136-145)
[2022-05-25] MEDS: TITRATION PARAMETER CHANGE 1 EACH IV (06:54)
--- NOTE | 2022-05-25 07:02 | PCM.RX.CS ---
Consult Pharmacy has been consulted to manage selected antiobiotic: Vancomycin Type of Consult: New start Labs: Sodium 136 mmol/L (136-145) 05/25/22 03:46 Potassium 3.8 mmol/L (3.5-5.1) 05/25/22 03:46 Chloride 108 mmol/L (98-107) H 05/25/22 03:46 Carbon Dioxide 18.0 mmol/L (21.0-32.0) L 05/25/22 03:46 Anion Gap 10 (5-15) 05/25/22 03:46 BUN 9 mg/dL (7-18) 05/25/22 03:46 Creatinine 0.74 mg/dL (0.70-1.30) 05/25/22 03:46 Est GFR (MDRD) Af Amer 145 mL/min (>60) 05/25/22 03:46 Est GFR (MDRD) Non-Af 120 mL/min (>60) 05/25/22 03:46 BUN/Creatinine Ratio 12.2 RATIO (10-20) 05/25/22 03:46 Glucose 89 mg/dL (74-106) 05/25/22 03:46 Microbiology: Microbiology 05/23/22 13:50 Sputum, Induced/Lukens Gram Stain - Final Weight used for dosin.7 kg Estimated Creatinine Clearance: >100ML/MIN Goal Trough: 15-20 mcg/mL Pharmacy Plan for Drug Dosing: Give initial dose of 1250mg IV x1, then continue with 1000mg IV q8h per [facility] dosing protocol. Will check a trough before the 4th total dose tomorrow. Pharmacy Service will continue to monitor and adjust dosing as required. Follow-Up Labs: Trough Vancomycin Labs to be done on [date and time ordered]: 05/26/22 04:30
--- NOTE | 2022-05-25 08:34 | MRI_ITS ---
STUDY: MRI BRAIN WITHOUT CONTRAST REASON FOR EXAM: Male, 47 years old. CPA intubated, cardiac arrest, substance abuse TECHNIQUE: Standardized multiplanar fat and water weighted pulse sequences were obtained. COMPARISON: MRI of the brain dated DECEMBER 19, 2021. Head CT dated May 24, 2022 FINDINGS: Reidentification of mild to moderate volume loss and post ischemic gliotic signal of the right frontal and parietal lobes from old infarcts. No demonstrated acute anoxic encephalopathy signal on the current study. There is moderate cerebral atrophy with widening of the extra-axial spaces and ventricular dilatation. There are multiple white matter hyperintensities, distributed throughout the deep white matter tracts of the cerebral hemispheres, consistent with moderate chronic white matter ischemic changes. Normal bilateral basal ganglia. Normal thalami. There is no extra-axial fluid accumulation. Normal flow voids within the major intracranial circulation suggesting patency by spin echo criteria. Normal sella turcica, pituitary gland, infundibular stalk, optic chiasm and hypothalamus. Normal tectal plate and pineal gland. Normal midbrain, lit and medulla. Normal cerebellum. Normal basal cisterns. Normal bilateral temporal bones. Normal bilateral internal auditory canals. No demonstrated orbital abnormality, within the constraints of a routine brain study. Normal visualized paranasal sinuses. Normal calvarium and skull base. Normal visualized soft tissue structures. Normal visualized upper cervical spine. MRI/Brain without Contrast IMPRESSION: 1. Reidentification of mild to moderate volume loss and post ischemic gliotic signal of the right frontal and parietal lobes from old infarcts. 2. No demonstrated acute anoxic encephalopathy signal on the current study. 3. No acute infarct or intracranial hemorrhage is present on the current study. 4. Involutional changes of the brain, as described above. Electronically Signed: Álvaro Atkinson MD at 15:50 EDT ,
--- NOTE | 2022-05-25 10:00 | EKG12_ITS ---
Test Reason : AM EKG Blood Pressure : / mmHG Vent. Rate : 093 BPM Atrial Rate : 468 BPM P-R Int : 000 ms QRS Dur : 080 ms QT Int : 388 ms P-R-T Axes : 000 -16 -24 degrees QTc Int : 482 ms Accelerated Junctional rhythm Inferior infarct , age undetermined Abnormal ECG When compared with ECG of 24-MAY-2022 05:40, MANUAL COMPARISON REQUIRED, DATA IS UNCONFIRMED Confirmed by JULIO C HERNANDEZ, SOCORRO ([id number]), editor map NEISHA BENTLEY ([id number]) on 05/26/2022 9:50:46 AM Referred By: Melissa Quiroga Confirmed By:SOCORRO BUNCH MD
[2022-05-25] MEDS: Aspirin 81 MG TAB.CHEW PO (10:11)
[2022-05-25] MEDS: Metoprolol Tartrate 25 MG Tablet PO ×2 (10:11→21:00)
[2022-05-25] MEDS: Chlorhexidine 15 ML PO ×2 (10:11→20:54)
[2022-05-25] MEDS: TICAGRELOR 90 MG TABLET PO ×2 (10:11→21:01)
[2022-05-25] MEDS: levETIRAcetam IV 1,000 MG/100 ML BAG 400 MG IV ×2 (10:11→21:07)
[2022-05-25] MEDS: Amiodarone 200 MG Tablet PO (10:11)
[2022-05-25 11:21] LABS: Allen Test Positive; Base Excess -4 mmol/L (-2 to +2); Bicarbonate 20.4 mmol/L (22-26); Blood Gas Specimen Type ART; FI02 25; Mode AC; O2 Delivery Device Adult Vent; PEEP 5; PO2 75 mmHG (75-100); RR 14; SITE R Radial; SO2 95 % (95-99); Total Carbon Dioxide 21 mmol/L; Vt 450; pCO2 32.1 mmHg (35-45); pH 7.41 (7.35-7.45)
--- NOTE | 2022-05-25 11:58 | PN.HOSP_ITS ---
Subjective Subjective Patient remains intubated and sedated. Low-grade with a T-max of 100.5. White count is normal. No acute events overnight however mental status does not seem to be improving all that significantly. Objective Data Objective Data Vital Signs: Vital Signs Temp Pulse Resp BP Pulse Ox O2 Del Method FiO2 100.4 F H 72 14 103/81 H 95 Mechanical Ventilator 25 05/25/22 11:00 05/25/22 11:34 05/25/22 11:34 05/25/22 11:00 05/25/22 11:34 05/25/22 11:00 05/25/22 11:34 Oxygen Delivery Method Mechanical Ventilator Weight: 80.7 kg Body Mass Index (BMI) 28.0 Intake & Output: Intake and Output for Last 24 Hours 05/23/22 05/24/22 05/25/22 23:59 23:59 23:59 Intake Total 1341.52 / 1356.22 1056.30 / 1056.90 811.60 / 811.60 Output Total 695 / 870 1160 / 1160 260 / 260 Balance 646.52 / 486.22 -103.70 / -103.10 551.60 / 551.60 Lab / Micro Data Result Diagrams: 05/25/22 03:56 05/25/22 03:46 Labs: Laboratory Results - last 24 hr 05/25/22 03:46: Sodium 136, Potassium 3.8, Chloride 108 H, Carbon Dioxide 18.0 L , Anion Gap 10, BUN 9, Creatinine 0.74, Estim Creat Clear Calc 114.14, Est GFR ( MDRD) Af Amer 145, Est GFR (MDRD) Non-Af 120, BUN/Creatinine Ratio 12.2, Glucose 89, Calcium 8.2 L, Phosphorus 2.0 L, Total Bilirubin 1.30 H, AST 84 H, ALT 109 H , Alkaline Phosphatase 91, Total Protein 7.0, Albumin 2.8 L, Globulin 4.2, Albumin/Globulin Ratio 0.7 L 05/25/22 03:56: WBC 9.0, RBC 5.61, Hgb 16.3, Hct 49.5, MCV 88.2, MCH 29.1, MCHC 32.9, RDW Std Deviation 49.1 H, RDW Coeff of Jony 15.3 H, Plt Count 217, MPV 9.2, Immature Gran % (Auto) 0.200, Neut % (Auto) 60.2, Lymph % (Auto) 24.6, [place] % (Auto) 12.8 H, Eos % (Auto) 1.5, Baso % (Auto) 0.7, Absolute Neuts (auto) 5.4, Absolute Lymphs (auto) 2.20, Nucleated RBC % 0 Micro: Microbiology 05/24/22 04:30 Blood Culture (Wb) - Anticubital Left Bacteria Detection (PCR) - Preliminary 05/24/22 04:30 Blood Culture (Wb) - Anticubital Left Blood Culture - Preliminary 05/24/22 10:10 Urine Catheter - Lay Urine Culture - Preliminary Culture exhibits no growth. 05/23/22 13:50 Sputum, Induced/Lukens Gram Stain - Final 05/23/22 13:50 Sputum, Induced/Lukens Respiratory Culture - Preliminary Streptococcus group B Presumptive C albicans ABG Data ABG results: ABG 05/25/22 11:13 Specimen Type ART Sample Site R Radial pH 7.41 Bicarbonate Actual 20.4 L Total CO2 21 Base Excess -4 L O2 Saturation 95 O2 % 25 ABG pCO2 32.1 L ABG pO2 75 Jay Test Positive Respiration Rate 14 O2 Delivery Device Adult Vent Vent Mode AC Tidal Volume 450 POC PEEP 5 Physical Exam Const average body habitus and well nourished Constitutional Narrative: Middle-aged white male, appears older than stated age, lying in bed intubated and sedated with a ET tube in place, is intermittently responding to noxious stimuli, no meaningful interaction with sedation vacations HEENT normocephalic, head/scalp atraumatic and moist oral mucous membranes HEENT Narrative: ET tube in place Eyes conjunctivae normal Eyes Narrative: Pupils remain constricted with minimal reactivity, no scleral icterus Resp no retractions and no use of accessory muscles Resp Narrative: Diffusely diminished Auscultation: Negative for crackles, rales, rhonchi or wheezes Cardio regular rate, regular rhythm, S1 normal heart sound, S2 normal heart sound, no murmurs, no rub, no gallops, no clicks and no JVD GI normal to inspection, nondistended, normoactive bowel sounds, soft to palpation and non-tender; Negative for hepatosplenomegaly Extremity no clubbing, cyanosis or edema Extremity Narrative: 2+ pedal pulses Skin no wounds, skin turgor normal, no jaundice, no petechiae and no mottling Skin Narrative: Multiple tattoos Neuro Neuro Narrative: Response to noxious stimulus intermittently, not following any commands with sedation vacations Psych Psych Narrative: Unable to evaluate Assessment & Plan Assessment/Plan (1) Cardiopulmonary arrest with successful resuscitation: (2) Ventricular fibrillation: (3) SANJEEV (acute kidney injury): (4) Leukocytosis: (5) Acute respiratory failure: QUALIFIERS: Respiratory failure complication: hypoxia Qualified Code(s): J96.01 - Acute respiratory failure with hypoxia (6) Metabolic acidosis: (7) Methamphetamine use: (8) Fever: (9) Transaminitis: PLAN: Plan Acute hypoxic respiratory failure secondary to cardiopulmonary arrest/group B strep pneumonia -Maintain mechanical ventilation -Propofol for sedation -As needed aerosols -Wean vent as able -Currently on minimal vent settings however mental status is precluding extubation -Continue antibiotics day 2 -Pulmonary medicine following V. fib/PEA arrest -Downtime is unknown -Continue intubation -Continue to assess for neurological recovery -As far response is minimal -Continue home amiodarone therapy -Cardiac catheterization without any significant acute blockages -No recurrent arrhythmias -No neurological recovery will need ICD placement prior to discharge -EP to evaluate patient on -Drug screen was positive for methamphetamines which could have contributed to ventricular arrhythmias -Obtain repeat EEG -Check MRI Seizure -Noted on EEG from 04/23/2022 -Keppra 1000 mg p.o. twice daily -Discussion with nephrology they recommended to repeat EEG in 24 hours if no improvement in mental status -EEG repeat pending -MRI pending Group B strep pneumonia -White counts normal -Cultures are pending -Levaquin discontinued secondary to seizure activity on EEG -Patient with anaphylaxis to Keflex therefore we will use for spores or penicillins -Start aztreonam--> received 1 dose of Levaquin on 05/25/2022--> antibiotic day 2 -Could be neurologic with CPA -Continue to monitor -ID consulted Transaminitis -Anticipate related to shock liver with CPA -Slowly improving -No need to trend daily CAD with recent NSTEMI -Continue Brilinta -Continue aspirin -Continue metoprolol -Continue losartan -Continue atorvastatin Hypertension/hyperlipidemia Continue above medications -No reason to recheck lipids of these were done in February History of stroke -? Has had carotid endarterectomy -Continue aspirin and Brilinta -Monitor neurological function -Functional activity is somewhat limited related to his previous stroke however not severely History of TBI -No current issues Carotid artery stenosis -Chronic -Outpatient management -Continue aspirin and Plavix Recent fall with known left bimalleolar fracture, left wrist deformity -This occurred earlier this summer -Monitor clinically -May need PT and OT once able to be extubated Alcohol abuse -Per girlfriend alcohol intake has declined significantly since his discharge after his STEMI -Not currently drinking drinking daily -Monitor for any signs of detox -We will dose with thiamine and folate while intubated -Currently no signs of withdrawal Polysubstance abuse -Patient uses marijuana and methamphetamines intermittently -Talk screen is positive for methamphetamines -Recommend cessation Tobacco abuse -Smokes 1 pack of cigarettes a day -Once extubated will offer nicotine replacement therapy -Recommend cessation DVT/ GI prophylaxis -Heparin 3 times daily -SCDs -Protonix 40 mg IV twice daily CODE STATUS Full code Charges/Coding Visit Charges Inpatient E&M: 94293 Subs Hosp L2
--- NOTE | 2022-05-25 12:08 | CHAPLAIN ---
Type of Pastoral Visit ___ Initial Visit ___ Follow-up Visit ___ On-call Visit ___ General Patient Visit ___ Spiritual Assessment ___ Family Conference ___ Bereavement ___ Rapid Response ___ Code Blue ___ Other (describe below) Pastoral Care Referral From ___ Patient ___ Family ___ Nurse ___ Physician ___ Straddle Bug ___ Rv Service Technician ___ Other (describe below) Sacrament/Intervention ___ Active listening ___ Anointing ___ Jew ___ Bereavement ___ Communion ___ Alexandra exploration ___ ___ Life review ___ Prayer ___ Reconciliation ___ Sacrament of Sick ___ Supportive presence ___ Wedding ___ Other (describe below) Pastoral Comments support and presence offered to SO who was in the waiting area as pt has more testing at this time; SO gives her update on how she is coping and how family members are handling the situation; time given for presence
[2022-05-25] MEDS: Propofol 10MG/Ml 1,000 MG/100 ML Bottle 19.4 MG CONT INF ×3 (12:12→19:43)
[2022-05-25 12:34] LABS: Color, Urine Yellow (Yellow); Glucose, Dipstick Normal (Normal); Leukocyte Esterase-Dipstick 25 /ul (Negative); Nitrite-Dipstick Negative (Negative); Occult Blood-Urine 150 /ul (Negative); Protein-Dipstick 15 mg/dl (Negative); Urine Bilirubin Dipstick Negative (Negative); Urine Clarity Clear (Clear); Urine Urobilinogen 1 mg/dl (Normal)
[2022-05-25 12:36] LABS: Ketone-Dipstick 150 mg/dl (Negative)
--- NOTE | 2022-05-25 13:31 | PCM.CONS.GEN ---
Assessment & Plan Assessment/Plan (1) Fever: (2) Methamphetamine use: (3) Acute respiratory failure: QUALIFIERS: Respiratory failure complication: hypoxia Qualified Code(s): J96.01 - Acute respiratory failure with hypoxia PLAN: Sputum with strep and yeast. Mary Jane reports emesis when he became unresponsive. Reports anaphylaxis with keflex, thinks he has taken PCN without issue. She denies pt has any h/o IVDU. Will stop vanc/aztreonam, change to meropenem for better bactericidal effect and anaerobic coverage. Will follow, thank you. (4) Cardiopulmonary arrest with successful resuscitation: (5) History of CVA (cerebrovascular accident): HPI Consult Data Date of Consult: 05/25/22 HPI Narrative Reason for Consultation: fever HPI Narrative: ROBBI REYNOLDS, is a 47 M with h/o stroke and [place] in 02/2022, had been home and doing well with no new issues. He and mary jane smoked meth on 05/22, then in AM 05/23, reported some indigestion then became unresponsive. Mary Jane started CPR right away, called EMS, taken to [facility] ED, intubated, admitted on vanc/aztreonam. Still low grade temps, on vent. ROS unobtainable due to intubation/sedation [facility] Medical History Alcohol abuse Anxiety and depression Atherosclerosis of coronary artery without angina pectoris Cardiac arrest with ventricular fibrillation Closed bimalleolar fracture of left ankle Essential hypertension Hemiparesis affecting left side as late effect of cerebrovascular accident History of CVA (cerebrovascular accident) Hyperlipidemia Marijuana use Rheumatoid arthritis ST elevation (STEMI) myocardial infarction (03/11/22) Tobacco use Home Medications gabapentin 600 mg tablet 600 mg PO DAILY 10/25/21 [History Last Taken Unknown] ondansetron 4 mg disintegrating tablet 4 mg PO Q8H PRN nausea and vomiting #10 tabs 02/20/22 [Rx Last Taken Unknown] oxycodone-acetaminophen 5 mg-325 mg tablet (Percocet) 1 tab PO Q6H PRN pain 3 days #10 tabs 02/20/22 [Rx Last Taken Unknown] amiodarone 200 mg tablet 200 mg PO DAILY 04/06/22 [History Last Taken Unknown] aspirin 81 mg tablet,delayed release 81 mg PO BREAKFAST #90 tabs 04/06/22 [Rx Last Taken Unknown] atorvastatin 80 mg tablet 80 mg PO DAILY #90 tabs 04/06/22 [Rx Last Taken Unknown] losartan 50 mg tablet 50 mg PO DAILY #90 tabs 04/06/22 [Rx Last Taken Unknown] metoprolol tartrate 25 mg tablet 25 mg PO BID #180 tabs 04/06/22 [Rx Last Taken Unknown] ticagrelor 90 mg tablet (Brilinta) 90 mg PO BID #180 tabs 04/06/22 [Rx Last Taken Unknown] Allergy/AdvReac Type Severity Reaction Status Date / Time cephalexin [From Keflex] Allergy Anaphylaxis Verified 04/06/22 09:57 fluoxetine [From Prozac] Allergy Itching Verified 04/06/22 09:57 hydroxychloroquine Allergy Other Verified 04/06/22 09:57 [From Plaquenil] Family History Mother Rheumatoid arthritis Hypertension Father Hypertension Surgical History History of coronary artery stent placement (03/11/22) No history of previous surgery Social History household members: significant other Smoking Status: Current every day smoker tobacco type: cigarettes alcohol intake: current alcohol intake frequency: 0-2 drinks per day details: Patient used to drink about 1 L of hard liquor a day however per girlfriend substance use type: marijuana, amphetamines and methamphetamine Physical Exam Const Constitutional Narrative: intubated/sedated HEENT normocephalic and head/scalp atraumatic Eyes PERRL Neck supple and No nodes Resp Effort and Inspection: mechanically ventilated Auscultation: diminished lung sounds Cardio regular rate and regular rhythm GI soft to palpation, non-tender and non-distended Extremity General Extremity: Negative for edema Skin no rashes or lesions noted Lab / Micro Data Attestation: I reviewed the patient's lab results. Result Diagrams: 05/25/22 03:56 05/25/22 03:46 Labs: Laboratory Results - last 24 hr 05/25/22 03:46: Sodium 136, Potassium 3.8, Chloride 108 H, Carbon Dioxide 18.0 L, Anion Gap 10, BUN 9, Creatinine 0.74, Estim Creat Clear Calc 114.14, Est GFR (MDRD) Af Amer 145, Est GFR (MDRD) Non-Af 120, BUN/Creatinine Ratio 12.2, Glucose 89, Calcium 8.2 L, Phosphorus 2.0 L, Total Bilirubin 1.30 H, AST 84 H, ALT 109 H, Alkaline Phosphatase 91, Total Protein 7.0, Albumin 2.8 L, Globulin 4.2, Albumin/Globulin Ratio 0.7 L 05/25/22 03:56: WBC 9.0, RBC 5.61, Hgb 16.3, Hct 49.5, MCV 88.2, MCH 29.1, MCHC 32.9, RDW Std Deviation 49.1 H, RDW Coeff of Jony 15.3 H, Plt Count 217, MPV 9.2, Immature Gran % (Auto) 0.200, Neut % (Auto) 60.2, Lymph % (Auto) 24.6, [place] % (Auto) 12.8 H, Eos % (Auto) 1.5, Baso % (Auto) 0.7, Absolute Neuts (auto) 5.4, Absolute Lymphs (auto) 2.20, Nucleated RBC % 0 05/25/22 12:20: Urine Color Yellow, Urine Clarity Clear, Urine pH 6.0, Ur Specific [place] 1.020, Urine Protein 15 H, Urine Glucose (UA) Normal, Urine Ketones 150 A*, Urine Occult Blood 150 H, Urine Nitrite Negative, Urine Bilirubin Negative, Urine Urobilinogen 1 H, Ur Leukocyte Esterase 25 H Micro: Microbiology 05/24/22 04:30 Blood Culture (Wb) - Anticubital Left Bacteria Detection (PCR) - Preliminary 05/24/22 04:30 Blood Culture (Wb) - Anticubital Left Blood Culture - Preliminary 05/24/22 10:10 Urine Catheter - Lay Urine Culture - Preliminary Culture exhibits no growth. 05/23/22 13:50 Sputum, Induced/Lukens Gram Stain - Final 05/23/22 13:50 Sputum, Induced/Lukens Respiratory Culture - Preliminary Streptococcus group B Presumptive C albicans ABG Data ABG results: ABG 05/25/22 11:13 Specimen Type ART Sample Site R Radial pH 7.41 Bicarbonate Actual 20.4 L Total CO2 21 Base Excess -4 L O2 Saturation 95 O2 % 25 ABG pCO2 32.1 L ABG pO2 75 Jay Test Positive Respiration Rate 14 O2 Delivery Device Adult Vent Vent Mode AC Tidal Volume 450 POC PEEP 5
--- NOTE | 2022-05-25 13:34 | PCM.PN.CARD ---
Subjective Subjective Patient is still debated, sedated. EEG revealed seizure activity. No further ventricular tachycardia or ventricular fibrillation. Objective Data Vital Signs: Vital Signs Temp Pulse Resp BP Pulse Ox O2 Del Method FiO2 99.9 F H 73 14 95/75 98 Mechanical Ventilator 25 05/25/22 13:00 05/25/22 13:00 05/25/22 13:00 05/25/22 13:00 05/25/22 13:00 05/25/22 13:00 05/25/22 13:00 Oxygen Delivery Method Mechanical Ventilator Weight: 177 lb 14.609 oz Body Mass Index (BMI) 28.0 Intake & Output: Intake and Output for Last 24 Hours 05/23/22 05/24/22 05/25/22 23:59 23:59 23:59 Intake Total 1341.52 / 1356.22 1056.30 / 1056.90 914.04 / 914.04 Output Total 695 / 870 1160 / 1160 350 / 350 Balance 646.52 / 486.22 -103.70 / -103.10 564.04 / 564.04 Lab / Micro Data Result Diagrams: 05/25/22 03:56 05/25/22 03:46 Labs: Laboratory Results - last 24 hr 05/25/22 03:46: Sodium 136, Potassium 3.8, Chloride 108 H, Carbon Dioxide 18.0 L, Anion Gap 10, BUN 9, Creatinine 0.74, Estim Creat Clear Calc 114.14, Est GFR (MDRD) Af Amer 145, Est GFR (MDRD) Non-Af 120, BUN/Creatinine Ratio 12.2, Glucose 89, Calcium 8.2 L, Phosphorus 2.0 L, Total Bilirubin 1.30 H, AST 84 H, ALT 109 H, Alkaline Phosphatase 91, Total Protein 7.0, Albumin 2.8 L, Globulin 4.2, Albumin/Globulin Ratio 0.7 L 05/25/22 03:56: WBC 9.0, RBC 5.61, Hgb 16.3, Hct 49.5, MCV 88.2, MCH 29.1, MCHC 32.9, RDW Std Deviation 49.1 H, RDW Coeff of Jony 15.3 H, Plt Count 217, MPV 9.2, Immature Gran % (Auto) 0.200, Neut % (Auto) 60.2, Lymph % (Auto) 24.6, [place] % (Auto) 12.8 H, Eos % (Auto) 1.5, Baso % (Auto) 0.7, Absolute Neuts (auto) 5.4, Absolute Lymphs (auto) 2.20, Nucleated RBC % 0 05/25/22 12:20: Urine Color Yellow, Urine Clarity Clear, Urine pH 6.0, Ur Specific [place] 1.020, Urine Protein 15 H, Urine Glucose (UA) Normal, Urine Ketones 150 A*, Urine Occult Blood 150 H, Urine Nitrite Negative, Urine Bilirubin Negative, Urine Urobilinogen 1 H, Ur Leukocyte Esterase 25 H Micro: Microbiology 05/24/22 04:30 Blood Culture (Wb) - Anticubital Left Bacteria Detection (PCR) - Preliminary 05/24/22 04:30 Blood Culture (Wb) - Anticubital Left Blood Culture - Preliminary 05/24/22 10:10 Urine Catheter - Lay Urine Culture - Preliminary Culture exhibits no growth. 05/23/22 13:50 Sputum, Induced/Lukens Gram Stain - Final 05/23/22 13:50 Sputum, Induced/Lukens Respiratory Culture - Preliminary Streptococcus group B Presumptive C albicans ABG Data ABG results: ABG 05/25/22 11:13 Specimen Type ART Sample Site R Radial pH 7.41 Bicarbonate Actual 20.4 L Total CO2 21 Base Excess -4 L O2 Saturation 95 O2 % 25 ABG pCO2 32.1 L ABG pO2 75 Jay Test Positive Respiration Rate 14 O2 Delivery Device Adult Vent Vent Mode AC Tidal Volume 450 POC PEEP 5 Cardiology Labs/Tests 05/25/22 03:46: Sodium 136, Potassium 3.8, Chloride 108 H, Carbon Dioxide 18.0 L, Anion Gap 10, BUN 9, Creatinine 0.74, Est GFR (MDRD) Af Amer 145, Est GFR (MDRD) Non-Af 120, BUN/Creatinine Ratio 12.2, Glucose 89, Calcium 8.2 L, Phosphorus 2.0 L, Total Bilirubin 1.30 H 05/25/22 03:56: WBC 9.0, RBC 5.61, Hgb 16.3, Hct 49.5, MCV 88.2, MCH 29.1, MCHC 32.9, Plt Count 217, MPV 9.2, Immature Gran % (Auto) 0.200, Neut % (Auto) 60.2, Lymph % (Auto) 24.6, [place] % (Auto) 12.8 H, Eos % (Auto) 1.5, Baso % (Auto) 0.7, Absolute Neuts (auto) 5.4, Nucleated RBC % 0 05/25/22 11:13: pH 7.41, Bicarbonate Actual 20.4 L, Base Excess -4 L, O2 Saturation 95, ABG pCO2 32.1 L, ABG pO2 75, Jay Test Positive 05/25/22 12:20: Urine Color Yellow, Urine Clarity Clear, Urine pH 6.0, Ur Specific [place] 1.020, Urine Protein 15 H, Urine Glucose (UA) Normal, Urine Ketones 150 A*, Urine Occult Blood 150 H, Urine Nitrite Negative, Urine Bilirubin Negative, Urine Urobilinogen 1 H, Ur Leukocyte Esterase 25 H Rhythm: EKG: ECHO: Stress Test: Cardiac Cath: PCI: CT Surgery: Holter monitor: EPS: PPM: CXR: Chest CT Scan: Physical Exam Const Constitutional Narrative: Intubated, sedated Cardio regular rate and regular rhythm Assessment & Plan Assessment/Plan (1) Cardiopulmonary arrest with successful resuscitation: PLAN: Due to ventricular fibrillation. No further ventricular tachycardia or ventricular fibrillation. At this time patient does not need any revascularization. If he ends up having neurologic recovery then he may be a candidate for ICD placement possibly prior to discharge. He is having ongoing fevers as well which may factor into the decision making for ICD versus LifeVest. We will get EP input on this when appropriate. UDS was positive for methamphetamines which could have contributed to patient's V. fib. (2) History of coronary artery stent placement: PLAN: Continue current medications (3) Atherosclerosis of coronary artery without angina pectoris: PLAN: Patient does have residual disease in a diagonal branch that was also noted in February 2022. Patient was not having any symptoms from this. Recommend continued medical therapy for this. Charges/Coding Visit Charges Inpatient E&M: [id number] [facility] Hosp L1
--- NOTE | 2022-05-25 15:27 | CON.PCM.CC_ITS ---
Assessment & Plan Assessment/Plan (1) Cardiopulmonary arrest with successful resuscitation: PLAN: Due to ventricular fibrillation. No further ventricular tachycardia or ventricular fibrillation. At this time patient does not need any r evascularization. If he ends up having neurologic recovery then he may be a candidate for ICD placement possibly prior to discharge. He is having ongoing fevers as well which may factor into the decision making for ICD versus LifeVest. We will get EP input on this when appropriate. UDS was positive for methamphetamines which could have contributed to patient's V. fib. -Patient failed spontaneous breathing trial today, he will continue resting on the ventilator. -Neurologic prognosis is guarded, since his arrest he has not shown any sign of awareness, and has only nonpurposeful withdrawal to noxious stimuli. -He may also be in status epilepticus, EEG yesterday 05/24/2022 was positive for seizure activity. EEG ordered today and he is awaiting transfer to [facility] because we do not have continuous EEG available here. Meanwhile we will continue propofol at increased dose of 30 to 40 mcg/min, and Keppra 1000 twice daily. This will be increased and neurology reconsulted if today's EEG shows seizure activity. (2) History of coronary artery stent placement: PLAN: Continue current medications Cultures are positive for staph epi, likely a contaminant. Mixed princess and respiratory culture. -He remains on vancomycin, Levaquin was completed today. -Maintain cardioprotective medications -Patient was positive for methamphetamine and marijuana, with compatible history from family members in ER. Avoid further methamphetamine use. (3) Atherosclerosis of coronary artery without angina pectoris: PLAN: Patient does have residual disease in a diagonal branch that was also noted in February 2022. Patient was not having any symptoms from this. Cardiology consult recommended continued medical therapy for this. (4) SANJEEV (acute kidney injury): PLAN: - Improving with conservative supportive care postarrest -avoid nephrotoxins and -Maintain adequate hydration and blood pressure with MAP greater than 65 -Repeat UA today shows Reina (5) Transaminitis: PLAN: Improving with supportive care/conservative therapy, likely residual and improving multiorgan system function abnormalities after cardiac arrest. (6) Methamphetamine use: PLAN: Completely abstain going forward. However this patient has a long history of alcohol, tobacco and drug use, and it is, unfortunately, unlikely (7) History of CVA (cerebrovascular accident): PLAN: Routine management, rehab will be needed if he survives. (8) Sinusitis chronic, sphenoidal: PLAN: Unasyn PLAN: Plan Check BMP and phosphate after supplementation, Unasyn, possible AICD per cardiology however conservative management is recommended at this time. Daily SBT, wean vent as tolerated Repeat EEG and change seizure medications as needed Hemoglobin A1c Start tube feeds today Continue to monitor hepatic and renal function Transfer to when bed is available for continuous EEG monitoring, neurology, then eventually to rehab. Monitor for iatrogenic infections, no evidence at this time. Sputum culture and repeat blood culture due to positive staph epi blood culture x1. However it is a likely contaminant Critical care time spent with patient at bedside, review of documentation, lab results, radiology and other test results, discussion with colleagues and ancillary staff, clinical management of patient, and updating family if applicable, was 45 minutes. This time does not include any procedures, if pe [place]formed[place] [address]. HPI Consult Data Date of Consult: 05/25/22 HPI Narrative Reason for Consultation: This is a an intensive care progress note. See previous consultation note HPI Narrative: ROBBI REYNOLDS, is a 47 M who presented in ventricular tachycardia cardiac arrest for 5 to 10 minutes, in the setting of known coronary artery disease with stent, toxicology screen positive methamphetamine and positive for marijuana. Current 1/2 pack/day smoker. He is remained unresponsive since admission, with nonpurposeful withdrawal to noxious stimuli, spontaneous partial eye opening, not able to track, and frequent eye blinking which is of concern for intermittent seizures. Patient had positive seizure activity yesterday on EEG. No response to voice or gentle touch. Positive spontaneous cough and gag to suction. Pupils are equal and reactive, approximately 2 to 3 mm. No evidence of awareness. [facility] Medical History Alcohol abuse Anxiety and depression Atherosclerosis of coronary artery without angina pectoris Cardiac arrest with ventricular fibrillation Closed bimalleolar fracture of left ankle Essential hypertension Hemiparesis affecting left side as late effect of cerebrovascular accident History of CVA (cerebrovascular accident) Hyperlipidemia Marijuana use Rheumatoid arthritis ST elevation (STEMI) myocardial infarction (03/11/22) Tobacco use Home Medications gabapentin 600 mg tablet 600 mg PO DAILY 10/25/21 [History Last Taken Unknown] ondansetron 4 mg disintegrating tablet 4 mg PO Q8H PRN nausea and vomiting #10 tabs 02/20/22 [Rx Last Taken Unknown] oxycodone-acetaminophen 5 mg-325 mg tablet (Percocet) 1 tab PO Q6H PRN pain 3 days #10 tabs 02/20/22 [Rx Last Taken Unknown] amiodarone 200 mg tablet 200 mg PO DAILY 04/06/22 [History Last Taken Unknown] aspirin 81 mg tablet,delayed release 81 mg PO BREAKFAST #90 tabs 04/06/22 [Rx Last Taken Unknown] atorvastatin 80 mg tablet 80 mg PO DAILY #90 tabs 04/06/22 [Rx Last Taken Unknown] losartan 50 mg tablet 50 mg PO DAILY #90 tabs 04/06/22 [Rx Last Taken Unknown] metoprolol tartrate 25 mg tablet 25 mg PO BID #180 tabs 04/06/22 [Rx Last Taken Unknown] ticagrelor 90 mg tablet (Brilinta) 90 mg PO BID #180 tabs 04/06/22 [Rx Last Taken Unknown] Allergy/AdvReac Type Severity Reaction Status Date / Time cephalexin [From Keflex] Allergy Anaphylaxis Verified 04/06/22 09:57 fluoxetine [From Prozac] Allergy Itching Verified 04/06/22 09:57 hydroxychloroquine Allergy Other Verified 04/06/22 09:57 [From Plaquenil] Family History Mother Rheumatoid arthritis Hypertension Father Hypertension Surgical History History of coronary artery stent placement (03/11/22) No history of previous surgery Social History household members: significant other Smoking Status: Current every day smoker tobacco type: cigarettes alcohol intake: current alcohol intake frequency: 0-2 drinks per day details: Patient used to drink about 1 L of hard liquor a day however per girlfriend substance use type: marijuana, amphetamines and methamphetamine ROS Review of Systems ROS Unobtainable: due to endotracheal tube and due to mental status Physical Exam Narrative Well-developed well-nourished, no evidence of response to voice, command, or gentle touch. Not purposeful withdrawal to noxious stimuli. HEENT: Extraoculars are nonfocused and minimally moving spontaneously, sclera anicteric, conjunctiva noninjected, pupils 2 to 3 mm and reactive bilaterally. Mucous membranes are moist, endotracheal tube is 7.5 mm ID at 26 cm at the lip. Copious high secretions suctioned frequently. Dentition fair. Neck: Supple, no bruit, no thyromegaly or masses. No devices except for ETT. Chest has bilateral rhonchi in all lung [place], does not clear completely with cough or suctioning, no wheezes or rhonchi. Heart, regular S1-S2 with no murmurs. Abdomen is soft, nontender, with normoactive Gano megaly or mass. : Unremarkable male genitalia except for tattooed penis with Lay catheter in place draining turbid cloudy and blood-tinged urine. Skin: Extensive tattoos and abrasions on all extremities, IVs are intact. Mild right hand swelling. Neuro: Occasional random eye fluttering is present without focusing or tracking. Unable to assess visual field. No response to auditory stimuli or gentle touch or verbal commands. Extraocular's are rolling and diminished extent Spontaneous movement of all extremities are present, with nonpurposeful flexure posturing. No purposeful withdrawal. Does not follow commands. Const General Appearance: patient mechanically ventilated Orientation / Consciousness: obtunded Medical Records Data Attestation: I reviewed the patient's medical records Lab / Micro Data Attestation: I reviewed the patient's lab results. (Please note results of toxicology.) Result Diagrams: 05/25/22 03:56 05/25/22 03:46 Labs: Laboratory Results - last 24 hr 05/25/22 03:46: Sodium 136, Potassium 3.8, Chloride 108 H, Carbon Dioxide 18.0 L , Anion Gap 10, BUN 9, Creatinine 0.74, Estim Creat Clear Calc 114.14, Est GFR (MDRD) Af Amer 145, Est GFR (MDRD) Non-Af 120, BUN/Creatinine Ratio 12.2, Glucose 89, Calcium 8.2 L, Phosphorus 2.0 L, Total Bilirubin 1.30 H, AST 84 H, ALT 109 H, Alkaline Phosphatase 91, Total Protein 7.0, Albumin 2.8 L, Globulin 4.2, Albumin/Globulin Ratio 0.7 L 05/25/22 03:56: WBC 9.0, RBC 5.61, Hgb 16.3, Hct 49.5, MCV 88.2, MCH 29.1, MCHC 32.9, RDW Std Deviation 49.1 H, RDW Coeff of Jony 15.3 H, Plt Count 217, MPV 9.2, Immature Gran % (Auto) 0.200, Neut % (Auto) 60.2, Lymph % (Auto) 24.6, [place] % (Auto) 12.8 H, Eos % (Auto) 1.5, Baso % (Auto) 0.7, Absolute Neuts (auto) 5.4, Absolute Lymphs (auto) 2.20, Nucleated RBC % 0 05/25/22 12:20: Urine Color Yellow, Urine Clarity Clear, Urine pH 6.0, Ur Specific [place] 1.020, Urine Protein 15 H, Urine Glucose (UA) Normal, Urine Ketones 150 A*, Urine Occult Blood 150 H, Urine Nitrite Negative, Urine Bilirubin Negative, Urine Urobilinogen 1 H, Ur Leukocyte Esterase 25 H Micro: Microbiology 05/24/22 04:30 Blood Culture (Wb) - Anticubital Left Bacteria Detection (PCR) - Final Staphylococcus epidermidis mecA Resistance Marker 05/24/22 04:30 Blood Culture (Wb) - Anticubital Left Blood Culture - Preliminary 05/24/22 10:10 Urine Catheter - Lay Urine Culture - Preliminary Culture exhibits no growth. 05/23/22 13:50 Sputum, Induced/Lukens Gram Stain - Final 05/23/22 13:50 Sputum, Induced/Lukens Respiratory Culture - Preliminary Streptococcus group B Presumptive C albicans ABG Data ABG results: ABG 05/25/22 11:13 Specimen Type ART Sample Site R Radial pH 7.41 Bicarbonate Actual 20.4 L Total CO2 21 Base Excess -4 L O2 Saturation 95 O2 % 25 ABG pCO2 32.1 L ABG pO2 75 Jay Test Positive Respiration Rate 14 O2 Delivery Device Adult Vent Vent Mode AC Tidal Volume 450 POC PEEP 5 Attestation: I personally reviewed and interpreted this ABG as follows: Interpretation: Subacute respiratory alkalosis with respiratory compensation, adequate oxygenation on current ventilator settings as above, no changes made at this time.
[2022-05-25] MEDS: Vital AF 1.2 Cal Liquid 1,000 ML 15 ML GT (16:14)
[2022-05-25] MEDS: CHLORHEXIDINE GLUC 2% CLOTH 1 EACH TOWELETTE TOPICAL (17:34)
[2022-05-25 19:48] LABS: Probe Check PASS
[2022-05-25 19:49] LABS: M R Staph aureus DNA By PCR POSITIVE (Negative)
[2022-05-25] MEDS: Atorvastatin Calcium 80 MG Tablet PO (21:00)
[2022-05-26] VITALS (36 sets, daily range): BP systolic 107–142; BP diastolic 67–100; PULSE 72–94; RESP 14–22; TEMP 37.6–38.3; O2SAT 90–99
[2022-05-26] MEDS: Propofol 10MG/Ml 1,000 MG/100 ML Bottle 19.4 MG CONT INF ×6 (00:42→22:15)
[2022-05-26 04:03] LABS: Absolute Lymphocyte Count 1.31 X10^3/uL (0.83-4.51); Absolute Neutrophil Count 4.7 X10^3/uL (2.0-7.7); Basophil# 0.05 X10^3/uL; Basophil% 0.7 % (0-1); Eosinophil# 0.27 X10^3/uL; Eosinophils% 3.8 % (0-5); Hematocrit 42.8 % (40-54); Hemoglobin 15.4 g/dL (13.0-16.5); Lymphocyte # 1.31 X10^3/ul (0.83-4.51); Lymphocyte % 18.4 % (19-41); Mean Platelet Vol. 10.9 fl (6.2-12.0); Monocyte# 0.78 X10^3/uL; Monocyte% 10.9 % (0-10); NRBC Flagged by Analyzer 0 % (0-5); Neutrophil # 4.69 X10^3/uL (2.7-7.7); Neutrophil % 65.8 % (47-70); Platelet Count 230 K/mm3 (150-450); RBC Distribution Width CV 15.5 % (11.6-14.6); Red Blood Count 4.81 M/mm3 (4.6-6.2); White Blood Count 7.1 K/mm3 (4.4-11.0)
[2022-05-26 04:24] LABS: Anion Gap 9 (5-15); BUN 8 mg/dL (7-18); BUN/Creat Ratio 10.1 RATIO (10-20); Calcium,Total 7.6 mg/dL (8.5-10.1); Chloride 106 mmol/L (98-107); Creatinine, Serum 0.79 mg/dL (0.70-1.30); EST Glomerular Filtration Rate 111 mL/min (>60); Est Glom Filt Rate - Afr Amer 134 mL/min (>60); Estimated Creatinine Clearance 106.91 ml/min; Glucose 98 mg/dL (74-106); Phosphorus 2.7 mg/dL (2.5-4.9); Potassium 3.3 mmol/L (3.5-5.1); Sodium Level 138 mmol/L (136-145)
[2022-05-26] MEDS: Vital AF 1.2 Cal Liquid 1,000 ML 30 ML GT (04:48)
[2022-05-26] MEDS: CHLORHEXIDINE GLUC 2% CLOTH 1 EACH TOWELETTE TOPICAL (04:52)
[2022-05-26 05:05] LABS: Base Excess -2 mmol/L (-2 to +2); Bicarbonate 22.2 mmol/L (22-26); Blood Gas Specimen Type ART; FI02 25; Mode AC; O2 Delivery Device Adult Vent; PEEP 5; PO2 62 mmHG (75-100); RR 14; SITE R Radial; SO2 93 % (95-99); Total Carbon Dioxide 23 mmol/L; Vt 450; pCO2 32.7 mmHg (35-45); pH 7.44 (7.35-7.45)
[2022-05-26] MEDS: Heparin Injection (Vial) 5,000 UNIT/ML VIAL 5000 UNIT SC ×3 (05:08→20:57)
[2022-05-26] MEDS: TITRATION PARAMETER CHANGE 1 EACH IV (05:47)
[2022-05-26] MEDS: Potassium Chloride Oral Soln 20 MEQ/15 ML UDC 40 MEQ PO (06:35)
[2022-05-26] MEDS: Chlorhexidine 15 ML PO ×2 (08:16→20:37)
[2022-05-26] MEDS: Amiodarone 200 MG Tablet PO (08:23)
[2022-05-26] MEDS: Aspirin 81 MG TAB.CHEW PO (08:23)
[2022-05-26] MEDS: Metoprolol Tartrate 25 MG Tablet PO ×2 (08:23→20:57)
[2022-05-26] MEDS: TICAGRELOR 90 MG TABLET PO ×2 (08:23→20:57)
[2022-05-26] MEDS: levETIRAcetam IV 1,000 MG/100 ML BAG 400 MG IV ×2 (09:06→20:58)
--- NOTE | 2022-05-26 09:43 | PCM.PN.ID ---
Physical Exam Narrative On vent, EEG this AM, still low grade fever Const Constitutional Narrative: intubated Resp Effort and Inspection: mechanically ventilated Auscultation: diminished lung sounds Cardio regular rate and regular rhythm GI soft to palpation, non-tender and non-distended Extremity General Extremity: Negative for edema Skin no rashes or lesions noted ID ID: Route of nutrition/ use of supplements: [] Nutritional Intake: [] IV Site: [] Lay Catheter: [] Assessment & Plan Assessment/Plan (1) Fever: (2) Methamphetamine use: (3) Acute respiratory failure: QUALIFIERS: Respiratory failure complication: hypoxia Qualified Code(s): J96.01 - Acute respiratory failure with hypoxia PLAN: Sputum with strep and yeast. Mary Jane reports emesis when he became unresponsive. Reports anaphylaxis with keflex, thinks he has taken PCN without issue. She denies pt has any h/o IVDU. 05/25 stopped vanc/aztreonam, changed to meropenem for better bactericidal effect and anaerobic coverage. 1 of 2 bcx with MRSE per pcr, consistent with contaminant at this point. Ongoing low grade fevers may be neuro in origin. Will follow, d/w nursing, transfer planned. (4) Cardiopulmonary arrest with successful resuscitation: (5) History of CVA (cerebrovascular accident):
--- NOTE | 2022-05-26 10:00 | EKG12_ITS ---
Test Reason : AM EKG Blood Pressure : / mmHG Vent. Rate : 080 BPM Atrial Rate : 080 BPM P-R Int : 150 ms QRS Dur : 078 ms QT Int : 384 ms P-R-T Axes : 042 -02 -06 degrees QTc Int : 442 ms Normal sinus rhythm Normal ECG When compared with ECG of 25-MAY-2022 04:50, MANUAL COMPARISON REQUIRED, DATA IS UNCONFIRMED Confirmed by ELIAN HERNANDEZ, SHAWANDA ([id number]), features editor NEISHA BENTLEY ([id number]) on 05/26/2022 1:02:25 PM Referred By: Melissa Quiroga Confirmed By:TRACIE QUIROGA MD
--- NOTE | 2022-05-26 14:03 | STRESSREP ---
Stress Test Report Date: Procedure: Exercise tolerance test Indications: Consent: Per the patient Procedure: The patient exercised on a David protocol for minutes completing achieving a peak heart rate of bpm (% predicted maximal heart rate) with a peak blood pressure mmHg and a peak MET capacity of approximately MET's. The baseline ECG demonstrated. The peak exercise ECG demonstrated. There were no cardiac dysrhythmias pretest, during exercise, or recovery. The functional capacity was considered. The patient had no complaint of chest discomfort during exercise or recovery. The examination was discontinued secondary to. Impression: 1. Technically adequate (percent predicted maximal heart rate greater than 85%) exercise tolerance test 2. Peak exercise ECG with 3. There were no cardiac dysrhythmias during exercise or recovery This note was generated with [employer] dictation software. It may contain incorrect words, spelling, and punctuation that were not noted in checking the note before signing.
--- NOTE | 2022-05-26 14:12 | DCINST_ITS ---
Discharge Instructions Diet Discharge Diet: No restrictions Activity Discharge Activity: Return to Normal Activity Follow Up Care Please Follow Up With: Leanna Lopez MD When: 2 weeks Test Results: Test results from this visit will be discussed in further detail at your follow- up appointment, if applicable. Discharge Plan Admission Admit Date/Time: 05/23/22 11:59 Attending Provider: Emani Avila Primary Care Provider: Brandt Nguyễn Consulting Providers: David Jones ; Sanya Mcgee ; Austin Mata ; Ancelmo Flores ; Lucita Arriola NP ; Melissa Quiroga ; Julian Camp Discharge Orders/Prescriptions Prescriptions: No Action amiodarone 200 mg tablet 200 mg PO DAILY Rx Instructions: take one tablet (200mg) twice daily for 2 weeks, till March 30, 2022, then continue with one tablet (200mg) daily for 4 weeks. aspirin 81 mg tablet,delayed release (DR/EC) 81 mg PO BREAKFAST Qty: 90 3RF atorvastatin 80 mg tablet 80 mg PO DAILY Qty: 90 3RF losartan 50 mg tablet 50 mg PO DAILY Qty: 90 3RF metoprolol tartrate 25 mg tablet 25 mg PO BID Qty: 180 3RF Brilinta 90 mg tablet 90 mg PO BID Qty: 180 3RF gabapentin 600 mg Tablet 600 mg PO DAILY oxycodone-acetaminophen [Percocet] 5-325 mg tablet 1 tab PO Q6H PRN (Reason: pain) 3 Days Qty: 10 0RF ondansetron 4 mg tablet,disintegrating 4 mg PO Q8H PRN (Reason: nausea and vomiting) Qty: 10 0RF Referrals / Follow Up: Brandt Nguyễn MD [Primary Care Provider] -
--- NOTE | 2022-05-26 14:39 | PN.CARD_ITS ---
Subjective Subjective Patient still intubated, sedated. He has not had significant neurologic recovery so far. Objective Data Vital Signs: Vital Signs Temp Pulse Resp BP Pulse Ox O2 Del Method O2 Flow Rate 100.4 F H 74 14 116/75 97 Mechanical Ventilator 25 05/26/22 14:00 05/26/22 14:00 05/26/22 14:00 05/26/22 14:00 05/26/22 14:00 05/26/22 14:00 05/25/22 21:00 FiO2 30 05/26/22 14:00 Oxygen Flow Rate (L/min) 25 Oxygen Delivery Method Mechanical Ventilator Weight: 178 lb 2.136 oz Body Mass Index (BMI) 28.0 Intake & Output: Intake and Output for Last 24 Hours 05/24/22 05/25/22 05/26/22 23:59 23:59 23:59 Intake Total 1056.30 / 1056.90 1975.73 / 1994.13 2071.41 / 2071.41 Output Total 1160 / 1160 870 / 970 1075 / 1075 Balance -103.70 / -103.10 1105.73 / 1025.13 996.41 / 996.41 Lab / Micro Data Result Diagrams: 05/26/22 03:45 05/26/22 03:45 Labs: Laboratory Results - last 24 hr 05/25/22 16:40: MRSA (PCR) POSITIVE H 05/26/22 03:45: WBC 7.1, RBC 4.81, Hgb 15.4, Hct 42.8, MCV 89.0, MCH 32.0, MCHC 36.0 D, RDW Std Deviation 50.0 H, RDW Coeff of Jony 15.5 H, Plt Count 230, MPV 10.9, Immature Gran % (Auto) 0.400, Neut % (Auto) 65.8, Lymph % (Auto) 18.4 L, [place] % (Auto) 10.9 H, Eos % (Auto) 3.8, Baso % (Auto) 0.7, Absolute Neuts (auto) 4.7, Absolute Lymphs (auto) 1.31, Nucleated RBC % 0 05/26/22 03:45: Sodium 138, Potassium 3.3 L, Chloride 106, Carbon Dioxide 23.0, Anion Gap 9, BUN 8, Creatinine 0.79, Estim Creat Clear Calc 106.91, Est GFR (MDRD) Af Amer 134, Est GFR (MDRD) Non-Af 111, BUN/Creatinine Ratio 10.1, Glucose 98, Calcium 7.6 L, Phosphorus 2.7 Micro: Microbiology 05/24/22 08:10 Blood Culture (Wb) - Right Forearm Blood Culture - Preliminary No growth in 48 hours. 05/24/22 10:10 Urine Catheter - Lay Urine Culture - Final Culture exhibits no growth. 05/24/22 04:30 Blood Culture (Wb) - Anticubital Left Bacteria Detection (PCR) - Final Staphylococcus epidermidis mecA Resistance Marker 05/24/22 04:30 Blood Culture (Wb) - Anticubital Left Blood Culture - Preliminary Staphylococcus epidermidis 05/23/22 13:50 Sputum, Induced/Lukens Gram Stain - Final 05/23/22 13:50 Sputum, Induced/Lukens Respiratory Culture - Final Streptococcus agalactiae (B) Presumptive C albicans ABG Data ABG results: ABG 05/26/22 05/26/22 04:57 04:57 Specimen Type ART Cancelled Sample Site R Radial Cancelled pH 7.44 Cancelled Bicarbonate Actual 22.2 Cancelled Total CO2 23 Cancelled Base Excess -2 Cancelled O2 Saturation 93 L Cancelled O2 % 25 Cancelled ABG pCO2 32.7 L Cancelled ABG pO2 62 L Cancelled Jay Test N/A Cancelled Respiration Rate 14 Cancelled O2 Delivery Device Adult Vent Cancelled Liter Flow Cancelled Minute Volume Cancelled Vent Mode AC Cancelled Inspiratory Time Cancelled Expiratory Time Cancelled Tidal Volume 450 Cancelled Mean Airway Pressure Cancelled POC PEEP 5 Cancelled Peak Inspir Pressure Cancelled POC Pressure Suppt Cancelled Pressure Control Cancelled Pressure High Cancelled Pressure Low Cancelled Time High Cancelled Time Low Cancelled EPAP Cancelled IPAP Cancelled Blood Gas Comments Cancelled Crit Call To/Read Back Cancelled Blood Gas Notified Whom Cancelled Blood Gas Notified Time Cancelled Clinical Comments Cancelled Cardiology Labs/Tests 05/26/22 03:45: WBC 7.1, RBC 4.81, Hgb 15.4, Hct 42.8, MCV 89.0, MCH 32.0, MCHC 36.0 D, Plt Count 230, MPV 10.9, Immature Gran % (Auto) 0.400, Neut % (Auto) 65.8, Lymph % (Auto) 18.4 L, [place] % (Auto) 10.9 H, Eos % (Auto) 3.8, Baso % (Auto) 0.7, Absolute Neuts (auto) 4.7, Nucleated RBC % 0 05/26/22 03:45: Sodium 138, Potassium 3.3 L, Chloride 106, Carbon Dioxide 23.0, Anion Gap 9, BUN 8, Creatinine 0.79, Est GFR (MDRD) Af Amer 134, Est GFR (MDRD) Non-Af 111, BUN/Creatinine Ratio 10.1, Glucose 98, Calcium 7.6 L, Phosphorus 2.7 05/26/22 04:57: pH 7.44, Bicarbonate Actual 22.2, Base Excess -2, O2 Saturation 93 L, ABG pCO2 32.7 L, ABG pO2 62 L, Jay Test N/A 05/26/22 04:57: pH Cancelled, Bicarbonate Actual Cancelled, Base Excess Cancelled, O2 Saturation Cancelled, ABG pCO2 Cancelled, ABG pO2 Cancelled, Jay Test Cancelled Rhythm: EKG: ECHO: Stress Test: Cardiac Cath: PCI: CT Surgery: Holter monitor: EPS: PPM: CXR: Chest CT Scan: Radiography Diagnostic Testing: Radiology Impression Brain MRI 05/25/22 08:34 IMPRESSION: 1. Reidentification of mild to moderate volume loss and post ischemic gliotic signal of the right frontal and parietal lobes from old infarcts. 2. No demonstrated acute anoxic encephalopathy signal on the current study. 3. No acute infarct or intracranial hemorrhage is present on the current study. 4. Involutional changes of the brain, as described above. Electronically Signed: Álvaro Atkinson MD at 15:50 EDT , Physical Exam Const Constitutional Narrative: Intubated, sedated HEENT normocephalic Cardio regular rate and regular rhythm Assessment & Plan Assessment/Plan (1) Cardiopulmonary arrest with successful resuscitation: PLAN: Due to ventricular fibrillation. No further ventricular tachycardia or ventricular fibrillation. So far patient does not seem to be having significant neurological recovery. He appears to be in status epilepticus apparently and is awaiting transfer to [facility] so he can have continuous EEG monitoring. If he ends up having neurologic recovery then he would be a candidate for ICD or LifeVest. We will get EP input on this when appropriate. UDS was positive for methamphetamines which could have contributed to patient's V. fib. (2) History of coronary artery stent placement: PLAN: Continue current medications (3) Atherosclerosis of coronary artery without angina pectoris: PLAN: Patient does have residual disease in a diagonal branch that was also noted in February 2022. Patient was not having any symptoms from this. Recommend continued medical therapy for this. Charges/Coding Visit Charges Inpatient E&M: 67476 Subs Hosp L1
--- NOTE | 2022-05-26 15:29 | PCM.PN.HOSP ---
Subjective Subjective Concern for more seizure activity yesterday afternoon while patient was going to MRI. ICU was concerned about status. Initial EEG is reflective of him not being on any AEDs with repeat read pending. We have contacted [facility] [place] several times requesting read and are currently waiting for results. MRI does not show any significant changes consistent with anoxia. Patient remains intubated and sedated. Objective Data Objective Data Vital Signs: Vital Signs Temp Pulse Resp BP Pulse Ox O2 Del Method O2 Flow Rate 100.4 F H 75 15 119/73 96 Mechanical Ventilator 25 05/26/22 14:00 05/26/22 15:12 05/26/22 15:00 05/26/22 15:00 05/26/22 15:00 05/26/22 15:00 05/25/22 21:00 FiO2 30 05/26/22 15:00 Oxygen Flow Rate (L/min) 25 Oxygen Delivery Method Mechanical Ventilator Weight: 80.8 kg Body Mass Index (BMI) 28.0 Intake & Output: Intake and Output for Last 24 Hours 05/24/22 05/25/22 05/26/22 23:59 23:59 23:59 Intake Total 1056.30 / 1056.90 1975.73 / 1994.13 2071.41 / 2071.41 Output Total 1160 / 1160 870 / 970 1075 / 1075 Balance -103.70 / -103.10 1105.73 / 1025.13 996.41 / 996.41 Lab / Micro Data Result Diagrams: 05/26/22 03:45 05/26/22 03:45 Labs: Laboratory Results - last 24 hr 05/25/22 16:40: MRSA (PCR) POSITIVE H 05/26/22 03:45: WBC 7.1, RBC 4.81, Hgb 15.4, Hct 42.8, MCV 89.0, MCH 32.0, MCHC 36.0 D, RDW Std Deviation 50.0 H, RDW Coeff of Jony 15.5 H, Plt Count 230, MPV 10.9, Immature Gran % (Auto) 0.400, Neut % (Auto) 65.8, Lymph % (Auto) 18.4 L, [place] % (Auto) 10.9 H, Eos % (Auto) 3.8, Baso % (Auto) 0.7, Absolute Neuts (auto) 4.7, Absolute Lymphs (auto) 1.31, Nucleated RBC % 0 05/26/22 03:45: Sodium 138, Potassium 3.3 L, Chloride 106, Carbon Dioxide 23.0, Anion Gap 9, BUN 8, Creatinine 0.79, Estim Creat Clear Calc 106.91, Est GFR (MDRD) Af Amer 134, Est GFR (MDRD) Non-Af 111, BUN/Creatinine Ratio 10.1, Glucose 98, Calcium 7.6 L, Phosphorus 2.7 Micro: Microbiology 05/24/22 04:30 Blood Culture (Wb) - Anticubital Left Bacteria Detection (PCR) - Final Staphylococcus epidermidis mecA Resistance Marker 05/24/22 04:30 Blood Culture (Wb) - Anticubital Left Blood Culture - Preliminary Staphylococcus epidermidis 05/24/22 08:10 Blood Culture (Wb) - Right Forearm Blood Culture - Preliminary No growth in 48 hours. 05/24/22 10:10 Urine Catheter - Lay Urine Culture - Final Culture exhibits no growth. 05/23/22 13:50 Sputum, Induced/Lukens Gram Stain - Final 05/23/22 13:50 Sputum, Induced/Lukens Respiratory Culture - Final Streptococcus agalactiae (B) Presumptive C albicans ABG Data ABG results: ABG 05/26/22 05/26/22 04:57 04:57 Specimen Type ART Cancelled Sample Site R Radial Cancelled pH 7.44 Cancelled Bicarbonate Actual 22.2 Cancelled Total CO2 23 Cancelled Base Excess -2 Cancelled O2 Saturation 93 L Cancelled O2 % 25 Cancelled ABG pCO2 32.7 L Cancelled ABG pO2 62 L Cancelled Jay Test N/A Cancelled Respiration Rate 14 Cancelled O2 Delivery Device Adult Vent Cancelled Liter Flow Cancelled Minute Volume Cancelled Vent Mode AC Cancelled Inspiratory Time Cancelled Expiratory Time Cancelled Tidal Volume 450 Cancelled Mean Airway Pressure Cancelled POC PEEP 5 Cancelled Peak Inspir Pressure Cancelled POC Pressure Suppt Cancelled Pressure Control Cancelled Pressure High Cancelled Pressure Low Cancelled Time High Cancelled Time Low Cancelled EPAP Cancelled IPAP Cancelled Blood Gas Comments Cancelled Crit Call To/Read Back Cancelled Blood Gas Notified Whom Cancelled Blood Gas Notified Time Cancelled Clinical Comments Cancelled Radiography Diagnostic Testing: Radiology Impression Brain MRI 05/25/22 08:34 IMPRESSION: 1. Reidentification of mild to moderate volume loss and post ischemic gliotic signal of the right frontal and parietal lobes from old infarcts. 2. No demonstrated acute anoxic encephalopathy signal on the current study. 3. No acute infarct or intracranial hemorrhage is present on the current study. 4. Involutional changes of the brain, as described above. Electronically Signed: Álvaro Atkinson MD at 15:50 EDT Reading Location ID and State: [facility] / [place] , Service support , Physical Exam Const average body habitus and well nourished Constitutional Narrative: Middle-aged white male, appears older than stated age, lying in bed intubated and sedated with a ET tube in place, is intermittently responding to noxious stimuli, no meaningful interaction with sedation vacations HEENT normocephalic, head/scalp atraumatic and moist oral mucous membranes HEENT Narrative: ET tube in place Eyes conjunctivae normal Eyes Narrative: Pupils remain constricted with minimal reactivity, no scleral icterus, no abnormal eye movements at this time Resp no retractions and no use of accessory muscles Resp Narrative: Diffusely diminished Auscultation: Negative for crackles, rales, rhonchi or wheezes Cardio regular rate, regular rhythm, S1 normal heart sound, S2 normal heart sound, no murmurs, no rub, no gallops, no clicks and no JVD GI normal to inspection, nondistended, normoactive bowel sounds, soft to palpation and non-tender; Negative for hepatosplenomegaly Extremity no clubbing, cyanosis or edema Extremity Narrative: 2+ pedal pulses Neuro Neuro Narrative: Response to noxious stimulus intermittently, not following any commands with sedation vacations Psych Psych Narrative: Unable to evaluate Assessment & Plan Assessment/Plan (1) Cardiopulmonary arrest with successful resuscitation: (2) Ventricular fibrillation: (3) SANJEEV (acute kidney injury): (4) Leukocytosis: (5) Acute respiratory failure: QUALIFIERS: Respiratory failure complication: hypoxia Qualified Code(s): J96.01 - Acute respiratory failure with hypoxia (6) Metabolic acidosis: (7) Methamphetamine use: (8) Fever: (9) Transaminitis: (10) Hypokalemia: (11) Aspiration pneumonia: PLAN: Plan Acute hypoxic respiratory failure secondary to cardiopulmonary arrest/group B strep pneumonia -Maintain mechanical ventilation -Propofol for sedation -As needed aerosols -Wean vent as able -Currently on minimal vent settings however mental status is precluding extubation -Continue antibiotics day 3 -She has not yet shown any signs of meaningful recovery -Pulmonary medicine following V. fib/PEA arrest -Downtime is unknown -Continue intubation -Continue to assess for neurological recovery -As far response is minimal -Continue home amiodarone therapy -Cardiac catheterization without any significant acute blockages -No recurrent arrhythmias -No neurological recovery will need ICD placement prior to discharge -EP to evaluate patient on -Drug screen was positive for methamphetamines which could have contributed to ventricular arrhythmias -Obtain repeat EEG -Check MRI -Audiology following-appreciate input Seizure -Noted on EEG from 05/24/2022 -Keppra 1000 mg p.o. twice daily after this EEG was performed -Discussion with nephrology they recommended to repeat EEG in 24 hours if no improvement in mental status -EEG repeat read is pending with repeat EEG done again today -MRI shows chronic findings but no acute findings consistent with anoxia Hypokalemia -40 mill equivalents of p.o. potassium given this morning -Repeat BMP in a.m. Group B strep pneumonia -White counts normal -Cultures are pending -Levaquin discontinued secondary to seizure activity on EEG -Patient with anaphylaxis to Keflex therefore we will use for spores or penicillins -Continue meropenem per ID--> antibiotic day 3 -Could be neurologic with CPA -Continue to monitor -ID following-appreciate input Transaminitis -Anticipate related to shock liver with CPA -Slowly improving CAD with recent NSTEMI -Continue Brilinta -Continue aspirin -Continue metoprolol -Continue losartan -Continue atorvastatin Hypertension/hyperlipidemia Continue above medications -No reason to recheck lipids of these were done in February History of stroke -? Has had carotid endarterectomy -Continue aspirin and Brilinta -Monitor neurological function -Functional activity is somewhat limited related to his previous stroke however not severely History of TBI -No current issues Carotid artery stenosis -Chronic -Outpatient management -Continue aspirin and Plavix Recent fall with known left bimalleolar fracture, left wrist deformity -This occurred earlier this summer -Monitor clinically -May need PT and OT once able to be extubated Alcohol abuse -Per girlfriend alcohol intake has declined significantly since his discharge after his STEMI -Not currently drinking drinking daily but did have 5 shots on his birthday 05/17/2023 -Monitor for any signs of detox -We will dose with thiamine and folate while intubated -Currently no signs of withdrawal Polysubstance abuse -Patient uses marijuana and methamphetamines intermittently -Talk screen is positive for methamphetamines -Recommend cessation Tobacco abuse -Smokes 1 pack of cigarettes a day -Once extubated will offer nicotine replacement therapy -Recommend cessation DVT/ GI prophylaxis -Heparin 3 times daily -SCDs -Protonix 40 mg IV twice daily CODE STATUS Full code Charges/Coding Visit Charges Inpatient E&M: 82894 Subs Hosp L2
--- NOTE | 2022-05-26 15:39 | PN.CC_ITS ---
Assessment & Plan Assessment/Plan (1) Cardiopulmonary arrest with successful resuscitation: (2) Ventricular fibrillation: (3) SANJEEV (acute kidney injury): (4) Leukocytosis: (5) Acute respiratory failure: QUALIFIERS: Respiratory failure complication: hypoxia Qualified Code(s): J96.01 - Acute respiratory failure with hypoxia (6) Metabolic acidosis: (7) Methamphetamine use: (8) Fever: (9) Transaminitis: (10) Hypokalemia: (11) Aspiration pneumonia: PLAN: Plan Acute hypoxic respiratory failure secondary to cardiopulmonary arrest/group B strep pneumonia -Maintain mechanical ventilation, unable to wean due to high benzodiazepine requirement to control seizure -Continue antibiotics today 7 or 8 -check a procalcitonin -No new recommendations from ID today on sputum colonized with yeast and mixed princess, quantity of sputum is decreasing. -Albuterol PRN has not been needed -metabolic acidosis may be seizure-related, good respiratory compensation V. fib/PEA arrest -Cardiology input appreciated -Cardiac catheterization without any significant acute blockages (diagonal lesion) -No recurrent arrhythmias, continue amiodarone -ICD or LifeVest are on hold until patient shows signs of significant neurologic improvement Status epilepticus, Post arrest (clinical) metabolic encephalopathy and prior CVA, History of TBI -Noted on EEG from 05/24/2022, awaiting repeats (continuous EEG not available here, and reads take 24-48h) -Keppra 1000 mg p.o. twice daily and propofol 40 mcg/kg/min IV drip, remaining intubated for this reason -treatment of nonconvusive status epilepticus is not standardized due to not enough studies; this patient is likely in this group. He has had eyelid, mouth twitching frequently during my observation, including while on Keppra and propofol. -await readings on EEG 05/25 and 05/26 -MRI shows chronic findings but no acute findings -minimally responsive to noxious stimuli at day 4; poor prognosis of recovery to independent functioning, ongoing seizures may worsen prognosis further -awaiting transfer to for higher level of neuro care - neuron specific enolase (a biomarker of ongoing brain injury in setting of status epilepticus) is not available here. -fiance updated by me today with course, plan and prognosis Hypokalemia -supplementing per protocol Group B strep pneumonia -White counts normal, secretions diminishing in quantity and purulence, would be extubatable if not for status epilepticus -Levaquin discontinued due to concern for reducing sz threshhold -meropenem per ID for 7 day course -ID following-appreciate input Transaminitis, post arrest -improving, continue monitoring QOD and avoid hepatotoxins CAD, Hypertension/hyperlipidemia with recent NSTEMI and stent -Continue Brilinta, aspirin, metoprolol, losartan, atorvastatin -residual disease in diagonal in 03/18. Carotid artery stenosis -Chronic -Outpatient management -Continue aspirin and Plavix Recent fall with known left bimalleolar fracture, left wrist deformity -This occurred earlier this summer -Monitor clinically -May need PT and OT once able to be extubated Alcohol abuse -thiamine and folate -5 shots on birthday 05[birth year]22 Polysubstance abuse -Patient active use of and UDS + this admission for marijuana and methamph etamines -1 PPD chronic smoker ICU prophylaxis -Heparin q8 -SCDs -Protonix 40 mg IV twice daily CODE STATUS -Full code -discussion today with fijovani, will need to further explore patient's prior expressed wishes (if any) and next steps with NOK once prognosis is absorbed by family. Subjective Subjective Patient is unresponsive, with no withdrawal to noxious stimuli, no tracking, sluggish oculocephalic reflexes, cough, no response to voice or gentle touch. Notes of colleagues reviewed. Appreciate input of ID, cardiology, hospitalist. Patient is awaiting transfer to [facility] for continuous EEG. Prognosis discussed with shana? today. Day 4 postarrest, with no improvement in mental status or responsiveness. Objective Data Objective Data Vital Signs: Vital Signs Temp Pulse Resp BP Pulse Ox O2 Del Method O2 Flow Rate 38.0 C H 79 16 119/73 97 Mechanical Ventilator 05/26/22 14:00 05/26/22 15:31 05/26/22 15:31 05/26/22 15:00 05/26/22 15:31 05/26/22 15:00 05/25/22 21:00 FiO2 30 05/26/22 15:31 Oxygen Flow Rate (L/min) 25 Oxygen Delivery Method Mechanical Ventilator Weight: 80.8 kg Body Mass Index (BMI) 28.0 Intake & Output: Intake and Output for Last 24 Hours 05/24/22 05/25/22 05/26/22 23:59 23:59 23:59 Intake Total 1056.30 / 1056.90 / 2070.41 / 2070.41 Output Total 1160 / 1160 870 / 970 1075 / 1075 Balance -103.70 / -103.10 1105.73 / 1025.13 996.41 / 996.41 Lab / Micro Data Result Diagrams: 05/26/22 03:45 05/26/22 03:45 Labs: Laboratory Results - last 24 hr 05/25/22 16:40: MRSA (PCR) POSITIVE H 05/26/22 03:45: WBC 7.1, RBC 4.81, Hgb 15.4, Hct 42.8, MCV 89.0, MCH 32.0, MCHC 36.0 D, RDW Std Deviation 50.0 H, RDW Coeff of Jony 15.5 H, Plt Count 230, MPV 10.9, Immature Gran % (Auto) 0.400, Neut % (Auto) 65.8, Lymph % (Auto) 18.4 L, Mckenzie % (Auto) 10.9 H, Eos % (Auto) 3.8, Baso % (Auto) 0.7, Absolute Neuts (auto) 4.7, Absolute Lymphs (auto) 1.31, Nucleated RBC % 0 05/26/22 03:45: Sodium 138, Potassium 3.3 L, Chloride 106, Carbon Dioxide 23.0, Anion Gap 9, BUN 8, Creatinine 0.79, Estim Creat Clear Calc 106.91, Est GFR (MDRD) Af Amer 134, Est GFR (MDRD) Non-Af 111, BUN/Creatinine Ratio 10.1, Glucose 98, Calcium 7.6 L, Phosphorus 2.7 Micro: Microbiology 05/24/22 04:30 Blood Culture (Wb) - Anticubital Left Bacteria Detection (PCR) - Final Staphylococcus epidermidis mecA Resistance Marker 05/24/22 04:30 Blood Culture (Wb) - Anticubital Left Blood Culture - Preliminary Staphylococcus epidermidis 05/24/22 08:10 Blood Culture (Wb) - Right Forearm Blood Culture - Preliminary No growth in 48 hours. 05/24/22 10:10 Urine Catheter - Lay Urine Culture - Final Culture exhibits no growth. 05/23/22 13:50 Sputum, Induced/Lukens Gram Stain - Final 05/23/22 13:50 Sputum, Induced/Lukens Respiratory Culture - Final Streptococcus agalactiae (B) Presumptive C albicans ABG Data ABG results: ABG 05/26/22 05/26/22 04:57 04:57 Specimen Type ART Cancelled Sample Site R Radial Cancelled pH 7.44 Cancelled Bicarbonate Actual 22.2 Cancelled Total CO2 23 Cancelled Base Excess -2 Cancelled O2 Saturation 93 L Cancelled O2 % 25 Cancelled ABG pCO2 32.7 L Cancelled ABG pO2 62 L Cancelled Jay Test N/A Cancelled Respiration Rate 14 Cancelled O2 Delivery Device Adult Vent Cancelled Liter Flow Cancelled Minute Volume Cancelled Vent Mode AC Cancelled Inspiratory Time Cancelled Expiratory Time Cancelled Tidal Volume 450 Cancelled Mean Airway Pressure Cancelled POC PEEP 5 Cancelled Peak Inspir Pressure Cancelled POC Pressure Suppt Cancelled Pressure Control Cancelled Pressure High Cancelled Pressure Low Cancelled Time High Cancelled Time Low Cancelled EPAP Cancelled IPAP Cancelled Blood Gas Comments Cancelled Crit Call To/Read Back Cancelled Blood Gas Notified Whom Cancelled Blood Gas Notified Time Cancelled Clinical Comments Cancelled Interpretation: Adequate oxygenation and acid-base status on mechanical ventilation at current settings. Radiography Diagnostic Testing: Radiology Impression Brain MRI 05/25/22 08:34 IMPRESSION: 1. Reidentification of mild to moderate volume loss and post ischemic gliotic signal of the right frontal and parietal lobes from old infarcts. 2. No demonstrated acute anoxic encephalopathy signal on the current study. 3. No acute infarct or intracranial hemorrhage is present on the current study. 4. Involutional changes of the brain, as described above. Electronically Signed: Álvaro Atkinson MD at 15:50 EDT Reading Location ID and State: [facility] / [place] , Service support , Rhythm Strip Rhythm Strip: Sinus Rhythm Physical Exam Narrative Well-developed well-nourished, nonresponsive to noxious stimuli Vital signs as above, no note of any Darren Breuerinstability of vital signs at this time. HEENT: Pupils 3 mm and reactive, equal bilaterally, sluggish oculocephalics, sclera anicteric, noninjected. I did not test cold calorics. Positive cough to suction, endotracheal tube is 26 cm at the upper teeth. Decreased secretions with culture showing yeast and mixed princess. Neck is supple Chest has coarse breath sounds bilaterally Heart normal S1-S2, sinus rhythm, no ectopy Abdomen is soft nontender, tolerating tube feeds. Extremities have no clubbing cyanosis or edema, no withdrawal and no movement to hand pinch, otherwise unchanged Neuro as above. No response to commands. Exam is on 40 mcg of propofol due to the desire to avoid worsening seizures at lower doses. Skin warm and dry Awaiting results of EEG 928 and 929. I called transfer center, he was accepted by Dr. Huffman, awaiting a bed.
[2022-05-26 18:12] LABS: Procalcitonin 0.17 ng/mL (0.00-0.09)
[2022-05-26] MEDS: Acetaminophen 650 MG/20 ML UDC GT (20:56)
[2022-05-26] MEDS: Atorvastatin Calcium 80 MG Tablet PO (20:57)
[2022-05-27] VITALS (32 sets, daily range): BP systolic 105–173; BP diastolic 70–95; PULSE 72–101; RESP 12–23; TEMP 37.4–38.3; O2SAT 93–100
[2022-05-27] MEDS: Propofol 10MG/Ml 1,000 MG/100 ML Bottle 19.4 MG CONT INF (02:49)
[2022-05-27] MEDS: CHLORHEXIDINE GLUC 2% CLOTH 1 EACH TOWELETTE TOPICAL (03:38)
[2022-05-27] MEDS: Vital AF 1.2 Cal Liquid 1,000 ML 45 ML GT (03:43)
[2022-05-27 04:07] LABS: Hematocrit 43.2 % (40-54); Mean Corp Hgb Conc 32.4 g/dL (32-36); Mean Corpuscular Hgb 28.9 pg (27.0-32.0); Mean Corpuscular Volume 89.1 fL (80-94); Mean Platelet Vol. 9.3 fl (6.2-12.0); Platelet Count 242 K/mm3 (150-450); RBC Distribution Width CV 15.2 % (11.6-14.6); RBC Distribution Width SD 49.5 fl (35.1-43.9); Red Blood Count 4.85 M/mm3 (4.6-6.2); White Blood Count 6.4 K/mm3 (4.4-11.0)
[2022-05-27 04:16] LABS: Anion Gap 7 (5-15); BUN 9 mg/dL (7-18); BUN/Creat Ratio 12.7 RATIO (10-20); Chloride 108 mmol/L (98-107); Creatinine, Serum 0.71 mg/dL (0.70-1.30); EST Glomerular Filtration Rate 127 mL/min (>60); Est Glom Filt Rate - Afr Amer 153 mL/min (>60); Estimated Creatinine Clearance 118.96 ml/min; Glucose 106 mg/dL (74-106); Potassium 3.4 mmol/L (3.5-5.1); Sodium Level 142 mmol/L (136-145)
[2022-05-27] MEDS: Heparin Injection (Vial) 5,000 UNIT/ML VIAL 5000 UNIT SC ×3 (05:46→21:21)
[2022-05-27] MEDS: TITRATION PARAMETER CHANGE 1 EACH IV (05:46)
[2022-05-27] MEDS: Propofol 10MG/Ml 1,000 MG/100 ML Bottle 19.6 MG CONT INF ×3 (06:00→17:00)
--- NOTE | 2022-05-27 08:02 | PN.HOSP_ITS ---
Subjective Subjective Follow-up on acute hypoxic respiratory failure/V. fib/PEA arrest: Patient was seen and examined. Remains intubated, sedated, seen with occasionally yawn. Awaiting transfer to Objective Data Objective Data Vital Signs: Vital Signs Temp Pulse Resp BP Pulse Ox O2 Del Method O2 Flow Rate 99.8 F H 78 20 H 144/89 H 94 Mechanical Ventilator 05/27/22 04:00 05/27/22 07:00 05/27/22 07:00 05/27/22 07:00 05/27/22 07:00 05/27/22 07:00 05/25/22 21:00 FiO2 05/27/22 07:00 Oxygen Flow Rate (L/min) 25 Oxygen Delivery Method Mechanical Ventilator Weight: 81.7 kg Body Mass Index (BMI) 28.0 Intake & Output: Intake and Output for Last 24 Hours 05/25/22 05/26/22 05/27/22 23:59 23:59 23:59 Intake Total 1975.73 / 1994.13 3670.05 / 3939.45 1193.55 / 1193.55 Output Total 870 / 970 1700 / 1800 250 / 250 Balance 1105.73 / 1025.13 1970.05 / 2139.45 943.55 / 943.55 Lab / Micro Data Result Diagrams: 05/27/22 03:45 05/27/22 03:45 Labs: Laboratory Results - last 24 hr 05/26/22 17:25: Procalcitonin 0.17 H 05/27/22 03:45: WBC 6.4, RBC 4.85, Hgb 14.0, Hct 43.2, MCV 89.1, MCH 28.9, MCHC 32.4 D, RDW Std Deviation 49.5 H, RDW Coeff of Jony 15.2 H, Plt Count 242, MPV 9.3 05/27/22 03:45: Sodium 142, Potassium 3.4 L, Chloride 108 H, Carbon Dioxide 27.0, Anion Gap 7, BUN 9, Creatinine 0.71, Estim Creat Clear Calc 118.96, Est GFR (MDRD) Af Amer 153, Est GFR (MDRD) Non-Af 127, BUN/Creatinine Ratio 12.7, Glucose 106, Calcium 8.0 L Micro: Microbiology 05/24/22 04:30 Blood Culture (Wb) - Anticubital Left Bacteria Detection (PCR) - Final Staphylococcus epidermidis mecA Resistance Marker 05/24/22 04:30 Blood Culture (Wb) - Anticubital Left Blood Culture - Final Staphylococcus epidermidis 05/24/22 08:10 Blood Culture (Wb) - Right Forearm Blood Culture - Preliminary No growth in 48 hours. 05/24/22 10:10 Urine Catheter - Lay Urine Culture - Final Culture exhibits no growth. 05/23/22 13:50 Sputum, Induced/Lukens Gram Stain - Final 05/23/22 13:50 Sputum, Induced/Lukens Respiratory Culture - Final Streptococcus agalactiae (B) Presumptive C albicans Rhythm Strip Rhythm Strip: Sinus Rhythm Physical Exam Narrative Physical exam: General: Sedated, intubated, on mechanical ventilator, OG tube for tube feeds HEENT: Atraumatic Oral: Moist Mucosa Neck: Supple Lungs: Diminished to auscultation Cardiovascular: HS I+II, regular, no murmurs Abdomen: Bowel Sounds Present, Soft, Non Tender Extremities: No edema, right upper extremity appears slightly swollen probably from filtration Skin: No rashes, No breakdown Neurological: Grossly intact Psych/Mental Status: Appropriate Assessment & Plan Assessment/Plan (1) Acute respiratory failure with hypoxemia: PLAN: Plan 1. Acute hypoxic respiratory failure secondary to cardiopulmonary arrest/group B strep pneumonia Remains intubated, continue on propofol for sedation Continue on IV meropenem 2. V. fib/PEA arrest, s/p intubation, s/p cardiac catheterization No recurrent arrhythmias Continue on amiodarone therapy 3. Status epilepticus, EEG on 05/24/22 showed brief focal seizures admitting her right frontotemporal regions, spreading to the right hemisphere left frontal region Patient is on Keppra and propofol Awaiting transfer to [facility] 4. Hypokalemia, replace, recheck in a.m. 5.Transaminitis, improving 6. CAD/Recent NSTEMI, versus postcardiac cath on 05/23/22 that showed minimal disease Continue on Brilinta, aspirin, metoprolol, losartan, atorvastatin 7. Hypertension, continue metoprolol 8. Hyperlipidemia, continue statin 9. Alcohol abuse/polysubstance abuse/tobacco abuse 10. DVT prophylaxis?heparin subcu Charges/Coding Visit Charges Inpatient E&M: 21534 Subs Hosp L3
[2022-05-27] MEDS: Aspirin 81 MG TAB.CHEW PO (08:25)
[2022-05-27] MEDS: Potassium Chloride 10mEq/100mL 10 MEQ/100 ML IV.SOLN. 100 MEQ IV BOLUS ×4 (08:25→12:26)
[2022-05-27] MEDS: Chlorhexidine 15 ML PO ×2 (09:59→21:22)
--- NOTE | 2022-05-27 09:59 | PN.CC_ITS ---
Assessment & Plan Assessment/Plan (1) Cardiopulmonary arrest with successful resuscitation: (2) Ventricular fibrillation: (3) SANJEEV (acute kidney injury): (4) Leukocytosis: (5) Acute respiratory failure: QUALIFIERS: Respiratory failure complication: hypoxia Qualified Code(s): J96.01 - Acute respiratory failure with hypoxia (6) Metabolic acidosis: (7) Methamphetamine use: (8) Fever: (9) Transaminitis: (10) Hypokalemia: (11) Aspiration pneumonia: PLAN: Plan Acute hypoxic respiratory failure secondary to cardiopulmonary arrest/group B strep pneumonia -Maintain mechanical ventilation settings -unable to wean due to high benzodiazepine requirement to control seizure, decreased cough strength today -Continue antibiotics today 7 or 8 -Maintain endotracheal tube at 24 to 26 cm at the upper teeth pending chest x- ray -procalcitonin was mildly elevated, but not likely indicative of acute infection. -No new recommendations from ID today, sputum is colonized with yeast and minimal volume -Check chest x-ray and ABG today -Albuterol PRN has not been needed V. fib/PEA arrest -Cardiology input appreciated -Prior cardiac catheterization without any significant acute blockages (diagonal lesion) -No recurrent arrhythmias, continue amiodarone -ICD or LifeVest are on hold until patient shows signs of significant neurologic improvement Status epilepticus, Post arrest (clinical) metabolic encephalopathy and prior CVA, History of TBI -Noted on EEG from 05/24/2022, awaiting repeats (continuous EEG not available here, and reads take 24-48h) -Empiric Keppra 1000 mg p.o. twice daily and propofol 40 mcg/kg/min IV drip, remaining intubated for this reason -treatment of nonconvusive status epilepticus is not standardized due to not enough studies; this patient is likely in this group. His eyelid, mouth twitching was not evident today on exam 05/27 while on Keppra and propofol. -await EEG readings on EEG 05/25 and 05/26 -MRI shows chronic findings but no acute findings -Not responsive to noxious stimuli at day 4; pupils changed to pinpoint and 1 mm, gag has weakened, febrile, -poor prognosis of recovery to independent functioning -awaiting transfer to for higher level of neuro care - neuron specific enolase (a biomarker of ongoing brain injury in setting of status epilepticus) is not available here. -family meeting today for goals of care discussion with course, plan and prognosis with daughter/POA and fianc? available at 11:15 AM Hypokalemia -supplementing per protocol Group B strep pneumonia, sputum fungal colonization -White counts normal, secretions are resolved and nonpurulent -meropenem per ID for 7 day course, procalcitonin mildly elevated but is normalizing at 0.18 -ID following-appreciate input Transaminitis, post arrest -improving, check CMP today continue monitoring QOD and avoid hepatotoxins CAD, Hypertension/hyperlipidemia with recent NSTEMI and stent -EKG is stable, no new arrhythmias or ischemia. - Continue Brilinta, aspirin, metoprolol, losartan, atorvastatin -residual disease in diagonal on cath in 03/18. Carotid artery stenosis -Chronic -Outpatient management -Continue aspirin and Plavix Recent fall with known left bimalleolar fracture, left wrist deformity -This occurred earlier this summer -Monitor clinically -May need PT and OT once able to be extubated Alcohol abuse, detoxed. -thiamine and folate -Last took 5 EtOH shots on birthday [birth year]along with meth and marijuana Polysubstance abuse -Patient active use of and UDS + this admission for marijuana and methamphetamines -1 PPD chronic smoker ICU prophylaxis -Heparin q8 5000u -SCDs 05/27 -Protonix 40 mg IV daily Chlorhexidine mouthwash and bath per ICU protocol, active. CODE STATUS -Full code -discussion today with fiance and daughter/POA at 11:15 explore patient's prior expressed wishes (if any) and GOC There is also a (possible) son who demonstrated agitation at his last visit to hospital. Critical care time spent with patient at bedside, review of documentation, lab results, radiology and other test results, discussion with colleagues and ancillary staff, clinical management of patient, and updating family if applicable, was 35 minutes. This time does not include family meeting or procedures, if performed. Critical care codes for today: 78726. Subjective Subjective Obtunded, unresponsive, no change from yesterday 05/26 except for pupils now 1mm equal and reactive. Family meeting to be planned for today to update his POA/daughter and other immediate family members regarding his status and prognosis, and explore goals of care in light of that. Brief assessment off propofol is planned. Objective Data Objective Data Vital Signs: Vital Signs Temp Pulse Resp BP Pulse Ox O2 Del Method O2 Flow Rate 37.4 C H 72 16 114/70 100 Mechanical Ventilator 25 05/27/22 08:00 05/27/22 08:00 05/27/22 08:00 05/27/22 08:00 05/27/22 08:00 05/27/22 08:00 05/25/22 21:00 FiO2 25 05/27/22 08:00 On May 27, the ventilator has settings of tidal volume 450 cc, rate 14, FiO2 25%, 5 of PEEP. The peak inspiratory pressure is 20, minute ventilation is 6.5. Endotracheal tube is 7.5 mm ID, at 24 cm at the upper teeth. Oxygen Flow Rate (L/min) 25 Oxygen Delivery Method Mechanical Ventilator Weight: 81.7 kg Body Mass Index (BMI) 28.0 Intake & Output: Intake and Output for Last 24 Hours 05/25/22 05/26/22 05/27/22 23:59 23:59 23:59 Intake Total 1975.73 / 1994.13 3670.05 / 3939.45 1497.25 / 1497.25 Output Total 870 / 970 1700 / 1800 250 / 250 Balance 1105.73 / 1025.13 1970.05 / 2139.45 1247.25 / 1247.25 Tube feeds are currently running and well-tolerated at 60 cc/h. No bowel movement yet, lactulose 20 cc to be given via NG tube today May 27. Lab / Micro Data Attestation: I reviewed the patient's lab results. Result Diagrams: 05/27/22 03:45 05/27/22 03:45 Labs: Laboratory Results - last 24 hr 05/26/22 17:25: Procalcitonin 0.17 H (greater than 0.5 is suggestive of acute infection, less than that is equivocal) 05/27/22 03:45: WBC 6.4, RBC 4.85, Hgb 14.0, Hct 43.2, MCV 89.1, MCH 28.9, MCHC 32.4 D, RDW Std Deviation 49.5 H, RDW Coeff of Jony 15.2 H, Plt Count 242, MPV 9.3 05/27/22 03:45: Sodium 142, Potassium 3.4 L, Chloride 108 H, Carbon Dioxide 27.0, Anion Gap 7, BUN 9, Creatinine 0.71, Estim Creat Clear Calc 118.96, Est GF R (MDRD) Af Amer 153, Est GFR (MDRD) Non-Af 127, BUN/Creatinine Ratio 12.7, Glucose 106, Calcium 8.0 L Micro: Microbiology 05/24/22 04:30 Blood Culture (Wb) - Anticubital Left Bacteria Detection (PCR) - Final Staphylococcus epidermidis mecA Resistance Marker 05/24/22 04:30 Blood Culture (Wb) - Anticubital Left Blood Culture - Final Staphylococcus epidermidis 05/24/22 08:10 Blood Culture (Wb) - Right Forearm Blood Culture - Preliminary No growth in 48 hours. 05/24/22 10:10 Urine Catheter - Lay Urine Culture - Final Culture exhibits no growth. 05/23/22 13:50 Sputum, Induced/Lukens Gram Stain - Final 05/23/22 13:50 Sputum, Induced/Lukens Respiratory Culture - Final Streptococcus agalactiae (B) Presumptive C albicans Radiography Diagnostic Testing: ordered. Rhythm Strip Rhythm Strip: Sinus Rhythm EKG EKG 05/26 personally reviewed, with no acute ischemic changes NSR @80, read as normal ECG: Attestation: I personally reviewed and interpreted this EKG as follows: (Q waves in II, III and aVF may indicate remote inferior infarction. No significant change compared to 05/24.) Prior EKG tracings: available for review Physical Exam Narrative Well-developed well-nourished, nonresponsive to noxious stimuli Vital signs as above, no note of any Darren Breuerinstability of vital signs at this time. HEENT: Pupils 1 mm (changed) and reactive, equal bilaterally, absent (changed) oculocephalics, sclera anicteric, noninjected. I did not test cold calorics. Weak cough to suction, endotracheal tube is 24 cm at the upper teeth. No secretions with suctioning. Neck is supple Chest has coarse breath sounds bilaterally, no wheezes, rales or ronchi, symmetrical rise with vent. Synchronizing completely. Heart normal S1-S2, sinus rhythm, no ectopy Abdomen is soft nontender, tolerating tube feeds. Extremities have no clubbing cyanosis or edema, no withdrawal and no movement to hand pinch, otherwise unchanged Neuro as above. No response to commands. Exam is on 40 mcg of propofol due to the desire to avoid worsening seizures at lower doses. Skin warm and dry Exam 05/27 done while on propofol 40 mcg/kg/min On 05/27 at 10:24AM, Awaiting results of EEG 05/25 and 05/26. I called transfer center 05/26, he was accepted by Dr. Huffman, awaiting a bed.
[2022-05-27] MEDS: TICAGRELOR 90 MG TABLET PO ×2 (10:01→21:21)
[2022-05-27] MEDS: Metoprolol Tartrate 25 MG Tablet PO ×2 (10:01→21:22)
[2022-05-27] MEDS: Amiodarone 200 MG Tablet PO (10:01)
[2022-05-27] MEDS: levETIRAcetam IV 1,000 MG/100 ML BAG 400 MG IV ×2 (10:04→21:20)
--- NOTE | 2022-05-27 10:04 | CASEMGMT ---
Social Work SW attended ICU rounds. Physician requesting family meeting to discuss goals of care. During pt's hospitalization in February 2022, pt completed Health Care POA. Pt named the following: Primary Agent: Demetra Garcia, Daughter [phone] First Alternate: Luly Andujar, Sister [phone] Second Alternate: Arianne Huizar, Significant Other [phone] SW placed phone call to Demetra Garcia and left message requesting return call. SW will continue to follow up in attempts to set up family meeting. INA Jean Baptiste
--- NOTE | 2022-05-27 10:17 | RAD_ITS ---
STUDY: X-RAY CHEST REASON FOR EXAM: Male, 47 years old. Acute respiratory failure with hypoxemia TECHNIQUE: Single AP portable view of the chest. COMPARISON: Comparison is made with prior study dated 05/24/2022. FINDINGS: An endotracheal tube is in situ with the tip at 3.7 cm proximal to the dami. An orogastric tube is seen with the tip in the body of the stomach. EKG electrodes are seen. Small left pleural effusion with left basilar atelectasis and/or infiltrate. There is improved aeration of the right lung base. There is no demonstrated pleural abnormality. Normal size heart. Normal mediastinum and baldev. Normal visualized pulmonary arteries. Normal visualized aortic arch and descending thoracic aorta. There are diffuse degenerative changes of the visualized thoracic spine. Normal visualized ribs, clavicles, and shoulders. There is no demonstrated abnormality of the visualized soft tissue structures of the upper abdomen. RAD/Chest 1 View (Portable) IMPRESSION: Persistent pleural-parenchymal changes at the left lung base. Improved aeration of the right lung base. Electronically Signed: Case Meyer MD at 10:36 EDT ,
--- NOTE | 2022-05-27 10:26 | CASEMGMT ---
Social Work Pts significant other Arianne Huizar present. SW met with Arianne in the family waiting area and informed that physician is requesting a family meeting. BRIAN asked if Arianne would be talking to pt dgt/HCPJORGE LUIS Mccrary. Arianne called Demetra who states she will be at the hospital in time for an 11:15 meeting. Physician updated and agreeable to 1115 meeting with Demetra and Arianne. Nursing updated. INA Jean Baptiste
[2022-05-27 10:41] LABS: Allen Test Positive; Base Excess 1 mmol/L (-2 to +2); Bicarbonate 25.2 mmol/L (22-26); Blood Gas Specimen Type ART; FI02 30; Mode AC; O2 Delivery Device Adult Vent; PEEP 5; PO2 80 mmHG (75-100); RR 14; SITE R Radial; SO2 96 % (95-99); Total Carbon Dioxide 26 mmol/L; Vt 450; pCO2 35.4 mmHg (35-45); pH 7.46 (7.35-7.45)
[2022-05-27 11:44] LABS: ALB/GLOB Ratio 0.7 RATIO (0.9-2.4); AST(SGOT) 62 U/L (15-37); Alanine Aminotransfer ALT/SGPT 65 U/L (16-61); Albumin, Serum 2.5 g/dL (3.2-5.0); Alkaline Phosphatase 93 U/L (45-117); Anion Gap 4 (5-15); BUN 10 mg/dL (7-18); BUN/Creat Ratio 15.2 RATIO (10-20); Calcium,Total 8.1 mg/dL (8.5-10.1); Chloride 109 mmol/L (98-107); Creatinine, Serum 0.66 mg/dL (0.70-1.30); EST Glomerular Filtration Rate 138 mL/min (>60); Est Glom Filt Rate - Afr Amer 167 mL/min (>60); Estimated Creatinine Clearance 127.97 ml/min; Globulin 3.7 g/dL (2.2-4.2); Glucose 114 mg/dL (74-106); Potassium 3.6 mmol/L (3.5-5.1); Protein, Total 6.2 g/dL (6.4-8.2); Sodium Level 143 mmol/L (136-145)
--- NOTE | 2022-05-27 12:00 | CASEMGMT ---
Social Work Family meeting held today with pts daughter Demetra, Demetra's boyfriend and pts significant other Arianne present. SW, Physician and bedside nurse met with family. Pt prognosis and goals of care discussed. SW notified Demetra that pt had named her HCPOA in February 2022 and Demetra states awareness of this and agreement to be pt decision maker. Plan continues to be for pt to transfer to Tertiary facility for additional care. SW will remain available for support to family as needed. INA Jean Baptiste
--- NOTE | 2022-05-27 12:31 | PCM.PN.ID ---
Physical Exam Narrative Family meeting this AM, remains full code. Persistent fever, on vent. Const Constitutional Narrative: intubated Resp clear to auscultation bilaterally Effort and Inspection: mechanically ventilated Cardio regular rate and regular rhythm Rate: tachycardic GI soft to palpation, non-tender and non-distended Skin no rashes or lesions noted ID ID: Route of nutrition/ use of supplements: [] Nutritional Intake: [] IV Site: [] Lay Catheter: [] Assessment & Plan Assessment/Plan (1) Fever: (2) Methamphetamine use: (3) Acute respiratory failure: QUALIFIERS: Respiratory failure complication: hypoxia Qualified Code(s): J96.01 - Acute respiratory failure with hypoxia PLAN: Sputum with strep and yeast. Mary Jane reports emesis when he became unresponsive. Reports anaphylaxis with keflex, thinks he has taken PCN without issue. She denies pt has any h/o IVDU. 05/25 stopped vanc/aztreonam, changed to meropenem for better bactericidal effect and anaerobic coverage. Day 3 of adamaris, plan on 7 days total. 1 of 2 bcx with MRSE per pcr, consistent with contaminant at this point. Ongoing low grade fevers may be neuro in origin. Will follow, d/w nursing, transfer planned. (4) Cardiopulmonary arrest with successful resuscitation: (5) History of CVA (cerebrovascular accident):
--- NOTE | 2022-05-27 13:30 | CON.PCM_ITS ---
Consult Date of Consult: 05/27/22 Advance care planning meeting with patient's daughter/POA, shana?, and the POA's boyfriend. They are updated with the patient's course, prognosis, and challenges going forward. Family was at bedside after propofol was discontinued, movement and spontaneous eye opening was noted within 15 minutes. But nothing purposeful. We will keep patient off propofol for full neuro assessment, unless he develops significant seizures, and obtain another EEG today off propofol. Consensus was continue full code and continue full ICU care in hopes of recovery. Family also continues to want transfer for optimal neuro-critical care (continuous EEG, seizure management by neuro, and access to neuro critical care). Assessment & Plan Assessment/Plan (1) Cardiopulmonary arrest with successful resuscitation: (2) Ventricular fibrillation: (3) SANJEEV (acute kidney injury): (4) Leukocytosis: (5) Acute respiratory failure: QUALIFIERS: Respiratory failure complication: hypoxia Qualified Code(s): J96.01 - Acute respiratory failure with hypoxia (6) Metabolic acidosis: (7) Methamphetamine use: (8) Fever: (9) Transaminitis: (10) Hypokalemia: (11) Aspiration pneumonia: PLAN: Plan ACP time: 25 minutes. Present: LICENSING WORKER Paula, Security Sales Consultant Daniela, goods layer Dr. Mata
--- NOTE | 2022-05-27 17:29 | PCM.OP.PRO ---
Assessment & Plan Assessment/Plan (1) Cardiopulmonary arrest with successful resuscitation: (2) Ventricular fibrillation: (3) SANJEEV (acute kidney injury): (4) Leukocytosis: (5) Acute respiratory failure: QUALIFIERS: Respiratory failure complication: hypoxia Qualified Code(s): J96.01 - Acute respiratory failure with hypoxia (6) Metabolic acidosis: (7) Methamphetamine use: (8) Fever: (9) Transaminitis: (10) Hypokalemia: (11) Aspiration pneumonia: PLAN: Plan Routine central line management 8 hours, adjust fluids accordingly Remainder of plan per today's dining service supervisor progress note Procedure Report Date of Procedure: 05/27/22 Central line placement, left IJ, with ultrasound guidance indication: need for IV access for multiple drips and meds The LIJ was noted on ultrasound. L neck was prepped and draped in usual fashion, using contents of kit. Propofol 40 mcg/kg/min and lidocaine local anesthesia 1% were used, comfort was adequate during procedure. Sterile conditions were maintained using skin prep, drape, sterile gloves, gown, mask, head cover, and other items in kit, sterile probe cover for ultrasound was used for vascular visualization. Vein was accessed, guidewire placed with Seldinger technique, a skin shi was made, and dilator used. The triple-lumen 7 Portuguese injectable catheter was then passed without difficulty and sutured in place. Good blood return was noted from all 3 ports. Lines were flushed. chest x-ray ordered. Patient tolerated the procedure well.
--- NOTE | 2022-05-27 17:32 | RAD_ITS ---
STUDY: X-RAY CHEST REASON FOR EXAM: Male, 47 years old. line placement -- TLC TECHNIQUE: XR Chest 1 View COMPARISON: 05.27.22 FINDINGS: There is atherosclerotic calcification of the aortic arch with tortuosity. There are diffuse degenerative changes of the visualized thoracic spine. There is degenerative osteoarthritis of the bilateral shoulders. There are bilateral pleural effusions. There are bilateral infiltrates. There is no pneumothorax. There is an NGT and ET tube in place. There is a left IJ line. Normal size heart. Normal mediastinum and baldev. Normal visualized pulmonary arteries. There is no demonstrated abnormality of the visualized soft tissue structures of the upper abdomen. RAD/Chest 1 View (Portable) IMPRESSION: There has been no change in the appearance of the chest since the prior study. Electronically Signed: Roge Pires MD at 18:16 EDT ,
[2022-05-27] MEDS: Vital AF 1.2 Cal Liquid 1,000 ML 60 ML GT (20:45)
[2022-05-27] MEDS: Atorvastatin Calcium 80 MG Tablet PO (21:22)
[2022-05-27] MEDS: Propofol 10MG/Ml 1,000 MG/100 ML Bottle 12.3 MG CONT INF (23:40)
[2022-05-27] MEDS: Acetaminophen 650 MG/20 ML UDC GT (23:40)
[2022-05-28] VITALS (27 sets, daily range): BP systolic 110–173; BP diastolic 73–105; PULSE 81–98; RESP 14–20; TEMP 37.6–38.4; O2SAT 92–100
[2022-05-28 03:43] LABS: Hematocrit 42.3 % (40-54); Hemoglobin 13.8 g/dL (13.0-16.5); Mean Corp Hgb Conc 32.6 g/dL (32-36); Mean Corpuscular Volume 88.9 fL (80-94); Mean Platelet Vol. 9.4 fl (6.2-12.0); Platelet Count 244 K/mm3 (150-450); RBC Distribution Width CV 14.8 % (11.6-14.6); RBC Distribution Width SD 48.3 fl (35.1-43.9); Red Blood Count 4.76 M/mm3 (4.6-6.2)
[2022-05-28 04:00] LABS: ALB/GLOB Ratio 0.7 RATIO (0.9-2.4); AST(SGOT) 65 U/L (15-37); Alanine Aminotransfer ALT/SGPT 64 U/L (16-61); Albumin, Serum 2.5 g/dL (3.2-5.0); Alkaline Phosphatase 89 U/L (45-117); Anion Gap 5 (5-15); BUN 9 mg/dL (7-18); BUN/Creat Ratio 13.3 RATIO (10-20); Calcium,Total 8.2 mg/dL (8.5-10.1); Chloride 108 mmol/L (98-107); Creatinine, Serum 0.68 mg/dL (0.70-1.30); EST Glomerular Filtration Rate 133 mL/min (>60); Est Glom Filt Rate - Afr Amer 161 mL/min (>60); Estimated Creatinine Clearance 124.21 ml/min; Globulin 3.7 g/dL (2.2-4.2); Glucose 117 mg/dL (74-106); Potassium 3.5 mmol/L (3.5-5.1); Protein, Total 6.2 g/dL (6.4-8.2); Sodium Level 142 mmol/L (136-145)
[2022-05-28] MEDS: Heparin Injection (Vial) 5,000 UNIT/ML VIAL 5000 UNIT SC ×2 (05:17→14:55)
[2022-05-28] MEDS: 0.9% Saline Lock 10 ML Syringe IV ×2 (05:18→12:20)
[2022-05-28 05:20] LABS: Allen Test Positive; Base Excess 1 mmol/L (-2 to +2); Bicarbonate 25.4 mmol/L (22-26); Blood Gas Specimen Type ART; FI02 30; Mode AC; O2 Delivery Device ET Tube; PEEP 5; PO2 75 mmHG (75-100); RR 14; SITE R Radial; SO2 96 % (95-99); Total Carbon Dioxide 27 mmol/L; Vt 450; pCO2 36.5 mmHg (35-45); pH 7.45 (7.35-7.45)
--- NOTE | 2022-05-28 05:23 | CPS ---
Pt passed SAT but doesn't follow commands. Patient occasionally opens and blinks eyes but doesn't track you, therefore pt wasn't switched over to CPAP mode.
[2022-05-28] MEDS: TITRATION PARAMETER CHANGE 1 EACH IV (06:55)
[2022-05-28] MEDS: Chlorhexidine 15 ML PO (07:51)
[2022-05-28] MEDS: Aspirin 81 MG TAB.CHEW PO (07:51)
[2022-05-28] MEDS: TICAGRELOR 90 MG TABLET PO (07:52)
[2022-05-28] MEDS: CHLORHEXIDINE GLUC 2% CLOTH 1 EACH TOWELETTE TOPICAL (07:52)
[2022-05-28] MEDS: Amiodarone 200 MG Tablet PO (07:53)
[2022-05-28] MEDS: Metoprolol Tartrate 25 MG Tablet PO (07:53)
--- NOTE | 2022-05-28 07:54 | PN.HOSP_ITS ---
Subjective Subjective Follow-up on acute hypoxic respiratory failure/V. fib/PEA arrest: Patient was seen and examined.?He was intubated, sedated, on mechanical ventilator. He is off propofol. He is having low-grade temperatures. T-max of 100 F. Awaiting transfer to . Objective Data Objective Data Vital Signs: Vital Signs Temp Pulse Resp BP Pulse Ox O2 Del Method O2 Flow Rate 100.0 F H 97 15 133/100 H 94 Mechanical Ventilator 25 05/28/22 07:00 05/28/22 07:14 05/28/22 07:14 05/28/22 07:00 05/28/22 07:14 05/28/22 07:00 05/25/22 21:00 FiO2 30 05/28/22 07:14 Oxygen Flow Rate (L/min) 25 Oxygen Delivery Method Mechanical Ventilator Weight: 83.4 kg Body Mass Index (BMI) 28.0 Intake & Output: Intake and Output for Last 24 Hours 05/26/22 05/27/22 05/28/22 23:59 23:59 23:59 Intake Total 3670.05 / 3939.45 3906.69 / 4134.77 757.85 / 757.85 Output Total 1700 / 1800 1800 / 1800 675 / 675 Balance 1970.05 / 2139.45 2106.69 / 2334.77 82.85 / 82.85 Lab / Micro Data Result Diagrams: 05/28/22 03:35 05/28/22 03:35 Labs: Laboratory Results - last 24 hr 05/27/22 11:20: PT 13.0, INR 1.0 05/27/22 11:20: Sodium 143, Potassium 3.6, Chloride 109 H, Carbon Dioxide 30.0, Anion Gap 4 L, BUN 10, Creatinine 0.66 L, Estim Creat Clear Calc 127.97, Est GFR (MDRD) Af Amer 167, Est GFR (MDRD) Non-Af 138, BUN/Creatinine Ratio 15.2, Glucose 114 H, Calcium 8.1 L, Total Bilirubin 0.70, AST 62 H, ALT 65 H, Alkaline Phosphatase 93, Total Protein 6.2 L, Albumin 2.5 L, Globulin 3.7, Albumin/Globulin Ratio 0.7 L 05/28/22 03:35: WBC 6.0, RBC 4.76, Hgb 13.8, Hct 42.3, MCV 88.9, MCH 29.0, MCHC 32.6, RDW Std Deviation 48.3 H, RDW Coeff of Jony 14.8 H, Plt Count 244, MPV 9.4 05/28/22 03:35: Sodium 142, Potassium 3.5, Chloride 108 H, Carbon Dioxide 29.0, Anion Gap 5, BUN 9, Creatinine 0.68 L, Estim Creat Clear Calc 124.21, Est GFR (MDRD) Af Amer 161, Est GFR (MDRD) Non-Af 133, BUN/Creatinine Ratio 13.3, Glucose 117 H, Calcium 8.2 L, Total Bilirubin 0.60, AST 65 H, ALT 64 H, Alkaline Phosphatase 89, Total Protein 6.2 L, Albumin 2.5 L, Globulin 3.7, Albumin/Globul in Ratio 0.7 L Micro: Microbiology 05/24/22 04:30 Blood Culture (Wb) - Anticubital Left Bacteria Detection (PCR) - Final Staphylococcus epidermidis mecA Resistance Marker 05/24/22 04:30 Blood Culture (Wb) - Anticubital Left Blood Culture - Final Staphylococcus epidermidis 05/24/22 08:10 Blood Culture (Wb) - Right Forearm Blood Culture - Preliminary No growth in 48 hours. 05/24/22 10:10 Urine Catheter - Lay Urine Culture - Final Culture exhibits no growth. 05/23/22 13:50 Sputum, Induced/Lukens Gram Stain - Final 05/23/22 13:50 Sputum, Induced/Lukens Respiratory Culture - Final Streptococcus agalactiae (B) Presumptive C albicans ABG Data ABG results: ABG 05/27/22 05/28/22 10:35 05:17 Specimen Type ART ART Sample Site R Radial R Radial pH 7.46 H 7.45 Bicarbonate Actual 25.2 25.4 Total CO2 26 27 Base Excess 1 1 O2 Saturation 96 96 O2 % 30 30 ABG pCO2 35.4 36.5 ABG pO2 80 75 Jay Test Positive Positive Respiration Rate 14 14 O2 Delivery Device Adult Vent ET Tube Vent Mode AC AC Tidal Volume 450 450 POC PEEP 5 5 Radiography Diagnostic Testing: Radiology Impression Chest X-Ray 05/27/22 10:17 IMPRESSION: Persistent pleural-parenchymal changes at the left lung base. Improved aeration of the right lung base. Electronically Signed: Case Meyer MD at 10:36 EDT , Chest X-Ray 05/27/22 17:32 IMPRESSION: There has been no change in the appearance of the chest since the prior study. Electronically Signed: Roge Pires MD at 18:16 EDT , Rhythm Strip Rhythm Strip: Sinus Rhythm Physical Exam Narrative Physical exam: General: Sedated, intubated, on mechanical ventilator, OG tube for tube feeds HEENT: Atraumatic Oral: Moist Mucosa Neck: Supple Lungs: Diminished to auscultation Cardiovascular: HS I+II, regular, no murmurs Abdomen: Bowel Sounds Present, Soft, Non Tender Extremities: No edema, right upper extremity appears slightly swollen probably from filtration Skin: No rashes, No breakdown Neurological: Grossly intact Psych/Mental Status: Appropriate Assessment & Plan Assessment/Plan (1) Acute respiratory failure with hypoxemia: PLAN: Plan 1. Acute hypoxic respiratory failure secondary to cardiopulmonary arrest/group B strep pneumonia Remains intubated, off propofol Special Weapons And Tactics Officer consulted Continue on IV meropenem and vancomycin. 2. Acute strep pneumonia bilateral pneumonia/MRSE Sputum cultures on 05/23/22 grew strep agalactiae, pansensitive Blood cultures on 05/24/22 grew staph epidermidis, mecA resistance marker Patient having low-grade fevers On IV meropenem, will add IV vancomycin for now If fevers persist, will repeat blood cultures 3. V. fib/PEA arrest, s/p intubation, s/p cardiac catheterization -clean coronaries No recurrent arrhythmias Continue on amiodarone therapy 4. Status epilepticus, EEG on 05/24/22 showed brief focal seizures admitting her right frontotemporal regions, spreading to the right hemisphere left frontal region, continue on Keppra, off propofol this morning Awaiting transfer to [facility] 5. Hypokalemia, replaced 6.Transaminitis, improving, repeat in am 7. CAD/Recent NSTEMI, versus postcardiac cath on 05/23/22 that showed minimal disease Continue on Brilinta, aspirin, metoprolol, losartan, atorvastatin 8. Hypertension, continue metoprolol 9. Hyperlipidemia, continue statin 10. Alcohol abuse/polysubstance abuse/tobacco abuse 11. DVT prophylaxis?heparin subcu
--- NOTE | 2022-05-28 08:26 | PCA ---
Called gave updated vital signs and they said there is still no bed. will call whenever one becomes available.
[2022-05-28 09:34] LABS: Magnesium 2.3 mg/dL (1.6-2.6)
[2022-05-28] MEDS: levETIRAcetam IV 1,000 MG/100 ML BAG 400 MG IV (09:50)
[2022-05-28] MEDS: Propofol 10MG/Ml 1,000 MG/100 ML Bottle 5 MG CONT INF (10:15)
--- NOTE | 2022-05-28 11:00 | PCM.RX.CS ---
Consult Pharmacy has been consulted to manage selected antiobiotic: Vancomycin Type of Consult: New start Suspected Infection: Bacteremia Labs: Sodium 142 mmol/L (136-145) 05/28/22 03:35 Potassium 3.5 mmol/L (3.5-5.1) 05/28/22 03:35 Chloride 108 mmol/L (98-107) H 05/28/22 03:35 Carbon Dioxide 29.0 mmol/L (21.0-32.0) 05/28/22 03:35 Anion Gap 5 (5-15) 05/28/22 03:35 BUN 9 mg/dL (7-18) 05/28/22 03:35 Creatinine 0.68 mg/dL (0.70-1.30) L 05/28/22 03:35 Est GFR (MDRD) Af Amer 161 mL/min (>60) 05/28/22 03:35 Est GFR (MDRD) Non-Af 133 mL/min (>60) 05/28/22 03:35 BUN/Creatinine Ratio 13.3 RATIO (10-20) 05/28/22 03:35 Glucose 117 mg/dL (74-106) H 05/28/22 03:35 Microbiology: Microbiology 05/24/22 04:30 Blood Culture (Wb) - Anticubital Left Bacteria Detection (PCR) - Final Staphylococcus epidermidis mecA Resistance Marker 05/24/22 04:30 Blood Culture (Wb) - Anticubital Left Blood Culture - Final Staphylococcus epidermidis 05/24/22 08:10 Blood Culture (Wb) - Right Forearm Blood Culture - Preliminary No growth in 48 hours. 05/24/22 10:10 Urine Catheter - Lay Urine Culture - Final Culture exhibits no growth. 05/23/22 13:50 Sputum, Induced/Lukens Gram Stain - Final 05/23/22 13:50 Sputum, Induced/Lukens Respiratory Culture - Final Streptococcus agalactiae (B) Presumptive C albicans Goal Trough: 15-20 mcg/mL Pharmacy Plan for Drug Dosing: NEW START IV VANCOMYCIN Consulting Physician: Dr. Tolliver Indication: Bacteremia Goal Trough: 15-20 SrCr: 0.68 CrCl: > 120mL/min Comments: 1250mg IV x1 initial dose ordered and administered 05/28/22 @1025 Vancomycin Dose: 1000mg IV Q8h to start 10/1/22 @1800 Pending Level: 05/29/22 @0930, prior to 4th total dose per protocol Pharmacy Service will continue to monitor and adjust dosing as required.
--- NOTE | 2022-05-28 13:20 | PCM.PN.INT ---
Assessment & Plan Assessment/Plan (1) Cardiopulmonary arrest with successful resuscitation: (2) Ventricular fibrillation: (3) SANJEEV (acute kidney injury): (4) Leukocytosis: (5) Acute respiratory failure: QUALIFIERS: Respiratory failure complication: hypoxia Qualified Code(s): J96.01 - Acute respiratory failure with hypoxia (6) Metabolic acidosis: (7) Methamphetamine use: (8) Fever: (9) Transaminitis: (10) Hypokalemia: (11) Aspiration pneumonia: PLAN: Plan Acute hypoxic respiratory failure secondary to cardiopulmonary arrest/group B strep pneumonia -Maintain mechanical ventilation settings -unable to wean due to high benzodiazepine requirement to control seizure, decreased cough strength today -Continue antibiotics today 8 of 8, discontinue Antibiotics from tomorrow -Maintain endotracheal tube at 24 to 26 cm at the upper teeth pending chest x-ray -procalcitonin was mildly elevated, but not likely indicative of acute infection. -No new recommendations from ID, sputum is colonized with yeast and minimal volume -Albuterol PRN has not been needed V. fib/PEA arrest -Cardiology input appreciated -Prior cardiac catheterization without any significant acute blockages (diagonal lesion) -No recurrent arrhythmias, continue amiodarone -ICD or LifeVest are on hold until patient shows signs of significant neurologic improvement Status epilepticus, Post arrest (clinical) metabolic encephalopathy and prior CVA, History of TBI -Noted on EEG from 05/24/2022, awaiting repeats (continuous EEG not available here, and reads take 24-48h) -Empiric Keppra 1000 mg p.o. twice daily and propofol 40 mcg/kg/min IV drip, remaining intubated for this reason -treatment of nonconvusive status epilepticus is not standardized due to not enough studies; this patient is likely in this group. His eyelid, mouth twitching was not evident today on exam 05/27 while on Keppra and propofol. -await EEG readings on EEG 05/25 and 05/26 -MRI shows chronic findings but no acute findings -Not responsive to noxious stimuli at day 4; pupils changed to pinpoint and 1 mm, gag has weakened, febrile, -poor prognosis of recovery to independent functioning if does not wake up -awaiting transfer to / [facility] for higher level of neuro care pending bed availability - neuron specific enolase (a biomarker of ongoing brain injury in setting of status epilepticus) is not available here. Hypokalemia -supplementing per protocol Group B strep pneumonia, sputum fungal colonization -White counts normal, secretions are resolved and nonpurulent -meropenem per ID for 7 day course, procalcitonin mildly elevated but is normalizing at 0.18 -ID following-appreciate input Transaminitis, post arrest -improving, check CMP today continue monitoring QOD and avoid hepatotoxins CAD, Hypertension/hyperlipidemia with recent NSTEMI and stent -EKG is stable, no new arrhythmias or ischemia. - Continue Brilinta, aspirin, metoprolol, losartan, atorvastatin -residual disease in diagonal on cath in 03/18. Carotid artery stenosis -Chronic -Outpatient management -Continue aspirin and Plavix Recent fall with known left bimalleolar fracture, left wrist deformity -This occurred earlier this summer -Monitor clinically -May need PT and OT once able to be extubated Alcohol abuse, detoxed. -thiamine and folate -Last took 5 EtOH shots on birthday [birth year]along with meth and marijuana Polysubstance abuse -Patient active use of and UDS + this admission for marijuana and methamphetamines -1 PPD chronic smoker ICU prophylaxis -Heparin q8 5000u -SCDs 05/27 -Protonix 40 mg IV daily Chlorhexidine mouthwash and bath per ICU protocol, active. CODE STATUS -Full code -re-confirmed today with fiance and daughter/POA at 11:15 explore patient's prior expressed wishes (if any) and GOC. Critical care time spent with patient at bedside, review of documentation, lab results, radiology and other test results, discussion with colleagues and ancillary staff, clinical management of patient, and updating family if applicable, was 35 minutes. This time does not include family meeting or procedures, if performed. Critical care codes for today: 9921. Subjective Subjective Patient is unresponsive, with no withdrawal to noxious stimuli, no tracking, sluggish oculocephalic reflexes, cough, no response to voice or gentle touch. Notes of colleagues reviewed. Appreciate input of ID, cardiology, hospitalist. Patient is awaiting transfer to [facility] or [facility] depending on bed availability for continuous EEG. Prognosis discussed with shana? today. Day 5 postarrest, with no improvement in mental status or responsiveness. Objective Data Objective Data Vital Signs: Vital Signs Temp Pulse Resp BP Pulse Ox O2 Del Method O2 Flow Rate 37.7 C H 86 14 123/80 H 96 Mechanical Ventilator 25 05/28/22 13:00 05/28/22 13:00 05/28/22 13:00 05/28/22 13:00 05/28/22 13:00 05/28/22 13:00 05/25/22 21:00 FiO2 30 05/28/22 13:00 Oxygen Flow Rate (L/min) 25 Oxygen Delivery Method Mechanical Ventilator Weight: 83.4 kg Body Mass Index (BMI) 28.0 Intake & Output: Intake and Output for Last 24 Hours 05/26/22 05/27/22 05/28/22 23:59 23:59 23:59 Intake Total 3670.05 / 3939.45 3906.69 / 4134.77 2462.18 / 2462.18 Output Total 1700 / 1800 1800 / 1800 1245 / 1245 Balance 1970.05 / 2139.45 2106.69 / 2334.77 1217.18 / 1217.18 Lab / Micro Data Result Diagrams: 05/28/22 03:35 05/28/22 03:35 Labs: Laboratory Results - last 24 hr 05/28/22 03:35: WBC 6.0, RBC 4.76, Hgb 13.8, Hct 42.3, MCV 88.9, MCH 29.0, MCHC 32.6, RDW Std Deviation 48.3 H, RDW Coeff of Jony 14.8 H, Plt Count 244, MPV 9.4 05/28/22 03:35: Sodium 142, Potassium 3.5, Chloride 108 H, Carbon Dioxide 29.0, Anion Gap 5, BUN 9, Creatinine 0.68 L, Estim Creat Clear Calc 124.21, Est GFR (MDRD) Af Amer 161, Est GFR (MDRD) Non-Af 133, BUN/Creatinine Ratio 13.3, Glucose 117 H, Calcium 8.2 L, Total Bilirubin 0.60, AST 65 H, ALT 64 H, Alkaline Phosphatase 89, Total Protein 6.2 L, Albumin 2.5 L, Globulin 3.7, Albumin/Globulin Ratio 0.7 L 05/28/22 03:35: Magnesium 2.3 Micro: Microbiology 05/24/22 04:30 Blood Culture (Wb) - Anticubital Left Bacteria Detection (PCR) - Final Staphylococcus epidermidis mecA Resistance Marker 05/24/22 04:30 Blood Culture (Wb) - Anticubital Left Blood Culture - Final Staphylococcus epidermidis 05/24/22 08:10 Blood Culture (Wb) - Right Forearm Blood Culture - Preliminary No growth in 48 hours. 05/24/22 10:10 Urine Catheter - Lay Urine Culture - Final Culture exhibits no growth. 05/23/22 13:50 Sputum, Induced/Lukens Gram Stain - Final 05/23/22 13:50 Sputum, Induced/Lukens Respiratory Culture - Final Streptococcus agalactiae (B) Presumptive C albicans ABG Data ABG results: ABG 05/28/22 05:17 Specimen Type ART Sample Site R Radial pH 7.45 Bicarbonate Actual 25.4 Total CO2 27 Base Excess 1 O2 Saturation 96 O2 % 30 ABG pCO2 36.5 ABG pO2 75 Jay Test Positive Respiration Rate 14 O2 Delivery Device ET Tube Vent Mode AC Tidal Volume 450 POC PEEP 5 Radiography Diagnostic Testing: Radiology Impression Chest X-Ray 05/27/22 17:32 IMPRESSION: There has been no change in the appearance of the chest since the prior study. Electronically Signed: Roge Pires MD at 18:16 EDT , Rhythm Strip Rhythm Strip: Sinus Rhythm Physical Exam Narrative Well-developed well-nourished, nonresponsive to noxious stimuli Vital signs as above, no note of any Darren Breuerinstability of vital signs at this time. HEENT: Pupils 1 mm (changed) and reactive, equal bilaterally, absent (changed) oculocephalics, sclera anicteric, noninjected. I did not test cold calorics. Weak cough to suction, endotracheal tube is 24 cm at the upper teeth. No secretions with suctioning. Neck is supple Chest has coarse breath sounds bilaterally, no wheezes, rales or ronchi, symmetrical rise with vent. Synchronizing completely. Heart normal S1-S2, sinus rhythm, no ectopy Abdomen is soft nontender, tolerating tube feeds. Extremities have no clubbing cyanosis or edema, no withdrawal and no movement to hand pinch, otherwise unchanged Neuro as above. No response to commands. Exam is on 40 mcg of propofol due to the desire to avoid worsening seizures at lower doses. Skin warm and dry Exam 05/27 done while on propofol 40 mcg/kg/min On 05/27 at 10:24AM, Awaiting results of EEG 05/25 and 05/26. I called transfer center 05/26, he was accepted by Dr. Huffman, awaiting a bed.
[2022-05-28] MEDS: Vital AF 1.2 Cal Liquid 1,000 ML 60 ML GT (16:18)
[2022-05-28] MEDS: Propofol 10MG/Ml 1,000 MG/100 ML Bottle 10 MG CONT INF (16:40)
--- NOTE | 2022-05-28 16:52 | DS.PCM_ITS ---
Providers Date of Admission: 05/23/22 Date of Discharge: 05/28/22 Primary Care Physician: Brandt Nguyễn MD Consultations 05/23/22 12:14 Consult: Ostomy Rn / Pulmonary Medicine Routine Consulting Provider: Pulmonary Medicine marilu CallahanMinoo Reason for Consult: Vent management EMERGENT Consult: No Notified: Yes Date Notified: 05/23/22 Time Notified: 12:04 Method of Notification: Verbal 05/24/22 12:12 Consult: Ostomy Rn / Pulmonary Medicine Routine Consulting Provider: Pulmonary Medicine marilu CallahanMinoo Reason for Consult: Fevers/CPA EMERGENT Consult: No Notified: Yes Date Notified: 05/24/22 Time Notified: 12:39 Method of Notification: Verbal 05/25/22 12:34 Consult: Infectious Disease Routine Consulting Provider: Julian Camp Reason for Consult: PNA with ABX intolerances EMERGENT Consult: No Notified: Yes Date Notified: 05/25/22 Time Notified: 15:55 Method of Notification: Answering Service Reason For Visit: STEMI Diagnosis Discharge Diagnosis (1) Cardiopulmonary arrest with successful resuscitation: Status: Acute Code(s): I46.9 - Cardiac arrest, cause unspecified (2) Ventricular fibrillation: Status: Acute Code(s): I49.01 - Ventricular fibrillation (3) SANJEEV (acute kidney injury): Status: Acute Code(s): N17.9 - Acute kidney failure, unspecified (4) Leukocytosis: Status: Acute Code(s): D72.829 - Elevated white blood cell count, unspecified (5) Acute respiratory failure: Status: Acute Code(s): J96.00 - Acute respiratory failure, unspecified whether with hypoxia or hypercapnia Qualifiers: Respiratory failure complication: hypoxia Qualified Code(s): J96.01 - Acute respiratory failure with hypoxia (6) Metabolic acidosis: Status: Acute Code(s): E87.2 - Acidosis (7) Methamphetamine use: Status: Acute Code(s): F15.10 - Other stimulant abuse, uncomplicated (8) Fever: Status: Acute Code(s): R50.9 - Fever, unspecified (9) Transaminitis: Status: Acute Code(s): R74.01 - Elevation of levels of liver transaminase levels (10) Hypokalemia: Status: Acute Code(s): E87.6 - Hypokalemia (11) Aspiration pneumonia: Status: Acute Code(s): J69.0 - Pneumonitis due to inhalation of food and vomit Plan 1. Acute hypoxic respiratory failure secondary to cardiopulmonary arrest/group B strep pneumonia 2. Acute strep pneumonia bilateral pneumonia/MRSE 3. V. fib/PEA arrest, s/p intubation, s/p cardiac catheterization -clean coronaries 4. Status epilepticus, EEG on 05/24/22 showed brief focal seizures admitting her right frontotemporal regions, spreading to the right hemisphere left frontal region, 5. Hypokalemia 6.Transaminitis 7. CAD/Recent NSTEMI 8. Hypertension 9. Hyperlipidemia 10. Alcohol abuse/polysubstance abuse/tobacco abuse Medications at Discharge Home Medications gabapentin 600 mg tablet 600 mg PO DAILY 10/25/21 ondansetron 4 mg disintegrating tablet 4 mg PO Q8H PRN nausea and vomiting #10 tabs 02/20/22 oxycodone-acetaminophen 5 mg-325 mg tablet (Percocet) 1 tab PO Q6H PRN pain 3 days #10 tabs 02/20/22 amiodarone 200 mg tablet 200 mg PO DAILY 04/06/22 aspirin 81 mg tablet,delayed release 81 mg PO BREAKFAST #90 tabs 04/06/22 atorvastatin 80 mg tablet 80 mg PO DAILY #90 tabs 04/06/22 losartan 50 mg tablet 50 mg PO DAILY #90 tabs 04/06/22 metoprolol tartrate 25 mg tablet 25 mg PO BID #180 tabs 04/06/22 ticagrelor 90 mg tablet (Brilinta) 90 mg PO BID #180 tabs 04/06/22 Hospital Course Operations None Procedures 2-D Echocardiogram and Cardiac catheterization Summary of Care Provided Minutes Spent on Discharge: 40 Hospital Course: 47-year-old male with past medical history of CAD status post stent to the RCA (in February 2022, after he presented with V. fib arrest and inferior STEMI), his tory of CVA, hyperlipidemia, polysubstance use, who was brought to the [facility] emergency room on 05/23/2022 by the EMS. The EMS were called to the patient's house for unresponsiveness. Patient's girlfriend was on the scene. She admitted to the patient using meth that morning. She started CPR in bed. The EMS were called after reportedly approxximately 5 minutes of being down. Patient was found apneic and pulseless on the bedroom floor. The police had already administered 1 dose of nasal Narcan. Manual CPR was initiated with [id number] ventilation. V. fib was registered on patient's regimen he was shocked with 200 J. CPR was continued. Patient did receive epinephrine and 2mg IV Narcan. He was found to be in PEA at the next pulse check. CPR was continued and patient was placed on O2 pulse with continuous CPR. Had a 6-minute pulse check revealed no changes. 8-minute was checked revealed return of spontaneous circulation. EKG was suspicious for inferior STEMI. Patient was sent to the [facility], his IGel tube was transitioned to an ETT tube and he underwent emergency cardiac catheterization on the same day. Coronary angiography revealed that the RCA stent was patent. There was an RV marginal branch that was jailed by prior stent, which appeared occluded and was too small for PCI. It was felt that this was not the culprit for the patient's V. fib. Patient was transferred to the ICU. Patient had evidence of acute kidney injury on admission. He did have some fever. Cultures were ordered. He was initially started on Levaquin as he had anaphylaxis to Keflex. EEG was ordered, generalized numbness and lack of well- formed background activity, lack generalized periodic discharges over the right hemisphere that became sharp and rhythmic. Brief focal seizure originating the right frontotemporal region spreading to involve the right Delfin sphere in the left frontal region. Patient was started on Keppra. Levaquin was discontinued. He was started on vancomycin and aztreonam. Teleneurology was consulted. Sputum cultures grew Streptococcus with yeast. Shunt was transitioned to meropenem. 1 of 2 blood cultures were positive with MRSE which was thought to be due to contaminant. Patient started having low-grade fevers. With his neurological status not improving, MRI of the brain was done and it was not suggestive of anoxic brain injury. Repeat EEG did not show any new seizures. Patient was continued on IV Keppra. Propofol has been switched off. (05/27/22). No significant improvement in his neurological status. He was maintained on aspirin and Brilinta. He was transferred to [facility] for continuous EEG evaluation. Physical Exam Narrative Physical exam: General: Remains not responsive, off sedation, intubated, on mechanical ventilator, OG tube for tube feeds HEENT: Atraumatic Oral: Moist Mucosa Neck: Supple Lungs: Diminished to auscultation Cardiovascular: HS I+II, regular, no murmurs Abdomen: Bowel Sounds Present, Soft, Non Tender Extremities: No edema, right upper extremity appears slightly swollen probably from filtration Skin: No rashes, No breakdown Neurological: Grossly intact Psych/Mental Status: Appropriate Weight / BMI Weight Weight: 83.4 kg Body Mass Index (BMI) 28.0 ABG / Lab / Microbiology Data Result Diagrams: 05/28/22 03:35 05/28/22 03:35 Laboratory: Laboratory Results - last 24 hr 05/28/22 03:35: WBC 6.0, RBC 4.76, Hgb 13.8, Hct 42.3, MCV 88.9, MCH 29.0, MCHC 32.6, RDW Std Deviation 48.3 H, RDW Coeff of Jony 14.8 H, Plt Count 244, MPV 9.4 05/28/22 03:35: Sodium 142, Potassium 3.5, Chloride 108 H, Carbon Dioxide 29.0, Anion Gap 5, BUN 9, Creatinine 0.68 L, Estim Creat Clear Calc 124.21, Est GFR (MDRD) Af Amer 161, Est GFR (MDRD) Non-Af 133, BUN/Creatinine Ratio 13.3, Glucose 117 H, Calcium 8.2 L, Total Bilirubin 0.60, AST 65 H, ALT 64 H, Alkaline Phosphatase 89, Total Protein 6.2 L, Albumin 2.5 L, Globulin 3.7, Albumin/Globulin Ratio 0.7 L 05/28/22 03:35: Magnesium 2.3 Microbiology: Microbiology 05/24/22 04:30 Blood Culture (Wb) - Anticubital Left Bacteria Detection (PCR) - Final Staphylococcus epidermidis mecA Resistance Marker 05/24/22 04:30 Blood Culture (Wb) - Anticubital Left Blood Culture - Final Staphylococcus epidermidis 05/24/22 08:10 Blood Culture (Wb) - Right Forearm Blood Culture - Preli minary No growth in 48 hours. 05/24/22 10:10 Urine Catheter - Lay Urine Culture - Final Culture exhibits no growth. 05/23/22 13:50 Sputum, Induced/Lukens Gram Stain - Final 05/23/22 13:50 Sputum, Induced/Lukens Respiratory Culture - Final Streptococcus agalactiae (B) Presumptive C albicans ABG: ABG 05/28/22 05:17 Specimen Type ART Sample Site R Radial pH 7.45 Bicarbonate Actual 25.4 Total CO2 27 Base Excess 1 O2 Saturation 96 O2 % 30 ABG pCO2 36.5 ABG pO2 75 Jay Test Positive Respiration Rate 14 O2 Delivery Device ET Tube Vent Mode AC Tidal Volume 450 POC PEEP 5 Radiography Diagnostic Testing: Radiology Impression Chest X-Ray 05/27/22 17:32 IMPRESSION: There has been no change in the appearance of the chest since the prior study. Electronically Signed: Roge Pires MD at 18:16 EDT , Meaningful Use Info Meaningful Use Diagnoses (Choose all that apply): None applicable Discharge Plan Admission Admit Date/Time: 05/23/22 11:59 Attending Provider: Yeny Tolliver Primary Care Provider: Brandt Nguyễn Consulting Providers: David Jones ; Sanya Mcgee ; Austin Mata ; Ancelmo Menard ; Lucita Arriola NP ; Melissa Quiroga ; Julian Camp ; Emani Avila Discharge Orders/Prescriptions Prescriptions: No Action amiodarone 200 mg tablet 200 mg PO DAILY Rx Instructions: take one tablet (200mg) twice daily for 2 weeks, till March 30, 2022, then continue with one tablet (200mg) daily for 4 weeks. aspirin 81 mg tablet,delayed release (DR/EC) 81 mg PO BREAKFAST Qty: 90 3RF atorvastatin 80 mg tablet 80 mg PO DAILY Qty: 90 3RF losartan 50 mg tablet 50 mg PO DAILY Qty: 90 3RF metoprolol tartrate 25 mg tablet 25 mg PO BID Qty: 180 3RF Brilinta 90 mg tablet 90 mg PO BID Qty: 180 3RF gabapentin 600 mg Tablet 600 mg PO DAILY oxycodone-acetaminophen [Percocet] 5-325 mg tablet 1 tab PO Q6H PRN (Reason: pain) 3 Days Qty: 10 0RF ondansetron 4 mg tablet,disintegrating 4 mg PO Q8H PRN (Reason: nausea and vomiting) Qty: 10 0RF Referrals / Follow Up: Brandt Nguyễn MD [Primary Care Provider] - Disposition Discharge Orders: Discharge Patient (Routine); Ordered 05/28/22 Ordered By: Dr. Yeny Tolliver Charges/Coding Visit Charges Inpatient E&M: 39126 Disch Hosp
[2022-05-28] MEDS: Acetaminophen 650 MG/20 ML UDC GT (19:52)
--- NOTE | 2022-05-28 20:09 | NURSING ---
Report given to [facility] critical care transportation escort. Pt left w/ transport team. Report also called to RN at [facility].
== END 2022-05-28 20:05 | disposition short-term general hospital (02) | DRG 130 ==
LOC: ED 11:04 → ICU 11:30
PROVIDERS: Hospitalist; Internal Medicine; Internal Medicine Infectious Disease; Admitting Provider Specialist; Emergency Provider Emergency Medicine; PCP Family Medicine; Referring Provider Specialist; Visit Provider Internal Medicine
DX: J15.3 Pneumonia due to streptococcus, group B (principal); I46.9 Cardiac arrest, cause unspecified; G93.41 Metabolic encephalopathy; G40.101 Localization-related (focal) (partial) symptomatic epilepsy and epileptic syndromes with simple partial seizures, not intractable, with status epilepticus; N17.9 Acute kidney failure, unspecified; J96.01 Acute respiratory failure with hypoxia; I49.01 Ventricular fibrillation; J69.0 Pneumonitis due to inhalation of food and vomit; F15.10 Other stimulant abuse, uncomplicated; I69.354 Hemiplegia and hemiparesis following cerebral infarction affecting left non-dominant side; M06.9 Rheumatoid arthritis, unspecified; E78.5 Hyperlipidemia, unspecified; I25.10 Atherosclerotic heart disease of native coronary artery without angina pectoris; I10 Essential (primary) hypertension; F17.210 Nicotine dependence, cigarettes, uncomplicated; F10.10 Alcohol abuse, uncomplicated; E87.6 Hypokalemia; E87.4 Mixed disorder of acid-base balance; I25.2 Old myocardial infarction; Z79.02 Long term (current) use of antithrombotics/antiplatelets; Z79.82 Long term (current) use of aspirin; R74.01 Elevation of levels of liver transaminase levels; Z79.899 Other long term (current) drug therapy; Z95.5 Presence of coronary angioplasty implant and graft; B95.7 Other staphylococcus as the cause of diseases classified elsewhere
CPT/HCPCS: 31500; 31720; 36600; 51702; 70450; 70551; 71045; 80048; 80053; 80307; 81001; 81002; 82550; 82803; 83735; 84100; 84145; 84443; 84478; 84484; 85025; 85027; 85610; 85730; 87040; 87070; 87077; 87086; 87149; 87186; 87205; 87641; 93005; 93458; 94002; 94003; 95819; 97802; 97803; 99251; 99285; J2185; J7030; J7040; J7050; J7120; A4216; C1751; C1760; C1769; C1894; G0463; J3490

== ENCOUNTER → 2022-07-20 | Outpatient (REF) | payer MEDICAID, SELFPAY ==
[2022-07-20 09:34] LABS: Hematocrit 41.4 % (40-54); Hemoglobin 12.4 g/dL (13.0-16.5); Mean Corpuscular Hgb 28.6 pg (27.0-32.0); Mean Corpuscular Volume 95.4 fL (80-94); Mean Platelet Vol. 11.3 fl (6.2-12.0); Platelet Count 250 K/mm3 (150-450); RBC Distribution Width SD 52.3 fl (35.1-43.9); Red Blood Count 4.34 M/mm3 (4.6-6.2); White Blood Count 10.8 K/mm3 (4.4-11.0)
[2022-07-20 10:03] LABS: ALB/GLOB Ratio 0.5 RATIO (0.9-2.4); AST(SGOT) 70 U/L (15-37); Alanine Aminotransfer ALT/SGPT 76 U/L (16-61); Albumin, Serum 2.2 g/dL (3.2-5.0); Alkaline Phosphatase 79 U/L (45-117); Anion Gap 6 (5-15); BUN 24 mg/dL (7-18); BUN/Creat Ratio 38.5 RATIO (10-20); Calcium,Total 8.4 mg/dL (8.5-10.1); Chloride 119 mmol/L (98-107); Creatinine, Serum 0.62 mg/dL (0.70-1.30); EST Glomerular Filtration Rate 146 mL/min (>60); Est Glom Filt Rate - Afr Amer 177 mL/min (>60); Globulin 4.6 g/dL (2.2-4.2); Glucose 151 mg/dL (74-106); Potassium 3.4 mmol/L (3.5-5.1); Protein, Total 6.8 g/dL (6.4-8.2); Sodium Level 151 mmol/L (136-145); Thyroid Stim Hormone (TSH) 1.31 uIU/mL (0.358-3.74)
== END | disposition home or self-care (01) ==
LOC: OLS.SANC 07:40
PROVIDERS: PCP Family Medicine; Visit Provider Internal Medicine
DX: M06.9 Rheumatoid arthritis, unspecified (principal); B19.20 Unspecified viral hepatitis C without hepatic coma
CPT/HCPCS: 36415; 80053; 80177; 84443; 85027

== ENCOUNTER → 2022-07-27 | Outpatient (REF) | payer MEDICAID, SELFPAY ==
[2022-07-27 08:12] LABS: Anion Gap 6 (5-15); BUN 16 mg/dL (7-18); BUN/Creat Ratio 38.2 RATIO (10-20); Calcium,Total 8.7 mg/dL (8.5-10.1); Chloride 111 mmol/L (98-107); Creatinine, Serum 0.42 mg/dL (0.70-1.30); EST Glomerular Filtration Rate 231 mL/min (>60); Est Glom Filt Rate - Afr Amer 280 mL/min (>60); Glucose 121 mg/dL (74-106); Sodium Level 144 mmol/L (136-145)
[2022-07-27 08:23] LABS: Hematocrit 36.1 % (40-54); Mean Corp Hgb Conc 30.5 g/dL (32-36); Mean Corpuscular Hgb 28.2 pg (27.0-32.0); Mean Corpuscular Volume 92.6 fL (80-94); Mean Platelet Vol. 11.1 fl (6.2-12.0); Platelet Count 297 K/mm3 (150-450); RBC Distribution Width CV 15.2 % (11.6-14.6); RBC Distribution Width SD 51.2 fl (35.1-43.9)
== END | disposition home or self-care (01) ==
LOC: OLS.SANC 05:00
PROVIDERS: PCP Family Medicine; Visit Provider Internal Medicine
DX: I50.9 Heart failure, unspecified (principal); B19.20 Unspecified viral hepatitis C without hepatic coma
CPT/HCPCS: 36415; 80048; 85027

== ENCOUNTER → 2022-08-17 | Outpatient (REF) | payer MEDICAID, SELFPAY ==
[2022-08-17 08:56] LABS: Absolute Lymphocyte Count 1.54 X10^3/uL (0.83-4.51); Absolute Neutrophil Count 6.3 X10^3/uL (2.0-7.7); Basophil# 0.05 X10^3/uL; Basophil% 0.6 % (0-1); Eosinophils% 2.3 % (0-5); Hematocrit 34.8 % (40-54); Hemoglobin 10.9 g/dL (13.0-16.5); Lymphocyte # 1.54 X10^3/ul (0.83-4.51); Lymphocyte % 17.5 % (19-41); Mean Corp Hgb Conc 31.3 g/dL (32-36); Mean Corpuscular Hgb 26.9 pg (27.0-32.0); Mean Corpuscular Volume 85.9 fL (80-94); Mean Platelet Vol. 8.5 fl (6.2-12.0); Monocyte# 0.67 X10^3/uL; Monocyte% 7.6 % (0-10); NRBC Flagged by Analyzer 0 % (0-5); Neutrophil # 6.31 X10^3/uL (2.7-7.7); Neutrophil % 71.5 % (47-70); Platelet Count 539 K/mm3 (150-450); RBC Distribution Width CV 15.5 % (11.6-14.6); RBC Distribution Width SD 49.1 fl (35.1-43.9); Red Blood Count 4.05 M/mm3 (4.6-6.2); White Blood Count 8.8 K/mm3 (4.4-11.0)
[2022-08-17 09:27] LABS: Vancomycin, Trough Level 13.8 ug/mL (5.0-15.0)
[2022-08-17 09:31] LABS: ALB/GLOB Ratio 0.5 RATIO (0.9-2.4); AST(SGOT) 19 U/L (15-37); Alanine Aminotransfer ALT/SGPT 34 U/L (16-61); Albumin, Serum 2.1 g/dL (3.2-5.0); Alkaline Phosphatase 89 U/L (45-117); Anion Gap 9 (5-15); BUN 8 mg/dL (7-18); BUN/Creat Ratio 18.2 RATIO (10-20); Calcium,Total 9.2 mg/dL (8.5-10.1); Chloride 105 mmol/L (98-107); Creatinine, Serum 0.44 mg/dL (0.70-1.30); EST Glomerular Filtration Rate 218 mL/min (>60); Est Glom Filt Rate - Afr Amer 264 mL/min (>60); Globulin 4.2 g/dL (2.2-4.2); Glucose 117 mg/dL (74-106); Potassium 4.8 mmol/L (3.5-5.1); Protein, Total 6.3 g/dL (6.4-8.2); Sodium Level 140 mmol/L (136-145)
== END | disposition home or self-care (01) ==
LOC: OLS.SANC 05:00
PROVIDERS: PCP Family Medicine; Visit Provider Internal Medicine
DX: J18.9 Pneumonia, unspecified organism (principal); B19.20 Unspecified viral hepatitis C without hepatic coma
CPT/HCPCS: 36415; 80053; 80202; 85025

== ENCOUNTER → 2022-08-30 | Outpatient (REF) | payer MEDICAID, SELFPAY ==
[2022-08-30 09:48] LABS: Hematocrit 35.4 % (40-54); Hemoglobin 10.9 g/dL (13.0-16.5); Mean Corp Hgb Conc 30.8 g/dL (32-36); Mean Corpuscular Hgb 26.1 pg (27.0-32.0); Mean Corpuscular Volume 84.7 fL (80-94); Mean Platelet Vol. 10.4 fl (6.2-12.0); Platelet Count 524 K/mm3 (150-450); RBC Distribution Width SD 51.4 fl (35.1-43.9); Red Blood Count 4.18 M/mm3 (4.6-6.2); White Blood Count 14.6 K/mm3 (4.4-11.0)
[2022-08-30 10:18] LABS: ALB/GLOB Ratio 0.6 RATIO (0.9-2.4); AST(SGOT) 21 U/L (15-37); Alanine Aminotransfer ALT/SGPT 56 U/L (16-61); Albumin, Serum 2.7 g/dL (3.2-5.0); Alkaline Phosphatase 102 U/L (45-117); Anion Gap 8 (5-15); BUN 23 mg/dL (7-18); Calcium,Total 8.9 mg/dL (8.5-10.1); Chloride 100 mmol/L (98-107); Creatinine, Serum 0.49 mg/dL (0.70-1.30); EST Glomerular Filtration Rate 193 mL/min (>60); Est Glom Filt Rate - Afr Amer 234 mL/min (>60); Globulin 4.2 g/dL (2.2-4.2); Glucose 129 mg/dL (74-106); Potassium 4.1 mmol/L (3.5-5.1); Protein, Total 6.9 g/dL (6.4-8.2); Sodium Level 134 mmol/L (136-145)
== END | disposition home or self-care (01) ==
LOC: OLS.SANC 05:00
PROVIDERS: PCP Family Medicine; Visit Provider Internal Medicine
DX: I51.9 Heart disease, unspecified (principal); B19.20 Unspecified viral hepatitis C without hepatic coma
CPT/HCPCS: 36415; 80053; 85027

== ENCOUNTER → 2022-08-31 | Outpatient (REF) | payer MEDICAID, SELFPAY ==
[2022-08-31 08:29] LABS: Absolute Lymphocyte Count 1.38 X10^3/uL (0.83-4.51); Absolute Neutrophil Count 12.5 X10^3/uL (2.0-7.7); Basophil# 0.06 X10^3/uL; Basophil% 0.4 % (0-1); Hematocrit 34.5 % (40-54); Hemoglobin 10.5 g/dL (13.0-16.5); Lymphocyte # 1.38 X10^3/ul (0.83-4.51); Lymphocyte % 8.9 % (19-41); Mean Corp Hgb Conc 30.4 g/dL (32-36); Mean Corpuscular Hgb 25.9 pg (27.0-32.0); Mean Corpuscular Volume 85.2 fL (80-94); Mean Platelet Vol. 10.5 fl (6.2-12.0); Monocyte% 6.4 % (0-10); NRBC Flagged by Analyzer 0 % (0-5); Neutrophil # 12.51 X10^3/uL (2.7-7.7); Neutrophil % 80.5 % (47-70); Platelet Count 486 K/mm3 (150-450); RBC Distribution Width CV 17.2 % (11.6-14.6); RBC Distribution Width SD 53.1 fl (35.1-43.9); Red Blood Count 4.05 M/mm3 (4.6-6.2); White Blood Count 15.5 K/mm3 (4.4-11.0)
[2022-08-31 08:48] LABS: ALB/GLOB Ratio 0.6 RATIO (0.9-2.4); AST(SGOT) 17 U/L (15-37); Alanine Aminotransfer ALT/SGPT 44 U/L (16-61); Albumin, Serum 2.4 g/dL (3.2-5.0); Alkaline Phosphatase 98 U/L (45-117); Anion Gap 9 (5-15); BUN 22 mg/dL (7-18); BUN/Creat Ratio 53.9 RATIO (10-20); Calcium,Total 8.7 mg/dL (8.5-10.1); Chloride 100 mmol/L (98-107); Creatinine, Serum 0.41 mg/dL (0.70-1.30); EST Glomerular Filtration Rate 238 mL/min (>60); Est Glom Filt Rate - Afr Amer 288 mL/min (>60); Globulin 4.2 g/dL (2.2-4.2); Glucose 128 mg/dL (74-106); Potassium 3.8 mmol/L (3.5-5.1); Protein, Total 6.6 g/dL (6.4-8.2); Sodium Level 135 mmol/L (136-145)
== END | disposition home or self-care (01) ==
LOC: OLS.SANC 05:54
PROVIDERS: PCP Family Medicine; Visit Provider Internal Medicine
DX: B19.20 Unspecified viral hepatitis C without hepatic coma (principal); G81.90 Hemiplegia, unspecified affecting unspecified side
CPT/HCPCS: 36415; 80053; 85025

== ENCOUNTER → 2022-09-01 | Outpatient (REF) | payer MEDICAID, SELFPAY ==
[2022-09-01 09:54] LABS: Hematocrit 35.9 % (40-54); Hemoglobin 10.8 g/dL (13.0-16.5); Mean Corp Hgb Conc 30.1 g/dL (32-36); Mean Corpuscular Hgb 25.7 pg (27.0-32.0); Mean Corpuscular Volume 85.5 fL (80-94); Mean Platelet Vol. 10.3 fl (6.2-12.0); Platelet Count 500 K/mm3 (150-450); RBC Distribution Width CV 17.2 % (11.6-14.6); RBC Distribution Width SD 53.1 fl (35.1-43.9); White Blood Count 14.1 K/mm3 (4.4-11.0)
[2022-09-01 10:08] LABS: ALB/GLOB Ratio 0.6 RATIO (0.9-2.4); AST(SGOT) 19 U/L (15-37); Alanine Aminotransfer ALT/SGPT 45 U/L (16-61); Albumin, Serum 2.5 g/dL (3.2-5.0); Alkaline Phosphatase 89 U/L (45-117); Anion Gap 7 (5-15); BUN 21 mg/dL (7-18); BUN/Creat Ratio 47.9 RATIO (10-20); Calcium,Total 8.7 mg/dL (8.5-10.1); Chloride 100 mmol/L (98-107); Creatinine, Serum 0.44 mg/dL (0.70-1.30); EST Glomerular Filtration Rate 220 mL/min (>60); Est Glom Filt Rate - Afr Amer 266 mL/min (>60); Globulin 4.1 g/dL (2.2-4.2); Glucose 85 mg/dL (74-106); Potassium 3.9 mmol/L (3.5-5.1); Protein, Total 6.6 g/dL (6.4-8.2); Sodium Level 134 mmol/L (136-145)
== END | disposition home or self-care (01) ==
LOC: OLS.SANC 05:00
PROVIDERS: PCP Family Medicine; Visit Provider Internal Medicine
DX: I50.9 Heart failure, unspecified (principal)
CPT/HCPCS: 36415; 80053; 85027

== ENCOUNTER → 2022-09-02 | Outpatient (REF) | payer MEDICAID, SELFPAY ==
[2022-09-02 08:33] LABS: Hematocrit 36.9 % (40-54); Hemoglobin 11.7 g/dL (13.0-16.5); Mean Corp Hgb Conc 31.7 g/dL (32-36); Mean Corpuscular Hgb 26.2 pg (27.0-32.0); Mean Corpuscular Volume 82.6 fL (80-94); Mean Platelet Vol. 10.2 fl (6.2-12.0); Platelet Count 477 K/mm3 (150-450); RBC Distribution Width CV 17.4 % (11.6-14.6); RBC Distribution Width SD 51.3 fl (35.1-43.9); Red Blood Count 4.47 M/mm3 (4.6-6.2); White Blood Count 13.8 K/mm3 (4.4-11.0)
[2022-09-02 08:47] LABS: Anion Gap 3 (5-15); BUN 18 mg/dL (7-18); BUN/Creat Ratio 42.7 RATIO (10-20); Calcium,Total 8.6 mg/dL (8.5-10.1); Chloride 98 mmol/L (98-107); Creatinine, Serum 0.42 mg/dL (0.70-1.30); EST Glomerular Filtration Rate 229 mL/min (>60); Est Glom Filt Rate - Afr Amer 277 mL/min (>60); Glucose 97 mg/dL (74-106); Potassium 4.5 mmol/L (3.5-5.1); Sodium Level 131 mmol/L (136-145)
== END | disposition home or self-care (01) ==
LOC: OLS.SANC 05:00
PROVIDERS: PCP Family Medicine; Visit Provider Internal Medicine
DX: I50.9 Heart failure, unspecified (principal)
CPT/HCPCS: 36415; 80048; 85027

== ENCOUNTER → 2022-09-05 | Outpatient (REF) | payer MEDICAID, SELFPAY ==
[2022-09-05 10:17] LABS: Hematocrit 35.9 % (40-54); Hemoglobin 11.3 g/dL (13.0-16.5); Mean Corp Hgb Conc 31.5 g/dL (32-36); Mean Corpuscular Hgb 26.4 pg (27.0-32.0); Mean Corpuscular Volume 83.9 fL (80-94); Mean Platelet Vol. 10.9 fl (6.2-12.0); Platelet Count 381 K/mm3 (150-450); RBC Distribution Width CV 17.5 % (11.6-14.6); RBC Distribution Width SD 53.7 fl (35.1-43.9); Red Blood Count 4.28 M/mm3 (4.6-6.2); White Blood Count 12.4 K/mm3 (4.4-11.0)
[2022-09-05 10:28] LABS: Anion Gap 9 (5-15); BUN 19 mg/dL (7-18); BUN/Creat Ratio 45.7 RATIO (10-20); Calcium,Total 8.7 mg/dL (8.5-10.1); Chloride 100 mmol/L (98-107); Creatinine, Serum 0.42 mg/dL (0.70-1.30); EST Glomerular Filtration Rate 233 mL/min (>60); Est Glom Filt Rate - Afr Amer 282 mL/min (>60); Glucose 118 mg/dL (74-106); Potassium 4.3 mmol/L (3.5-5.1); Sodium Level 137 mmol/L (136-145)
== END | disposition home or self-care (01) ==
LOC: OLS.SANC 04:00
PROVIDERS: PCP Family Medicine; Referring Provider Internal Medicine; Visit Provider Internal Medicine
DX: R00.0 Tachycardia, unspecified (principal); B19.20 Unspecified viral hepatitis C without hepatic coma
CPT/HCPCS: 36415; 80048; 85027

== ENCOUNTER → 2022-09-26 | Outpatient (REF) | payer MEDICAID, SELFPAY ==
[2022-09-26 10:03] LABS: Vancomycin, Trough Level 25.4 ug/mL (5.0-15.0)
== END | disposition home or self-care (01) ==
LOC: OLS.SANC 04:00
PROVIDERS: PCP Family Medicine; Referring Provider Internal Medicine; Visit Provider Internal Medicine
DX: I50.9 Heart failure, unspecified (principal)
CPT/HCPCS: 36415; 80202

== ENCOUNTER → 2022-09-27 | Outpatient (REF) | payer MEDICAID, SELFPAY ==
[2022-09-27 09:22] LABS: Hematocrit 33.2 % (40-54); Hemoglobin 9.9 g/dL (13.0-16.5); Mean Corp Hgb Conc 29.8 g/dL (32-36); Mean Corpuscular Hgb 24.9 pg (27.0-32.0); Mean Corpuscular Volume 83.6 fL (80-94); Mean Platelet Vol. 9.2 fl (6.2-12.0); Platelet Count 616 K/mm3 (150-450); RBC Distribution Width CV 17.1 % (11.6-14.6); RBC Distribution Width SD 52.6 fl (35.1-43.9); Red Blood Count 3.97 M/mm3 (4.6-6.2); White Blood Count 10.4 K/mm3 (4.4-11.0)
[2022-09-27 09:33] LABS: ALB/GLOB Ratio 0.4 RATIO (0.9-2.4); AST(SGOT) 23 U/L (15-37); Alanine Aminotransfer ALT/SGPT 35 U/L (16-61); Albumin, Serum 2.2 g/dL (3.2-5.0); Alkaline Phosphatase 78 U/L (45-117); Anion Gap 8 (5-15); BUN 14 mg/dL (7-18); BUN/Creat Ratio 28.5 RATIO (10-20); Calcium,Total 9.6 mg/dL (8.5-10.1); Chloride 101 mmol/L (98-107); Creatinine, Serum 0.49 mg/dL (0.70-1.30); EST Glomerular Filtration Rate 192 mL/min (>60); Est Glom Filt Rate - Afr Amer 232 mL/min (>60); Glucose 123 mg/dL (74-106); Potassium 4.2 mmol/L (3.5-5.1); Protein, Total 7.2 g/dL (6.4-8.2); Sodium Level 138 mmol/L (136-145)
[2022-09-27 09:38] LABS: Vancomycin, Trough Level 5.8 ug/mL (5.0-15.0)
== END | disposition home or self-care (01) ==
LOC: OLS.SANC 05:00
PROVIDERS: PCP Family Medicine; Visit Provider Internal Medicine
DX: I50.9 Heart failure, unspecified (principal); Z79.899 Other long term (current) drug therapy
CPT/HCPCS: 36415; 80053; 80202; 85027

== ENCOUNTER → 2022-09-30 | Outpatient (REF) | payer MEDICAID, SELFPAY ==
[2022-09-30 09:38] LABS: Vancomycin, Trough Level 14.6 ug/mL (5.0-15.0)
== END | disposition home or self-care (01) ==
LOC: OLS.SANC 07:00
PROVIDERS: PCP Family Medicine; Visit Provider Internal Medicine
DX: Z79.899 Other long term (current) drug therapy (principal)
CPT/HCPCS: 36415; 80202

== ENCOUNTER → 2022-10-06 | Outpatient (REF) | payer MEDICAID, SELFPAY ==
[2022-10-06 09:59] LABS: Vancomycin, Trough Level 15.8 ug/mL (5.0-15.0)
== END | disposition home or self-care (01) ==
LOC: OLS.SANC 05:00
PROVIDERS: PCP Family Medicine; Visit Provider Internal Medicine
DX: I50.9 Heart failure, unspecified (principal); A41.9 Sepsis, unspecified organism
CPT/HCPCS: 36415; 80202

== ENCOUNTER → 2022-10-11 | Outpatient (REF) | payer MEDICAID, SELFPAY ==
[2022-10-11 08:28] LABS: Hematocrit 41.6 % (40-54); Hemoglobin 12.7 g/dL (13.0-16.5); Mean Corp Hgb Conc 30.5 g/dL (32-36); Mean Corpuscular Hgb 25.2 pg (27.0-32.0); Mean Corpuscular Volume 82.7 fL (80-94); Mean Platelet Vol. 10.4 fl (6.2-12.0); Platelet Count 655 K/mm3 (150-450); RBC Distribution Width CV 19.1 % (11.6-14.6); RBC Distribution Width SD 55.4 fl (35.1-43.9); Red Blood Count 5.03 M/mm3 (4.6-6.2)
== END | disposition home or self-care (01) ==
LOC: OLS.SANC 05:00
PROVIDERS: PCP Family Medicine; Visit Provider Internal Medicine
DX: I50.31 Acute diastolic (congestive) heart failure (principal); J96.20 Acute and chronic respiratory failure, unspecified whether with hypoxia or hypercapnia
CPT/HCPCS: 36415; 85027

== ENCOUNTER → 2022-11-02 | Outpatient (REF) | payer MEDICAID, SELFPAY ==
[2022-11-02 09:43] LABS: Hematocrit 31.3 % (40-54); Hemoglobin 9.2 g/dL (13.0-16.5); Mean Corp Hgb Conc 29.4 g/dL (32-36); Mean Corpuscular Volume 85.1 fL (80-94); Platelet Count 395 K/mm3 (150-450); RBC Distribution Width CV 18.6 % (11.6-14.6); RBC Distribution Width SD 58.5 fl (35.1-43.9); Red Blood Count 3.68 M/mm3 (4.6-6.2)
[2022-11-02 10:14] LABS: ALB/GLOB Ratio 0.5 RATIO (0.9-2.4); AST(SGOT) 29 U/L (15-37); Alanine Aminotransfer ALT/SGPT 50 U/L (16-61); Albumin, Serum 2.4 g/dL (3.2-5.0); Alkaline Phosphatase 65 U/L (45-117); Anion Gap 7 (5-15); BUN 24 mg/dL (7-18); BUN/Creat Ratio 41.7 RATIO (10-20); Calcium,Total 9.4 mg/dL (8.5-10.1); Chloride 103 mmol/L (98-107); Creatinine, Serum 0.58 mg/dL (0.70-1.30); EST Glomerular Filtration Rate 160 mL/min (>60); Est Glom Filt Rate - Afr Amer 194 mL/min (>60); Globulin 4.6 g/dL (2.2-4.2); Glucose 124 mg/dL (74-106); Potassium 3.7 mmol/L (3.5-5.1); Sodium Level 138 mmol/L (136-145)
== END | disposition home or self-care (01) ==
LOC: OLS.SANC 05:00
PROVIDERS: PCP Family Medicine; Visit Provider Internal Medicine
DX: A41.9 Sepsis, unspecified organism (principal)
CPT/HCPCS: 36415; 80053; 85027

== ENCOUNTER → 2022-11-09 | Outpatient (REF) | payer MEDICAID, SELFPAY ==
[2022-11-09 08:06] LABS: Hemoglobin 9.6 g/dL (13.0-16.5); Mean Corpuscular Volume 83.3 fL (80-94); Mean Platelet Vol. 10.5 fl (6.2-12.0); Platelet Count 465 K/mm3 (150-450); RBC Distribution Width CV 17.9 % (11.6-14.6); RBC Distribution Width SD 54.6 fl (35.1-43.9); Red Blood Count 3.84 M/mm3 (4.6-6.2); White Blood Count 9.6 K/mm3 (4.4-11.0)
[2022-11-09 08:30] LABS: Anion Gap 9 (5-15); BUN 19 mg/dL (7-18); BUN/Creat Ratio 35.9 RATIO (10-20); Calcium,Total 9.6 mg/dL (8.5-10.1); Chloride 102 mmol/L (98-107); Creatinine, Serum 0.53 mg/dL (0.70-1.30); EST Glomerular Filtration Rate 176 mL/min (>60); Est Glom Filt Rate - Afr Amer 213 mL/min (>60); Glucose 115 mg/dL (74-106); Potassium 3.9 mmol/L (3.5-5.1); Sodium Level 137 mmol/L (136-145); Uric Acid 2.7 mg/dL (3.5-7.2)
== END | disposition home or self-care (01) ==
LOC: OLS.SANC 05:00
PROVIDERS: PCP Family Medicine; Visit Provider Internal Medicine
DX: M10.9 Gout, unspecified (principal); I25.10 Atherosclerotic heart disease of native coronary artery without angina pectoris; I50.9 Heart failure, unspecified
CPT/HCPCS: 36415; 80048; 84550; 85027

== ENCOUNTER → 2022-11-16 | Outpatient (REF) | payer MEDICAID, SELFPAY ==
[2022-11-16 09:42] LABS: Hematocrit 30.8 % (40-54); Hemoglobin 9.2 g/dL (13.0-16.5); Mean Corp Hgb Conc 29.9 g/dL (32-36); Mean Corpuscular Hgb 24.9 pg (27.0-32.0); Mean Corpuscular Volume 83.5 fL (80-94); Mean Platelet Vol. 10.2 fl (6.2-12.0); Platelet Count 445 K/mm3 (150-450); RBC Distribution Width CV 17.8 % (11.6-14.6); RBC Distribution Width SD 55.2 fl (35.1-43.9); Red Blood Count 3.69 M/mm3 (4.6-6.2); White Blood Count 7.5 K/mm3 (4.4-11.0)
[2022-11-16 10:04] LABS: Anion Gap 4 (5-15); BUN 17 mg/dL (7-18); BUN/Creat Ratio 30.3 RATIO (10-20); Calcium,Total 9.6 mg/dL (8.5-10.1); Chloride 103 mmol/L (98-107); Creatinine, Serum 0.56 mg/dL (0.70-1.30); EST Glomerular Filtration Rate 165 mL/min (>60); Est Glom Filt Rate - Afr Amer 199 mL/min (>60); Glucose 114 mg/dL (74-106); Potassium 3.8 mmol/L (3.5-5.1); Sodium Level 138 mmol/L (136-145)
== END | disposition home or self-care (01) ==
LOC: OLS.SANC 05:00
PROVIDERS: PCP Family Medicine; Visit Provider Internal Medicine
DX: Z79.899 Other long term (current) drug therapy (principal)
CPT/HCPCS: 36415; 80048; 85027

== ENCOUNTER → 2022-12-14 | Outpatient (REF) | payer MEDICAID, SELFPAY ==
[2022-12-14 10:37] LABS: Hematocrit 38.8 % (40-54); Hemoglobin 11.8 g/dL (13.0-16.5); Mean Corp Hgb Conc 30.4 g/dL (32-36); Mean Corpuscular Hgb 24.8 pg (27.0-32.0); Mean Corpuscular Volume 81.5 fL (80-94); Platelet Count 466 K/mm3 (150-450); RBC Distribution Width CV 17.3 % (11.6-14.6); RBC Distribution Width SD 51.8 fl (35.1-43.9); Red Blood Count 4.76 M/mm3 (4.6-6.2); White Blood Count 10.7 K/mm3 (4.4-11.0)
[2022-12-14 10:49] LABS: Anion Gap 8 (5-15); BUN 15 mg/dL (7-18); BUN/Creat Ratio 25.4 RATIO (10-20); Calcium,Total 9.2 mg/dL (8.5-10.1); Chloride 100 mmol/L (98-107); Creatinine, Serum 0.59 mg/dL (0.70-1.30); EST Glomerular Filtration Rate 156 mL/min (>60); Est Glom Filt Rate - Afr Amer 188 mL/min (>60); Glucose 94 mg/dL (74-106); Potassium 4.1 mmol/L (3.5-5.1); Sodium Level 130 mmol/L (136-145)
== END | disposition home or self-care (01) ==
LOC: OLS.SANC 05:00
PROVIDERS: PCP Family Medicine; Visit Provider Internal Medicine
DX: B18.2 Chronic viral hepatitis C (principal); G93.2 Benign intracranial hypertension; I95.9 Hypotension, unspecified; J96.20 Acute and chronic respiratory failure, unspecified whether with hypoxia or hypercapnia
CPT/HCPCS: 36415; 80048; 85027

== ENCOUNTER → 2022-12-20 | Outpatient (REF) | payer MEDICAID, SELFPAY | END | disposition home or self-care (01) | LOC: OLS.SANC 00:34 | PROVIDERS: PCP Family Medicine; Visit Provider Internal Medicine | DX: R09.3 Abnormal sputum (principal) | CPT/HCPCS: 87070; 87077; 87186; 87205 ==

== ENCOUNTER → 2023-02-02 | Outpatient (REF) | payer MEDICAID, SELFPAY ==
[2023-02-02 08:22] LABS: Hematocrit 33.1 % (40-54); Hemoglobin 9.9 g/dL (13.0-16.5); Mean Corp Hgb Conc 29.9 g/dL (32-36); Mean Corpuscular Hgb 24.3 pg (27.0-32.0); Mean Corpuscular Volume 81.1 fL (80-94); Mean Platelet Vol. 10.4 fl (6.2-12.0); Platelet Count 329 K/mm3 (150-450); RBC Distribution Width CV 17.7 % (11.6-14.6); RBC Distribution Width SD 52.2 fl (35.1-43.9); Red Blood Count 4.08 M/mm3 (4.6-6.2); White Blood Count 5.8 K/mm3 (4.4-11.0)
[2023-02-02 08:53] LABS: ALB/GLOB Ratio 0.6 RATIO (0.9-2.4); AST(SGOT) 24 U/L (15-37); Alanine Aminotransfer ALT/SGPT 45 U/L (16-61); Albumin, Serum 2.6 g/dL (3.2-5.0); Alkaline Phosphatase 79 U/L (45-117); Anion Gap 8 (5-15); BUN 16 mg/dL (7-18); BUN/Creat Ratio 27.8 RATIO (10-20); Calcium,Total 8.9 mg/dL (8.5-10.1); Chloride 104 mmol/L (98-107); Creatinine, Serum 0.58 mg/dL (0.70-1.30); EST Glomerular Filtration Rate 160 mL/min (>60); Est Glom Filt Rate - Afr Amer 194 mL/min (>60); Globulin 4.3 g/dL (2.2-4.2); Glucose 114 mg/dL (74-106); Potassium 3.8 mmol/L (3.5-5.1); Protein, Total 6.9 g/dL (6.4-8.2); Sodium Level 137 mmol/L (136-145)
== END | disposition home or self-care (01) ==
LOC: OLS.SANC 05:00
PROVIDERS: PCP Family Medicine; Visit Provider Internal Medicine
DX: I50.9 Heart failure, unspecified (principal); Z86.73 Personal history of transient ischemic attack (TIA), and cerebral infarction without residual deficits
CPT/HCPCS: 36415; 80053; 80177; 85027

== ENCOUNTER → 2023-02-24 | Outpatient (REF) | payer MEDICAID, SELFPAY ==
[2023-02-24 09:11] LABS: AST(SGOT) 20 U/L (15-37); Alanine Aminotransfer ALT/SGPT 32 U/L (16-61); Albumin, Serum 2.8 g/dL (3.2-5.0); Alkaline Phosphatase 81 U/L (45-117); Bilirubin, Direct 0.14 mg/dL (0.00-0.30); Cholesterol 93 mg/dL (200); Globulin 4.6 g/dL (2.2-4.2); High Density Lipoprotein 39 mg/dL; Protein, Total 7.4 g/dL (6.4-8.2); Triglycerides 64 mg/dL; Very Low Density Lipoprotein 13 mg/dL (5-40)
== END ==
LOC: OLS.SANC 05:00
PROVIDERS: PCP Family Medicine; Visit Provider Internal Medicine
DX: I50.9 Heart failure, unspecified (principal); B19.20 Unspecified viral hepatitis C without hepatic coma; R00.0 Tachycardia, unspecified
CPT/HCPCS: 36415; 80061; 80076

== ENCOUNTER → 2023-03-01 | Outpatient (REF) | payer MEDICAID, SELFPAY ==
[2023-03-01 09:21] LABS: Hematocrit 34.8 % (40-54); Hemoglobin 10.6 g/dL (13.0-16.5); Mean Corp Hgb Conc 30.5 g/dL (32-36); Mean Corpuscular Hgb 24.1 pg (27.0-32.0); Mean Corpuscular Volume 79.3 fL (80-94); Mean Platelet Vol. 9.6 fl (6.2-12.0); Platelet Count 359 K/mm3 (150-450); RBC Distribution Width CV 17.4 % (11.6-14.6); RBC Distribution Width SD 50.9 fl (35.1-43.9); Red Blood Count 4.39 M/mm3 (4.6-6.2); White Blood Count 6.2 K/mm3 (4.4-11.0)
[2023-03-01 09:54] LABS: ALB/GLOB Ratio 0.7 RATIO (0.9-2.4); AST(SGOT) 28 U/L (15-37); Alanine Aminotransfer ALT/SGPT 49 U/L (16-61); Albumin, Serum 2.8 g/dL (3.2-5.0); Alkaline Phosphatase 80 U/L (45-117); Anion Gap 5 (5-15); BUN 18 mg/dL (7-18); BUN/Creat Ratio 35.3 RATIO (10-20); Calcium,Total 8.8 mg/dL (8.5-10.1); Chloride 104 mmol/L (98-107); Creatinine, Serum 0.51 mg/dL (0.70-1.30); EST Glomerular Filtration Rate 184 mL/min (>60); Est Glom Filt Rate - Afr Amer 222 mL/min (>60); Globulin 4.3 g/dL (2.2-4.2); Glucose 99 mg/dL (74-106); Potassium 4.3 mmol/L (3.5-5.1); Protein, Total 7.1 g/dL (6.4-8.2); Sodium Level 136 mmol/L (136-145)
== END ==
LOC: OLS.SANC 05:00
PROVIDERS: PCP Family Medicine; Visit Provider Internal Medicine
DX: I50.9 Heart failure, unspecified (principal); Z99.11 Dependence on respirator [ventilator] status
CPT/HCPCS: 36415; 80053; 85027

== ENCOUNTER → 2023-03-15 | Outpatient (REF) | payer MEDICAID, SELFPAY ==
[2023-03-15 10:17] LABS: Hematocrit 33.1 % (40-54); Hemoglobin 9.9 g/dL (13.0-16.5); Mean Corp Hgb Conc 29.9 g/dL (32-36); Mean Corpuscular Hgb 24.1 pg (27.0-32.0); Mean Corpuscular Volume 80.5 fL (80-94); Mean Platelet Vol. 10.9 fl (6.2-12.0); Platelet Count 314 K/mm3 (150-450); RBC Distribution Width CV 18.6 % (11.6-14.6); RBC Distribution Width SD 54.1 fl (35.1-43.9); Red Blood Count 4.11 M/mm3 (4.6-6.2); White Blood Count 5.1 K/mm3 (4.4-11.0)
[2023-03-15 10:41] LABS: ALB/GLOB Ratio 0.7 RATIO (0.9-2.4); AST(SGOT) 162 U/L (15-37); Alanine Aminotransfer ALT/SGPT 332 U/L (16-61); Albumin, Serum 2.8 g/dL (3.2-5.0); Alkaline Phosphatase 89 U/L (45-117); Anion Gap 6 (5-15); BUN 17 mg/dL (7-18); BUN/Creat Ratio 31.6 RATIO (10-20); Calcium,Total 8.9 mg/dL (8.5-10.1); Chloride 105 mmol/L (98-107); Creatinine, Serum 0.54 mg/dL (0.70-1.30); EST Glomerular Filtration Rate 173 mL/min (>60); Est Glom Filt Rate - Afr Amer 209 mL/min (>60); Globulin 4.2 g/dL (2.2-4.2); Glucose 101 mg/dL (74-106); Potassium 4.1 mmol/L (3.5-5.1); Sodium Level 138 mmol/L (136-145)
== END ==
LOC: OLS.SANC 05:00
PROVIDERS: PCP Family Medicine; Visit Provider Internal Medicine
DX: I50.9 Heart failure, unspecified (principal); Z86.73 Personal history of transient ischemic attack (TIA), and cerebral infarction without residual deficits
CPT/HCPCS: 36415; 80053; 85027

== ENCOUNTER → 2023-03-17 | Outpatient (REF) | payer MEDICAID, SELFPAY | END | disposition home or self-care (01) | LOC: OLS.SANC 05:00 | PROVIDERS: PCP Family Medicine; Visit Provider Internal Medicine | DX: I50.9 Heart failure, unspecified (principal) | CPT/HCPCS: 87070; 87077; 87186; 87205 ==

== ENCOUNTER → 2023-04-05 | Outpatient (REF) | payer MEDICAID, SELFPAY ==
[2023-04-05 09:46] LABS: Hematocrit 33.5 % (40-54); Hemoglobin 10.5 g/dL (13.0-16.5); Mean Corp Hgb Conc 31.3 g/dL (32-36); Mean Corpuscular Hgb 24.9 pg (27.0-32.0); Mean Corpuscular Volume 79.4 fL (80-94); Mean Platelet Vol. 10.5 fl (6.2-12.0); Platelet Count 253 K/mm3 (150-450); RBC Distribution Width CV 18.4 % (11.6-14.6); Red Blood Count 4.22 M/mm3 (4.6-6.2); White Blood Count 5.8 K/mm3 (4.4-11.0)
[2023-04-05 10:06] LABS: Anion Gap 7 (5-15); BUN 22 mg/dL (7-18); Chloride 102 mmol/L (98-107); Creatinine, Serum 0.55 mg/dL (0.70-1.30); EST Glomerular Filtration Rate 168 mL/min (>60); Est Glom Filt Rate - Afr Amer 204 mL/min (>60); Glucose 115 mg/dL (74-106); Potassium 4.1 mmol/L (3.5-5.1); Sodium Level 136 mmol/L (136-145)
== END ==
LOC: OLS.SANC 05:00
PROVIDERS: PCP Family Medicine; Visit Provider Internal Medicine
DX: Z79.899 Other long term (current) drug therapy (principal)
CPT/HCPCS: 36415; 80048; 85027

== ENCOUNTER → 2023-04-12 | Outpatient (REF) | payer MEDICAID, SELFPAY ==
[2023-04-12 13:03] LABS: Bacteria 0 SEEN /hpf (None Seen); Mucous, Urine 0 SEEN /hpf (<or=2+); Squamous Epithelial Cells - UA 0 SEEN /hpf (0-5); White Blood Cells 0 SEEN /hpf (0-5)
[2023-04-12 13:20] LABS: Hematocrit 37.2 % (40-54); Hemoglobin 10.8 g/dL (13.0-16.5); Mean Corpuscular Hgb 24.2 pg (27.0-32.0); Mean Corpuscular Volume 83.2 fL (80-94); Mean Platelet Vol. 11.1 fl (6.2-12.0); Platelet Count 269 K/mm3 (150-450); RBC Distribution Width CV 17.7 % (11.6-14.6); RBC Distribution Width SD 53.3 fl (35.1-43.9); Red Blood Count 4.47 M/mm3 (4.6-6.2)
[2023-04-12 13:21] LABS: Color, Urine Yellow (Yellow); Glucose, Dipstick Normal (Normal); Ketone-Dipstick Negative (Negative); Leukocyte Esterase-Dipstick Negative /ul (Negative); Nitrite-Dipstick Negative (Negative); Occult Blood-Urine 10 /ul (Negative); Protein-Dipstick Negative (Negative); Specific Gravity, Urine 1.015 (1.002-1.030); Urine Bilirubin Dipstick Negative (Negative); Urine Clarity Clear (Clear); Urine Urobilinogen 1 mg/dl (Normal)
[2023-04-12 13:31] LABS: Anion Gap 5 (5-15); BUN 21 mg/dL (7-18); BUN/Creat Ratio 39.8 RATIO (10-20); Calcium,Total 8.8 mg/dL (8.5-10.1); Chloride 108 mmol/L (98-107); Creatinine, Serum 0.53 mg/dL (0.70-1.30); EST Glomerular Filtration Rate 177 mL/min (>60); Est Glom Filt Rate - Afr Amer 214 mL/min (>60); Glucose 112 mg/dL (74-106); Potassium 4.2 mmol/L (3.5-5.1); Sodium Level 140 mmol/L (136-145)
[2023-04-12 13:48] LABS: Amorphous Sediment 1+; Red Blood Cells-Urine 0-5 SEEN /hpf (0-5)
== END | disposition home or self-care (01) ==
LOC: OLS.SANC 12:00
PROVIDERS: PCP Family Medicine; Visit Provider Internal Medicine
DX: I50.9 Heart failure, unspecified (principal); Z79.899 Other long term (current) drug therapy
CPT/HCPCS: 36415; 80048; 81001; 85027; 87070; 87186; 87205

== ENCOUNTER → 2023-04-17 | Outpatient (REF) | payer MEDICAID, SELFPAY ==
[2023-04-17 09:12] LABS: Hematocrit 34.3 % (40-54); Hemoglobin 10.4 g/dL (13.0-16.5); Mean Corp Hgb Conc 30.3 g/dL (32-36); Mean Corpuscular Hgb 24.5 pg (27.0-32.0); Mean Corpuscular Volume 80.9 fL (80-94); Platelet Count 275 K/mm3 (150-450); RBC Distribution Width CV 17.5 % (11.6-14.6); RBC Distribution Width SD 51.8 fl (35.1-43.9); Red Blood Count 4.24 M/mm3 (4.6-6.2); White Blood Count 6.3 K/mm3 (4.4-11.0)
[2023-04-17 09:45] LABS: Anion Gap 3 (5-15); BUN 20 mg/dL (7-18); BUN/Creat Ratio 38.9 RATIO (10-20); Calcium,Total 8.8 mg/dL (8.5-10.1); Chloride 105 mmol/L (98-107); Creatinine, Serum 0.51 mg/dL (0.70-1.30); EST Glomerular Filtration Rate 182 mL/min (>60); Est Glom Filt Rate - Afr Amer 220 mL/min (>60); Glucose 112 mg/dL (74-106); Potassium 3.9 mmol/L (3.5-5.1); Sodium Level 136 mmol/L (136-145)
== END | disposition home or self-care (01) ==
LOC: OLS.SANC 05:00
PROVIDERS: PCP Family Medicine; Visit Provider Internal Medicine
DX: I50.9 Heart failure, unspecified (principal)
CPT/HCPCS: 36415; 80048; 85027

== ENCOUNTER → 2023-04-19 | Outpatient (REF) | payer MEDICAID, SELFPAY ==
[2023-04-19 09:22] LABS: Hematocrit 34.8 % (40-54); Hemoglobin 10.4 g/dL (13.0-16.5); Mean Corp Hgb Conc 29.9 g/dL (32-36); Mean Corpuscular Volume 80.2 fL (80-94); Mean Platelet Vol. 10.7 fl (6.2-12.0); Platelet Count 292 K/mm3 (150-450); RBC Distribution Width CV 17.3 % (11.6-14.6); RBC Distribution Width SD 50.9 fl (35.1-43.9); Red Blood Count 4.34 M/mm3 (4.6-6.2)
[2023-04-19 09:36] LABS: Anion Gap 4 (5-15); BUN 20 mg/dL (7-18); BUN/Creat Ratio 36.2 RATIO (10-20); Calcium,Total 8.9 mg/dL (8.5-10.1); Chloride 104 mmol/L (98-107); Creatinine, Serum 0.55 mg/dL (0.70-1.30); EST Glomerular Filtration Rate 167 mL/min (>60); Est Glom Filt Rate - Afr Amer 202 mL/min (>60); Glucose 118 mg/dL (74-106); Potassium 3.9 mmol/L (3.5-5.1); Sodium Level 136 mmol/L (136-145)
== END ==
LOC: OLS.SANC 05:00
PROVIDERS: PCP Family Medicine; Visit Provider Internal Medicine
DX: Z79.899 Other long term (current) drug therapy (principal)
CPT/HCPCS: 36415; 80048; 85027

== ENCOUNTER → 2023-05-10 | Outpatient (REF) | payer MEDICAID, SELFPAY ==
[2023-05-10 09:10] LABS: Hematocrit 36.1 % (40-54); Hemoglobin 10.8 g/dL (13.0-16.5); Mean Corp Hgb Conc 29.9 g/dL (32-36); Mean Corpuscular Hgb 24.2 pg (27.0-32.0); Mean Corpuscular Volume 80.9 fL (80-94); Mean Platelet Vol. 10.3 fl (6.2-12.0); Platelet Count 379 K/mm3 (150-450); RBC Distribution Width CV 17.6 % (11.6-14.6); RBC Distribution Width SD 51.1 fl (35.1-43.9); Red Blood Count 4.46 M/mm3 (4.6-6.2); White Blood Count 6.7 K/mm3 (4.4-11.0)
[2023-05-10 09:31] LABS: ALB/GLOB Ratio 0.6 RATIO (0.9-2.4); AST(SGOT) 38 U/L (15-37); Alanine Aminotransfer ALT/SGPT 52 U/L (16-61); Albumin, Serum 2.7 g/dL (3.2-5.0); Alkaline Phosphatase 93 U/L (45-117); Anion Gap 4 (5-15); BUN 21 mg/dL (7-18); BUN/Creat Ratio 41.7 RATIO (10-20); Calcium,Total 8.7 mg/dL (8.5-10.1); Chloride 109 mmol/L (98-107); EST Glomerular Filtration Rate 186 mL/min (>60); Est Glom Filt Rate - Afr Amer 225 mL/min (>60); Globulin 4.8 g/dL (2.2-4.2); Glucose 119 mg/dL (74-106); Potassium 4.1 mmol/L (3.5-5.1); Protein, Total 7.5 g/dL (6.4-8.2); Sodium Level 139 mmol/L (136-145)
== END | disposition home or self-care (01) ==
LOC: OLS.SANC 05:00
PROVIDERS: PCP Family Medicine; Visit Provider Internal Medicine
DX: J96.20 Acute and chronic respiratory failure, unspecified whether with hypoxia or hypercapnia (principal)
CPT/HCPCS: 36415; 80053; 85027

== ENCOUNTER → 2023-05-19 | Outpatient (REF) | payer MEDICAID, SELFPAY ==
[2023-05-19 09:36] LABS: Mucous, Urine 0 SEEN /hpf (<or=2+); Squamous Epithelial Cells - UA 0 SEEN /hpf (0-5); White Blood Cells 0 SEEN /hpf (0-5)
[2023-05-19 09:56] LABS: Hemoglobin 10.4 g/dL (13.0-16.5); Mean Corp Hgb Conc 29.7 g/dL (32-36); Mean Corpuscular Hgb 23.6 pg (27.0-32.0); Mean Corpuscular Volume 79.4 fL (80-94); Mean Platelet Vol. 11.2 fl (6.2-12.0); Platelet Count 339 K/mm3 (150-450); RBC Distribution Width CV 17.2 % (11.6-14.6); RBC Distribution Width SD 49.8 fl (35.1-43.9); Red Blood Count 4.41 M/mm3 (4.6-6.2); White Blood Count 8.7 K/mm3 (4.4-11.0)
[2023-05-19 10:05] LABS: ALB/GLOB Ratio 0.5 RATIO (0.9-2.4); AST(SGOT) 50 U/L (15-37); Alanine Aminotransfer ALT/SGPT 51 U/L (16-61); Albumin, Serum 2.5 g/dL (3.2-5.0); Alkaline Phosphatase 81 U/L (45-117); Anion Gap 5 (5-15); BUN 18 mg/dL (7-18); BUN/Creat Ratio 36.4 RATIO (10-20); Calcium,Total 8.6 mg/dL (8.5-10.1); Chloride 105 mmol/L (98-107); Creatinine, Serum 0.49 mg/dL (0.70-1.30); EST Glomerular Filtration Rate 191 mL/min (>60); Est Glom Filt Rate - Afr Amer 231 mL/min (>60); Globulin 5.1 g/dL (2.2-4.2); Glucose 113 mg/dL (74-106); Protein, Total 7.6 g/dL (6.4-8.2); Sodium Level 136 mmol/L (136-145)
[2023-05-19 10:36] LABS: Color, Urine Yellow (Yellow); Glucose, Dipstick Normal (Normal); Ketone-Dipstick Negative (Negative); Leukocyte Esterase-Dipstick Negative /ul (Negative); Nitrite-Dipstick Negative (Negative); Occult Blood-Urine 150 /ul (Negative); Protein-Dipstick 15 mg/dl (Negative); Specific Gravity, Urine 1.015 (1.002-1.030); Urine Bilirubin Dipstick Negative (Negative); Urine Clarity Sl. Cloudy (Clear); Urine Urobilinogen 1 mg/dl (Normal)
[2023-05-19 10:54] LABS: Amorphous Sediment 1+; Bacteria 1+ /hpf (None Seen); Calcium Oxalate Crystals Ur 1+ /hpf (<or=2+); Red Blood Cells-Urine 10-25 SEEN /hpf (0-5)
== END | disposition home or self-care (01) ==
LOC: OLS.SANC 05:00
PROVIDERS: PCP Family Medicine; Visit Provider Internal Medicine
DX: R39.9 Unspecified symptoms and signs involving the genitourinary system (principal)
CPT/HCPCS: 36415; 80053; 81001; 85027; 87070; 87077; 87086; 87088; 87186; 87205

== ENCOUNTER → 2023-05-22 | Outpatient (REF) | payer MEDICAID, SELFPAY | END | disposition home or self-care (01) | LOC: OLS.SANC 08:57 | PROVIDERS: PCP Family Medicine; Referring Provider Internal Medicine; Visit Provider Internal Medicine | DX: R50.9 Fever, unspecified (principal); S91.302A Unspecified open wound, left foot, initial encounter | CPT/HCPCS: 87070; 87077; 87186; 87205 ==

== ENCOUNTER → 2023-05-24 | Outpatient (REF) | payer MEDICAID, SELFPAY ==
[2023-05-24 08:34] LABS: Hematocrit 33.8 % (40-54); Hemoglobin 9.7 g/dL (13.0-16.5); Mean Corp Hgb Conc 28.7 g/dL (32-36); Mean Corpuscular Hgb 23.9 pg (27.0-32.0); Mean Corpuscular Volume 83.3 fL (80-94); Mean Platelet Vol. 10.9 fl (6.2-12.0); Platelet Count 336 K/mm3 (150-450); RBC Distribution Width CV 17.2 % (11.6-14.6); RBC Distribution Width SD 52.7 fl (35.1-43.9); Red Blood Count 4.06 M/mm3 (4.6-6.2); White Blood Count 7.9 K/mm3 (4.4-11.0)
[2023-05-24 08:49] LABS: ALB/GLOB Ratio 0.5 RATIO (0.9-2.4); AST(SGOT) 44 U/L (15-37); Alanine Aminotransfer ALT/SGPT 53 U/L (16-61); Albumin, Serum 2.3 g/dL (3.2-5.0); Alkaline Phosphatase 81 U/L (45-117); Anion Gap 2 (5-15); BUN 18 mg/dL (7-18); BUN/Creat Ratio 39.1 RATIO (10-20); Calcium,Total 8.7 mg/dL (8.5-10.1); Chloride 106 mmol/L (98-107); Creatinine, Serum 0.46 mg/dL (0.70-1.30); EST Glomerular Filtration Rate 207 mL/min (>60); Est Glom Filt Rate - Afr Amer 250 mL/min (>60); Glucose 99 mg/dL (74-106); Potassium 4.3 mmol/L (3.5-5.1); Protein, Total 7.3 g/dL (6.4-8.2); Sodium Level 136 mmol/L (136-145)
== END | disposition home or self-care (01) ==
LOC: OLS.SANC 06:52
PROVIDERS: PCP Family Medicine; Visit Provider Internal Medicine
DX: I50.9 Heart failure, unspecified (principal)
CPT/HCPCS: 36415; 80053; 85027

== ENCOUNTER → 2023-07-26 | Outpatient (REF) | payer MEDICAID, SELFPAY ==
[2023-07-26 08:58] LABS: Absolute Neutrophil Count 4.3 X10^3/uL (2.0-7.7); Basophil# 0.08 X10^3/uL; Basophil% 1.1 % (0-1); Eosinophil# 0.32 X10^3/uL; Eosinophils% 4.4 % (0-5); Hematocrit 32.9 % (40-54); Hemoglobin 9.7 g/dL (13.0-16.5); Lymphocyte % 24.6 % (19-41); Mean Corp Hgb Conc 29.5 g/dL (32-36); Mean Corpuscular Hgb 23.7 pg (27.0-32.0); Mean Corpuscular Volume 80.4 fL (80-94); Mean Platelet Vol. 11.4 fl (6.2-12.0); Monocyte# 0.75 X10^3/uL; Monocyte% 10.3 % (0-10); NRBC Flagged by Analyzer 0 % (0-5); Neutrophil # 4.34 X10^3/uL (2.7-7.7); Neutrophil % 59.3 % (47-70); Platelet Count 328 K/mm3 (150-450); RBC Distribution Width SD 54.7 fl (35.1-43.9); Red Blood Count 4.09 M/mm3 (4.6-6.2); White Blood Count 7.3 K/mm3 (4.4-11.0)
[2023-07-26 09:55] LABS: ALB/GLOB Ratio 0.4 RATIO (0.9-2.4); AST(SGOT) 69 U/L (15-37); Alanine Aminotransfer ALT/SGPT 114 U/L (16-61); Albumin, Serum 2.1 g/dL (3.2-5.0); Alkaline Phosphatase 217 U/L (45-117); Anion Gap 2 (5-15); BUN 17 mg/dL (7-18); BUN/Creat Ratio 38.5 RATIO (10-20); Calcium,Total 8.1 mg/dL (8.5-10.1); Chloride 107 mmol/L (98-107); Creatinine, Serum 0.44 mg/dL (0.70-1.30); EST Glomerular Filtration Rate 216 mL/min (>60); Est Glom Filt Rate - Afr Amer 262 mL/min (>60); Globulin 4.8 g/dL (2.2-4.2); Glucose 113 mg/dL (74-106); Potassium 4.2 mmol/L (3.5-5.1); Protein, Total 6.9 g/dL (6.4-8.2); Sodium Level 136 mmol/L (136-145)
== END | disposition home or self-care (01) ==
LOC: OLS.SANC 06:14
PROVIDERS: PCP Family Medicine; Visit Provider Internal Medicine
DX: Z79.899 Other long term (current) drug therapy (principal)
CPT/HCPCS: 36415; 80053; 85025

== ENCOUNTER → 2023-07-29 | Outpatient (REF) | payer MEDICAID, SELFPAY ==
[2023-07-31 08:51] LABS: Bacteria 0 SEEN /hpf (None Seen); Mucous, Urine 0 SEEN /hpf (<or=2+); Squamous Epithelial Cells - UA 0 SEEN /hpf (0-5)
[2023-07-31 09:18] LABS: Color, Urine Yellow (Yellow); Glucose, Dipstick Normal (Normal); Ketone-Dipstick Negative (Negative); Leukocyte Esterase-Dipstick 500 /ul (Negative); Nitrite-Dipstick Negative (Negative); Occult Blood-Urine 250 /ul (Negative); Protein-Dipstick 100 mg/dl (Negative); Specific Gravity, Urine 1.015 (1.002-1.030); Urine Bilirubin Dipstick Negative (Negative); Urine Clarity Sl. Cloudy (Clear); Urine Urobilinogen Normal (Normal); Urine pH 6.5 (5.0 - 8.0)
[2023-07-31 09:44] LABS: Calcium Oxalate Crystals Ur 1+ /hpf (<or=2+); Red Blood Cells-Urine 10-25 SEEN /hpf (0-5); White Blood Cells >100 SEEN /hpf (0-5)
== END | disposition home or self-care (01) ==
LOC: OLS.SANC 16:10
PROVIDERS: PCP Family Medicine; Referring Provider Internal Medicine; Visit Provider Internal Medicine
DX: R33.9 Retention of urine, unspecified (principal)
CPT/HCPCS: 81001; 87077; 87086; 87088; 87186

== ENCOUNTER → 2023-08-02 | Outpatient (REF) | payer MEDICAID, SELFPAY ==
[2023-08-02 07:57] LABS: Hematocrit 33.2 % (40-54); Mean Corp Hgb Conc 30.1 g/dL (32-36); Mean Corpuscular Volume 79.6 fL (80-94); Mean Platelet Vol. 10.7 fl (6.2-12.0); Platelet Count 323 K/mm3 (150-450); RBC Distribution Width CV 18.8 % (11.6-14.6); RBC Distribution Width SD 54.4 fl (35.1-43.9); Red Blood Count 4.17 M/mm3 (4.6-6.2); White Blood Count 6.1 K/mm3 (4.4-11.0)
[2023-08-02 08:10] LABS: Anion Gap 4 (5-15); BUN 18 mg/dL (7-18); BUN/Creat Ratio 33.5 RATIO (10-20); Calcium,Total 8.4 mg/dL (8.5-10.1); Chloride 105 mmol/L (98-107); Creatinine, Serum 0.54 mg/dL (0.70-1.30); EST Glomerular Filtration Rate 173 mL/min (>60); Est Glom Filt Rate - Afr Amer 209 mL/min (>60); Glucose 92 mg/dL (74-106); Potassium 4.2 mmol/L (3.5-5.1); Sodium Level 134 mmol/L (136-145)
== END | disposition home or self-care (01) ==
LOC: OLS.SANC 05:00
PROVIDERS: PCP Family Medicine; Visit Provider Internal Medicine
DX: I50.9 Heart failure, unspecified (principal); J96.20 Acute and chronic respiratory failure, unspecified whether with hypoxia or hypercapnia
CPT/HCPCS: 36415; 80048; 85027

== ENCOUNTER → 2023-09-08 | Outpatient (REF) | payer MEDICAID, SELFPAY | END | disposition home or self-care (01) | LOC: OLS.SANC 05:00 | PROVIDERS: PCP Family Medicine; Visit Provider Internal Medicine | DX: B18.2 Chronic viral hepatitis C (principal); I69.952 Hemiplegia and hemiparesis following unspecified cerebrovascular disease affecting left dominant side | CPT/HCPCS: 36415; 87040 ==

== ENCOUNTER → 2023-09-20 | Outpatient (REF) | payer MEDICAID, SELFPAY ==
[2023-09-20 09:16] LABS: Hematocrit 34.7 % (40-54); Hemoglobin 10.3 g/dL (13.0-16.5); Mean Corp Hgb Conc 29.7 g/dL (32-36); Mean Corpuscular Hgb 23.5 pg (27.0-32.0); Mean Corpuscular Volume 79.2 fL (80-94); Mean Platelet Vol. 11.5 fl (6.2-12.0); Platelet Count 295 K/mm3 (150-450); RBC Distribution Width CV 17.7 % (11.6-14.6); RBC Distribution Width SD 51.1 fl (35.1-43.9); Red Blood Count 4.38 M/mm3 (4.6-6.2); White Blood Count 7.7 K/mm3 (4.4-11.0)
[2023-09-20 09:39] LABS: ALB/GLOB Ratio 0.5 RATIO (0.9-2.4); AST(SGOT) 35 U/L (15-37); Alanine Aminotransfer ALT/SGPT 48 U/L (16-61); Albumin, Serum 2.6 g/dL (3.2-5.0); Alkaline Phosphatase 86 U/L (45-117); Anion Gap 0 (5-15); BUN 20 mg/dL (7-18); BUN/Creat Ratio 37.7 RATIO (10-20); Chloride 108 mmol/L (98-107); Creatinine, Serum 0.53 mg/dL (0.70-1.30); EST Glomerular Filtration Rate 175 mL/min (>60); Est Glom Filt Rate - Afr Amer 212 mL/min (>60); Globulin 4.8 g/dL (2.2-4.2); Glucose 99 mg/dL (74-106); Potassium 4.2 mmol/L (3.5-5.1); Protein, Total 7.4 g/dL (6.4-8.2); Sodium Level 136 mmol/L (136-145)
== END | disposition home or self-care (01) ==
LOC: OLS.SANC 04:00
PROVIDERS: PCP Family Medicine; Referring Provider Internal Medicine; Visit Provider Internal Medicine
DX: Z79.899 Other long term (current) drug therapy (principal)
CPT/HCPCS: 36415; 80053; 85027

== ENCOUNTER → 2023-10-02 | Outpatient (REF) | payer MEDICAID, SELFPAY ==
[2023-10-02 09:06] LABS: Mucous, Urine 0 SEEN /hpf (<or=2+)
[2023-10-02 09:13] LABS: Color, Urine Yellow (Yellow); Glucose, Dipstick Normal (Normal); Ketone-Dipstick Negative (Negative); Leukocyte Esterase-Dipstick 500 /ul (Negative); Nitrite-Dipstick Negative (Negative); Occult Blood-Urine 25 /ul (Negative); Protein-Dipstick 30 mg/dl (Negative); Urine Bilirubin Dipstick Negative (Negative); Urine Clarity Sl. Cloudy (Clear); Urine Urobilinogen Normal (Normal)
[2023-10-02 09:37] LABS: Amorphous Sediment 2+; Bacteria 1+ /hpf (None Seen); Red Blood Cells-Urine 0-5 SEEN /hpf (0-5); Squamous Epithelial Cells - UA 0-5 SEEN /hpf (0-5); White Blood Cells 25-50 SEEN /hpf (0-5)
== END | disposition home or self-care (01) ==
LOC: OLS.SANC 06:30
PROVIDERS: PCP Family Medicine; Visit Provider Internal Medicine
DX: N39.0 Urinary tract infection, site not specified (principal)
CPT/HCPCS: 81001; 87077; 87086; 87088; 87186

== ENCOUNTER → 2023-10-30 | Outpatient (REF) | payer MEDICAID, SELFPAY ==
[2023-10-30 09:44] LABS: Hematocrit 36.8 % (40-54); Mean Corp Hgb Conc 29.9 g/dL (32-36); Mean Corpuscular Hgb 23.2 pg (27.0-32.0); Mean Corpuscular Volume 77.6 fL (80-94); Mean Platelet Vol. 10.6 fl (6.2-12.0); Platelet Count 337 K/mm3 (150-450); RBC Distribution Width CV 16.7 % (11.6-14.6); RBC Distribution Width SD 47.3 fl (35.1-43.9); Red Blood Count 4.74 M/mm3 (4.6-6.2); White Blood Count 6.1 K/mm3 (4.4-11.0)
[2023-10-30 10:19] LABS: ALB/GLOB Ratio 0.5 RATIO (0.9-2.4); AST(SGOT) 30 U/L (15-37); Alanine Aminotransfer ALT/SGPT 34 U/L (16-61); Albumin, Serum 2.7 g/dL (3.2-5.0); Alkaline Phosphatase 100 U/L (45-117); Anion Gap 4 (5-15); BUN 19 mg/dL (7-18); BUN/Creat Ratio 35.9 RATIO (10-20); Calcium,Total 9.8 mg/dL (8.5-10.1); Chloride 105 mmol/L (98-107); Creatinine, Serum 0.53 mg/dL (0.70-1.30); EST Glomerular Filtration Rate 176 mL/min (>60); Est Glom Filt Rate - Afr Amer 213 mL/min (>60); Globulin 5.6 g/dL (2.2-4.2); Glucose 96 mg/dL (74-106); Potassium 4.1 mmol/L (3.5-5.1); Protein, Total 8.3 g/dL (6.4-8.2); Sodium Level 138 mmol/L (136-145)
== END | disposition home or self-care (01) ==
LOC: OLS.SANC 05:00
PROVIDERS: PCP Family Medicine; Visit Provider Internal Medicine
DX: I50.9 Heart failure, unspecified (principal); J96.10 Chronic respiratory failure, unspecified whether with hypoxia or hypercapnia
CPT/HCPCS: 36415; 80053; 85027

== ENCOUNTER → 2023-11-14 | Outpatient (REF) | payer MEDICAID, SELFPAY ==
[2023-11-14 09:48] LABS: Mucous, Urine 0 SEEN /hpf (<or=2+)
[2023-11-14 09:57] LABS: Color, Urine Yellow (Yellow); Glucose, Dipstick Normal (Normal); Ketone-Dipstick Negative (Negative); Leukocyte Esterase-Dipstick 500 /ul (Negative); Nitrite-Dipstick Positive (Negative); Occult Blood-Urine 250 /ul (Negative); Protein-Dipstick 100 mg/dl (Negative); Specific Gravity, Urine 1.015 (1.002-1.030); Urine Bilirubin Dipstick Negative (Negative); Urine Clarity Cloudy (Clear); Urine Urobilinogen Normal (Normal)
[2023-11-14 10:18] LABS: Bacteria 2+ /hpf (None Seen); Red Blood Cells-Urine 25-50 SEEN /hpf (0-5); Squamous Epithelial Cells - UA 0-5 SEEN /hpf (0-5); Triple Phosphate Crystals Ur 3+ /hpf (<or=1+); White Blood Cells 50-100 SEEN /hpf (0-5)
== END | disposition home or self-care (01) ==
LOC: OLS.SANC 09:46
PROVIDERS: PCP Family Medicine; Visit Provider Internal Medicine
DX: N39.0 Urinary tract infection, site not specified (principal); Z79.899 Other long term (current) drug therapy
CPT/HCPCS: 81001; 87077; 87086; 87088; 87186

== ENCOUNTER → 2023-11-30 | Outpatient (REF) | payer MEDICAID, SELFPAY ==
[2023-11-30 08:43] LABS: Hematocrit 35.5 % (40-54); Hemoglobin 10.4 g/dL (13.0-16.5); Mean Corp Hgb Conc 29.3 g/dL (32-36); Mean Corpuscular Hgb 22.8 pg (27.0-32.0); Mean Corpuscular Volume 77.7 fL (80-94); Mean Platelet Vol. 11.6 fl (6.2-12.0); Platelet Count 311 K/mm3 (150-450); RBC Distribution Width CV 18.6 % (11.6-14.6); RBC Distribution Width SD 51.8 fl (35.1-43.9); Red Blood Count 4.57 M/mm3 (4.6-6.2); White Blood Count 5.9 K/mm3 (4.4-11.0)
[2023-11-30 09:02] LABS: Anion Gap 1 (5-15); BUN 19 mg/dL (7-18); BUN/Creat Ratio 33.4 RATIO (10-20); Calcium,Total 8.7 mg/dL (8.5-10.1); Chloride 112 mmol/L (98-107); Creatinine, Serum 0.57 mg/dL (0.70-1.30); EST Glomerular Filtration Rate 162 mL/min (>60); Est Glom Filt Rate - Afr Amer 195 mL/min (>60); Glucose 132 mg/dL (74-106); Potassium 3.9 mmol/L (3.5-5.1); Sodium Level 142 mmol/L (136-145)
== END | disposition home or self-care (01) ==
LOC: OLS.SANC 05:00
PROVIDERS: PCP Family Medicine; Visit Provider Internal Medicine
DX: Z79.899 Other long term (current) drug therapy (principal)
CPT/HCPCS: 36415; 80048; 85027

== ENCOUNTER → 2023-12-01 | Outpatient (REF) | payer MEDICAID, SELFPAY | END | disposition home or self-care (01) | LOC: OLS.SANC 16:00 | PROVIDERS: PCP Family Medicine; Referring Provider Internal Medicine; Visit Provider Internal Medicine | DX: I50.9 Heart failure, unspecified (principal); Z79.899 Other long term (current) drug therapy; R19.7 Diarrhea, unspecified | CPT/HCPCS: 87493 ==

== ENCOUNTER → 2023-12-14 | Outpatient (REF) | payer MEDICAID, SELFPAY ==
[2023-12-14 08:48] LABS: Hematocrit 35.5 % (40-54); Hemoglobin 10.9 g/dL (13.0-16.5); Mean Corp Hgb Conc 30.7 g/dL (32-36); Mean Corpuscular Hgb 23.4 pg (27.0-32.0); Mean Corpuscular Volume 76.3 fL (80-94); Mean Platelet Vol. 10.4 fl (6.2-12.0); Platelet Count 239 K/mm3 (150-450); RBC Distribution Width CV 18.1 % (11.6-14.6); RBC Distribution Width SD 49.6 fl (35.1-43.9); Red Blood Count 4.65 M/mm3 (4.6-6.2); White Blood Count 6.6 K/mm3 (4.4-11.0)
[2023-12-14 09:44] LABS: ALB/GLOB Ratio 0.5 RATIO (0.9-2.4); AST(SGOT) 30 U/L (15-37); Alanine Aminotransfer ALT/SGPT 38 U/L (16-61); Albumin, Serum 2.5 g/dL (3.2-5.0); Alkaline Phosphatase 90 U/L (45-117); Anion Gap 4 (5-15); BUN 16 mg/dL (7-18); BUN/Creat Ratio 30.7 RATIO (10-20); Calcium,Total 8.7 mg/dL (8.5-10.1); Chloride 105 mmol/L (98-107); Creatinine, Serum 0.52 mg/dL (0.70-1.30); EST Glomerular Filtration Rate 179 mL/min (>60); Est Glom Filt Rate - Afr Amer 216 mL/min (>60); Globulin 4.6 g/dL (2.2-4.2); Glucose 109 mg/dL (74-106); Potassium 4.3 mmol/L (3.5-5.1); Protein, Total 7.1 g/dL (6.4-8.2); Sodium Level 136 mmol/L (136-145)
== END | disposition home or self-care (01) ==
LOC: OLS.SANC 05:00
PROVIDERS: PCP Family Medicine; Visit Provider Internal Medicine
DX: I50.9 Heart failure, unspecified (principal); I69.952 Hemiplegia and hemiparesis following unspecified cerebrovascular disease affecting left dominant side; Z99.11 Dependence on respirator [ventilator] status
CPT/HCPCS: 36415; 80053; 85027

== ENCOUNTER → 2023-12-22 | Outpatient (REF) | payer MEDICAID, SELFPAY ==
[2023-12-22 08:47] LABS: Hematocrit 35.8 % (40-54); Hemoglobin 10.8 g/dL (13.0-16.5); Mean Corp Hgb Conc 30.2 g/dL (32-36); Mean Corpuscular Volume 76.2 fL (80-94); Mean Platelet Vol. 10.6 fl (6.2-12.0); Platelet Count 274 K/mm3 (150-450); RBC Distribution Width CV 18.6 % (11.6-14.6); RBC Distribution Width SD 50.5 fl (35.1-43.9)
[2023-12-22 09:07] LABS: Anion Gap 4 (5-15); BUN 20 mg/dL (7-18); BUN/Creat Ratio 33.4 RATIO (10-20); Calcium,Total 8.6 mg/dL (8.5-10.1); Chloride 107 mmol/L (98-107); EST Glomerular Filtration Rate 152 mL/min (>60); Est Glom Filt Rate - Afr Amer 184 mL/min (>60); Glucose 92 mg/dL (74-106); Potassium 4.1 mmol/L (3.5-5.1); Sodium Level 138 mmol/L (136-145)
== END | disposition home or self-care (01) ==
LOC: OLS.SANC 05:00
PROVIDERS: PCP Family Medicine; Visit Provider Internal Medicine
DX: J44.9 Chronic obstructive pulmonary disease, unspecified (principal); R53.83 Other fatigue; Z79.899 Other long term (current) drug therapy
CPT/HCPCS: 36415; 80048; 85027

== ENCOUNTER → 2023-12-26 | Outpatient (REF) | payer MEDICAID, SELFPAY | END | disposition home or self-care (01) | LOC: OLS.SANC 04:00 | PROVIDERS: PCP Family Medicine; Visit Provider Internal Medicine | DX: M62.81 Muscle weakness (generalized) (principal) | CPT/HCPCS: 87070; 87077; 87186; 87205 ==

== ENCOUNTER → 2024-01-08 | Outpatient (REF) | payer MEDICAID, SELFPAY | END | disposition home or self-care (01) | LOC: OLS.SANC 05:00 | PROVIDERS: PCP Family Medicine; Visit Provider Internal Medicine | DX: Z79.899 Other long term (current) drug therapy (principal) | CPT/HCPCS: 36415; 87040; 87070; 87077; 87186; 87205 ==

== ENCOUNTER → 2024-01-15 | Outpatient (REF) | payer MEDICAID, SELFPAY ==
[2024-01-15 10:18] LABS: Hematocrit 34.1 % (40-54); Hemoglobin 10.1 g/dL (13.0-16.5); Mean Corp Hgb Conc 29.6 g/dL (32-36); Mean Corpuscular Hgb 22.8 pg (27.0-32.0); Mean Platelet Vol. 10.1 fl (6.2-12.0); Platelet Count 350 K/mm3 (150-450); RBC Distribution Width CV 18.6 % (11.6-14.6); RBC Distribution Width SD 51.2 fl (35.1-43.9); Red Blood Count 4.43 M/mm3 (4.6-6.2); White Blood Count 6.3 K/mm3 (4.4-11.0)
[2024-01-15 10:56] LABS: ALB/GLOB Ratio 0.5 RATIO (0.9-2.4); AST(SGOT) 23 U/L (15-37); Alanine Aminotransfer ALT/SGPT 34 U/L (16-61); Albumin, Serum 2.4 g/dL (3.2-5.0); Alkaline Phosphatase 82 U/L (45-117); Anion Gap 3 (5-15); BUN 18 mg/dL (7-18); BUN/Creat Ratio 29.3 RATIO (10-20); Calcium,Total 8.7 mg/dL (8.5-10.1); Chloride 107 mmol/L (98-107); Creatinine, Serum 0.61 mg/dL (0.70-1.30); EST Glomerular Filtration Rate 148 mL/min (>60); Est Glom Filt Rate - Afr Amer 179 mL/min (>60); Globulin 4.8 g/dL (2.2-4.2); Glucose 113 mg/dL (74-106); Potassium 4.2 mmol/L (3.5-5.1); Protein, Total 7.2 g/dL (6.4-8.2); Sodium Level 137 mmol/L (136-145)
== END | disposition home or self-care (01) ==
LOC: OLS.SANC 05:00
PROVIDERS: PCP Family Medicine; Visit Provider Internal Medicine
DX: I50.9 Heart failure, unspecified (principal); I69.952 Hemiplegia and hemiparesis following unspecified cerebrovascular disease affecting left dominant side; Z93.0 Tracheostomy status
CPT/HCPCS: 36415; 80053; 85027

== ENCOUNTER → 2024-01-19 | Outpatient (REF) | payer MEDICAID, SELFPAY ==
[2024-01-19 08:45] LABS: Hematocrit 35.1 % (40-54); Hemoglobin 10.4 g/dL (13.0-16.5); Mean Corp Hgb Conc 29.6 g/dL (32-36); Mean Corpuscular Hgb 22.9 pg (27.0-32.0); Mean Corpuscular Volume 77.3 fL (80-94); Mean Platelet Vol. 10.8 fl (6.2-12.0); Platelet Count 319 K/mm3 (150-450); RBC Distribution Width CV 18.6 % (11.6-14.6); RBC Distribution Width SD 51.8 fl (35.1-43.9); Red Blood Count 4.54 M/mm3 (4.6-6.2); White Blood Count 5.5 K/mm3 (4.4-11.0)
[2024-01-19 09:38] LABS: Anion Gap 7 (5-15); BUN 19 mg/dL (7-18); BUN/Creat Ratio 35.4 RATIO (10-20); Calcium,Total 9.2 mg/dL (8.5-10.1); Chloride 105 mmol/L (98-107); Creatinine, Serum 0.54 mg/dL (0.70-1.30); EST Glomerular Filtration Rate 173 mL/min (>60); Est Glom Filt Rate - Afr Amer 209 mL/min (>60); Glucose 85 mg/dL (74-106); Potassium 4.3 mmol/L (3.5-5.1); Sodium Level 137 mmol/L (136-145)
== END | disposition home or self-care (01) ==
LOC: OLS.SANC 05:00
PROVIDERS: PCP Family Medicine; Visit Provider Internal Medicine
DX: I50.9 Heart failure, unspecified (principal); Z79.899 Other long term (current) drug therapy
CPT/HCPCS: 36415; 80048; 85027

== ENCOUNTER → 2024-01-30 | Outpatient (REF) | payer MEDICAID, SELFPAY ==
[2024-01-31 07:51] LABS: Mucous, Urine 0 SEEN /hpf (<or=2+); Squamous Epithelial Cells - UA 0 SEEN /hpf (0-5)
[2024-01-31 08:12] LABS: Color, Urine Yellow (Yellow); Glucose, Dipstick Normal (Normal); Ketone-Dipstick Negative (Negative); Leukocyte Esterase-Dipstick 500 /ul (Negative); Nitrite-Dipstick Positive (Negative); Occult Blood-Urine 25 /ul (Negative); Protein-Dipstick 30 mg/dl (Negative); Urine Bilirubin Dipstick Negative (Negative); Urine Clarity Cloudy (Clear); Urine Urobilinogen Normal (Normal)
[2024-01-31 08:38] LABS: Amorphous Sediment 2+; Bacteria 2+ /hpf (None Seen); White Blood Cells >100 SEEN /hpf (0-5)
[2024-01-31 08:39] LABS: Calcium Oxalate Crystals Ur 3+ /hpf (<or=2+)
[2024-01-31 08:40] LABS: Red Blood Cells-Urine 0-5 SEEN /hpf (0-5)
== END | disposition home or self-care (01) ==
LOC: OLS.SANC 12:30
PROVIDERS: PCP Family Medicine; Visit Provider Internal Medicine
DX: R33.9 Retention of urine, unspecified (principal); Z93.0 Tracheostomy status; Z99.11 Dependence on respirator [ventilator] status
CPT/HCPCS: 81001; 87070; 87077; 87086; 87088; 87186; 87205

== ENCOUNTER → 2024-02-06 | Outpatient (REF) | payer MEDICAID, SELFPAY | END | disposition home or self-care (01) | LOC: OLS.SANC 04:46 | PROVIDERS: PCP Family Medicine; Visit Provider Internal Medicine | DX: I48.91 Unspecified atrial fibrillation (principal); Z79.899 Other long term (current) drug therapy | CPT/HCPCS: 36415; 84443 ==

== ENCOUNTER → 2024-02-15 | Outpatient (REF) | payer MEDICAID, SELFPAY ==
[2024-02-15 08:09] LABS: Hematocrit 39.3 % (40-54); Hemoglobin 11.7 g/dL (13.0-16.5); Mean Corp Hgb Conc 29.8 g/dL (32-36); Mean Corpuscular Volume 77.4 fL (80-94); Mean Platelet Vol. 10.5 fl (6.2-12.0); Platelet Count 353 K/mm3 (150-450); RBC Distribution Width CV 17.2 % (11.6-14.6); RBC Distribution Width SD 48.2 fl (35.1-43.9); Red Blood Count 5.08 M/mm3 (4.6-6.2)
[2024-02-15 08:39] LABS: ALB/GLOB Ratio 0.5 RATIO (0.9-2.4); AST(SGOT) 22 U/L (15-37); Alanine Aminotransfer ALT/SGPT 24 U/L (16-61); Albumin, Serum 2.9 g/dL (3.2-5.0); Alkaline Phosphatase 86 U/L (45-117); Anion Gap 7 (5-15); BUN 15 mg/dL (7-18); BUN/Creat Ratio 24.3 RATIO (10-20); Calcium,Total 9.2 mg/dL (8.5-10.1); Chloride 102 mmol/L (98-107); Creatinine, Serum 0.62 mg/dL (0.70-1.30); EST Glomerular Filtration Rate 147 mL/min (>60); Est Glom Filt Rate - Afr Amer 177 mL/min (>60); Globulin 5.4 g/dL (2.2-4.2); Glucose 109 mg/dL (74-106); Protein, Total 8.3 g/dL (6.4-8.2); Sodium Level 136 mmol/L (136-145)
== END | disposition home or self-care (01) ==
LOC: OLS.SANC 05:00
PROVIDERS: PCP Family Medicine; Visit Provider Internal Medicine
DX: I50.9 Heart failure, unspecified (principal); B18.2 Chronic viral hepatitis C; I69.952 Hemiplegia and hemiparesis following unspecified cerebrovascular disease affecting left dominant side; Z79.899 Other long term (current) drug therapy
CPT/HCPCS: 36415; 80053; 85027

== ENCOUNTER → 2024-02-19 | Outpatient (REF) | payer MEDICAID, SELFPAY ==
[2024-02-19 08:41] LABS: Anion Gap 6 (5-15); BUN 18 mg/dL (7-18); BUN/Creat Ratio 34.7 RATIO (10-20); Calcium,Total 8.7 mg/dL (8.5-10.1); Chloride 102 mmol/L (98-107); Creatinine, Serum 0.52 mg/dL (0.70-1.30); EST Glomerular Filtration Rate 180 mL/min (>60); Est Glom Filt Rate - Afr Amer 218 mL/min (>60); Glucose 87 mg/dL (74-106); Hematocrit 36.2 % (40-54); Hemoglobin 10.9 g/dL (13.0-16.5); Mean Corp Hgb Conc 30.1 g/dL (32-36); Mean Corpuscular Hgb 23.3 pg (27.0-32.0); Mean Corpuscular Volume 77.4 fL (80-94); Mean Platelet Vol. 10.8 fl (6.2-12.0); Platelet Count 303 K/mm3 (150-450); Potassium 4.3 mmol/L (3.5-5.1); RBC Distribution Width CV 16.7 % (11.6-14.6); Red Blood Count 4.68 M/mm3 (4.6-6.2); Sodium Level 133 mmol/L (136-145); White Blood Count 6.8 K/mm3 (4.4-11.0)
== END | disposition home or self-care (01) ==
LOC: OLS.SANC 05:00
PROVIDERS: PCP Family Medicine; Visit Provider Internal Medicine
DX: I50.9 Heart failure, unspecified (principal); J44.9 Chronic obstructive pulmonary disease, unspecified; G93.40 Encephalopathy, unspecified; B18.2 Chronic viral hepatitis C; Z99.11 Dependence on respirator [ventilator] status
CPT/HCPCS: 36415; 80048; 85027

== ENCOUNTER → 2024-03-06 | Outpatient (REF) | payer MEDICAID, SELFPAY | END | disposition home or self-care (01) | LOC: OLS.SANC 08:33 | PROVIDERS: PCP Family Medicine; Referring Provider Internal Medicine; Visit Provider Internal Medicine | DX: I50.9 Heart failure, unspecified (principal); Z79.899 Other long term (current) drug therapy | CPT/HCPCS: 87070; 87077; 87186; 87205 ==

== ENCOUNTER → 2024-03-18 | Outpatient (REF) | payer MEDICAID, SELFPAY ==
[2024-03-18 09:15] LABS: Hematocrit 36.8 % (40-54); Hemoglobin 11.5 g/dL (13.0-16.5); Mean Corp Hgb Conc 31.3 g/dL (32-36); Mean Corpuscular Volume 89.5 fL (80-94); Mean Platelet Vol. 9.5 fl (6.2-12.0); Platelet Count 337 K/mm3 (150-450); RBC Distribution Width CV 15.7 % (11.6-14.6); RBC Distribution Width SD 50.9 fl (35.1-43.9); Red Blood Count 4.11 M/mm3 (4.6-6.2); White Blood Count 13.6 K/mm3 (4.4-11.0)
[2024-03-18 09:40] LABS: ALB/GLOB Ratio 0.8 RATIO (0.9-2.4); AST(SGOT) 21 U/L (15-37); Alanine Aminotransfer ALT/SGPT 23 U/L (16-61); Alkaline Phosphatase 111 U/L (45-117); Anion Gap 8 (5-15); BUN 20 mg/dL (7-18); BUN/Creat Ratio 25.3 RATIO (10-20); Calcium,Total 8.5 mg/dL (8.5-10.1); Chloride 104 mmol/L (98-107); Creatinine, Serum 0.79 mg/dL (0.70-1.30); EST Glomerular Filtration Rate 110 mL/min (>60); Est Glom Filt Rate - Afr Amer 133 mL/min (>60); Globulin 3.9 g/dL (2.2-4.2); Glucose 93 mg/dL (74-106); Protein, Total 6.9 g/dL (6.4-8.2); Sodium Level 138 mmol/L (136-145)
== END | disposition home or self-care (01) ==
LOC: OLS.SANC 05:00
PROVIDERS: PCP Family Medicine; Visit Provider Internal Medicine
DX: G93.1 Anoxic brain damage, not elsewhere classified (principal); Z79.899 Other long term (current) drug therapy; Z74.09 Other reduced mobility
CPT/HCPCS: 36415; 80053; 85027

== ENCOUNTER → 2024-03-20 | Outpatient (REF) | payer MEDICAID, SELFPAY ==
[2024-03-20 09:00] LABS: Hematocrit 37.6 % (40-54); Hemoglobin 11.2 g/dL (13.0-16.5); Mean Corp Hgb Conc 29.8 g/dL (32-36); Mean Corpuscular Hgb 22.2 pg (27.0-32.0); Mean Corpuscular Volume 74.6 fL (80-94); Mean Platelet Vol. 10.1 fl (6.2-12.0); Platelet Count 310 K/mm3 (150-450); RBC Distribution Width CV 16.5 % (11.6-14.6); RBC Distribution Width SD 44.5 fl (35.1-43.9); Red Blood Count 5.04 M/mm3 (4.6-6.2); White Blood Count 6.1 K/mm3 (4.4-11.0)
[2024-03-20 09:13] LABS: Scan Indicated on CBC? Y/N NO
[2024-03-20 09:18] LABS: ALB/GLOB Ratio 0.6 RATIO (0.9-2.4); AST(SGOT) 20 U/L (15-37); Alanine Aminotransfer ALT/SGPT 33 U/L (16-61); Albumin, Serum 2.8 g/dL (3.2-5.0); Alkaline Phosphatase 87 U/L (45-117); Anion Gap 6 (5-15); BUN 19 mg/dL (7-18); BUN/Creat Ratio 23.2 RATIO (10-20); Chloride 105 mmol/L (98-107); Creatinine, Serum 0.82 mg/dL (0.70-1.30); EST Glomerular Filtration Rate 106 mL/min (>60); Est Glom Filt Rate - Afr Amer 128 mL/min (>60); Globulin 4.8 g/dL (2.2-4.2); Glucose 103 mg/dL (74-106); Potassium 4.2 mmol/L (3.5-5.1); Protein, Total 7.6 g/dL (6.4-8.2); Sodium Level 136 mmol/L (136-145)
== END | disposition home or self-care (01) ==
LOC: OLS.SANC 05:00
PROVIDERS: PCP Family Medicine; Visit Provider Internal Medicine
DX: I50.9 Heart failure, unspecified (principal); G93.1 Anoxic brain damage, not elsewhere classified
CPT/HCPCS: 36415; 80053; 85027

== ENCOUNTER → 2024-04-03 | Outpatient (REF) | payer MEDICAID, SELFPAY | END | disposition home or self-care (01) | LOC: OLS.SANC 05:00 | PROVIDERS: PCP Family Medicine; Visit Provider Internal Medicine | DX: I50.9 Heart failure, unspecified (principal) | CPT/HCPCS: 87070; 87077; 87186; 87205 ==

== ENCOUNTER → 2024-04-04 | Outpatient (REF) | payer MEDICAID, SELFPAY ==
[2024-04-04 08:27] LABS: Hematocrit 37.8 % (40-54); Hemoglobin 11.4 g/dL (13.0-16.5); Mean Corp Hgb Conc 30.2 g/dL (32-36); Mean Corpuscular Hgb 22.1 pg (27.0-32.0); Mean Corpuscular Volume 73.3 fL (80-94); Mean Platelet Vol. 10.3 fl (6.2-12.0); Platelet Count 262 K/mm3 (150-450); RBC Distribution Width CV 16.6 % (11.6-14.6); RBC Distribution Width SD 43.5 fl (35.1-43.9); Red Blood Count 5.16 M/mm3 (4.6-6.2); White Blood Count 10.7 K/mm3 (4.4-11.0)
[2024-04-04 09:04] LABS: ALB/GLOB Ratio 0.6 RATIO (0.9-2.4); AST(SGOT) 25 U/L (15-37); Alanine Aminotransfer ALT/SGPT 25 U/L (16-61); Albumin, Serum 2.6 g/dL (3.2-5.0); Alkaline Phosphatase 92 U/L (45-117); Anion Gap 4 (5-15); BUN 10 mg/dL (7-18); BUN/Creat Ratio 19.3 RATIO (10-20); Calcium,Total 8.7 mg/dL (8.5-10.1); Chloride 107 mmol/L (98-107); Creatinine, Serum 0.52 mg/dL (0.70-1.30); EST Glomerular Filtration Rate 180 mL/min (>60); Est Glom Filt Rate - Afr Amer 218 mL/min (>60); Globulin 4.7 g/dL (2.2-4.2); Glucose 108 mg/dL (74-106); Potassium 4.6 mmol/L (3.5-5.1); Protein, Total 7.3 g/dL (6.4-8.2); Sodium Level 137 mmol/L (136-145)
== END | disposition home or self-care (01) ==
LOC: OLS.SANC 05:00
PROVIDERS: PCP Family Medicine; Visit Provider Internal Medicine
DX: I50.9 Heart failure, unspecified (principal); B18.2 Chronic viral hepatitis C; I69.952 Hemiplegia and hemiparesis following unspecified cerebrovascular disease affecting left dominant side
CPT/HCPCS: 36415; 80053; 85027; 87040

== ENCOUNTER → 2024-04-08 | Outpatient (REF) | payer MEDICAID, SELFPAY | END | disposition home or self-care (01) | LOC: OLS.SANC 05:00 | PROVIDERS: PCP Family Medicine; Visit Provider Internal Medicine | DX: Z79.899 Other long term (current) drug therapy (principal) | CPT/HCPCS: 36415; 80202 ==

== ENCOUNTER → 2024-04-22 04:00 | Outpatient (REF) | payer MEDICAID, SELFPAY ==
[2024-04-22 08:12] LABS: Hematocrit 38.8 % (40-54); Hemoglobin 11.6 g/dL (13.0-16.5); Mean Corp Hgb Conc 29.9 g/dL (32-36); Mean Corpuscular Hgb 22.1 pg (27.0-32.0); Mean Platelet Vol. 10.3 fl (6.2-12.0); Platelet Count 311 K/mm3 (150-450); RBC Distribution Width CV 17.2 % (11.6-14.6); RBC Distribution Width SD 45.4 fl (35.1-43.9); Red Blood Count 5.24 M/mm3 (4.6-6.2); White Blood Count 7.7 K/mm3 (4.4-11.0)
[2024-04-22 09:31] LABS: ALB/GLOB Ratio 0.6 RATIO (0.9-2.4); AST(SGOT) 14 U/L (15-37); Alanine Aminotransfer ALT/SGPT 25 U/L (16-61); Albumin, Serum 2.7 g/dL (3.2-5.0); Alkaline Phosphatase 105 U/L (45-117); Anion Gap 8 (5-15); BUN 13 mg/dL (7-18); BUN/Creat Ratio 21.4 RATIO (10-20); Chloride 103 mmol/L (98-107); Creatinine, Serum 0.61 mg/dL (0.70-1.30); EST Glomerular Filtration Rate 150 mL/min (>60); Est Glom Filt Rate - Afr Amer 181 mL/min (>60); Globulin 4.6 g/dL (2.2-4.2); Glucose 109 mg/dL (74-106); Potassium 3.7 mmol/L (3.5-5.1); Protein, Total 7.3 g/dL (6.4-8.2); Sodium Level 137 mmol/L (136-145)
== END ==
LOC: OLS.SANC 04:00
PROVIDERS: PCP Family Medicine; Visit Provider Internal Medicine
DX: I50.9 Heart failure, unspecified (principal); I69.952 Hemiplegia and hemiparesis following unspecified cerebrovascular disease affecting left dominant side
CPT/HCPCS: 36415; 80053; 85027

== ENCOUNTER → 2024-05-06 05:00 | Outpatient (REF) | payer MEDICAID, SELFPAY ==
[2024-05-06 10:57] LABS: Mucous, Urine 0 SEEN /hpf (<or=2+); Red Blood Cells-Urine 0 SEEN /hpf (0-5); Squamous Epithelial Cells - UA 0 SEEN /hpf (0-5)
[2024-05-06 10:57] LABS: Hematocrit 40.8 % (40-54); Hemoglobin 12.1 g/dL (13.0-16.5); Mean Corp Hgb Conc 29.7 g/dL (32-36); Mean Corpuscular Hgb 22.4 pg (27.0-32.0); Mean Corpuscular Volume 75.7 fL (80-94); Mean Platelet Vol. 10.6 fl (6.2-12.0); Platelet Count 302 K/mm3 (150-450); RBC Distribution Width CV 18.2 % (11.6-14.6); RBC Distribution Width SD 47.9 fl (35.1-43.9); Red Blood Count 5.39 M/mm3 (4.6-6.2); White Blood Count 6.1 K/mm3 (4.4-11.0)
[2024-05-06 11:03] LABS: Color, Urine Yellow (Yellow); Glucose, Dipstick Normal (Normal); Ketone-Dipstick Negative (Negative); Leukocyte Esterase-Dipstick 500 /ul (Negative); Nitrite-Dipstick Positive (Negative); Occult Blood-Urine Negative /ul (Negative); Protein-Dipstick 15 mg/dl (Negative); Specific Gravity, Urine 1.015 (1.002-1.030); Urine Bilirubin Dipstick Negative (Negative); Urine Clarity Clear (Clear); Urine Urobilinogen Normal (Normal); Urine pH 6.5 (5.0 - 8.0)
[2024-05-06 11:06] LABS: Anion Gap 5 (5-15); BUN 16 mg/dL (7-18); BUN/Creat Ratio 26.5 RATIO (10-20); Calcium,Total 8.9 mg/dL (8.5-10.1); Chloride 103 mmol/L (98-107); EST Glomerular Filtration Rate 150 mL/min (>60); Est Glom Filt Rate - Afr Amer 182 mL/min (>60); Glucose 74 mg/dL (74-106); Potassium 4.5 mmol/L (3.5-5.1); Sodium Level 135 mmol/L (136-145)
[2024-05-06 11:10] LABS: Bacteria 2+ /hpf (None Seen); White Blood Cells 10-25 SEEN /hpf (0-5)
== END ==
LOC: OLS.SANC 05:00
PROVIDERS: PCP Family Medicine; Visit Provider Internal Medicine
DX: I69.952 Hemiplegia and hemiparesis following unspecified cerebrovascular disease affecting left dominant side (principal); J96.20 Acute and chronic respiratory failure, unspecified whether with hypoxia or hypercapnia
CPT/HCPCS: 36415; 80048; 81001; 85027; 87070; 87077; 87086; 87088; 87186; 87205

== ENCOUNTER → 2024-08-06 | Outpatient (REF) | payer MEDICAID, SELFPAY | END | disposition home or self-care (01) | LOC: OLS.SANC 05:00 | PROVIDERS: PCP Family Medicine | DX: E03.9 Hypothyroidism, unspecified (principal) | CPT/HCPCS: 36415; 84443 ==

== ENCOUNTER → 2024-09-16 | Outpatient (REF) | payer MEDICAID, SELFPAY | END | disposition home or self-care (01) | LOC: OLS.SANC 20:30 | PROVIDERS: PCP Family Medicine | DX: R50.9 Fever, unspecified (principal); I50.9 Heart failure, unspecified | CPT/HCPCS: 87070; 87077; 87186; 87205 ==

== ENCOUNTER → 2024-09-25 | Outpatient (REF) | payer MEDICAID, SELFPAY ==
[2024-09-25 07:18] LABS: Hematocrit 39.7 % (40-54); Mean Corp Hgb Conc 30.2 g/dL (32-36); Mean Corpuscular Hgb 23.5 pg (27.0-32.0); Mean Corpuscular Volume 77.8 fL (80-94); Platelet Count 274 K/mm3 (150-450); White Blood Count 6.5 K/mm3 (4.4-11.0)
[2024-09-25 07:26] LABS: Anion Gap 7 (5-15); BUN 16 mg/dL (7-18); BUN/Creat Ratio 28.7 RATIO (10-20); Calcium,Total 8.8 mg/dL (8.5-10.1); Chloride 106 mmol/L (98-107); Creatinine, Serum 0.56 mg/dL (0.70-1.30); EST Glomerular Filtration Rate 165 mL/min (>60); Est Glom Filt Rate - Afr Amer 199 mL/min (>60); Glucose 109 mg/dL (74-106); Potassium 4.1 mmol/L (3.5-5.1); Sodium Level 137 mmol/L (136-145)
== END | disposition home or self-care (01) ==
LOC: OLS.SANC 05:00
PROVIDERS: PCP Family Medicine; Visit Provider Internal Medicine
DX: I50.9 Heart failure, unspecified (principal); N18.2 Chronic kidney disease, stage 2 (mild); F44.5 Conversion disorder with seizures or convulsions; Z79.899 Other long term (current) drug therapy
CPT/HCPCS: 36415; 80048; 85027

== ENCOUNTER → 2024-10-11 | Outpatient (REF) | payer MEDICAID, SELFPAY | END | disposition home or self-care (01) | LOC: OLS.SANC 05:00 | PROVIDERS: PCP Family Medicine | DX: I50.9 Heart failure, unspecified (principal); I63.239 Cerebral infarction due to unspecified occlusion or stenosis of unspecified carotid artery | CPT/HCPCS: 87070; 87077; 87186; 87205 ==

== ENCOUNTER → 2024-10-16 | Outpatient (REF) | payer MEDICAID, SELFPAY ==
[2024-10-16 09:05] LABS: Hematocrit 39.7 % (40-54); Hemoglobin 11.8 g/dL (13.0-16.5); Mean Corp Hgb Conc 29.7 g/dL (32-36); Mean Corpuscular Hgb 24.3 pg (27.0-32.0); Mean Corpuscular Volume 81.9 fL (80-94); Mean Platelet Vol. 10.6 fl (6.2-12.0); Platelet Count 218 K/mm3 (150-450); RBC Distribution Width CV 17.8 % (11.6-14.6); RBC Distribution Width SD 52.9 fl (35.1-43.9); Red Blood Count 4.85 M/mm3 (4.6-6.2); White Blood Count 9.7 K/mm3 (4.4-11.0)
[2024-10-16 10:17] LABS: Anion Gap 3 (5-15); BUN 15 mg/dL (7-18); BUN/Creat Ratio 22.4 RATIO (10-20); Calcium,Total 8.3 mg/dL (8.5-10.1); Chloride 119 mmol/L (98-107); Creatinine, Serum 0.67 mg/dL (0.70-1.30); EST Glomerular Filtration Rate 133 mL/min (>60); Est Glom Filt Rate - Afr Amer 161 mL/min (>60); Glucose 101 mg/dL (74-106); Potassium 3.5 mmol/L (3.5-5.1); Sodium Level 147 mmol/L (136-145)
== END | disposition home or self-care (01) ==
LOC: OLS.SANC 05:00
PROVIDERS: PCP Family Medicine
DX: I50.9 Heart failure, unspecified (principal); G93.40 Encephalopathy, unspecified
CPT/HCPCS: 36415; 80048; 85027

== ENCOUNTER → 2025-01-08 | Outpatient (REF) | payer MEDICAID, SELFPAY ==
[2025-01-11 13:08] LABS: KEPPRA (LEVETIRACETAM) 20.9 ug/mL (10.0-40.0)
== END | disposition home or self-care (01) ==
LOC: OLS.SANC 05:00
PROVIDERS: PCP Family Medicine; Visit Provider Internal Medicine
DX: Z79.899 Other long term (current) drug therapy (principal)
CPT/HCPCS: 36415; 80177

== ENCOUNTER → 2025-02-24 | Outpatient (REF) | payer MEDICAID, SELFPAY | END | disposition home or self-care (01) | LOC: OLS.SANC 11:01 | PROVIDERS: PCP Family Medicine | DX: Z99.11 Dependence on respirator [ventilator] status (principal) | CPT/HCPCS: 87070; 87077; 87186; 87205 ==

== ENCOUNTER → 2025-05-23 | Outpatient (REF) | payer MEDICAID, SELFPAY ==
[2025-05-23 07:51] LABS: Hematocrit 43.1 % (40-54); Hemoglobin 14.3 g/dL (13.0-16.5); Immature Granulocytes Count 0.010 X10^3/uL (0.0-0.0); Mean Corp Hgb Conc 33.2 g/dL (32-36); Mean Corpuscular Volume 83.4 fL (80-94); Mean Platelet Vol. 11.2 fl (6.2-12.0); NRBC Flagged by Analyzer 0 % (0-5); Platelet Count 166 K/mm3 (150-450); RBC Distribution Width CV 18.5 % (11.6-14.6); RBC Distribution Width SD 55.8 fl (35.1-43.9); Red Blood Count 5.17 M/mm3 (4.6-6.2); White Blood Count 6.4 K/mm3 (4.4-11.0)
[2025-05-23 08:33] LABS: Anion Gap 10 (5-15); BUN 15 mg/dL (4-19); BUN/Creat Ratio 23.9 RATIO (10-20); Calcium,Total 8.4 mg/dL (7.6-11.0); Carbon Dioxide 24.2 mmol/L (21.0-32.0); Chloride 105 mmol/L (98-108); Glucose 94 mg/dL (70-99); Potassium 3.7 mmol/L (3.3-5.1)
== END | disposition home or self-care (01) ==
LOC: OLS.SANC 05:00
PROVIDERS: PCP Family Medicine; Visit Provider Internal Medicine
DX: J96.20 Acute and chronic respiratory failure, unspecified whether with hypoxia or hypercapnia (principal); I50.9 Heart failure, unspecified
CPT/HCPCS: 36415; 80048; 85025